=== PATIENT | female | born 1930 | race American Indian/Alaskan Native ===

== ENCOUNTER 2016-10-14 11:56 | Emergency (ER) | payer MEDICARE, BC ==
[2016-10-14 12:14] VITALS: BMI 19.7
[2016-10-14 12:18] VITALS: TEMP 97.6
[2016-10-14] MEDS ORDERED: Sodium Chloride 0.9% 1,000 ML IV STA (12:33)
--- NOTE | 2016-10-14 12:42 | ED PDOC ---
Arrival/HPI - General Chief Complaint: Abdominal Pain Time Seen by Provider: 10/14/16 12:07 Historian: Patient - History of Present Illness Narrative History of Present Illness (Text): 10/14/16 12:38 Aby Alvarez is a 86 year old female, with a history of dementia, hypertension , breast CA, and hysterectomy, presents to the emergency room complaining of constipation associated with intermittent abdominal pain of past week. Last bowel movement was a week ago. Patient is not on any new pain medications. Patient states that she took OTC stool softeners for minimal relief. Currently in the emergency department, patient is drowsy, weak and not oriented to time. Son states dementia at baseline. Denies fever, chills, headache, dizziness, chest pain, shortness of breath, nausea, vomiting, diarrhea, urinary symptoms, or any other complaints at this time. Time/Duration: 1 week Symptom Onset: Gradual Symptom Course: Unchanged Severity Level: Mild Activities at Onset: Light Past Medical History - Provider Review Nursing Documentation Reviewed: Yes - Infectious Disease Hx of Infectious Diseases: None - Cardiac Hx Cardiac Disorders: Yes Hx Hypertension: Yes - Pulmonary Hx Respiratory Disorders: No - Neurological Hx Neurological Disorder: Yes Hx Dementia: Yes - HEENT Hx HEENT Disorder: No - Renal Hx Renal Disorder: No - Endocrine/Metabolic Hx Endocrine Disorders: No - Hematological/Oncological Hx Blood Disorders: No - Integumentary Hx Dermatological Disorder: No - Musculoskeletal/Rheumatological Hx Musculoskeletal Disorders: Yes Hx Falls: Yes - Gastrointestinal Hx Gastrointestinal Disorders: No - Genitourinary/Gynecological Hx Genitourinary Disorders: No - Psychiatric Hx Psychophysiologic Disorder: No Hx Depression: No Hx Emotional Abuse: No Hx Physical Abuse: No Hx Substance Use: No - Surgical History Hx Hysterectomy: Yes Other/Comment: Left mastectomy - Anesthesia Hx Anesthesia: Yes - Suicidal Assessment Feels Threatened In Home Enviroment: No Family/Social History - Physician Review Nursing Documentation Reviewed: Yes Family/Social History: No Known Family HX Smoking Status: Never Smoked Hx Alcohol Use: No Hx Substance Use: No Allergies/Home Meds Allergies/Adverse Reactions: Allergies [place] And Derivatives Allergy (Verified 10/14/16 12:14) ITCHING Home Medications: Home Meds Medication Instructions Recorded Confirmed Donepezil [Aricept] 5 mg PO DAILY 08/15/16 08/15/16 Nifedipine [Nifedipine ER] 90 mg PO DAILY 08/15/16 08/15/16 Potassium Chloride [Klor-Con 10] 10 meq PO DAILY 08/15/16 08/15/16 hydroCHLOROthiazide [Hydrodiuril] 25 mg PO DAILY 08/15/16 08/15/16 levETIRAcetam [Keppra] 500 mg PO BID 08/17/16 08/17/16 Review of Systems - Physician Review All systems were reviewed & negative as marked: Yes - Review of Systems Constitutional: Normal. absent: Fatigue, Fevers Respiratory: Normal. absent: SOB, Cough Cardiovascular: Normal. absent: Chest Pain Gastrointestinal: Abdominal Pain, Constipation. absent: Diarrhea, Nausea, Vomiting Neurological: Normal. absent: Headache, Dizziness Psychiatric: Normal Physical Exam - Physical Exam Narrative Physical Exam (Text): Constitutional: No acute distress. Head: Normocephalic. Atraumatic. Eyes: PERRL. ENT: Moist mucous membranes. Neck: Supple. Cardiovascular: Regular rate. Chest: No tenderness. Respiratory: Clear to auscultation bilaterally. GI: Soft. Nondistended. Mild diffuse abdominal tenderness Back: No CVA tenderness. Musculoskeletal: No tenderness or swelling of extremities. Skin: No rash. Neurologic: Alert, no focal deficit. Vital Signs Reviewed: Yes Vital Signs Temp Pulse Resp BP Pulse Ox 10/14/16 14:46 77 18 155/69 H 98 10/14/16 13:41 62 15 166/62 H 100 10/14/16 12:14 97.6 F 68 15 134/67 100 Temperature: Afebrile Blood Pressure: Normal Pulse: Regular Respiratory Rate: Normal Appearance: Positive for: Well-Appearing, Non-Toxic, Comfortable Pain Distress: None Mental Status: Positive for: other (Alert, not oriented to time. ) Medical Decision Making ED Course and Treatment: 10/14/16 12:45 Impression: A 86 year old female presenting to emergency room for evaluation of 1 week duration of constipation. Plan: -- EKG -- CT abdomen pelvis -- IV fluids -- Urinalysis -- Reassess and disposition Progress Notes: Accession No. : [id number] Patient Name / ID : GIFTY FITZGERALD / [id number] Exam Date : 10/14/2016 12:55:15 ( Approved ) Study Comment : Sex / Age : F / 86Y Creator : Justen Zafar MD Dictator : Justen Zafar MD Marketing Director Assisted Living : [facility] Artist : Justen Zafar MD Approver2 : Report Date : 10/14/2016 14:24:25 My Comment : PROCEDURE: CT Abdomen and pelvis dated 10/14/2016 HISTORY: abdominal pain, constipation COMPARISON: Comparison made with CT scan of the abdomen and pelvis 09/10/2016 TECHNIQUE: Contiguous axial images of the abdomen and pelvis performed without oral or intravenous contrast material. . Coronal and Sagittal reformats generated. Radiation dose: Total exam DLP = 159.49 mGy-cm. FINDINGS: LOWER THORAX: Elevation left hemidiaphragm consistent with eventration. minor bibasilar atelectasis/ scarring changes are present. No evidence of basilar pneumothorax. . Heart size is enlarged. Small pericardial effusion. There is small hiatal hernia. LIVER: The liver exhibits normal size and attenuation pattern without obvious mass collection or calcification. Pancreas is poorly seen due to markedly distended stool-filled large bowel and lack of oral an IV contrast material as well as paucity of retroperitoneal/intraperitoneal fat. GALLBLADDER AND BILE DUCTS: Unremarkable. Gallbladder is physiologically distended. No evidence of intraluminal gallbladder calculi. PANCREAS: The the pancreas is poorly seen due to markedly distended bowel, lack of oral/ IV contrast material and a paucity of retroperitoneal/intraperitoneal fat. No obvious pancreatic mass, collection, calcification or significant ductal dilatation seen. SPLEEN: Spleen exhibits normal size though does appears somewhat medially displaced by the significantly distended stool filled large bowel ADRENALS: Right adrenal gland appears grossly unremarkable. Left adrenal gland is poorly delineated due to the medially displaced spleen and at distended bowel. KIDNEYS AND URETERS: The kidneys exhibit relatively symmetric size. No evidence of nephrolithiasis or hydronephrosis. . BLADDER: Urinary bladder is physiologically distended. No evidence of intraluminal urinary bladder calculi. REPRODUCTIVE: Apparent status post hysterectomy APPENDIX: Appendix is not seen with any certainty due to markedly distended stool-filled colon. BOWEL: There is a very large amount of stool throughout the entire colon consistent with fecal impaction. Particularly the rectum and sigmoid as well as descending colon. The distal transverse colon is markedly air-filled and distended. PERITONEUM: No gross free intraperitoneal air questionable small amount of pelvic ascites. Re- demonstrated is a rounded calcification adjacent to to the anterior margin of the lower psoas muscle unchanged from prior study. This could represent a calcified lymph node. LYMPH NODES: Unremarkable. No enlarged lymph nodes. VASCULATURE: Calcified atherosclerotic plaque changes along the abdominal aorta and iliac arteries. No evidence of abdominal aortic aneurysm. BONES: No multilevel degenerative spondylosis of the lower thoracic and lumbar spine. OTHER FINDINGS: None. IMPRESSION: Limited study as described. Findings consistent with significant fecal impaction with marked air-filled distention of the distal transverse colon. Questionable small amount of pericolic ascites. Small pericardial effusion. See above discussion for additional findings and details. Patient in no acute distress during ER stay. Enema unsuccessful but did take PO potassium well. Manual disimpaction attempted but patient did not tolerate well and aborted. Stool in rectum was soft. Will discharge home on Magnesium citrate and instructed to f/u with GI. Return to ER for worsening pain, fever, vomiting , or dyspnea. - Lab Interpretations Lab Results: 10/14/16 12:45 10/14/16 12:45 Lab Results 10/14/16 13:50: Urine Color Yellow, Urine Appearance Clear, Urine pH 6.5, Ur Specific [place] 1.010, Urine Protein Negative, Urine Glucose (UA) Negative, Urine Ketones Negative, Urine Blood Negative, Urine Nitrate Negative, Urine Bilirubin Negative, Urine Urobilinogen 0.2, Ur Leukocyte Esterase Trace H, Urine RBC Negative, Urine WBC 0 - 2, Urine Opiates Screen Negative, Urine Methadone Screen Negative, Ur Barbiturates Screen Negative, Ur Phencyclidine Scrn Negative, Ur Amphetamines Screen Negative, U Benzodiazepines Scrn Negative , U Oth Cocaine Metabols Negative, U Cannabinoids Screen Negative 10/14/16 12:45: WBC 4.8, RBC 3.90, Hgb 12.0, Hct 34.4 L, MCV 88.2, MCH 30.8, MCHC 34.9, RDW 13.5, Plt Count 230, MPV 8.9, Gran % 48.5 L, Lymph % (Auto) 37.0 H, [place] % (Auto) 9.0 H, Eos % (Auto) 5.3 H, Baso % (Auto) 0.2, Gran # 2.31, Lymph # 1.8, [place] # 0.4, Eos # 0.3, Baso # 0.01, Sodium 137, Potassium 3.0 L, Chloride 99, Carbon Dioxide 28, Anion Gap 13, BUN 10, Creatinine 0.6, Est GFR ( Amer) > 60, Est GFR (Non-Af Amer) > 60, Random Glucose 72, Calcium 9.5, Total Bilirubin 0.4, AST 30, ALT 18, Alkaline Phosphatase 68, Total Protein 7.7 , Albumin 3.9, Globulin 3.8, Albumin/Globulin Ratio 1.0 L, Lipase 66 - RAD Interpretation Radiology Orders: 10/14/16 12:33 ABD & PELVIS W/O PO OR IV CONT [CT] Stat - Medication Orders Current Medication Orders: Sodium Chloride (Sodium Chloride 0.9%) 1,000 mls @ 100 mls/hr IV .Q10H STA Stop: 10/14/16 22:32 Last Admin: 10/14/16 13:25 Dose: 100 MLS/HR eMAR Start Stop Document 10/14/16 13:25 EAR (Rec: 10/14/16 13:26 EAR [facility] [id number] Intravenous Solution Start Date 10/14/16 Start Time 13:26 End Date 10/14/16 End time 14:26 Total Infusion Time 60 Discontinued Medications Potassium Chloride (K-Dur 20 Meq Er Tab) 40 meq PO STAT STA Stop: 10/14/16 14:44 Last Admin: 10/14/16 16:02 Dose: 40 MEQ Sodium Phosphate (Fleet Enema) 135 ml RC STAT STA Stop: 10/14/16 14:43 Last Admin: 10/14/16 16:26 Dose: - Scribe Statement The provider has reviewed the documentation as recorded by the Roxanna Mcnair Provider Attestation: All medical record entries made by the Monaibtemi were at my direction and personally dictated by me. I have reviewed the chart and agree that the record accurately reflects my personal performance of the history, physical exam, medical decision making, and the department course for this patient. I have also personally directed, reviewed, and agree with the discharge instructions and disposition. Disposition/Present on Arrival - Present on Arrival Any Indicators Present on Arrival: No History of DVT/PE: No History of Uncontrolled Diabetes: No Urinary Catheter: No History of Decub. Ulcer: No History Surgical Site Infection Following: None - Disposition Have Diagnosis and Disposition been Completed?: Yes Diagnosis: Constipation Disposition: HOME/ ROUTINE Disposition Time: 14:24 Patient Plan: Discharge Patient Problems: Current Active Problems Problem Status Diagnosed Chest pain Acute Skull deformity Acute Syncope Acute Condition: STABLE Discharge Instructions (ExitCare): Constipation (ED) Prescriptions: Magnesium Citrate [Citrate of Mag] 300 ml PO ONCE #1 bottle Referrals: Sheri MCBRIDE,MD Jhon [Medical Doctor] - Follow up with primary
[2016-10-14 12:56] LABS: ADD MANUAL DIFF? NO
[2016-10-14 12:58] LABS: BASO # 0.01 K/mm3 (0.0-2.0); BASO % 0.2 % (0.0-3.0); EOS # 0.3 (0.0-0.7); EOS % 5.3 % (1.5-5.0); GRAN # 2.31 (1.4-6.5); GRAN % 48.5 % (50.0-68.0); HEMATOCRIT 34.4 % (36.0-48.0); LYMPH # 1.8 (1.2-3.4); MEAN CELL VOLUME 88.2 fL (80.0-105.0); MEAN CORPUSCULAR HEMOGLOBIN 30.8 pg (25.0-35.0); MEAN CORPUSCULAR HGB CONC 34.9 g/dl (31.0-37.0); MEAN PLATELET VOLUME 8.9 fl (7.0-11.0); MONO # 0.4 (0.1-0.6); PLATELET COUNT 230 10^3/uL (120.0-450.0); RED CELL DISTRIBUTION WIDTH 13.5 % (11.5-14.5); WHITE BLOOD COUNT 4.8 10^3/ul (4.5-11.0)
[2016-10-14 13:09] LABS: ALKALINE PHOSPHATASE 68 U/L (38-133); ALT/SGPT 18 U/L (7-56); AST/SGOT 30 U/L (15-39); BILIRUBIN,TOTAL 0.4 mg/dL (0.2-1.3); BLOOD UREA NITROGEN 10 mg/dL (7-21); CALCIUM 9.5 mg/dL (8.4-10.5); CARBON DIOXIDE 28 mmol/L (21-33); CHLORIDE 99 mmol/L (95-110); GFR AFRICAN-AMERICAN > 60; GLUCOSE,RANDOM 72 mg/dL (70-110); LIPASE 66 U/L (23-300); SODIUM 137 mmol/L (132-148); TOTAL PROTEIN 7.7 g/dL (5.8-8.3)
[2016-10-14 14:05] LABS: PH,URINE 6.5 (4.7-8.0); URINE BILIRUBIN NEGATIVE (NEGATIVE); URINE BLOOD NEGATIVE (NEGATIVE); URINE GLUCOSE (UA) NEGATIVE (NEGATIVE); URINE KETONE NEGATIVE (NEGATIVE); URINE LEUKOCYTE ESTERASE TRACE Leu/uL (NEGATIVE); URINE PROTEIN NEGATIVE mg/dL (<30 mg/dL); URINE UROBILINOGEN 0.2 E.U./dL (<1 E.U./dL)
[2016-10-14 14:06] LABS: URINE APPEARANCE CLEAR (CLEAR); URINE COLOR YELLOW (YELLOW)
[2016-10-14 14:17] LABS: URINE RBC NEGATIVE /hpf (0-2); URINE WBC 0 - 2 /hpf (0-6)
--- NOTE | 2016-10-14 14:26 | CT ---
PROCEDURE: CT Abdomen and pelvis dated 10/14/2016 HISTORY: abdominal pain, constipation COMPARISON: Comparison made with CT scan of the abdomen and pelvis 09/10/2016 TECHNIQUE: Contiguous axial images of the abdomen and pelvis performed without oral or intravenous contrast material. . Coronal and Sagittal reformats generated. Radiation dose: Total exam DLP = 159.49 mGy-cm. FINDINGS: LOWER THORAX: Elevation left hemidiaphragm consistent with eventration. minor bibasilar atelectasis/ scarring changes are present. No evidence of basilar pneumothorax. . Heart size is enlarged. Small pericardial effusion. There is small hiatal hernia. LIVER: The liver exhibits normal size and attenuation pattern without obvious mass collection or calcification. Pancreas is poorly seen due to markedly distended stool-filled large bowel and lack of oral an IV contrast material as well as paucity of retroperitoneal/intraperitoneal fat. GALLBLADDER AND BILE DUCTS: Unremarkable. Gallbladder is physiologically distended. No evidence of intraluminal gallbladder calculi. PANCREAS: The the pancreas is poorly seen due to markedly distended bowel, lack of oral/ IV contrast material and a paucity of retroperitoneal/intraperitoneal fat. No obvious pancreatic mass, collection, calcification or significant ductal dilatation seen. SPLEEN: Spleen exhibits normal size though does appears somewhat medially displaced by the significantly distended stool filled large bowel ADRENALS: Right adrenal gland appears grossly unremarkable. Left adrenal gland is poorly delineated due to the medially displaced spleen and at distended bowel. KIDNEYS AND URETERS: The kidneys exhibit relatively symmetric size. No evidence of nephrolithiasis or hydronephrosis. . BLADDER: Urinary bladder is physiologically distended. No evidence of intraluminal urinary bladder calculi. REPRODUCTIVE: Apparent status post hysterectomy APPENDIX: Appendix is not seen with any certainty due to markedly distended stool-filled colon. BOWEL: There is a very large amount of stool throughout the entire colon consistent with fecal impaction. Particularly the rectum and sigmoid as well as descending colon. The distal transverse colon is markedly air-filled and distended. PERITONEUM: No gross free intraperitoneal air questionable small amount of pelvic ascites. Re- demonstrated is a rounded calcification adjacent to to the anterior margin of the lower psoas muscle unchanged from prior study. This could represent a calcified lymph node. LYMPH NODES: Unremarkable. No enlarged lymph nodes. VASCULATURE: Calcified atherosclerotic plaque changes along the abdominal aorta and iliac arteries. No evidence of abdominal aortic aneurysm. BONES: No multilevel degenerative spondylosis of the lower thoracic and lumbar spine. OTHER FINDINGS: None. IMPRESSION: Limited study as described. Findings consistent with significant fecal impaction with marked air-filled distention of the distal transverse colon. Questionable small amount of pericolic ascites. Small pericardial effusion. See above discussion for additional findings and details.
[2016-10-14] MEDS ORDERED: Potassium Chloride 20 mEq ER Tab PO STA (14:43)
[2016-10-14 18:11] VITALS: BP 156/76; PULSE 57; RESP 15; O2SAT 100
== END 2016-10-14 18:22 | disposition home or self-care (01) ==
LOC: ED 11:56
DX: K59.00 Constipation, unspecified (principal); I10 Essential (primary) hypertension
CPT/HCPCS: 74176; 80053; 81001; 83690; 85025; 96360; 99285; G0480; J7040

== ENCOUNTER 2016-10-25 13:25 | Observation (INO) | payer BC, MEDICARE ==
[2016-10-25] MEDS ORDERED: Sodium Chloride 0.9% 1,000 ML IV STA (13:48)
--- NOTE | 2016-10-25 13:52 | ED PDOC ---
Arrival/HPI - General Chief Complaint: Weakness/Neurological Deficit Time Seen by Provider: 10/25/16 13:34 Historian: Patient, Other (friend from [facility]) - History of Present Illness Narrative History of Present Illness (Text): 10/25/16 13:49 86 y.o. female whose PMHx includes HTN, seizures, and mild dementia who is brought to the ED for altered mental status. According to a friend, who was with her at [facility], the patient got up to go to the bathroom and appeared to be unsteady. She did manage to urinate and return. From there the patient recalls feeling as if she was about to pass out, but does not recall what happened. Her friend says she did not appear to fully pass out but appeared weak and seemed confused. No seizure activity or focal weakness was noted. The patient here denies any headache or visual changes or cp or sob but admits to generalized body aches and dysuria. No fever but some chills. Past Medical History - Infectious Disease Hx of Infectious Diseases: None - Reproductive Menopause: Yes - Cardiac Hx Cardiac Disorders: Yes Hx Hypertension: Yes - Pulmonary Hx Respiratory Disorders: No - Neurological Hx Neurological Disorder: Yes Hx Dementia: Yes - HEENT Hx HEENT Disorder: No - Renal Hx Renal Disorder: No - Endocrine/Metabolic Hx Endocrine Disorders: No - Hematological/Oncological Hx Blood Disorders: No - Integumentary Hx Dermatological Disorder: No - Musculoskeletal/Rheumatological Hx Musculoskeletal Disorders: Yes Hx Falls: Yes - Gastrointestinal Hx Gastrointestinal Disorders: No - Genitourinary/Gynecological Hx Genitourinary Disorders: No - Psychiatric Hx Psychophysiologic Disorder: No Hx Depression: No Hx Emotional Abuse: No Hx Physical Abuse: No Hx Substance Use: No - Surgical History Hx Hysterectomy: Yes Other/Comment: Left mastectomy - Anesthesia Hx Anesthesia: Yes - Suicidal Assessment Feels Threatened In Home Enviroment: No Family/Social History Family/Social History: No Known Family HX Smoking Status: Never Smoked Hx Alcohol Use: No Hx Substance Use: No Allergies/Home Meds Allergies/Adverse Reactions: Allergies [place] And Derivatives Allergy (Verified 10/14/16 12:14) ITCHING Home Medications: Home Meds Medication Instructions Recorded Confirmed Donepezil [Aricept] 5 mg PO DAILY 08/15/16 08/15/16 Nifedipine [Nifedipine ER] 90 mg PO DAILY 08/15/16 08/15/16 Potassium Chloride [Klor-Con 10] 10 meq PO DAILY 08/15/16 08/15/16 hydroCHLOROthiazide [Hydrodiuril] 25 mg PO DAILY 08/15/16 08/15/16 levETIRAcetam [Keppra] 500 mg PO BID 08/17/16 08/17/16 Review of Systems - Review of Systems Constitutional: Fatigue Eyes: absent: Vision Changes ENT: Normal Respiratory: Normal. absent: SOB, Cough Cardiovascular: Normal. absent: Chest Pain Gastrointestinal: Normal. absent: Abdominal Pain, Nausea, Vomiting Genitourinary Female: Dysuria Musculoskeletal: Myalgias Skin: absent: Rash Neurological: Dizziness. absent: Headache, Focal Weakness Endocrine: absent: Diaphoresis Physical Exam Vital Signs Temp Pulse Resp BP Pulse Ox 10/25/16 15:26 97.1 F L 64 18 173/71 H 100 10/25/16 13:36 98.0 F 60 18 166/73 H 100 Temperature: Afebrile Blood Pressure: Normal Pulse: Regular Respiratory Rate: Normal Appearance: Positive for: Other (cachectic elderly black female) Pain Distress: None Mental Status: Positive for: Confused (oriented to person, place, but not to time) Finger Stick Blood Glucose: 88 - Systems Exam Head: Present: Atraumatic, Normocephalic Pupils: Present: PERRL Extroacular Muscles: Present: EOMI Conjunctiva: Present: Normal Mouth: Present: Moist Mucous Membranes Pharnyx: Present: Normal. No: ERYTHEMA, EXUDATE Neck: Present: Normal Range of Motion Respiratory/Chest: Present: Clear to Auscultation, Good Air Exchange. No: Respiratory Distress, Accessory Muscle Use Cardiovascular: Present: Regular Rate and Rhythm, Normal S1, S2. No: Murmurs Abdomen: Present: Normal Bowel Sounds. No: Tenderness, Distention, Peritoneal Signs Back: Present: Normal Inspection Upper Extremity: Present: Normal Inspection. No: Cyanosis, Edema Lower Extremity: Present: Normal Inspection. No: Edema Neurological: Present: GCS=15, CN II-XII Intact, Speech Normal Skin: Present: Warm, Dry, Normal Color. No: Rashes Psychiatric: Present: Alert, Oriented x 3, Normal Insight, Normal Concentration Medical Decision Making ED Course and Treatment: 10/25/16 17:15 Patient here with near syncope and confusion but no focal weakness. EKG with more pronounced T wave inversions but otherwise labs, CXR, and brain CT were unremarkable. Patient given IVF and reports feeling better. Will place on observation on tele for further eval and workup. Patient with NIHSS of zero, on presentation, not a tpa candidate. - Lab Interpretations Lab Results: 10/25/16 14:00 10/25/16 14:00 Lab Results 10/25/16 14:15: Urine Color Straw, Urine Appearance Clear, Urine pH 6.5, Ur Specific [place] <= 1.005, Urine Protein Negative, Urine Glucose (UA) Negative, Urine Ketones Negative, Urine Blood Negative, Urine Nitrate Negative, Urine Bilirubin Negative, Urine Urobilinogen 0.2, Ur Leukocyte Esterase Trace H, Urine RBC Negative, Urine WBC 0 - 2, Ur Epithelial Cells 0 - 2, Urine Bacteria Neg 10/25/16 14:00: WBC 5.8 D, RBC 4.21, Hgb 12.9, Hct 37.1, MCV 88.1, MCH 30.6, MCHC 34.8, RDW 13.4, Plt Count 249, MPV 9.5, Gran % 48.0 L, Lymph % (Auto) 40.1 H, [place] % (Auto) 7.8 H, Eos % (Auto) 3.8, Baso % (Auto) 0.3, Gran # 2.78, Lymph # 2.3, [place] # 0.5, Eos # 0.2, Baso # 0.02, ESR 35 H, PT 11.3, INR 1.05, APTT 29.8, pO2 50, VBG pH 7.46 H, VBG pCO2 39.0 L, VBG HCO3 27.7, VBG Total CO2 28.9 H, VBG O2 Sat (Calc) 88.8 H, VBG Base Excess 3.7 H, VBG Potassium 3.0 L, Glucose 79, Lactate 1.5, FiO2 21.0, Sodium 138.0, Potassium 3.0 L, Chloride 103.0, Carbon Dioxide 27, Anion Gap 13, BUN 11, Creatinine 0.7, Est GFR ( Amer) > 60, Est GFR (Non-Af Amer) > 60, Random Glucose 80, Calcium 9.9, Phosphorus 2.8, Magnesium 1.9, Total Bilirubin 0.6, AST 33, ALT 20, Alkaline Phosphatase 87, Lactate Dehydrogenase 611, Total Creatine Kinase 80, Troponin I < 0.01 D, NT-Pro-B Natriuret Pep 359, Total Protein 8.3, Albumin 4.3, Globulin 4.0, Albumin/Globulin Ratio 1.1, Lipase 146, Venous Blood Potassium 3.0 L - RAD Interpretation Radiology Orders: 10/25/16 13:46 CHEST PORTABLE [RAD] Stat 10/25/16 13:48 Brain [HEAD W/O CONTRAST] [CT] Stat - EKG Interpretation EKG Interpretation (Text): 10/25/16 13:53 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, LAD with LAFB with marked T wave inversions inferolaterally that were present but more pronounced than EKG of Interpreted by ED Physician: Yes Type: 12 lead EKG - Medication Orders Current Medication Orders: Discontinued Medications Sodium Chloride (Sodium Chloride 0.9%) 1,000 mls @ 999 mls/hr IV .Q1H1M STA Stop: 10/25/16 14:48 Last Admin: 10/25/16 13:49 Dose: 999 MLS/HR eMAR Start Stop Document 10/25/16 13:49 KIRAN (Rec: 10/25/16 13:50 KIRAN [id number]) Intravenous Solution Start Date 10/25/16 Start Time 13:49 End Date 10/25/16 End time 14:49 Total Infusion Time 60 Potassium Chloride (Potassium Chloride Oral Soln) 40 meq PO STAT STA Stop: 10/25/16 15:28 Last Admin: 10/25/16 16:05 Dose: 40 MEQ NIHSS Scale ([place]) Time Performed: 13:35 - How Severe is the [place] Baseline Level of Consciousness: 0=Alert LOC to Questions: 0=Both comments correct LOC to commands: 0=Obeys both correctly Best Gaze: 0=Normal Visual: 0=No visual loss Facial: 0=Normal Motor Arm - Left: 0=No drift Motor Arm - Right: 0=No drift Motor Leg - Left: 0=No drift Motor Leg - Right: 0=No drift Limb Ataxia: 0=Absent Sensory: 0=Normal Best Language: 0=No aphasia Dysarthia: 0=Normal articulation Extinction & Inattention (Neglect): 0=Normal, no object Score: 0 Risk Level: No Stroke Risk Disposition/Present on Arrival - Present on Arrival Any Indicators Present on Arrival: No History of DVT/PE: No History of Uncontrolled Diabetes: No Urinary Catheter: No History of Decub. Ulcer: No History Surgical Site Infection Following: None - Disposition Have Diagnosis and Disposition been Completed?: Yes Diagnosis: Altered mental status, Pre-syncope Disposition: HOSPITALIZED Disposition Time: 17:00 Patient Plan: Observation, Telemetry Patient Problems: Current Active Problems Problem Status Diagnosed Chest pain Acute Skull deformity Acute Syncope Acute Condition: FAIR
[2016-10-25 14:02] LABS: ADD MANUAL DIFF? NO
[2016-10-25 14:09] LABS: VENOUS BLOOD GAS BASE EXCESS 3.7 mmol/L (0.0-2.0); VENOUS BLOOD PH 7.46 (7.32-7.43)
[2016-10-25 14:19] LABS: BASO # 0.02 K/mm3 (0.0-2.0); BASO % 0.3 % (0.0-3.0); EOS # 0.2 (0.0-0.7); EOS % 3.8 % (1.5-5.0); GRAN # 2.78 (1.4-6.5); HEMATOCRIT 37.1 % (36.0-48.0); LYMPH # 2.3 (1.2-3.4); LYMPH % 40.1 % (22.0-35.0); MEAN CELL VOLUME 88.1 fL (80.0-105.0); MEAN CORPUSCULAR HEMOGLOBIN 30.6 pg (25.0-35.0); MEAN CORPUSCULAR HGB CONC 34.8 g/dl (31.0-37.0); MEAN PLATELET VOLUME 9.5 fl (7.0-11.0); MONO # 0.5 (0.1-0.6); MONO % 7.8 % (1.0-6.0); PLATELET COUNT 249 10^3/uL (120.0-450.0); RED CELL DISTRIBUTION WIDTH 13.4 % (11.5-14.5); WHITE BLOOD COUNT 5.8 10^3/ul (4.5-11.0)
[2016-10-25 14:24] LABS: PH,URINE 6.5 (4.7-8.0); URINE BILIRUBIN NEGATIVE (NEGATIVE); URINE BLOOD NEGATIVE (NEGATIVE); URINE GLUCOSE (UA) NEGATIVE (NEGATIVE); URINE KETONE NEGATIVE (NEGATIVE); URINE LEUKOCYTE ESTERASE TRACE Leu/uL (NEGATIVE); URINE PROTEIN NEGATIVE mg/dL (<30 mg/dL); URINE UROBILINOGEN 0.2 E.U./dL (<1 E.U./dL)
[2016-10-25 14:28] LABS: URINE APPEARANCE CLEAR (CLEAR); URINE COLOR STRAW (YELLOW)
[2016-10-25 14:29] LABS: INR 1.05 (0.93-1.08); PARTIAL THROMBOPLASTIN TIME 29.8 Seconds (23.7-30.8)
[2016-10-25 14:34] LABS: ALB/GLOB RATIO 1.1 (1.1-1.8); ALKALINE PHOSPHATASE 87 U/L (38-133); ALT/SGPT 20 U/L (7-56); AST/SGOT 33 U/L (15-39); BILIRUBIN,TOTAL 0.6 mg/dL (0.2-1.3); BLOOD UREA NITROGEN 11 mg/dL (7-21); CALCIUM 9.9 mg/dL (8.4-10.5); CARBON DIOXIDE 27 mmol/L (21-33); CHLORIDE 100 mmol/L (98-107); GFR AFRICAN-AMERICAN > 60; GLUCOSE,RANDOM 80 mg/dL (70-110); MAGNESIUM 1.9 mg/dL (1.7-2.2); PHOSPHOROUS 2.8 mg/dL (2.5-4.5); SODIUM 137 mmol/L (132-148); TOTAL PROTEIN 8.3 g/dL (5.8-8.3)
[2016-10-25 14:43] LABS: URINE BACTERIA NEG (NEG); URINE EPITHELIAL CELLS 0 - 2 /hpf (0-5); URINE RBC NEGATIVE /hpf (0-2); URINE WBC 0 - 2 /hpf (0-6)
[2016-10-25 14:56] LABS: LIPASE 146 U/L (23-300)
[2016-10-25 15:09] LABS: TROPONIN I < 0.01 ng/mL
[2016-10-25] MEDS ORDERED: Potassium Chloride 40 mEq/30 ml LIQ UD PO STA (15:27)
[2016-10-25 15:31] LABS: ERYTHROCYTE SEDIMENTATION RATE 35 mm/hr (0.0-20.0)
--- NOTE | 2016-10-25 16:29 | CT ---
PROCEDURE: CT HEAD WITHOUT CONTRAST. HISTORY: alt ms COMPARISON: 09/14/2016 TECHNIQUE: Axial computed tomography images were obtained through the head/brain without intravenous contrast. This CT exam was performed using one or more of the following dose reduction techniques: Automated exposure control, adjustment of the mA and/or kV according to patient size, and/or use of iterative reconstruction technique. Radiation dose: Total exam DLP = 677 mGy-cm. FINDINGS: HEMORRHAGE: No intracranial hemorrhage. BRAIN: No mass effect or edema. Chronic periventricular white matter ischemic disease. VENTRICLES: Unremarkable. No hydrocephalus. CALVARIUM: Unremarkable. PARANASAL SINUSES: Unremarkable as visualized. No significant inflammatory changes. MASTOID AIR CELLS: Unremarkable as visualized. No inflammatory changes. OTHER FINDINGS: None. IMPRESSION: No intracranial hemorrhage.
[2016-10-25 22:24] VITALS: BMI 19.5
--- NOTE | 2016-10-25 22:40 | CP.PCM.PN ---
Subjective - Date & Time of Evaluation Date of Evaluation: 10/25/16 Time of Evaluation: 22:40 - Subjective Subjective: Patient was sen at bedside for her complaint of bilateral legs cramps. Began today. Has no other complaints. Denies history of injuries to legs. Had potassium level low earlier and received replacement potassium. Medical record was reviewed. This 86 year old woman was admitted with altered mental status. Has PMH of left sided breast cancer, left mastectomy, HTN,CAD,dementia, hystrectomy. Objective - Vital Signs/Intake and Output Vital Signs (last 24 hours): Temp Pulse Resp BP Pulse Ox 97.6 F 64 18 158/71 H 100 10/25/16 22:18 10/25/16 22:18 10/25/16 22:18 10/25/16 22:18 10/25/16 20:30 - Medications Medications: Current Medications Donepezil HCl (Aricept) 5 mg PO DAILY [facility] Hydrochlorothiazide (Hydrodiuril) 25 mg PO DAILY [facility] Levetiracetam (Keppra) 500 mg PO BID [facility] Last Admin: 10/25/16 21:47 Dose: 500 mg Nifedipine (Procardia Xl) 90 mg PO DAILY [facility] Potassium Chloride (Klor-Con 10) 10 meq PO DAILY [facility] - Labs Labs: PT 11.3 Seconds (9.9-11.8) 10/25/16 14:00 INR 1.05 (0.93-1.08) 10/25/16 14:00 APTT 29.8 Seconds (23.7-30.8) 10/25/16 14:00 - Constitutional Appears: Well, No Acute Distress - Head Exam Head Exam: ATRAUMATIC, NORMAL INSPECTION, NORMOCEPHALIC - Eye Exam Eye Exam: Normal appearance - ENT Exam ENT Exam: Normal External Ear Exam - Neck Exam Neck Exam: Normal Inspection - Respiratory Exam Respiratory Exam: NORMAL BREATHING PATTERN - Cardiovascular Exam Cardiovascular Exam: absent: JVD - GI/Abdominal Exam GI & Abdominal Exam: absent: Distended - Rectal Exam Rectal Exam: Deferred - Extremities Exam Extremities Exam: Normal Inspection Additional comments: Both legs calves tenderness positive. No swelling , redness of legs noticed. - Back Exam Back Exam: NORMAL INSPECTION - Neurological Exam Neurological Exam: Alert, Oriented x3 - Psychiatric Exam Psychiatric exam: Normal Affect, Normal Mood - Skin Skin Exam: Normal Color Assessment and Plan - Assessment and Plan (Free Text) Assessment: A/P:Legs cramps. Hypokalemia. Breast cancer. Hypertension. Tylenol 650 mg PO STAT.
[2016-10-25 23:02] LABS: TROPONIN I 0.03 ng/mL
--- NOTE | 2016-10-25 23:18 | HP ---
HISTORY OF PRESENT ILLNESS: The patient is a pleasant 86-year-old female, who presented to the ED with altered mental status. She was at the buddhism with a friend. She felt unsteady. She does not recall after that what happened. She did not have seizures. She has history of breast cancer on left side, status post left-sided mastectomy. In remission, no evidence of disease. She had MRI of the brain done in 08/2016, which did not show any metastatic lesions. She denies any headaches. No vision changes. She has hypertension, fairly controlled on current medications. She also has coronary artery disease, no active issues, stable disease. She has baseline dementia, which is stable. PAST MEDICAL HISTORY: Hypertension, coronary artery disease, dementia, history of breast cancer, left-sided mastectomy, hypertension. PAST SURGICAL HISTORY: Left mastectomy, hysterectomy. FAMILY HISTORY: No positive family history in mother and father. PERSONAL HISTORY: Nonsmoker. No history of alcohol abuse. SOCIAL HISTORY: Lives at home. ALLERGIES: CITRUS CAUSES ITCHING. HOME MEDICATIONS: Aricept 5 mg daily, nifedipine ER 90 mg daily, potassium 10 mEq daily, Keppra 500 mg p.o. b.i.d., hydrochlorothiazide 25 mg p.o. daily. REVIEW OF SYSTEMS: As per HPI. The rest of 12-point review of systems reviewed and negative. PHYSICAL EXAMINATION: GENERAL: Comfortable in bed, in no acute distress. VITAL SIGNS: Temperature 98, heart rate is 60 per minute, respiratory 18 per minute, blood pressure 160/70, pulse ox 100% room air. HEENT: Normal. NECK: No lymphadenopathy. CHEST: Air entry present, equal bilateral. No added sound. CARDIOVASCULAR: S1, S2 normal. No murmur. No gallop. ABDOMEN: Soft, nontender. No hepatosplenomegaly. EXTREMITIES: No edema. SKIN: Warm, moist, and intact. SPINE: Normal. CENTRAL NERVOUS SYSTEM: Alert, oriented x 3. No focal sensorimotor deficit. LYMPHADENOPATHY: None. LABORATORY DATA: White count 5.8, hemoglobin 12.9, hematocrit 37.1, platelet count 249. Sodium 137, potassium 3, BUN 11, creatinine 0.7, glucose 80. Chest x-ray: No infiltrate. EKG right bundle branch block, left LAD with LAFB, and T -wave inversion inferolaterally. ASSESSMENT: 1. Syncope. 2. History of breast cancer, left side. 3. Dementia. 4. Hypertension. 5. Coronary artery disease. PLAN: Her mental status is normal now. She received IV fluids on arrival to the ER. Neurology consult with Dr. Weber requested. Cardiology consultation with Dr. Ortega requested. History of breast cancer, left-sided, no evidence of recurrence. EKG: No acute changes. Blood count stable. Renal: BUN and creatinine are normal. We will continue Aricept 5 mg daily, hydrochlorothiazide 25 mg daily, Keppra 500 mg p.o. b.i.d., nifedipine 90 mg daily, potassium 10 mEq daily. We will continue to monitor electrolytes. Continue to monitor blood pressure. Recent MRI of the head in August. She will be admitted on tele monitoring. Discussed with the patient. Discussed with the staff nurse. DIET: Normal diet. Maureen Cm MD cc: [id number] TT: 10/25/2016 23:17:20 tn MTDD
[2016-10-26 05:47] VITALS: O2SAT 96
[2016-10-26 09:06] LABS: ADD MANUAL DIFF? NO
[2016-10-26 09:10] LABS: BASO # 0.02 K/mm3 (0.0-2.0); BASO % 0.3 % (0.0-3.0); EOS # 0.4 (0.0-0.7); EOS % 5.8 % (1.5-5.0); GRAN # 2.78 (1.4-6.5); GRAN % 45.9 % (50.0-68.0); HEMATOCRIT 35.5 % (36.0-48.0); LYMPH # 2.6 (1.2-3.4); LYMPH % 42.5 % (22.0-35.0); MEAN CELL VOLUME 87.9 fL (80.0-105.0); MEAN CORPUSCULAR HEMOGLOBIN 30.4 pg (25.0-35.0); MEAN CORPUSCULAR HGB CONC 34.6 g/dl (31.0-37.0); MONO # 0.3 (0.1-0.6); MONO % 5.5 % (1.0-6.0); PLATELET COUNT 230 10^3/uL (120.0-450.0); RED CELL DISTRIBUTION WIDTH 13.4 % (11.5-14.5); WHITE BLOOD COUNT 6.1 10^3/ul (4.5-11.0)
[2016-10-26 09:19] LABS: BLOOD UREA NITROGEN 12 mg/dL (7-21); CALCIUM 9.3 mg/dL (8.4-10.5); CARBON DIOXIDE 29 mmol/L (21-33); CHLORIDE 103 mmol/L (98-107); GFR AFRICAN-AMERICAN > 60; GLUCOSE,RANDOM 133 mg/dL (70-110); SODIUM 142 mmol/L (132-148)
--- NOTE | 2016-10-26 09:22 | RAD ---
HISTORY: Sepsis Patient COMPARISON: 08/16/2016 FINDINGS: LUNGS: The lungs are clear. There is no focal consolidation. PLEURA: No significant pleural effusion identified, no pneumothorax apparent. CARDIOVASCULAR: The heart is normal in size. There is unfolding of the aorta. There atherosclerotic aortic calcifications. OSSEOUS STRUCTURES: No significant abnormalities. VISUALIZED UPPER ABDOMEN: Normal. OTHER FINDINGS: There are multiple surgical clips in the left axilla. There is chronic elevation of the left hemidiaphragm. IMPRESSION: No active pulmonary disease.
[2016-10-26] MEDS ORDERED: Potassium Chloride 10 mEq ER Tab PO SCH (10:00)
[2016-10-26] MEDS ORDERED: NIFEdipine 90 mg ER Tab PO SCH (10:00)
[2016-10-26] MEDS ORDERED: NIFEdipine 30 mg ER Tab PO SCH (10:32)
--- NOTE | 2016-10-26 12:02 | CARD ---
APPROVED REPORT EKG Measurement Heart [id number] <Conclusion> Normal sinus rhythm Right bundle branch block Left anterior fascicular block Bifascicular block Left ventricular hypertrophy with repolarization abnormality Anteroseptal infarct, age undetermined Abnormal ECG
[2016-10-26] MEDS: Potassium Chloride 10 mEq 100 ML IVPB SCH ×2 (12:06→14:22)
[2016-10-26 13:26] VITALS: BP 124/65; RESP 20
[2016-10-26] MEDS ORDERED: Potassium Chloride 20 mEq ER Tab PO ONE ×2 (15:03→17:30)
--- NOTE | 2016-10-26 16:05 | CON ---
DATE: 10/26/2016 REASON FOR CONSULTATION AND FOLLOWUP: Cardiac evaluation, admitted with syncope. BRIEF CLINICAL HISTORY: An 86-year-old female with past medical history of hypertension, coronary ar anyi disease, dementia, breast CA status post mastectomy, admitted after having a syncopal episode wh ile the patient was in a jew. Said that she was at jew with her friend and felt unsteady and _ ___ so then she passed out. Denies any chest pain, denies any shortness of breath, denies any palpit ation. She denies any dyspnea on exertion. History in the chart mentioned coronary artery disease, but no details are available. PAST MEDICAL HISTORY: Significant for sub-XQ-iivxsfm myocardial infarction, coronary artery disease, dementia, asymptomatic hypertension, hyperlipidemia in the past, also history of seizure disorder, h istory of zqe-VP-xuhvksc myocardial infarction, history of coronary artery disease. The patient was admitted 09/11/2016 with cpz-[id number] myocardial infarction, decided to treat medically because of her mental condition. When the patient admitted initially on 09/11/2016 with syncope at that also and decided to treat medically. SOCIAL HISTORY: Denies any smoking. Denies any history of alcohol abuse. PAST HISTORY: As mentioned, significant for dementia, hypertension, and seizure disorder. PREVIOUS CARDIAC WORKUP: As follows: The patient had echocardiography done on 09/15/2016 that showed ejection fraction 30% to 35%, [id number]-nz-[id number] aortic regurgitation, aortic sclerosis, aortic stenos is, czguc-ev-azto mitral regurgitation, mild tricuspid regurgitation, RV systolic pressure 35. No pe ricardial effusion. EKG shows normal sinus, right bundle branch block, left anterior hemiblock, T-wa ve inversion, hypertrophy with repolarization abnormality, anteroseptal AL of undetermined age. PHYSICAL EXAMINATION: As follows: VITAL SIGNS: Temperature afebrile, heart rate 73, blood pressure 124/65. HEENT: PERRLA, intact. NECK: Supple. No carotid bruits. No thyromegaly. CHEST: Clear to auscultation. HEART: S1, S2 regular. ABDOMEN: Soft. EXTREMITIES: Clubbing and cyanosis negative. BLOOD WORKUP: As follows: WBC 6.1, hemoglobin 12.3, hematocrit 35.5, platelet count 230. Chemistry shows sodium 140, potassium 3, chloride 103, carbon dioxide 29, anion gap of 13, BUN 12, creatinine 0.9. Troponin x 2 negative 0.1, 0.23 negative. IMPRESSION: Syncope. No evidence of acute coronary syndrome. Abnormal EKG, right bundle branch and left anterior hemiblock. History of seizure disorder, octogenarian elder lady. No evidence for acu te coronary syndrome. RECOMMENDATIONS: Continue to check for orthostatic hypotension. The patient was bradycardiac on adm ission so we will avoid beta malena. Continue aspirin. Supplement potassium. Check for orthostasi s. Aggressive ____ and potassium. We will follow with you. Lipid profile, TSH, hemoglobin A1c. Thank you, Dr. Lea, for providing the opportunity in taking care of the patient. Destiny Gongora MD cc: [id number] TT: 10/26/2016 16:05:04 Confirmation # [id number] Dictation # [id number]
--- NOTE | 2016-10-26 16:20 | DS ---
The patient is an 86-year-old, known to me from previous admissions, was brought to Emergency Room. When she was in anabaptism her friend found her to be confused. She was unsteady in walking. The patien t cannot recall much. She does not have a good remote memory according to the ER report. She was no t found to have a seizure. PAST MEDICAL HISTORY: 1. Significant for CA breast on the left side, status post left mastectomy. 2. Hypertension. 3. Coronary artery disease. 4. Dementia. PHYSICAL EXAMINATION: GENERAL: Today, she is awake and alert, pleasantly confused. VITAL SIGNS: She is afebrile, pulse 55, respirations 18, blood pressure 106/50. LUNGS: Bilateral fair airflow, no rhonchi or crackle. HEART: S1, S2 audible. No murmur. ABDOMEN: Soft, nontender, no rebound, no guarding. NEUROLOGIC: She is awake and alert, but confused and disoriented. EXTREMITIES: Bilateral legs, no edema. LABORATORY EXAM: WBC is 6.1, hemoglobin 12.3, hematocrit 35.5, platelet 230. PT 11.3, INR 1.05. Ch emistry: Sodium 142, potassium 3.0, chloride 103, CO2 29, BUN 12, creatinine 0.7, blood sugar 133. Procalcitonin is 0.05. Urinalysis is unremarkable. CT scan of the head is negative. X-ray of the c hest is negative. ASSESSMENT AND PLAN: 1. Questionable altered mental status. 2. Dementia. 3. Unsteady gait. 4. History of seizure disorder. PLAN: Currently, the patient is on Keppra, Aricept, nifedipine, potassium and hydrochlorothiazide. Will get physical therapy evaluation. If patient is stable enough to ambulate with a cane or a walke r she can be discharged home. Scottie Lea MD cc: [id number] TT: 10/26/2016 16:20:03 bernie
[2016-10-26 17:58] VITALS: TEMP 97.5
--- NOTE | 2016-10-26 18:08 | CON ---
DATE: 10/26/2016 CHIEF COMPLAINT: Near syncope and confusion. HISTORY OF PRESENT ILLNESS: This is an 86-year-old woman who has history of hypertension, ____, loyda nary artery disease, dementia vascular type, history of breast cancer left-sided with left-sided mast ectomy, who presented to the hospital because she was at taoist with her friend. She felt unsteady i n terms of her balance. She could not recall what was going on at taoist. She denied having history of any seizures in the past. She had an MRI done in 08/2016 which does not show any acute intracrani al abnormalities, just mild diffuse general atrophy throughout the brain. She did not know where she was for particular brief period, but currently, she is back to baseline according to the son at [facility]. She is alert, oriented to person and place, not much of year. She does not know the address of where she lives. Recall after 5 minutes is 0/3 and she has a poor attention span. She says she read the Bible daily. She had an EEG in 08/2016 which was apparently normal and did not show any epilepti form activity. She has been placed on Keppra 500 mg p.o. b.i.d. for history of syncopal events and q uestionable seizure. Her CRP 3.6 and has a low potassium of 3 which is currently being replaced. PAST MEDICAL HISTORY: Hypertension, coronary artery disease, dementia, history of left breast cancer status post right mastectomy. PAST SURGICAL HISTORY: Left mastectomy, hysterectomy. PERSONAL HISTORY: No illicit drug use, smoking or ETOH abuse. She lives at home with her son. ALLERGIES: CITRUS CAUSES ITCHING. HOME MEDICATIONS: Aricept, nifedipine, potassium, Keppra, hydrochlorothiazide. REVIEW OF SYSTEMS: A 14-point review of systems is negative except for the HPI. PHYSICAL EXAMINATION: VITAL SIGNS: Temperature 97.6, pulse rate 73, blood pressure is 124/65, respiratory rate 20, oxygen 96% on room air. GENERAL: The patient is sitting up in bed, eating her food in no acute distress. HEENT: Atraumatic, normocephalic. PERRLA. Extraocular muscles intact. NECK: Supple, no JVD, no adenopathy noted. LUNGS: Clear to auscultation. No adventitious sounds. HEART: S1, S2, normal rate and rhythm. No murmurs, rubs, or gallops. ABDOMEN: Soft, nontender, nondistended. Bowel sounds are present. EXTREMITIES: No clubbing, no cyanosis. Peripheral pulses 2+ felt bilaterally. NEUROLOGIC: The patient is alert, oriented to person and place, not much of month or year. Recall a fter 5 minutes is 0/3. Poor attention span, thought process cannot spell the word world backwards. Speech is fluent, without any errors. Cranial nerves II through XII are intact. MOTOR: Slight increased tone throughout. Moves all extremities equally. No pronator drift seen. SENSORY: Light touch, pinprick, proprioception, and vibrations intact. DTRs are 1+ throughout and a bsent at the ankles. COORDINATION: Bnbfyb-[id number]-okkb intact. GAIT: Deferred for now. LABORATORY DATA: Sodium is 142, potassium 3, chloride 103, carbon dioxide of 29, BUN of 12, creatini ne 0.7. Random glucose of 133. ASSESSMENT AND PLAN: This is an 86-year-old woman with history of syncopal episode in the past, hist ory of hypertension, dementia vascular type, history of left sided breast cancer status post mastecto my, history of coronary artery disease who presented with a transient confusional episode. She did n ot know where she was, could not recall and fell unstable on her feet. Currently, she is back to her baseline. She is able to tell me simple things in history. At this time she could have had a trans ient confusional state, possibly secondary to transient cerebral hypoperfusion to the brain given th at she has also vascular type dementia. At this time, recommend: 1. She is slightly bradycardic, so could think of considering switching her Aricept as an outpatient to Namenda 14 mg p.o. daily of extended release. 2. Avoid nighttime interruptions, frequent orientation throughout the day, she will likely need home health aide since she cannot be by herself and she is also deconditioned. 3. She would benefit from some mild physical therapy evaluation. 4. Keep systolic blood pressure above 110, keep the range of 120-130 to avoid cerebral hypoperfusion to the brain. 5. Monitor electrolytes and correct accordingly. Continue with current present medical management. Thank you for this consult. Please reconsult as necessary. Abhijeet Weber MD cc: [id number] TT: 10/26/2016 18:08:03 Confirmation # [id number] Dictation # [id number]
[2016-10-26 18:47] VITALS: PULSE 74
== END 2016-10-26 18:53 | disposition home or self-care (01) ==
LOC: ED 13:25 → ERH 16:56 → 2RSO 20:30
PROVIDERS: ADMIT Internal Medicine; ATTEND Internal Medicine
DX: F01.50 Vascular dementia, unspecified severity, without behavioral disturbance, psychotic disturbance, mood disturbance, and anxiety (principal); I10 Essential (primary) hypertension; I25.10 Atherosclerotic heart disease of native coronary artery without angina pectoris; R55 Syncope and collapse; R26.81 Unsteadiness on feet; G40.909 Epilepsy, unspecified, not intractable, without status epilepticus; I25.2 Old myocardial infarction; E78.5 Hyperlipidemia, unspecified; R00.1 Bradycardia, unspecified; E87.6 Hypokalemia; Z85.3 Personal history of malignant neoplasm of breast; Z90.710 Acquired absence of both cervix and uterus; Z90.12 Acquired absence of left breast and nipple
CPT/HCPCS: 36415; 70450; 71010; 80048; 80053; 81001; 82550; 82803; 83615; 83690; 83735; 83880; 84100; 84145; 84484; 85025; 85610; 85651; 85730; 86140; 87040; 87086; 93005; 96360; 97116; 97161; 99285; G0378; G8978; G8979; J3480; J7040

== ENCOUNTER 2016-12-04 13:52 | Emergency (ER) | payer MEDICARE, BC ==
[2016-12-04 14:04] VITALS: BMI 16.1
[2016-12-04 14:07] VITALS: BP 164/91; PULSE 73; RESP 16; TEMP 98; O2SAT 99
--- NOTE | 2016-12-04 15:29 | ED PDOC ---
Arrival/HPI - General Chief Complaint: Medical Clearance Time Seen by Provider: 12/04/16 15:24 - History of Present Illness Narrative History of Present Illness (Text): 12/04/16 15:24 86-year-old female brought in by her son from outpatient primary physician's office. Patient's son states that she has no medical complaints but did not want to register herself in Dr. Lea's office. Patient states that she did not want to go to the doctor's today, so son brought her to the ER instead. Patient refusing to be examined in the emergency department. Patient states that she does not trust her son fully with finances and she is afraid that he stealing from her. She reports that she does feel safe at home and refuses to have adult/Senior protective services called, also refuses to speak with a social insurance administrator. Patient is ANOx3 and has good insight and judgment. Patient is asking to be dc'd home. I asked pt to go back to Dr. Lea's office for a regular check-up and patient agreed. Patient again refused to be examined in the ER and again states she feels safe at home. Son states they are going back to Dr. Lea's office. Past Medical History - Provider Review Nursing Documentation Reviewed: Yes - Infectious Disease Hx of Infectious Diseases: None - Cardiac Hx Cardiac Disorders: Yes Hx Hypertension: Yes - Pulmonary Hx Respiratory Disorders: No - Neurological Hx Neurological Disorder: Yes Hx Dementia: Yes Hx Seizures: Yes - HEENT Hx HEENT Disorder: Yes (wears glasses) - Renal Hx Renal Disorder: No - Endocrine/Metabolic Hx Endocrine Disorders: No - Hematological/Oncological Hx Blood Disorders: Yes Hx Cancer: Yes (breast) - Integumentary Hx Dermatological Disorder: No - Musculoskeletal/Rheumatological Hx Musculoskeletal Disorders: Yes Hx Falls: Yes - Gastrointestinal Hx Gastrointestinal Disorders: No - Genitourinary/Gynecological Hx Genitourinary Disorders: No - Psychiatric Hx Psychophysiologic Disorder: No Hx Depression: No Hx Emotional Abuse: No Hx Physical Abuse: No Hx Substance Use: No - Surgical History Hx Hysterectomy: Yes - Anesthesia Hx Anesthesia: Yes - Suicidal Assessment Feels Threatened In Home Enviroment: No Family/Social History Family/Social History: Unknown Family HX Smoking Status: Never Smoked Hx Alcohol Use: No Hx Substance Use: No Allergies/Home Meds Allergies/Adverse Reactions: Allergies [place] And Derivatives Allergy (Verified 12/04/16 14:03) ITCHING Home Medications: Home Meds Medication Instructions Recorded Confirmed Donepezil [Aricept] 10 mg PO DAILY 08/15/16 12/04/16 Potassium Chloride [Klor-Con 10] 10 meq PO DAILY 08/15/16 12/04/16 hydroCHLOROthiazide [Hydrodiuril] 25 mg PO DAILY 08/15/16 12/04/16 levETIRAcetam [Keppra] 250 mg PO BID 08/17/16 12/04/16 amLODIPine [Norvasc] 5 mg PO DAILY 12/04/16 12/04/16 Review of Systems - Review of Systems Systems not reviewed;Unavailable: Other (refused) Physical Exam - Physical Exam Physical Exam Limitations: Other (refused) Vital Signs Reviewed: Yes Vital Signs Temp Pulse Resp BP Pulse Ox 12/04/16 14:03 98 F 73 16 164/91 H 99 Temperature: Afebrile Blood Pressure: Hypertensive Pulse: Regular Respiratory Rate: Normal Appearance: Positive for: Well-Appearing Pain Distress: None Mental Status: Positive for: Alert and Oriented X 3 - Systems Exam Neurological: Present: Motor Func Grossly Intact, Gait Normal Medical Decision Making ED Course and Treatment: The patient refuses workup in the Emergency Department and leaving against my medical advice. Patient was told that workup in the emergency department is necessary and a full explanation of the reasons why was given, and understood by patient. The risks of leaving were explained and include worsening of condition, and permanent disability and from an undiagnosed or untreated condition. The patient accepts these risks, and is in my judgment is competent and capable of understanding the clinical situation and my explanation of the risks of leaving. Patient was given the opportunity to ask questions and change mind. The patient was instructed regarding the best care for the present symptoms, and to follow up with Dr. Lea as soon as possible, or return to the Emergency Department at any time for continuing care. Disposition/Present on Arrival - Present on Arrival Any Indicators Present on Arrival: No History of DVT/PE: No History of Uncontrolled Diabetes: No Urinary Catheter: No History of Decub. Ulcer: No History Surgical Site Infection Following: None - Disposition Have Diagnosis and Disposition been Completed?: Yes Diagnosis: Encounter for medical screening examination Disposition: HOME/ ROUTINE Disposition Time: 15:00 Patient Plan: Discharge Condition: STABLE
== END 2016-12-04 15:32 | disposition home or self-care (01) ==
LOC: ED 13:52
DX: Z13.9 Encounter for screening, unspecified (principal)

== ENCOUNTER 2017-01-11 14:29 | Emergency (ER) | payer MEDICARE, BC ==
[2017-01-11 15:21] VITALS: BMI 19.8
--- NOTE | 2017-01-11 15:21 | ED PDOC ---
Arrival/HPI - General Time Seen by Provider: 01/11/17 15:04 Historian: Patient - History of Present Illness Narrative History of Present Illness (Text): 01/11/17 15:10 A 86 year old female is brought into the emergency department via EMS. Patient states she was at home and got anger and aggravated because of her son. She reports some chest palpitations due to the anger. Patient denies any chest pain , shortness of breath or any other physical complaints. Patient denies any anxiety and states she feels safe at home. Time/Duration: Prior to Arrival Symptom Onset: Sudden Symptom Course: Other Quality: Other Activities at Onset: Rest Context: Home Past Medical History - Provider Review Nursing Documentation Reviewed: Yes - Infectious Disease Hx of Infectious Diseases: None - Cardiac Hx Cardiac Disorders: Yes Hx Hypertension: Yes - Pulmonary Hx Respiratory Disorders: No - Neurological Hx Neurological Disorder: Yes Hx Dementia: Yes Hx Seizures: Yes - HEENT Hx HEENT Disorder: Yes (wears glasses) - Renal Hx Renal Disorder: No - Endocrine/Metabolic Hx Endocrine Disorders: No - Hematological/Oncological Hx Blood Disorders: Yes Hx Cancer: Yes (breast) - Integumentary Hx Dermatological Disorder: No - Musculoskeletal/Rheumatological Hx Musculoskeletal Disorders: Yes Hx Falls: Yes - Gastrointestinal Hx Gastrointestinal Disorders: No - Genitourinary/Gynecological Hx Genitourinary Disorders: No - Psychiatric Hx Psychophysiologic Disorder: No Hx Depression: No Hx Emotional Abuse: No Hx Physical Abuse: No Hx Substance Use: No - Surgical History Hx Hysterectomy: Yes - Anesthesia Hx Anesthesia: Yes - Suicidal Assessment Feels Threatened In Home Enviroment: No Family/Social History - Physician Review Nursing Documentation Reviewed: Yes Family/Social History: Unknown Family HX Smoking Status: Never Smoked Hx Alcohol Use: No Hx Substance Use: No Allergies/Home Meds Allergies/Adverse Reactions: Allergies [place] And Derivatives Allergy (Verified 01/11/17 15:21) ITCHING Home Medications: Home Meds Medication Instructions Recorded Confirmed Donepezil [Aricept] 10 mg PO DAILY 08/15/16 12/04/16 Potassium Chloride [Klor-Con 10] 10 meq PO DAILY 08/15/16 12/04/16 hydroCHLOROthiazide [Hydrodiuril] 25 mg PO DAILY 08/15/16 12/04/16 levETIRAcetam [Keppra] 250 mg PO BID 08/17/16 12/04/16 amLODIPine [Norvasc] 5 mg PO DAILY 12/04/16 12/04/16 Review of Systems - Physician Review All systems were reviewed & negative as marked: Yes - Review of Systems Respiratory: absent: SOB Cardiovascular: absent: Chest Pain Psychiatric: absent: Anxiety, Depression Physical Exam Vital Signs Reviewed: Yes Vital Signs Temp Pulse Resp BP Pulse Ox 01/11/17 15:21 97.9 F 66 18 100 01/11/17 15:20 97.9 F 66 16 118/65 100 Temperature: Afebrile Blood Pressure: Normal Pulse: Regular Respiratory Rate: Normal Appearance: Positive for: Well-Appearing, Non-Toxic, Comfortable Pain Distress: None Mental Status: Positive for: Alert and Oriented X 3 - Systems Exam Head: Present: Atraumatic, Normocephalic Pupils: Present: PERRL Extroacular Muscles: Present: EOMI Conjunctiva: Present: Normal Mouth: Present: Moist Mucous Membranes Neck: Present: Normal Range of Motion Respiratory/Chest: Present: Clear to Auscultation, Good Air Exchange. No: Respiratory Distress, Accessory Muscle Use Cardiovascular: Present: Regular Rate and Rhythm, Normal S1, S2. No: Murmurs Abdomen: Present: Normal Bowel Sounds. No: Tenderness, Distention, Peritoneal Signs Back: Present: Normal Inspection Upper Extremity: Present: Normal Inspection. No: Cyanosis, Edema Lower Extremity: Present: Normal Inspection. No: Edema Neurological: Present: GCS=15, Speech Normal Skin: Present: Warm, Dry, Normal Color. No: Rashes Psychiatric: Present: Alert, Oriented x 3, Normal Insight, Normal Concentration Medical Decision Making ED Course and Treatment: EKG: Ordered, reviewed, and independently interpreted the EKG. Rate : 74 BPM Rhythm : NSR Interpretation : bifascicular block, repolarization abnormalities is improved compared to previous EKG on 10/25/16 The pt is very well-appearing, pleasant, A&Ox3. She would like to be dc home which I feel is appropriate. Follow up and return precautions advised. - Lab Interpretations Lab Results: 01/11/17 17:17 01/11/17 17:17 Lab Results 01/11/17 17:17: Sodium 144, Potassium 2.9 L*, Chloride 104, Carbon Dioxide 30, Anion Gap 13, BUN 9, Creatinine 0.6, Est GFR ( Amer) > 60, Est GFR (Non- Af Amer) > 60, Random Glucose 94, Calcium 9.4, Total Bilirubin 0.5, AST 38, ALT 37, Alkaline Phosphatase 103, Troponin I < 0.01 D, Total Protein 8.3, Albumin 4.3, Globulin 4.0, Albumin/Globulin Ratio 1.1 01/11/17 17:17: WBC 6.7, RBC 4.33, Hgb 13.0, Hct 38.5, MCV 88.9, MCH 30.0, MCHC 33.8, RDW 14.2, Plt Count 250, MPV 8.7, Gran % 51.5, Lymph % (Auto) 32.0, [place] % (Auto) 5.8, Eos % (Auto) 10.3 H, Baso % (Auto) 0.4, Gran # 3.43, Lymph # 2.1, [place] # 0.4, Eos # 0.7, Baso # 0.03 - Medication Orders Current Medication Orders: Potassium Chloride (Potassium Chloride 20 Meq/100 Ml) 20 meq in 100 mls @ 50 mls/hr IVPB Q2H VAHE Stop: 01/11/17 22:14 Last Admin: 01/11/17 19:15 Dose: 50 mls/hr Discontinued Medications Magnesium Oxide (Mag-Ox) 400 mg PO STAT STA Stop: 01/11/17 18:31 Potassium Chloride (K-Dur 20 Meq Er Tab) 40 meq PO STAT STA Stop: 01/11/17 18:09 Last Admin: 01/11/17 19:15 Dose: 40 meq - Scribe Statement The provider has reviewed the documentation as recorded by the Roxanna Turner Provider Scribe Attestation: All medical record entries made by the Roxanna were at my direction and personally dictated by me. I have reviewed the chart and agree that the record accurately reflects my personal performance of the history, physical exam, medical decision making, and the department course for this patient. I have also personally directed, reviewed, and agree with the discharge instructions and disposition. Disposition/Present on Arrival - Present on Arrival Any Indicators Present on Arrival: No History of DVT/PE: No History of Uncontrolled Diabetes: No Urinary Catheter: No History Surgical Site Infection Following: None - Disposition Have Diagnosis and Disposition been Completed?: Yes Diagnosis: Hypokalemia Disposition: HOME/ ROUTINE Disposition Time: 19:51 Patient Problems: Current Active Problems Problem Status Onset Hypokalemia Acute Condition: GOOD Discharge Instructions (ExitCare): Hypokalemia (ED) Additional Instructions: Please follow up with your doctor tomorrow. You should have your potassium re- check later this week. Return to the ER for any worsening symptoms or for any other concerns. Prescriptions: Potassium Chloride [K-Dur 20 mEq ER Tab] 20 meq PO DAILY #3 tab Referrals: Kasey Negrete, [Primary Care Provider] - Follow up with primary
[2017-01-11 15:25] VITALS: RESP 18
[2017-01-11 17:26] LABS: ADD MANUAL DIFF? NO
[2017-01-11 17:31] LABS: BASO # 0.03 K/mm3 (0.0-2.0); BASO % 0.4 % (0.0-3.0); EOS # 0.7 (0.0-0.7); EOS % 10.3 % (1.5-5.0); GRAN # 3.43 (1.4-6.5); GRAN % 51.5 % (50.0-68.0); HEMATOCRIT 38.5 % (36.0-48.0); LYMPH # 2.1 (1.2-3.4); MEAN CELL VOLUME 88.9 fL (80.0-105.0); MEAN CORPUSCULAR HGB CONC 33.8 g/dl (31.0-37.0); MEAN PLATELET VOLUME 8.7 fl (7.0-11.0); MONO # 0.4 (0.1-0.6); MONO % 5.8 % (1.0-6.0); PLATELET COUNT 250 10^3/uL (120.0-450.0); RED CELL DISTRIBUTION WIDTH 14.2 % (11.5-14.5); WHITE BLOOD COUNT 6.7 10^3/ul (4.5-11.0)
[2017-01-11 17:54] LABS: ALB/GLOB RATIO 1.1 (1.1-1.8); ALKALINE PHOSPHATASE 103 U/L (38-133); ALT/SGPT 37 U/L (7-56); AST/SGOT 38 U/L (15-39); BILIRUBIN,TOTAL 0.5 mg/dL (0.2-1.3); BLOOD UREA NITROGEN 9 mg/dL (7-21); CALCIUM 9.4 mg/dL (8.4-10.5); CARBON DIOXIDE 30 mmol/L (21-33); CHLORIDE 104 mmol/L (98-107); GFR AFRICAN-AMERICAN > 60; GLUCOSE,RANDOM 94 mg/dL (70-110); SODIUM 144 mmol/L (132-148); TOTAL PROTEIN 8.3 g/dL (5.8-8.3)
[2017-01-11 18:06] LABS: POTASSIUM 2.9 mmol/L (3.6-5.0); TROPONIN I < 0.01 ng/mL
[2017-01-11] MEDS ORDERED: Potassium Chloride 20 mEq ER Tab PO STA (18:08)
[2017-01-11] MEDS ORDERED: Magnesium Oxide 400 mg Tab UD PO STA (18:30)
[2017-01-11 21:04] VITALS: BP 120/60; PULSE 70; TEMP 98; O2SAT 98
--- NOTE | 2017-01-12 17:45 | CARD ---
APPROVED REPORT EKG Measurement Heart [id number] <Conclusion> Normal sinus rhythm Right bundle branch block Left anterior fascicular block Bifascicular block Voltage criteria for left ventricular hypertrophy Possible Anteroseptal infarct, age undetermined Abnormal ECG
== END 2017-01-11 21:04 | disposition home or self-care (01) ==
LOC: ED 14:29
DX: E87.6 Hypokalemia (principal); I10 Essential (primary) hypertension
CPT/HCPCS: 80053; 84484; 85025; 90791; 93005; 99282; J3480

== ENCOUNTER 2017-02-04 14:02 | Observation (INO) | payer MEDICARE, BC ==
[2017-02-04 14:10] VITALS: BMI 20.2
[2017-02-04] MEDS ORDERED: Sodium Chloride 0.9% 1,000 ML IV STA (14:44)
--- NOTE | 2017-02-04 14:46 | ED PDOC ---
Arrival/HPI - General Chief Complaint: Dizziness/Lightheaded Time Seen by Provider: 02/04/17 14:10 Historian: Patient - History of Present Illness Narrative History of Present Illness (Text): 02/04/17 14:49 An 86 year old female, whose past medical history includes hypertension, brought in by EMS to the emergency department s/p syncopal episode. Patient reports she walked to the drugstore. Patient passed out while sitting at the drugstore, denies any falls or hitting head. Reports she was told by EMS she lost consciousness for a few minutes. Notes dizziness but denies any chest pain , palpitations, vomiting, diarrhea, hematuria or any other complaints at this time. Time/Duration: Prior to Arrival Symptom Onset: Sudden Symptom Course: Improving Activities at Onset: Rest Context: Sitting Past Medical History - Provider Review Nursing Documentation Reviewed: Yes - Infectious Disease Hx of Infectious Diseases: None - Cardiac Hx Cardiac Disorders: Yes Hx Hypertension: Yes - Pulmonary Hx Respiratory Disorders: No - Neurological Hx Neurological Disorder: Yes Hx Dementia: Yes Hx Dizziness: Yes Hx Seizures: Yes - HEENT Hx HEENT Disorder: Yes (wears glasses) - Renal Hx Renal Disorder: No - Endocrine/Metabolic Hx Endocrine Disorders: No - Hematological/Oncological Hx Blood Disorders: Yes Hx Cancer: Yes (breast) - Integumentary Hx Dermatological Disorder: No - Musculoskeletal/Rheumatological Hx Musculoskeletal Disorders: Yes Hx Falls: Yes - Gastrointestinal Hx Gastrointestinal Disorders: No - Genitourinary/Gynecological Hx Genitourinary Disorders: No - Psychiatric Hx Psychophysiologic Disorder: No Hx Depression: No Hx Emotional Abuse: No Hx Physical Abuse: No Hx Substance Use: No - Surgical History Hx Hysterectomy: Yes - Anesthesia Hx Anesthesia: Yes Hx Anesthesia Reactions: No - Suicidal Assessment Feels Threatened In Home Enviroment: No Family/Social History - Physician Review Nursing Documentation Reviewed: Yes Family/Social History: No Known Family HX Smoking Status: Never Smoked Hx Alcohol Use: No Hx Substance Use: No Allergies/Home Meds Allergies/Adverse Reactions: Allergies [place] And Derivatives Allergy (Verified 02/04/17 14:10) ITCHING Home Medications: Home Meds Medication Instructions Recorded Confirmed Donepezil [Aricept] 10 mg PO DAILY 08/15/16 02/04/17 Potassium Chloride [Klor-Con 10] 10 meq PO DAILY 08/15/16 02/04/17 levETIRAcetam [Keppra] 500 mg PO BID 08/17/16 02/04/17 amLODIPine [Norvasc] 5 mg PO BID 12/04/16 02/04/17 Meclizine [Antivert] 12.5 mg PO TID PRN 02/04/17 02/04/17 Review of Systems - Physician Review All systems were reviewed & negative as marked: Yes - Review of Systems Cardiovascular: Syncope. absent: Chest Pain, Palpitations Gastrointestinal: absent: Diarrhea, Vomiting Genitourinary Female: absent: Hematuria Neurological: Dizziness Physical Exam - Physical Exam Narrative Physical Exam (Text): 02/04/17 14:47 Constitutional: No acute distress. Head: Normocephalic. Atraumatic. Eyes: PERRL. ENT: Moist mucous membranes. Neck: Supple. No midline tenderness. Cardiovascular: Regular rate. Chest: No tenderness. Respiratory: Clear to auscultation bilaterally. GI: Soft. Nontender. Nondistended. Back: No CVA tenderness. No midline tenderness. Musculoskeletal: No tenderness or swelling of extremities. ROM X4. Skin: No rash. Neurologic: Alert, no focal deficit. Vital Signs Reviewed: Yes Vital Signs Temp Pulse Resp BP Pulse Ox 02/04/17 14:29 96.7 F L 02/04/17 14:20 97.9 F 64 18 167/79 H 98 02/04/17 14:19 63 18 161/93 H 100 Blood Pressure: Hypertensive Pulse: Regular Respiratory Rate: Normal Appearance: Positive for: Well-Appearing, Non-Toxic, Comfortable, Other (thin, elderly ) Pain Distress: None Mental Status: Positive for: Alert and Oriented X 3 Finger Stick Blood Glucose: 80 Medical Decision Making ED Course and Treatment: 02/04/17 14:43 Impression: An 86 year old with dizziness s/p syncopal episode. Plan: -- EKG -- chest xray -- labs -- Urinalysis -- Reassess and disposition Prior Visits: Notes and results from previous visits were reviewed. Patient last reported to the emergency department on 01/11/17 for evaluation of aggravated behavior and palpitations. Progress Notes: EKG: Ordered, reviewed, and independently interpreted the EKG. Rate : 60 BPM Rhythm : NSR Interpretation : right bundle branch block, inferior and lateral T wave inversions, No ST elevations Comparison : largely unchanged from previous EKG 02/04/17 15:09 FINDINGS: LUNGS: No active pulmonary disease. PLEURA: No significant pleural effusion identified, no pneumothorax apparent. CARDIOVASCULAR: Normal. OSSEOUS STRUCTURES: No significant abnormalities. VISUALIZED UPPER ABDOMEN: Normal. OTHER FINDINGS: Elevated left hemidiaphragm IMPRESSION: No active disease. - Lab Interpretations Lab Results: 02/04/17 14:21 02/04/17 15:00 Lab Results 02/04/17 16:00: Urine Color Yellow, Urine Appearance Clear, Urine pH 7.0, Ur Specific [place] 1.010, Urine Protein Negative, Urine Glucose (UA) Negative, Urine Ketones Negative, Urine Blood Negative, Urine Nitrate Negative, Urine Bilirubin Negative, Urine Urobilinogen 0.2, Ur Leukocyte Esterase Trace H, Urine RBC Negative, Urine WBC 0 - 2 02/04/17 15:00: Sodium 142, Potassium 2.9 L*, Chloride 108 H, Carbon Dioxide 24 , Anion Gap 13, BUN 11, Creatinine 0.5, Est GFR ( Amer) > 60, Est GFR ( Non-Af Amer) > 60, Random Glucose 87, Calcium 8.8, Total Bilirubin 0.5, AST 27, ALT 28, Alkaline Phosphatase 92, Total Creatine Kinase 85, Troponin I < 0.01, Total Protein 7.5, Albumin 3.8, Globulin 3.6, Albumin/Globulin Ratio 1.1 02/04/17 14:21: WBC 6.2, RBC 4.24, Hgb 13.1, Hct 38.1, MCV 89.9, MCH 30.9, MCHC 34.4, RDW 14.5, Plt Count 268, MPV 8.9, Gran % 58.0, Lymph % (Auto) 29.9, [place] % (Auto) 5.8, Eos % (Auto) 5.8 H, Baso % (Auto) 0.5, Gran # 3.57, Lymph # 1.8, [place] # 0.4, Eos # 0.4, Baso # 0.03 I have reviewed the lab results: Yes - RAD Interpretation Radiology Orders: 02/04/17 14:29 CHEST PORTABLE [RAD] Stat - EKG Interpretation Interpreted by ED Physician: Yes Type: 12 lead EKG - Medication Orders Current Medication Orders: Potassium Chloride (Potassium Chloride 10 Meq/100 Ml) 10 meq in 100 mls @ 100 mls/hr IVPB Q2H VAHE Stop: 02/04/17 18:29 Last Admin: 02/04/17 16:01 Dose: 100 mls/hr Discontinued Medications Sodium Chloride (Sodium Chloride 0.9%) 1,000 mls @ 999 mls/hr IV .Q1H1M STA Stop: 02/04/17 15:44 Last Admin: 02/04/17 14:45 Dose: 999 mls/hr - Scribe Statement The provider has reviewed the documentation as recorded by the Monaibtemi Jara All medical record entries made by the Monaibtemi were at my direction and personally dictated by me. I have reviewed the chart and agree that the record accurately reflects my personal performance of the history, physical exam, medical decision making, and the department course for this patient. I have also personally directed, reviewed, and agree with the discharge instructions and disposition. Disposition/Present on Arrival - Present on Arrival Any Indicators Present on Arrival: No History of DVT/PE: No History of Uncontrolled Diabetes: No Urinary Catheter: No History of Decub. Ulcer: No History Surgical Site Infection Following: None - Disposition Have Diagnosis and Disposition been Completed?: Yes Diagnosis: Syncope Disposition: HOSPITALIZED Disposition Time: 15:28 Patient Plan: Observation, Telemetry Condition: STABLE Discharge Instructions (ExitCare): Syncope (ED)
[2017-02-04 14:53] LABS: BASO # 0.03 K/mm3 (0.0-2.0); BASO % 0.5 % (0.0-3.0); EOS # 0.4 (0.0-0.7); EOS % 5.8 % (1.5-5.0); GRAN # 3.57 (1.4-6.5); HEMOGLOBIN 13.1 gm/dL (12.0-16.0); LYMPH # 1.8 (1.2-3.4); LYMPH % 29.9 % (22.0-35.0); MEAN CELL VOLUME 89.9 fL (80.0-105.0); MEAN CORPUSCULAR HEMOGLOBIN 30.9 pg (25.0-35.0); MEAN CORPUSCULAR HGB CONC 34.4 g/dl (31.0-37.0); MEAN PLATELET VOLUME 8.9 fl (7.0-11.0); MONO # 0.4 (0.1-0.6); MONO % 5.8 % (1.0-6.0); PLATELET COUNT 268 10^3/uL (120.0-450.0); RBC 4.24 10^6/uL (3.5-6.1); RED CELL DISTRIBUTION WIDTH 14.5 % (11.5-14.5); WHITE BLOOD COUNT 6.2 10^3/ul (4.5-11.0)
--- NOTE | 2017-02-04 15:08 | RAD ---
HISTORY: syncope COMPARISON: 10/25/2016 FINDINGS: LUNGS: No active pulmonary disease. PLEURA: No significant pleural effusion identified, no pneumothorax apparent. CARDIOVASCULAR: Normal. OSSEOUS STRUCTURES: No significant abnormalities. VISUALIZED UPPER ABDOMEN: Normal. OTHER FINDINGS: Elevated left hemidiaphragm IMPRESSION: No active disease.
[2017-02-04 15:21] LABS: ALB/GLOB RATIO 1.1 (1.1-1.8); ALBUMIN 3.8 g/dL (3.0-4.8); ALT/SGPT 28 U/L (7-56); AST/SGOT 27 U/L (15-39); BLOOD UREA NITROGEN 11 mg/dL (7-21); CALCIUM 8.8 mg/dL (8.4-10.5); GFR AFRICAN-AMERICAN > 60; GFR NON-AFRICAN AMERICAN > 60
[2017-02-04 15:35] LABS: TROPONIN I < 0.01 ng/mL
[2017-02-04 16:08] LABS: URINE BILIRUBIN NEGATIVE (NEGATIVE); URINE BLOOD NEGATIVE (NEGATIVE); URINE GLUCOSE (UA) NEGATIVE (NEGATIVE); URINE LEUKOCYTE ESTERASE TRACE Leu/uL (NEGATIVE); URINE NITRATE NEGATIVE (NEGATIVE); URINE PROTEIN NEGATIVE mg/dL (<30 mg/dL); URINE UROBILINOGEN 0.2 E.U./dL (<1 E.U./dL)
[2017-02-04 16:10] LABS: URINE APPEARANCE CLEAR (CLEAR); URINE COLOR YELLOW (YELLOW)
[2017-02-04 16:14] LABS: URINE RBC NEGATIVE /hpf (0-2); URINE WBC 0 - 2 /hpf (0-6)
[2017-02-04 17:23] VITALS: O2SAT 100
[2017-02-04] MEDS ORDERED: Dextrose 5%/0.45% NS 1,000 ML IV SCH (17:30)
[2017-02-04] MEDS ORDERED: Potassium Chloride 10 mEq ER Tab PO SCH (17:30)
[2017-02-04] MEDS: Potassium Chloride 10 mEq ER Tab PO SCH (18:23)
[2017-02-04] MEDS ORDERED: Pneumococcal 23-Valent Vaccine IM ONE (20:44)
[2017-02-05] MEDS: Potassium Chloride 10 mEq ER Tab PO SCH (09:09)
--- NOTE | 2017-02-05 09:28 | CARD ---
APPROVED REPORT EKG Measurement Heart [id number] <Conclusion> Normal sinus rhythm Right bundle branch block Left anterior fascicular block Bifascicular block Voltage criteria for left ventricular hypertrophy Possible Anteroseptal infarct, age undetermined T wave abnormality, consider lateral ischemia Abnormal ECG
[2017-02-05 10:05] VITALS: RESP 20; TEMP 97.9
[2017-02-05 12:52] LABS: BASO # 0.04 K/mm3 (0.0-2.0); BASO % 0.7 % (0.0-3.0); EOS # 0.4 (0.0-0.7); EOS % 6.3 % (1.5-5.0); GRAN # 2.84 (1.4-6.5); GRAN % 49.9 % (50.0-68.0); HEMOGLOBIN 12.7 gm/dL (12.0-16.0); MEAN CELL VOLUME 89.4 fL (80.0-105.0); MEAN CORPUSCULAR HEMOGLOBIN 30.6 pg (25.0-35.0); MEAN CORPUSCULAR HGB CONC 34.2 g/dl (31.0-37.0); MEAN PLATELET VOLUME 8.9 fl (7.0-11.0); MONO # 0.5 (0.1-0.6); MONO % 8.1 % (1.0-6.0); PLATELET COUNT 270 10^3/uL (120.0-450.0); RBC 4.15 10^6/uL (3.5-6.1); RED CELL DISTRIBUTION WIDTH 14.4 % (11.5-14.5); WHITE BLOOD COUNT 5.7 10^3/ul (4.5-11.0)
[2017-02-05 12:57] LABS: ALB/GLOB RATIO 1.1 (1.1-1.8); ALBUMIN 4.2 g/dL (3.0-4.8); ALT/SGPT 25 U/L (7-56); AST/SGOT 34 U/L (15-39); BLOOD UREA NITROGEN 7 mg/dL (7-21); CALCIUM 9.7 mg/dL (8.4-10.5); GFR AFRICAN-AMERICAN > 60; GFR NON-AFRICAN AMERICAN > 60; MAGNESIUM 1.9 mg/dL (1.7-2.2)
--- NOTE | 2017-02-05 20:06 | HP ---
SUBJECTIVE: The patient is an 86-year-old black female known to me from multiple previous admissions; came to ER confused and disoriented, more than her baseline. She went to the local store and the drug store, where she felt very weak and dizzy and almost passed out. While she was sitting in the drug store, the patient cannot recall anything. Denies any nausea or vomiting. Denies any diarrhea. Complained of feeling weak and dizzy and did not fall or hit her head. No chest pain. No shortness of breath. No cough. No congestion. PAST MEDICAL HISTORY: Significant for: 1. Hypertension. 2. Seizure disorder. 3. Dementia. The patient was admitted multiple times with similar episode. The last admission was on 10/25. PAST SURGICAL HISTORY: Significant for left mastectomy and hysterectomy. FAMILY HISTORY: Not relevant. SOCIAL HISTORY: She lives with her son. Denies smoking, drinking or alcohol use. ALLERGIES: SHE IS ALLERGIC TO [place] THAT CAUSES HER ITCHING. MEDICATIONS AT HOME: She is on Keppra 500 twice a day; hydrochlorothiazide 25 daily; potassium 10 mEq daily; nifedipine 90 mg daily and Aricept 5 mg daily. REVIEW OF SYSTEMS: Significant for generalized weakness and difficulty walking. PHYSICAL EXAMINATION GENERAL: She is awake and alert, confused, disoriented. VITAL SIGNS: She is afebrile, pulse 64, respirations 18, blood pressure 167/79. LUNGS: Bilateral fair airflow. No rhonchi, no crackles. HEART: S1 and S2 audible. ABDOMEN: Soft, nontender; no rebound; no guarding. NEUROLOGIC: She is awake and alert; moves all extremities; confused and disoriented. LABORATORY DATA: WBC is 6.2, hemoglobin 13, hematocrit 38, platelets 268. Chemistry; sodium 142, potassium 2.9, chloride 108, CO2 of 24, BUN 11, creatinine 0.5. Blood sugar of 87. LFTs are within normal limits. Urinalysis is unremarkable. She had CT scan of the head done and she had x-ray of the chest done that is unremarkable. ASSESSMENT: 1. Status post near syncope. 2. History of seizure disorder. 3. Dehydration. 4. Hypokalemia. 5. Dementia. PLAN: We will start the patient on IV fluid. We will supplement potassium. We will resume her usual medication. Follow up her electrolytes and physical therapy evaluation has been requested. [facility] # [id number]
[2017-02-06 11:55] VITALS: BP 148/90; PULSE 67
--- NOTE | 2017-02-06 15:02 | DS ---
SUBJECTIVE: The patient is an 86 years old, pleasantly confused, seen and examined, looks little better. She does not admit that she ever passed out. She states she feels well. However, she has generalized weakness and eat fair. No seizure-like activity overnight. PHYSICAL EXAMINATION: VITAL SIGNS: She is afebrile. Pulse 56, respirations 20, blood pressure 149/75. LUNGS: Bilateral fair air flow. No rhonchi or crackle. HEART: S1, S2 audible. ABDOMEN: Soft, nontender. No rebound, no guarding. NEUROLOGIC: The patient is awake and alert, but confused and disoriented to time and place. Bilateral leg, no edema. LABORATORY EXAM: WBC 5.7, hemoglobin 12.7, hematocrit 37, platelets 270. Chemistry: Blood sugar 142, potassium 3.5, chloride 105, CO2 of 28, BUN 7, creatinine 0.4, blood sugar of 87. Urinalysis is unremarkable. ASSESSMENT: 1. Near syncope. 2. History of seizure disorder. 3. Hypokalemia. 4. Dementia. PLAN: I will give 2 riders of KCl and we will get physical therapy evaluation. If she is doing well, she can be discharged home today and she will follow up as outpatient and she will resume all her medication as prior to admission. Scottie Lea MD
== END 2017-02-05 18:43 | disposition home or self-care (01) ==
LOC: ED 14:02 → ERH 16:46 → 3RSO 18:07
PROVIDERS: ADMIT Internal Medicine; ATTEND Internal Medicine
DX: R55 Syncope and collapse (principal); E87.6 Hypokalemia; E86.0 Dehydration; I10 Essential (primary) hypertension; G40.909 Epilepsy, unspecified, not intractable, without status epilepticus; F03.90 Unspecified dementia, unspecified severity, without behavioral disturbance, psychotic disturbance, mood disturbance, and anxiety
CPT/HCPCS: 36415; 71010; 80053; 81001; 82550; 82948; 83735; 84484; 85025; 87086; 93005; 96360; 96361; 99285; G0378; J3480; J7040; J7042

== ENCOUNTER 2017-02-27 13:33 | Observation (INO) | payer MEDICARE, BC ==
[2017-02-27 13:33] VITALS: BMI 20.2
--- NOTE | 2017-02-27 13:40 | ED PDOC ---
Arrival/HPI - General Time Seen by Provider: 02/27/17 13:38 Historian: Patient - History of Present Illness Narrative History of Present Illness (Text): 02/27/17 14:14 An 86 year old female whose past medical history includes, hypertension, seizures, and dementia, presents to the emergency department with feeling faint prior to arrival. The patient denies any syncopal episodes, but states that she felt like she was going to "pass out". The patient denies headache, nausea, vomiting, diarrhea, fevers, chills, or any other complaints. Time/Duration: Prior to Arrival Symptom Onset: Sudden Symptom Course: Unchanged Activities at Onset: Rest, Light Context: Home Past Medical History - Provider Review Nursing Documentation Reviewed: Yes - Infectious Disease Hx of Infectious Diseases: None - Cardiac Hx Cardiac Disorders: Yes Hx Hypertension: Yes - Pulmonary Hx Respiratory Disorders: No - Neurological Hx Neurological Disorder: Yes (SYNCOPE) Hx Dementia: Yes Hx Dizziness: Yes Hx Seizures: Yes - HEENT Hx HEENT Disorder: Yes (wears glasses) - Renal Hx Renal Disorder: No - Endocrine/Metabolic Hx Endocrine Disorders: No - Hematological/Oncological Hx Blood Disorders: Yes Hx Cancer: Yes (breast) - Integumentary Hx Dermatological Disorder: No - Musculoskeletal/Rheumatological Hx Musculoskeletal Disorders: Yes Hx Falls: Yes - Gastrointestinal Hx Gastrointestinal Disorders: Yes (CONSTIPATION) - Genitourinary/Gynecological Hx Genitourinary Disorders: Yes (HYSTERECTOMY) Hx Urinary Tract Infection: Yes - Psychiatric Hx Psychophysiologic Disorder: No Hx Depression: No Hx Emotional Abuse: No Hx Physical Abuse: No Hx Substance Use: No - Surgical History Hx Hysterectomy: Yes - Anesthesia Hx Anesthesia: Yes Hx Anesthesia Reactions: No - Suicidal Assessment Feels Threatened In Home Enviroment: No Family/Social History - Physician Review Nursing Documentation Reviewed: Yes Family/Social History: No Known Family HX Smoking Status: Former Smoker Hx Alcohol Use: No Hx Substance Use: No Allergies/Home Meds Allergies/Adverse Reactions: Allergies [place] And Derivatives Allergy (Verified 02/04/17 18:17) ITCHING Home Medications: Home Meds Medication Instructions Recorded Confirmed Donepezil [Aricept] 10 mg PO DAILY 02/27/17 02/27/17 Levetiracetam [Keppra] 500 mg PO BID 02/27/17 02/27/17 amLODIPine [Norvasc] 5 mg PO BID 02/27/17 02/27/17 Physical Exam - Physical Exam Narrative Physical Exam (Text): - Review of Systems Constitutional: absent: Fatigue, Weight Change, Fevers Eyes: Normal ENT: Normal Respiratory: Normal absent: SOB, Cough, Sputum Cardiovascular: Normal absent: Chest pain, Palpitations, Syncope Gastrointestinal: Normal absent: Abdominal pain, Diarrhea, Nausea, Vomiting Genitourinary: Normal. absent: Dysuria, Frequency, Hematuria Musculoskeletal: Normal. absent: Arthralgias, Back Pain, Neck Pain Skin: Normal Neurological: Normal absent: Focal Weakness, Syncopal episode. Endocrine: Normal Hemo/Lymphatic: Normal Psychiatric: Normal - Physical exam Patient appears age appropriate, speaking full sentences without difficulty - Systems Exam Head: Present: Atraumatic, Normocephalic Pupils: Present: PERRL Extraocular Muscles: Present: EOMI Conjunctiva: Present: Normal Mouth: Present: Moist Mucous Membranes Neck: Present: Normal Range of Motion. No: MIDLINE TENDERNESS, Paraspinal Tenderness Respiratory/Chest: Present: Clear to Auscultation, Good Air Exchange. No: Respiratory Distress, Accessory Muscle Use, Tachypnic Cardiovascular: Present: Regular Rate and Rhythm, Normal S1, S2, Peripheral Pulses Present. No: Murmurs Abdomen: Present: Normal Bowel Sounds, No: Tenderness, Peritoneal Signs, Rebound, Guarding, Distention Back: Present: Normal Inspection. No: Midline Tenderness, Paraspinal Tenderness Upper Extremity: Present: Normal Inspection. No: Cyanosis, Edema Lower Extremity: Present: Normal Inspection. No: Edema Neurological: Present: GCS=15, Speech Normal, cranial nerves II through XII fully intact with no cerebellar abnormality, neuro-sensory fully intact. No focal neurological deficits. Skin: Present: Warm, Dry, Normal Color. No: Rashes Lymphatic: Present: OX3, NI, NC Psychiatric: Present: Alert. No: Anxious Vital Signs Reviewed: Yes Vital Signs Temp Pulse Resp BP Pulse Ox 02/27/17 15:33 67 16 136/80 100 02/27/17 15:20 98.2 F 75 20 167/82 H 98 02/27/17 14:40 89 19 169/59 H 96 02/27/17 13:40 98.6 F 82 18 197/90 H 100 Temperature: Afebrile Blood Pressure: Hypertensive (asymptomatic, decreased without intervention) Pulse: Regular Respiratory Rate: Normal Appearance: Positive for: Well-Appearing Pain Distress: None Mental Status: No: Agitated, Lethargic Medical Decision Making ED Course and Treatment: 02/27/17 13:40 Impression: An 86 year old female with faintness and feeling like she was going to "pass out ". On exam, pt in no distress, states she now feels well and is asymptomatic. No focal neurological deficits on exam Plan: -- CT Head -- Chest X-ray -- Labs -- Norvasc -- Reassess and disposition Progress Notes: 02/27/17 13:40: Patient's previous records reviewed, patient was discharged on after being evaluated for near syncope. 02/27/17 14:57 Chest X-ray Report Date : 02/27/2017 14:52:04 Dictator : Saqib Chauhan MD IMPRESSION: No active disease. 02/27/17 16:[address] Housekeeper Manager : Saqib Chauhan MD IMPRESSION: No acute findings 02/27/17 17:32 K low meds ordered dw Dr. Lea, accepted obs to remote tele pt eating, in no distress, denies complaints, agrees with plan - Lab Interpretations Lab Results: 02/27/17 14:00 02/27/17 16:08 Lab Results 02/27/17 16:08: Sodium 140, Potassium 2.8 L*, Chloride 103, Carbon Dioxide 26, Anion Gap 14, BUN 13, Creatinine 0.6, Est GFR ( Amer) > 60, Est GFR (Non- Af Amer) > 60, Random Glucose 81, Calcium 9.3, Total Bilirubin 0.5, AST 34, ALT 30, Alkaline Phosphatase 90, Lactate Dehydrogenase 574, Total Creatine Kinase 87 , Troponin I < 0.01, Total Protein 7.7, Albumin 4.0, Globulin 3.8, Albumin/ Globulin Ratio 1.1 02/27/17 14:00: PT 11.4, INR 1.06, APTT 30.2 02/27/17 14:00: WBC 4.9, RBC 3.90, Hgb 11.9 L, Hct 34.9 L, MCV 89.5, MCH 30.5, MCHC 34.1, RDW 14.2, Plt Count 229, MPV 8.8, Gran % 47.2 L, Lymph % (Auto) 42.0 H, [place] % (Auto) 6.1 H, Eos % (Auto) 4.3, Baso % (Auto) 0.4, Gran # 2.32, Lymph # 2.1, [place] # 0.3, Eos # 0.2, Baso # 0.02 I have reviewed the lab results: Yes - RAD Interpretation Radiology Orders: 02/27/17 14:09 HEAD W/O CONTRAST [CT] Stat CHEST PORTABLE [RAD] Stat - Medication Orders Current Medication Orders: Amlodipine Besylate (Norvasc) 5 mg PO BID [facility] Donepezil HCl (Aricept) 10 mg PO DAILY [facility] Magnesium Sulfate/Dextrose (Magnesium Sulfate 1 Gm/100 Ml D5w) 1 gm in 100 mls @ 100 mls/hr IVPB ONCE ONE Stop: 02/27/17 18:07 Potassium Chloride (Potassium Chloride 20 Meq/100 Ml) 20 meq in 100 mls @ 50 mls/hr IVPB ONCE ONE Stop: 02/27/17 19:00 Piperacillin Sod/Tazobactam Sod (Zosyn 4.5 Gm In Ns 100ml) 4.5 gm in 100 mls @ 200 mls/hr IVPB STAT STA PRN Reason: Protocol Stop: 02/27/17 17:55 Levetiracetam (Keppra) 500 mg PO BID [facility] Discontinued Medications Amlodipine Besylate (Norvasc) 5 mg PO STAT STA Stop: 02/27/17 14:10 Last Admin: 02/27/17 14:54 Dose: 5 mg Potassium Chloride (K-Dur 20 Meq Er Tab) 40 meq PO STAT STA Stop: 02/27/17 17:09 - Scribe Statement The provider has reviewed the documentation as recorded by the Monaibe Maddi Thibodeaux Provider Scribe Attestation: All medical record entries made by the Scribe were at my direction and personally dictated by me. I have reviewed the chart and agree that the record accurately reflects my personal performance of the history, physical exam, medical decision making, and the department course for this patient. I have also personally directed, reviewed, and agree with the discharge instructions and disposition. Disposition/Present on Arrival - Present on Arrival Any Indicators Present on Arrival: No History of DVT/PE: No History of Uncontrolled Diabetes: No Urinary Catheter: No History Surgical Site Infection Following: None - Disposition Have Diagnosis and Disposition been Completed?: Yes Diagnosis: Hypokalemia Disposition: HOSPITALIZED Disposition Time: 17:36 Patient Plan: Observation Condition: STABLE
[2017-02-27 14:29] LABS: BASO # 0.02 K/mm3 (0.0-2.0); BASO % 0.4 % (0.0-3.0); EOS # 0.2 (0.0-0.7); EOS % 4.3 % (1.5-5.0); GRAN # 2.32 (1.4-6.5); GRAN % 47.2 % (50.0-68.0); HEMOGLOBIN 11.9 gm/dL (12.0-16.0); LYMPH # 2.1 (1.2-3.4); MEAN CELL VOLUME 89.5 fL (80.0-105.0); MEAN CORPUSCULAR HEMOGLOBIN 30.5 pg (25.0-35.0); MEAN CORPUSCULAR HGB CONC 34.1 g/dl (31.0-37.0); MEAN PLATELET VOLUME 8.8 fl (7.0-11.0); MONO # 0.3 (0.1-0.6); MONO % 6.1 % (1.0-6.0); PLATELET COUNT 229 10^3/uL (120.0-450.0); RED CELL DISTRIBUTION WIDTH 14.2 % (11.5-14.5); WHITE BLOOD COUNT 4.9 10^3/ul (4.5-11.0)
[2017-02-27 14:40] LABS: INR 1.06 (0.93-1.08); PARTIAL THROMBOPLASTIN TIME 30.2 Seconds (23.7-30.8); PROTHROMBIN TIME 11.4 Seconds (9.9-11.8)
--- NOTE | 2017-02-27 14:54 | RAD ---
HISTORY: cough COMPARISON: 02/04/2017 FINDINGS: LUNGS: No active pulmonary disease. PLEURA: No significant pleural effusion identified, no pneumothorax apparent. CARDIOVASCULAR: Normal. OSSEOUS STRUCTURES: No significant abnormalities. VISUALIZED UPPER ABDOMEN: Normal. OTHER FINDINGS: Mild aortic tortuosity IMPRESSION: No active disease.
--- NOTE | 2017-02-27 15:26 | CT ---
PROCEDURE: CT HEAD WITHOUT CONTRAST. HISTORY: [place] x2 weeks COMPARISON: 10/25/2016 TECHNIQUE: Axial computed tomography images were obtained through the head/brain without intravenous contrast. Radiation dose: Total exam DLP = 677 mGy-cm. This CT exam was performed using one or more of the following dose reduction techniques: Automated exposure control, adjustment of the mA and/or kV according to patient size, and/or use of iterative reconstruction technique. FINDINGS: HEMORRHAGE: No intracranial hemorrhage. BRAIN: No mass effect or edema. Mild chronic atrophy is seen. Chronic microvascular changes are seen in the periventricular white matter. The findings are unchanged VENTRICLES: Mild ventriculomegaly CALVARIUM: Unremarkable. PARANASAL SINUSES: Unremarkable as visualized. No significant inflammatory changes. MASTOID AIR CELLS: Unremarkable as visualized. No inflammatory changes. OTHER FINDINGS: None. IMPRESSION: No acute findings
[2017-02-27 16:42] LABS: ALB/GLOB RATIO 1.1 (1.1-1.8); ALT/SGPT 30 U/L (7-56); AST/SGOT 34 U/L (15-39); BLOOD UREA NITROGEN 13 mg/dL (7-21); CALCIUM 9.3 mg/dL (8.4-10.5); GFR AFRICAN-AMERICAN > 60; GFR NON-AFRICAN AMERICAN > 60
[2017-02-27 16:55] LABS: TROPONIN I < 0.01 ng/mL
[2017-02-27] MEDS ORDERED: Potassium Chloride 20 mEq ER Tab PO STA (17:08)
[2017-02-27] MEDS ORDERED: Magnesium Sulfate 1 gm in D5W 1 GM/100 ML BAG IVPB ONE (17:08)
[2017-02-27] MEDS ORDERED: Piperacill/Tazo 4.5gm in NS 4.5 GM/100 ML BAG IVPB STA (17:26)
[2017-02-27 18:53] LABS: URINE BILIRUBIN NEGATIVE (NEGATIVE); URINE BLOOD NEGATIVE (NEGATIVE); URINE GLUCOSE (UA) NEGATIVE (NEGATIVE); URINE LEUKOCYTE ESTERASE NEGATIVE Leu/uL (NEGATIVE); URINE NITRATE NEGATIVE (NEGATIVE); URINE PROTEIN NEGATIVE mg/dL (<30 mg/dL); URINE UROBILINOGEN 0.2 E.U./dL (<1 E.U./dL)
[2017-02-27 18:54] LABS: URINE COLOR YELLOW (YELLOW)
[2017-02-27 18:55] LABS: URINE APPEARANCE CLEAR (CLEAR)
--- NOTE | 2017-02-28 00:18 | HP ---
HISTORY OF PRESENT ILLNESS: The patient is 86-year-old black female, pleasantly confused, admitted multiple times with syncope. All neurological workup has been negative in the past. She was brought to emergency room by EMS. Prior to coming, she felt like that she is going to pass out. Denies any trauma. No complaints of headache. No nausea, vomiting. No diarrhea. PAST MEDICAL HISTORY: She has significant past medical history of; 1. Hypertension. 2. Seizure disorder. 3. Dementia. She was admitted in early January with similar symptoms. PAST SURGICAL HISTORY: Significant for mastectomy and hysterectomy. FAMILY HISTORY: Not available. SOCIAL HISTORY: She lives with her son, not very happy with the care. Denies smoking, drinking, or alcohol use. ALLERGIES: SHE IS ALLERGIC TO [place], CAUSES HER GENERALIZED ITCHING. MEDICATIONS AT HOME: She is on Keppra 500 twice a day, hydrochlorothiazide 25 mg daily, potassium 10 mEq daily, nifedipine 90 mg daily, Aricept 5 mg daily. REVIEW OF SYSTEMS: Complained of generalized weakness. There was no focal weakness or numbness. PHYSICAL EXAMINATION GENERAL: She is awake and alert, answers simple questions. VITAL SIGNS: She is afebrile, pulse 75, respiration 20, blood pressure . LUNGS: Bilateral fair airflow. No rhonchi or crackle. HEART: S1 and S2 audible. ABDOMEN: Soft, nontender. No rebound, no guarding. NEUROLOGIC: She is awake and alert, able to communicate. EXTREMITIES: Bilateral leg, no edema. LABORATORY DATA: Her WBC 4.9, hemoglobin 11.9, hematocrit 34.9, platelet 229. PT 11.4, INR 1.06. Chemistries; sodium 140, potassium 2.8, chloride 103, CO2 of 26, BUN 13, creatinine 0.6, blood sugar of 81, LFTs are within normal limits. CT scan of the head is unremarkable. X-ray of chest is unremarkable. ASSESSMENT: 1. Near syncope. 2. History of seizure disorder. 3. Hypertension. 4. Hypokalemia. The patient has workup done, EEG in 08/2016 and brain MRI in 09/14 and carotid Doppler in 07/2016 was unremarkable. PLAN: Nasal supplement, potassium and encourage physical therapy. Resume her medication and followup her CBC, CMP in a.m. Scottie Lea MD
[2017-02-28 06:43] LABS: BASO # 0.03 K/mm3 (0.0-2.0); BASO % 0.5 % (0.0-3.0); EOS # 0.3 (0.0-0.7); EOS % 4.5 % (1.5-5.0); GRAN # 2.78 (1.4-6.5); GRAN % 50.6 % (50.0-68.0); HEMOGLOBIN 12.3 gm/dL (12.0-16.0); LYMPH % 35.5 % (22.0-35.0); MEAN CELL VOLUME 89.3 fL (80.0-105.0); MEAN CORPUSCULAR HEMOGLOBIN 29.9 pg (25.0-35.0); MEAN CORPUSCULAR HGB CONC 33.5 g/dl (31.0-37.0); MEAN PLATELET VOLUME 8.8 fl (7.0-11.0); MONO # 0.5 (0.1-0.6); MONO % 8.9 % (1.0-6.0); PLATELET COUNT 268 10^3/uL (120.0-450.0); RBC 4.11 10^6/uL (3.5-6.1); WHITE BLOOD COUNT 5.5 10^3/ul (4.5-11.0)
[2017-02-28 06:45] LABS: ALB/GLOB RATIO 1.1 (1.1-1.8); ALBUMIN 4.1 g/dL (3.0-4.8); ALT/SGPT 32 U/L (7-56); AST/SGOT 37 U/L (15-39); BLOOD UREA NITROGEN 10 mg/dL (7-21); CALCIUM 9.2 mg/dL (8.4-10.5); GFR AFRICAN-AMERICAN > 60; GFR NON-AFRICAN AMERICAN > 60
[2017-02-28 08:16] VITALS: O2SAT 100
[2017-02-28 18:33] VITALS: BP 128/57; PULSE 66; RESP 18; TEMP 97.6
--- NOTE | 2017-02-28 20:17 | CP.PCM.DIS ---
Provider - Provider Date of Admission: 02/27/17 17:36 Attending physician: Scottie Lea MD Primary care physician: Scottie Lea MD Time Spent in preparation of Discharge (in minutes): 55 Diagnosis - Discharge Diagnosis (1) Anemia Status: Acute (2) Granulocytosis Status: Acute (3) Hypokalemia Status: Acute (4) Near syncope Status: Acute Hospital Course - Lab Results Lab Results: Micro Results 02/27/17 18:56 Blood-Venous Blood Culture - Preliminary NO GROWTH AFTER 24 HOURS 02/27/17 18:36 Blood-Venous Blood Culture - Preliminary NO GROWTH AFTER 24 HOURS Most Recent Lab Values WBC 5.5 10^3/ul (4.5-11.0) 02/28/17 06:00 RBC 4.11 10^6/uL (3.5-6.1) 02/28/17 06:00 Hgb 12.3 gm/dL (12.0-16.0) 02/28/17 06:00 Hct 36.7 % (36.0-48.0) 02/28/17 06:00 MCV 89.3 fL (80.0-105.0) 02/28/17 06:00 MCH 29.9 pg (25.0-35.0) 02/28/17 06:00 MCHC 33.5 g/dl (31.0-37.0) 02/28/17 06:00 RDW 14.0 % (11.5-14.5) 02/28/17 06:00 Plt Count 268 10^3/uL (120.0-450.0) 02/28/17 06:00 MPV 8.8 fl (7.0-11.0) 02/28/17 06:00 Gran % 50.6 % (50.0-68.0) 02/28/17 06:00 Lymph % (Auto) 35.5 % (22.0-35.0) H 02/28/17 06:00 [place] % (Auto) 8.9 % (1.0-6.0) H 02/28/17 06:00 Eos % (Auto) 4.5 % (1.5-5.0) 02/28/17 06:00 Baso % (Auto) 0.5 % (0.0-3.0) 02/28/17 06:00 Gran # 2.78 (1.4-6.5) 02/28/17 06:00 Lymph # 2.0 (1.2-3.4) 02/28/17 06:00 [place] # 0.5 (0.1-0.6) 02/28/17 06:00 Eos # 0.3 (0.0-0.7) 02/28/17 06:00 Baso # 0.03 K/mm3 (0.0-2.0) 02/28/17 06:00 PT 11.4 Seconds (9.9-11.8) 02/27/17 14:00 INR 1.06 (0.93-1.08) 02/27/17 14:00 APTT 30.2 Seconds (23.7-30.8) 02/27/17 14:00 Sodium 140 mmol/L (132-148) 02/28/17 06:00 Potassium 3.7 mmol/L (3.6-5.0) 02/28/17 06:00 Chloride 106 mmol/L (98-107) 02/28/17 06:00 Carbon Dioxide 26 mmol/L (21-33) 02/28/17 06:00 Anion Gap 12 (10-20) 02/28/17 06:00 BUN 10 mg/dL (7-21) 02/28/17 06:00 Creatinine 0.6 mg/dL (0.5-1.4) 02/28/17 06:00 Est GFR ( Amer) > 60 02/28/17 06:00 Est GFR (Non-Af Amer) > 60 02/28/17 06:00 Random Glucose 71 mg/dL (70-110) 02/28/17 06:00 Calcium 9.2 mg/dL (8.4-10.5) 02/28/17 06:00 Total Bilirubin 0.6 mg/dL (0.2-1.3) 02/28/17 06:00 AST 37 U/L (15-39) 02/28/17 06:00 ALT 32 U/L (7-56) 02/28/17 06:00 Alkaline Phosphatase 86 U/L (38-133) 02/28/17 06:00 Lactate Dehydrogenase 574 U/L (333-699) 02/27/17 16:08 Total Creatine Kinase 87 U/L (35-230) 02/27/17 16:08 Troponin I < 0.01 ng/mL 02/27/17 16:08 Total Protein 7.8 g/dL (5.8-8.3) 02/28/17 06:00 Albumin 4.1 g/dL (3.0-4.8) 02/28/17 06:00 Globulin 3.7 gm/dL 02/28/17 06:00 Albumin/Globulin Ratio 1.1 (1.1-1.8) 02/28/17 06:00 Urine Color Yellow (YELLOW) 02/27/17 18:40 Urine Appearance Clear (CLEAR) 02/27/17 18:40 Urine pH 8.0 (4.7-8.0) 02/27/17 18:40 Ur Specific [place] 1.015 (1.005-1.035) 02/27/17 18:40 Urine Protein Negative mg/dL (<30 mg/dL) 02/27/17 18:40 Urine Glucose (UA) Negative mg/dL (NEGATIVE) 02/27/17 18:40 Urine Ketones Trace mg/dL (NEGATIVE) H 02/27/17 18:40 Urine Blood Negative (NEGATIVE) 02/27/17 18:40 Urine Nitrate Negative (NEGATIVE) 02/27/17 18:40 Urine Bilirubin Negative (NEGATIVE) 02/27/17 18:40 Urine Urobilinogen 0.2 E.U./dL (<1 E.U./dL) 02/27/17 18:40 Ur Leukocyte Esterase Negative Heidi/uL (NEGATIVE) 02/27/17 18:40 - Hospital Course Hospital Course: Pt. admitted with syncope. She had hypokalemia. K repleted. CT head negative. No problems today. CBC showed mild anemia. Granulocytosis. No obvious infection. Discharge Exam - Head Exam Head Exam: NORMAL INSPECTION, NORMOCEPHALIC - Eye Exam Eye Exam: Normal appearance Pupil Exam: NORMAL ACCOMODATION - ENT Exam ENT Exam: Mucous Membranes Moist - Neck Exam Neck exam: Normal Inspection - Respiratory Exam Respiratory Exam: NORMAL BREATHING PATTERN, UNREMARKABLE - Cardiovascular Exam Cardiovascular Exam: REGULAR RHYTHM, +S1, +S2 - GI/Abdominal Exam GI & Abdominal Exam: Normal Bowel Sounds, Unremarkable - Back Exam Back exam: NORMAL INSPECTION - Neurological Exam Neurological exam: CN II-XII Intact, Normal Gait, Oriented x3 - Psychiatric Exam Psychiatric exam: Normal Affect - Skin Skin Exam: Normal Color, Warm Discharge Plan - Discharge Medications Prescriptions: Potassium Chloride [K-Dur 20] 20 meq PO DAILY #5 tab - Follow Up Plan Condition: STABLE Patient education suggested?: Yes Instructions: Hypokalemia (DC) Additional Instructions: PT instructed to take PO K as ordered. PT instructed to return to ED if PT experiences any unrelenting pain, nausea, altered mental status, shortness of breath. PT instructed to follow up with Dr. Lea next week for continued care. Referrals: Scottie Lea MD [Primary Care Provider] -
--- NOTE | 2017-03-01 09:33 | CARD ---
APPROVED REPORT EKG Measurement Heart [id number] <Conclusion> Normal sinus rhythm Possible Left atrial enlargement Right bundle branch block Left anterior fascicular block Bifascicular block Left ventricular hypertrophy with repolarization abnormality Possible ASMI, age unknown STTW changes
== END 2017-02-28 19:05 | disposition home or self-care (01) ==
LOC: ED 13:33 → ERH 17:36 → 3RSO 19:22
PROVIDERS: ADMIT Internal Medicine; ATTEND Internal Medicine
DX: E87.6 Hypokalemia (principal); D64.9 Anemia, unspecified; F03.90 Unspecified dementia, unspecified severity, without behavioral disturbance, psychotic disturbance, mood disturbance, and anxiety; G40.909 Epilepsy, unspecified, not intractable, without status epilepticus; I10 Essential (primary) hypertension; K59.00 Constipation, unspecified; Z79.899 Other long term (current) drug therapy; Z87.440 Personal history of urinary (tract) infections; Z91.018 Allergy to other foods; R40.2412 Glasgow coma scale score 13-15, at arrival to emergency department; Z90.710 Acquired absence of both cervix and uterus; Z90.10 Acquired absence of unspecified breast and nipple
CPT/HCPCS: 36415; 70450; 71010; 80053; 81003; 82550; 83615; 84484; 85025; 85610; 85730; 87040; 87086; 93005; 99285; G0378; J2543; J3475; J3480

== ENCOUNTER 2017-03-17 14:56 | Inpatient (IN) | payer MEDICARE, BC ==
[2017-03-17] MEDS ORDERED: Sodium Chloride 0.9% 500 ML IV STA (15:50)
--- NOTE | 2017-03-17 15:54 | ED PDOC ---
Arrival/HPI - General Chief Complaint: Syncope Time Seen by Provider: 03/17/17 14:58 Historian: Patient - History of Present Illness Narrative History of Present Illness (Text): 03/17/17 15:40 A 86 year old female, whose past medical history includes hypertension, seizures , dementia, breast cancer in remission, and hypokalemia, presents to the emergency department complaining of syncopal episode today. Patient reports she was at the hair salon getting her hair done and she claims she had a syncopal episode when she stood up. When patient awoke, she was confused and became uncomfortable with people in the salon staring at her, she did not want to be touched. Patient notes she experiences headaches daily, but denies of any head trauma, abdominal pain, chest pain, shortness of breath, or any other complaints. Time/Duration: Other (some time today) Symptom Onset: Sudden Activities at Onset: Rest, Light Context: Other (hair salon) Past Medical History - Provider Review Nursing Documentation Reviewed: Yes - Infectious Disease Hx of Infectious Diseases: None - Cardiac Hx Cardiac Disorders: Yes Hx Hypertension: Yes - Pulmonary Hx Respiratory Disorders: No - Neurological Hx Neurological Disorder: Yes (SYNCOPE) Hx Dementia: Yes Hx Dizziness: Yes Hx Seizures: Yes - HEENT Hx HEENT Disorder: Yes (wears glasses) - Renal Hx Renal Disorder: No - Endocrine/Metabolic Hx Endocrine Disorders: No - Hematological/Oncological Hx Blood Disorders: Yes Hx Cancer: Yes (breast) - Integumentary Hx Dermatological Disorder: No - Musculoskeletal/Rheumatological Hx Musculoskeletal Disorders: Yes Hx Falls: Yes - Gastrointestinal Hx Gastrointestinal Disorders: Yes (CONSTIPATION) - Genitourinary/Gynecological Hx Genitourinary Disorders: Yes (HYSTERECTOMY) Hx Urinary Tract Infection: Yes - Psychiatric Hx Psychophysiologic Disorder: No Hx Depression: No Hx Emotional Abuse: No Hx Physical Abuse: No Hx Substance Use: No - Surgical History Hx Hysterectomy: Yes - Anesthesia Hx Anesthesia: Yes Hx Anesthesia Reactions: No - Suicidal Assessment Feels Threatened In Home Enviroment: No Family/Social History - Physician Review Nursing Documentation Reviewed: Yes Family/Social History: No Known Family HX Smoking Status: Never Smoked Hx Alcohol Use: No Hx Substance Use: No Allergies/Home Meds Allergies/Adverse Reactions: Allergies [place] And Derivatives Allergy (Verified 03/17/17 15:15) ITCHING Home Medications: Home Meds Medication Instructions Recorded Confirmed Unobtainable 03/17/17 03/17/17 Review of Systems - Physician Review All systems were reviewed & negative as marked: Yes - Review of Systems Respiratory: absent: SOB Cardiovascular: Syncope. absent: Chest Pain Gastrointestinal: absent: Abdominal Pain Neurological: Headache Physical Exam Vital Signs Reviewed: Yes Vital Signs Temp Pulse Resp BP Pulse Ox 03/17/17 18:35 80 16 98 03/17/17 18:20 57 L 16 144/81 100 03/17/17 15:14 97.8 F 52 L 16 174/94 H 100 Temperature: Afebrile Blood Pressure: Hypertensive Pulse: Bradycardic Respiratory Rate: Normal Appearance: Positive for: Well-Appearing Pain Distress: None Mental Status: Positive for: other. No: Alert and Oriented X 3 (alert x [address] but not time) - Systems Exam Head: Present: Atraumatic, Normocephalic Pupils: Present: PERRL Extroacular Muscles: Present: EOMI Conjunctiva: Present: Normal Mouth: Present: Moist Mucous Membranes Neck: Present: Normal Range of Motion Respiratory/Chest: Present: Clear to Auscultation, Good Air Exchange. No: Respiratory Distress, Accessory Muscle Use Cardiovascular: Present: Regular Rate and Rhythm, Normal S1, S2. No: Murmurs Abdomen: Present: Normal Bowel Sounds. No: Tenderness, Distention, Peritoneal Signs Back: Present: Normal Inspection Upper Extremity: Present: Normal Inspection. No: Cyanosis, Edema Lower Extremity: Present: Normal Inspection. No: Edema Neurological: Present: GCS=15, CN II-XII Intact, Speech Normal, Motor Func Grossly Intact Skin: Present: Warm, Dry, Normal Color. No: Rashes Psychiatric: Present: Alert (person and place, not time). No: Oriented x 3 Medical Decision Making ED Course and Treatment: 03/17/17 15:50 Impression: 86 year old female with syncopal episode. Physical exam shows patient is alert x 2 (person and place, not time). Plan: -- Chest X-ray -- Urinalysis -- IV Fluids -- Labs -- Reassess and disposition Prior Visits: Notes and results from previous visits were reviewed. Patient was last seen in the emergency department on 02/27/2017 for feeling faint. Patient was admitted. Progress Notes: EKG: sinus shell @ 55 with bifascicular block with LVH; QRS is 140; inverted T waves in v4-v6, not present on previous. 03/17/17 18:43 Patient today with syncopal episode and now asymptomatic. No seizure activity was witnessed. Exam with no focal neuro weakness. Blood work is unremarkable. EKG with inverted T waves V4-V6, but there is a strain pattern. She just had a negative brain CT on 02/27/17. Urine with trace LE but no urinary symptoms. Patient with EF of 30-35%, so by SF Syncope, patient would not be safe for discharge; will observe further on tele. Discussed with Dr. Khalil, covering Dr. Lea, for placement on his service. - Lab Interpretations Lab Results: 03/17/17 16:10 03/17/17 16:10 Lab Results 03/17/17 16:10: PT 10.8, INR 1.00, APTT 29.4, D-Dimer, Quantitative 0.44 03/17/17 16:10: Sodium 141, Potassium 3.3 L, Chloride 105, Carbon Dioxide 27, Anion Gap 12, BUN 14, Creatinine 0.6, Est GFR ( Amer) > 60, Est GFR (Non- Af Amer) > 60, Random Glucose 79, Calcium 9.3, Magnesium 1.9, Total Bilirubin 0.4, AST 31, ALT 35, Alkaline Phosphatase 91, Lactate Dehydrogenase 590, Total Creatine Kinase 95, Troponin I < 0.01, Total Protein 7.6, Albumin 4.2, Globulin 3.4, Albumin/Globulin Ratio 1.2, Lipase 128 03/17/17 16:10: WBC 5.9, RBC 4.13, Hgb 12.7, Hct 37.6, MCV 91.0, MCH 30.8, MCHC 33.8, RDW 14.1, Plt Count 210, MPV 9.0, Gran % 43.8 L, Lymph % (Auto) 46.9 H, [place] % (Auto) 5.4, Eos % (Auto) 3.7, Baso % (Auto) 0.2, Gran # 2.58, Lymph # 2.8 , [place] # 0.3, Eos # 0.2, Baso # 0.01 03/17/17 15:30: Urine Color Yellow, Urine Appearance Sl cloudy, Urine pH 6.0, Ur Specific [place] 1.020, Urine Protein Trace H, Urine Glucose (UA) Negative, Urine Ketones Negative, Urine Blood Negative, Urine Nitrate Negative, Urine Bilirubin Negative, Urine Urobilinogen 0.2, Ur Leukocyte Esterase Small H, Urine RBC 0 - 2, Urine WBC 1 - 3, Ur Epithelial Cells 1 - 3, Calcium Oxalate Crystal Many, Urine Bacteria Mod I have reviewed the lab results: Yes - RAD Interpretation Radiology Orders: 03/17/17 15:49 CHEST PORTABLE [RAD] Stat - Medication Orders Current Medication Orders: Sodium Chloride (Sodium Chloride 0.9%) 500 mls @ 100 mls/hr IV .Q5H STA Stop: 03/17/17 20:49 Last Admin: 03/17/17 16:15 Dose: 100 mls/hr Discontinued Medications Potassium Chloride (Potassium Chloride Oral Soln) 40 meq PO STAT STA Stop: 03/17/17 16:52 Last Admin: 03/17/17 17:15 Dose: 40 meq - Scribe Statement The provider has reviewed the documentation as recorded by the Roxanna Marmolejo Provider Scribe Attestation: All medical record entries made by the Roxanna were at my direction and personally dictated by me. I have reviewed the chart and agree that the record accurately reflects my personal performance of the history, physical exam, medical decision making, and the department course for this patient. I have also personally directed, reviewed, and agree with the discharge instructions and disposition. Disposition/Present on Arrival - Present on Arrival Any Indicators Present on Arrival: No History of DVT/PE: No History of Uncontrolled Diabetes: No Urinary Catheter: No History of Decub. Ulcer: No History Surgical Site Infection Following: None - Disposition Have Diagnosis and Disposition been Completed?: Yes Diagnosis: Syncope Disposition: HOSPITALIZED Disposition Time: 17:45 Patient Plan: Observation, Telemetry Condition: FAIR
[2017-03-17 16:23] LABS: BASO # 0.01 K/mm3 (0.0-2.0); BASO % 0.2 % (0.0-3.0); EOS # 0.2 (0.0-0.7); EOS % 3.7 % (1.5-5.0); GRAN # 2.58 (1.4-6.5); GRAN % 43.8 % (50.0-68.0); HEMATOCRIT 37.6 % (36.0-48.0); LYMPH # 2.8 (1.2-3.4); LYMPH % 46.9 % (22.0-35.0); MEAN CORPUSCULAR HEMOGLOBIN 30.8 pg (25.0-35.0); MEAN CORPUSCULAR HGB CONC 33.8 g/dl (31.0-37.0); MONO # 0.3 (0.1-0.6); MONO % 5.4 % (1.0-6.0); RED CELL DISTRIBUTION WIDTH 14.1 % (11.5-14.5); WHITE BLOOD COUNT 5.9 10^3/ul (4.5-11.0)
[2017-03-17 16:23] LABS: URINE BILIRUBIN NEGATIVE (NEGATIVE); URINE BLOOD NEGATIVE (NEGATIVE); URINE GLUCOSE (UA) NEGATIVE (NEGATIVE); URINE KETONE NEGATIVE (NEGATIVE); URINE LEUKOCYTE ESTERASE SMALL Leu/uL (NEGATIVE); URINE PROTEIN TRACE mg/dL (<30 mg/dL); URINE UROBILINOGEN 0.2 E.U./dL (<1 E.U./dL)
[2017-03-17 16:29] LABS: URINE APPEARANCE SL CLOUDY (CLEAR); URINE COLOR YELLOW (YELLOW)
[2017-03-17 16:32] LABS: URINE RBC 0 - 2 /hpf (0-2)
[2017-03-17 16:33] LABS: URINE BACTERIA MOD (NEG); URINE CALCIUM OXALATE CRYSTALS MANY /hpf
[2017-03-17 16:35] LABS: ALB/GLOB RATIO 1.2 (1.1-1.8); ALKALINE PHOSPHATASE 91 U/L (38-133); ALT/SGPT 35 U/L (7-56); AST/SGOT 31 U/L (15-39); BILIRUBIN,TOTAL 0.4 mg/dL (0.2-1.3); BLOOD UREA NITROGEN 14 mg/dL (7-21); CALCIUM 9.3 mg/dL (8.4-10.5); CARBON DIOXIDE 27 mmol/L (21-33); CHLORIDE 105 mmol/L (98-107); GFR AFRICAN-AMERICAN > 60; GLUCOSE,RANDOM 79 mg/dL (70-110); LIPASE 128 U/L (23-300); MAGNESIUM 1.9 mg/dL (1.7-2.2); POTASSIUM 3.3 mmol/L (3.6-5.0); SODIUM 141 mmol/L (132-148); TOTAL PROTEIN 7.6 g/dL (5.8-8.3)
[2017-03-17 16:38] LABS: PARTIAL THROMBOPLASTIN TIME 29.4 Seconds (23.7-30.8)
[2017-03-17 16:39] LABS: D DIMER 0.44 mg/L FEU (0-0.50)
[2017-03-17 16:46] LABS: TROPONIN I < 0.01 ng/mL
[2017-03-17] MEDS ORDERED: Potassium Chloride 40 mEq/30 ml LIQ UD PO STA (16:51)
--- NOTE | 2017-03-17 18:43 | RAD ---
HISTORY: syncope COMPARISON: No prior. FINDINGS: LUNGS: There is elevation left hemidiaphragm with left basilar atelectasis. Multiple metallic clips again seen overlying the left axillary and CP angle regions. Clinic correlation with surgical history recommended. Right lung is clear. PLEURA: No significant pleural effusion identified, no pneumothorax apparent. CARDIOVASCULAR: Heart size is upper limits of normal/ borderline enlarged. Aorta is ectatic and uncoiled calcification of the aortic knob OSSEOUS STRUCTURES: . There there is mild scoliotic deformity again noted VISUALIZED UPPER ABDOMEN: Normal. OTHER FINDINGS: Persistent mild elevation left hemidiaphragm with mild left basilar atelectasis. IMPRESSION: Persistent mild elevation left hemidiaphragm with mild left basilar atelectasis.
--- NOTE | 2017-03-17 21:45 | CARD ---
APPROVED REPORT EKG Measurement Heart [id number] <Conclusion> Sinus bradycardia Right bundle branch block Left anterior fascicular block Bifascicular block Voltage criteria for left ventricular hypertrophy Possible Anteroseptal infarct, age undetermined T wave abnormality, consider inferolateral ischemia Abnormal ECG
[2017-03-17 22:08] VITALS: BMI 19.1
--- NOTE | 2017-03-18 12:51 | CP.PCM.CON ---
<Crow Mcdaniel - Last Filed: 03/18/17 12:37> History of Present Illness - History of Present Illness History of Present Illness: Neurology Consult Note for Dr. Weber Reason for Consult: Syncope 86 y/o F with PMH of HTN, CAD, Seizure disorder, Dementia, and breast cancer presents to the hospital for presyncope. Patient states she was at home eating breakfast and stood up when she began feeling lightheaded. She sat down because she felt like she was going to pass out. Patient states she did not lose consciousness for any period of time. Pt states she has been feeling this way for the past few months. She also describes having decreased oral intake over the past several days. She states she has unintentionally been losing weight recently. Denies CP, SOB, N/V/D, fevers, chills, weakness, numbness, tingling, headache. PMH: HTN, CAD, Seizure disorder, Dementia, and breast cancer Surgical Hx: Left mastectomy, hysterectomy FMH: Noncontributory Social Hx: Denies alcohol, tobacco, or illicit drug use Medication: Reviewed, as per MAR Allergies: NKDA Review of Systems - Review of Systems Review of Systems: 13 point review of systems as per HPI, otherwise negative Past Patient History - Infectious Disease Hx of Infectious Diseases: None - Past Social History Smoking Status: Never Smoked - CARDIAC Hx Cardiac Disorders: Yes Hx Hypertension: Yes - PULMONARY Hx Respiratory Disorders: No - NEUROLOGICAL Hx Neurological Disorder: Yes (SYNCOPE) Hx Dementia: Yes Hx Dizziness: Yes Hx Seizures: Yes - HEENT Hx HEENT Problems: Yes (wears glasses) - RENAL Hx Chronic Kidney Disease: No - ENDOCRINE/METABOLIC Hx Endocrine Disorders: No - HEMATOLOGICAL/ONCOLOGICAL Hx Blood Disorders: Yes Hx Cancer: Yes (breast) - INTEGUMENTARY Hx Dermatological Problems: No - MUSCULOSKELETAL/RHEUMATOLOGICAL Hx Musculoskeletal Disorders: Yes Hx Falls: Yes - GASTROINTESTINAL Hx Gastrointestinal Disorders: Yes (CONSTIPATION) - GENITOURINARY/GYNECOLOGICAL Hx Genitourinary Disorders: Yes (HYSTERECTOMY) Hx Urinary Tract Infection: Yes - PSYCHIATRIC Hx Psychophysiologic Disorder: No Hx Depression: No Hx Emotional Abuse: No Hx Physical Abuse: No Hx Substance Use: No - SURGICAL HISTORY Hx Hysterectomy: Yes - ANESTHESIA Hx Anesthesia: Yes Hx Anesthesia Reactions: No Meds Allergies/Adverse Reactions: Allergies Allergy/AdvReac Type Severity Reaction Status Date / Time [place] And Derivatives Allergy ITCHING Verified 03/17/17 15:15 - Medications Medications: Current Medications Amlodipine Besylate (Norvasc) 5 mg PO DAILY [facility] Donepezil HCl (Aricept) 10 mg PO HS [facility] Levetiracetam (Keppra) 500 mg PO BID [facility] Physical Exam - Constitutional Appears: Non-toxic, No Acute Distress - Head Exam Head Exam: ATRAUMATIC, NORMAL INSPECTION, NORMOCEPHALIC - Eye Exam Eye Exam: EOMI - ENT Exam ENT Exam: Mucous Membranes Dry - Respiratory Exam Respiratory Exam: Clear to Auscultation Bilateral, NORMAL BREATHING PATTERN. absent: Rales, Rhonchi, Wheezes - Cardiovascular Exam Cardiovascular Exam: RRR, +S1, +S2 - GI/Abdominal Exam GI & Abdominal Exam: Normal Bowel Sounds, Soft. absent: Tenderness - Extremities Exam Extremities exam: Positive for: normal inspection. Negative for: calf tenderness, pedal edema - Neurological Exam Neurological exam: Alert, CN II-XII Intact, Oriented x3 Additional comments: muscle strength 5/5 in all extremities No pronator drift Sensation intact in all extremities - Psychiatric Exam Psychiatric exam: Normal Affect, Normal Mood - Skin Skin Exam: Intact, Normal Color, Warm Results - Vital Signs Recent Vital Signs: Last Vital Signs Temp 97.8 F 03/18/17 12:00 Pulse 55 L 03/18/17 12:00 Resp 20 03/18/17 12:00 BP 177/84 H 03/18/17 12:00 Pulse Ox 96 03/18/17 06:00 - Labs Result Diagrams: 03/17/17 16:10 03/17/17 16:10 Assessment & Plan - Assessment and Plan (Free Text) Plan: 86 y/o F with PMH of HTN, CAD, Seizure disorder, Dementia, and breast cancer presents with presyncopal episode secondary to vasovagal response. Pt has been having symptoms coinciding with decrease oral intake. In addition, patient has been bradycardic which may have contributed to her presyncopal episode. Recent carotid ultrasound negative for any acute pathology. Patient is neurologically stable at this time, will sign off. Please reconsult as needed. Plan: Orthostatic vitals Recommend Cardiology consult, possible holter monitor Increase oral hydration Avoid sedative medication Violeta, PGY-2 <Abhijeet Weber - Last Filed: 03/18/17 14:08> Meds - Medications Medications: Current Medications Amlodipine Besylate (Norvasc) 5 mg PO DAILY [facility] Last Admin: 03/18/17 13:58 Dose: 5 mg Donepezil HCl (Aricept) 10 mg PO HS [facility] Levetiracetam (Keppra) 500 mg PO BID [facility] Results - Vital Signs Recent Vital Signs: Last Vital Signs Temp 98.6 F 03/18/17 13:11 Pulse 62 03/18/17 13:58 Resp 14 03/18/17 13:11 BP 177/84 H 03/18/17 13:58 Pulse Ox 98 03/18/17 13:11 - Labs Result Diagrams: 03/17/17 16:10 03/17/17 16:10 Attending/Attestation - Attestation I have personally seen and examined this patient.: Yes I have fully participated in the care of the patient.: Yes I have reviewed all pertinent clinical information: Yes
--- NOTE | 2017-03-18 13:19 | CT ---
PROCEDURE: CT HEAD WITHOUT CONTRAST. HISTORY: syncope COMPARISON: None available. TECHNIQUE: Axial computed tomography images were obtained through the head/brain without intravenous contrast. Radiation dose: Total exam DLP = 677.45 mGy-cm. This CT exam was performed using one or more of the following dose reduction techniques: Automated exposure control, adjustment of the mA and/or kV according to patient size, and/or use of iterative reconstruction technique. FINDINGS: HEMORRHAGE: No intracranial hemorrhage. BRAIN: No mass effect or edema. Mild diffuse age-appropriate cerebral atrophy is noted. There is moderate periventricular and deep chronic white matter microvascular ischemic change. There is no evidence of acute infarct. VENTRICLES: Mild ex vacuo ventricular dilatation is noted proportionate to the degree of surrounding atrophy. This is unchanged from prior examination. There is no midline shift. CALVARIUM: Unremarkable. PARANASAL SINUSES: Unremarkable as visualized. No significant inflammatory changes. MASTOID AIR CELLS: Unremarkable as visualized. No inflammatory changes. OTHER FINDINGS: None. IMPRESSION: No intracranial mass, hemorrhage or evidence of acute infarct. Age-appropriate involutional change.
[2017-03-18] MEDS ORDERED: levETIRAcetam Solution 100 MG/ML BOTTLE PO SCH (18:00)
[2017-03-18] MEDS: levETIRAcetam 500 mg/5ml UD cups PO SCH (18:54)
--- NOTE | 2017-03-19 05:53 | CON ---
DATE: 03/18/2017 The patient room #272, bed #2. REASON FOR CONSULTATION: Dizziness, fall, hypertension. HISTORY OF PRESENT ILLNESS: The patient 86-year-old female who is known to have hypertension, coronary artery disease, dementia, breast CA status post mastectomy and seizure disorder. Admitted with the history that since, last few weeks, she is feeling dizzy and something she is unsteady on walking and prior to admission she states that due to unsteadiness she fell down and she denies loosing consciousness. The patient denies any chest pain, shortness of breath, palpitation associated with these episodes. PAST MEDICAL HISTORY: Significant for non-ST segment evaluation myocardial infarction which was treated also medically because of the patient mental status, dementia, patient hypertension, hyperlipidemia and seizure disorder. The patient was admitted with non-ST segment evaluation myocardial infarction on 09/11/2016. PERSONAL HISTORY: The patient stated that she used to smoke before, but stop smoking. Denies drinking. PAST SURGICAL HISTORY: She stated that she had hysterectomy. ALLERGIES: THE PATIENT DENIES ANY ALLERGIES. HOME MEDICATIONS: The patient was on amlodipine 5 mg daily, Aricept 10 mg at bedtime and Keppra 500 mg b.i.d. PHYSICAL EXAMINATION: VITAL SIGNS: Blood pressure 189/94 before that 179/80 then recent blood pressure three position; lying down 140/66, sitting 110/74, standing 122/69 all this reading are so much fluctuating, respiration 18, pulse 66 and temperature 97.5. HEENT: Normocephalic. Eyes; Pupils normal. Conjunctivae normal. Nose and throat normal. NECK: JVP low. Carotid equal. THORAX: AP diameter normal. LUNGS: Clear. CARDIOPULMONARY: S1 and S2. ABDOMEN: Soft and nontender. No organomegaly. Bowel sounds are normal. EXTREMITIES: No clubbing or cyanosis. LABORATORY DATA: WBC 5.9, hemoglobin 12.7, hematocrit 37.6 and platelet 210. Sodium 141, potassium 3.3, BUN 14, creatinine 0.6. AST and ALT normal. Troponin negative. Total protein and bilirubin normal. Chest x-ray showed elevation of left hilar diaphragm with mild left basilar atelectasis. EKG showed normal sinus rhythm, heart rate was around 58 per minute with right bundle-branch block, left anterior hemiblock, T-wave inversions, LVH with depolarization of normality old intraseptal NC. The patient had echocardiogram on 09/15/2016 normal size LV, systolic function moderately impaired with ejection fraction of 30%-35%, mild to moderate aortic regurgitation, aortic sclerosis mild aortic stenosis, trace to mild mitral regurgitation, mild tricuspid regurgitation, RVSP 34 mmHg. DIAGNOSES: 1. Dizziness and fall. 2. Hypertension. 3. Coronary artery disease. 4. Seizure disorder. 5. History of breast carcinoma. 6. Dementia. 7. Hypokalemia. PLAN: The patient was given potassium 40 mEq the patient with a potassium was 3.3 on 03/17/2017 and the patient received potassium 40 mEq, will repeat SMA-7 in the morning. The patient getting Aricept 10 at bedtime, Keppra 500 b.i.d., amlodipine 10 mg daily. The patient will repeat orthostatic blood pressures in the morning again and we will follow with you. We will add Ecotrin 81 mg p.o. daily to therapy. Destiny Man MD
[2017-03-19 06:37] LABS: HEMATOCRIT 33.6 % (36.0-48.0); MEAN CELL VOLUME 89.6 fl (80.0-105.0); MEAN CORPUSCULAR HEMOGLOBIN 30.1 pg (25.0-35.0); MEAN CORPUSCULAR HGB CONC 33.6 g/dl (31.0-37.0); MEAN PLATELET VOLUME 9.3 fl (7.0-11.0); RED CELL DISTRIBUTION WIDTH 13.9 % (11.5-14.5); WHITE BLOOD COUNT 5.2 10^3/ul (4.5-11.0)
[2017-03-19 06:42] LABS: ALB/GLOB RATIO 1.1 (1.1-1.8); ALKALINE PHOSPHATASE 71 U/L (38-133); ALT/SGPT 27 U/L (7-56); AST/SGOT 39 U/L (15-39); BILIRUBIN,TOTAL 0.3 mg/dL (0.2-1.3); BLOOD UREA NITROGEN 14 mg/dL (7-21); CALCIUM 8.9 mg/dL (8.4-10.5); CARBON DIOXIDE 27 mmol/L (21-33); CHLORIDE 105 mmol/L (98-107); GFR AFRICAN-AMERICAN > 60; GLUCOSE,RANDOM 80 mg/dL (70-110); MAGNESIUM 1.8 mg/dL (1.7-2.2); PHOSPHOROUS 3.7 mg/dL (2.5-4.5); POTASSIUM 3.4 mmol/L (3.6-5.0); SODIUM 140 mmol/L (132-148); TOTAL PROTEIN 6.5 g/dL (5.8-8.3)
[2017-03-19] MEDS: levETIRAcetam 500 mg/5ml UD cups PO SCH ×2 (09:39→18:58)
[2017-03-19] MEDS ORDERED: Potassium Chloride 20 mEq ER Tab PO ONE (11:06)
--- NOTE | 2017-03-19 11:33 | HP ---
CHIEF COMPLAINT AND HISTORY OF PRESENT ILLNESS: This is an 86-year-old female who has come into the hospital with presyncope. The patient has a history of seizure disorder, dementia, coronary artery disease, hypertension. She had breast cancer in the past. According to the ER attending and the notes that I reviewed, the patient was at home having breakfast. When she stood up, she became lightheaded, she states that she sat down because she felt that she was going to pass out. She had no actual syncope. She does remember the event. There was no headache, no dizziness. No nausea, no vomiting, no abdominal pain, no back pain, no dysuria or frequency, and no nocturia. She has not been eating well. She has a poor appetite. REVIEW OF SYSTEMS: All other review of symptoms are within normal limits. She does have difficulty walking at times and sometimes needs assistance. ALLERGIES: No known drug allergies. HOME MEDICATIONS: Have been reviewed on the medical reconciliation form. PAST MEDICAL HISTORY: Dementia, Alzheimer's type; breast cancer; seizure disorder; coronary artery disease; hypertension. PAST SURGICAL HISTORY: 1. Hysterectomy. 2. Left mastectomy. FAMILY HISTORY: Noncontributory. SOCIAL HISTORY: She lives with a son. She has no drinking or smoking. PHYSICAL EXAMINATION: VITAL SIGNS: Temperature is 97.5, pulse is 66. Blood pressure is 189/94, lying blood pressure is 140/66, sitting is 110/77, standing is 122/69. Height is 4 feet 11 inches, weight is 179 pounds, BMI is 16. GENERAL: The patient lying in bed, uncomfortable, and in no acute distress. HEENT: Atraumatic and normocephalic. Anicteric sclerae. Moist mucosa. [place] conjunctivae. No oral lesions. NECK: No JVD, anterior and posterior adenopathy, thyromegaly, or bruits. CARDIOVASCULAR: S1 and S2 regular. No murmur, rubs, or gallop. LUNGS: Clear to auscultation bilaterally. No wheezes, rales, or rhonchi. ABDOMEN: Bowel sounds are positive. Soft, nontender and nondistended. No hepatosplenomegaly. No rebound and no guarding. EXTREMITIES: No cyanosis, clubbing, or edema. NEUROLOGIC: No facial asymmetry. Tongue is midline. No uvula deviation. Power is 5/5 upper extremity and lower extremity. Sensation intact in upper extremity and lower extremity. PSYCHIATRIC: The patient is awake, alert, and oriented x2. No hallucinations. She has a blunted affect. No hallucinations. GENITOURINARY: No CVA tenderness. VASCULAR: 2+ pulses in the carotid pulses and pedal pulses. SKIN: No erythema or nodules. SPINE: Shows normal curvature. EXTREMITIES: No Cyanosis and clubbing, no edema. LABORATORY DATA: White count is 5.9. Chemistry shows sodium 141, potassium is 3.3. Urine shows protein is trace, glucose is negative, bilirubin is negative. IMAGING: EKG done shows sinus bradycardia, right bundle-branch block, heart rate is 55. Chest x-ray shows persistent mild elevation of the left hemidiaphragm. CT of the head done shows no intracranial mass, hemorrhage, or evidence of acute infarct. ASSESSMENT: 1. Presyncope. 2. Hypertension. 3. Seizure disorder. 4. Dementia, Alzheimer's type. PLAN: The patient is currently comfortable. The patient is brought into the hospital. She was evaluated by Dr. Weber. I did review his notes. We will have Dr. evaluate the patient as well. The patient has hypertension that is not well controlled. She has Norvasc that has been ordered. The patient was given a dose of clonidine. She was given a dose of potassium for her hypokalemia. She was given IV fluids. She is on Aricept. She is on a heart-healthy diet. We will get repeat blood work tomorrow. We will get physical therapy evaluation. I will see if she will qualify for the transition to care unit. She had a difficult time in walking and is a fall risk. Jack Khalil MD
--- NOTE | 2017-03-19 17:28 | PN ---
DATE: 03/19/2017 LOCATION: The patient is in room 272, bed 2. REASON FOR CONSULTATION: Followup on dizziness, fall, and hypertension. SUBJECTIVE: The patient is conscious and alert. Denies any chest pain, shortness of breath, or palpitation. The patient is lying flat in bed and she says when she is up and around she is infusing the dizziness. PHYSICAL EXAMINATION: VITAL SIGNS: Blood pressure 130/62, respirations 20, pulse 55, and temperature 97.9. The patient had orthostatic blood pressure taken in 3 positions; lying down 137/64, sitting 130/75, standing 137/81, so there is no postural hypotension. HEENT: Head is normocephalic. Eyes; pupils normal. Conjunctivae normal. Nose and throat normal. NECK: JVP low. Carotid equal. THORAX: AP diameter normal. LUNGS: Clear. CARDIOPULMONARY: S1 and S2. Systolic murmur. No rub. ABDOMEN: Soft and nontender. No organomegaly. Bowel sounds are normal. EXTREMITIES: No clubbing or cyanosis. LABORATORY DATA: WBC 5.2, hemoglobin 11.3, hematocrit 33.6, and platelet 214. Sodium 140, potassium 3.4, BUN 14, creatinine 0.6. AST, ALT, total protein, and albumin normal. Troponin negative. Echocardiogram done on 09/15/2016, normal LV size, systolic LV function moderately impaired with ejection fraction of 30% to 35%, [id number] aortic sclerosis versus mild aortic stenosis, crzsh-co-qwjl mitral regurgitation, mild tricuspid regurgitation, RVSP 34 mmHg. DIAGNOSES: 1. Dizziness and fall. No loss of consciousness. 2. Hypertension. 3. Coronary artery disease. 4. History of non-ST elevation myocardial infarction treated medically because of the patient's mental state and general condition. 5. Seizure disorder. 6. History of breast carcinoma. 7. Dementia. 8. Hypokalemia. 9. Left ventricular dysfunction and cardiomyopathy. PLAN: The patient is on aspirin 81 mg daily, the patient already received 40 mEq of potassium extra today, Keppra 500 mg b.i.d., amlodipine 10 mg daily, and Aricept 10 mg at bedtime. We will repeat SMA-7 in the morning. We will also check TSH and lipid profile and we will follow with you. Destiny Man MD [facility] # [id number]
--- NOTE | 2017-03-19 20:17 | CP.PCM.PN ---
Subjective - Date & Time of Evaluation Date of Evaluation: 03/19/17 Time of Evaluation: 19:27 - Subjective Subjective: Nurse pebbles called and requested a 1:1 sitter order. Patient had eloped from the floor and was found sitting in the ER. Patient was seen by me when she was in bed # 272-02. She is confused. Can not tell where she is at or what year and month is this. Has no complaints. Medical record was reviewed. This 86 year old woman was admitted Has PMH of HTN, CAD, seizure, dementia, Alzheimer's type, breast cancer,left mastectomy, hystrectomy. Objective - Vital Signs/Intake and Output Vital Signs (last 24 hours): Temp Pulse Resp BP Pulse Ox 97.9 F 64 20 131/75 97 03/19/17 18:00 03/19/17 18:00 03/19/17 18:00 03/19/17 18:00 03/19/17 06:00 - Medications Medications: Current Medications Amlodipine Besylate (Norvasc) 10 mg PO DAILY [facility] Last Admin: 03/19/17 09:39 Dose: 10 mg Aspirin (Ecotrin) 81 mg PO DAILY [facility] Last Admin: 03/19/17 09:39 Dose: 81 mg Donepezil HCl (Aricept) 10 mg PO HS [facility] Last Admin: 03/18/17 21:02 Dose: 10 mg Levetiracetam (Keppra) 500 mg PO BID [facility] Last Admin: 03/19/17 18:58 Dose: 500 mg - Labs Labs: 03/19/17 05:30 03/19/17 05:30 PT 10.8 Seconds (9.9-11.8) 03/17/17 16:10 INR 1.00 (0.93-1.08) 03/17/17 16:10 APTT 29.4 Seconds (23.7-30.8) 03/17/17 16:10 Most Recent Lab Values WBC 5.2 10^3/ul (4.5-11.0) 03/19/17 05:30 RBC 3.75 10^6/uL (3.5-6.1) 03/19/17 05:30 Hgb 11.3 g/dL (12.0-16.0) L 03/19/17 05:30 Hct 33.6 % (36.0-48.0) L 03/19/17 05:30 MCV 89.6 fl (80.0-105.0) 03/19/17 05:30 MCH 30.1 pg (25.0-35.0) 03/19/17 05:30 MCHC 33.6 g/dl (31.0-37.0) 03/19/17 05:30 RDW 13.9 % (11.5-14.5) 03/19/17 05:30 Plt Count 214 10^3/uL (120.0-450.0) 03/19/17 05:30 MPV 9.3 fl (7.0-11.0) 03/19/17 05:30 Gran % 43.8 % (50.0-68.0) L 03/17/17 16:10 Lymph % (Auto) 46.9 % (22.0-35.0) H 03/17/17 16:10 [place] % (Auto) 5.4 % (1.0-6.0) 03/17/17 16:10 Eos % (Auto) 3.7 % (1.5-5.0) 03/17/17 16:10 Baso % (Auto) 0.2 % (0.0-3.0) 03/17/17 16:10 Gran # 2.58 (1.4-6.5) 03/17/17 16:10 Lymph # 2.8 (1.2-3.4) 03/17/17 16:10 [place] # 0.3 (0.1-0.6) 03/17/17 16:10 Eos # 0.2 (0.0-0.7) 03/17/17 16:10 Baso # 0.01 K/mm3 (0.0-2.0) 03/17/17 16:10 PT 10.8 Seconds (9.9-11.8) 03/17/17 16:10 INR 1.00 (0.93-1.08) 03/17/17 16:10 APTT 29.4 Seconds (23.7-30.8) 03/17/17 16:10 D-Dimer, Quantitative 0.44 mg/L FEU (0-0.50) 03/17/17 16:10 Sodium 140 mmol/L (132-148) 03/19/17 05:30 Potassium 3.4 mmol/L (3.6-5.0) L 03/19/17 05:30 Chloride 105 mmol/L (98-107) 03/19/17 05:30 Carbon Dioxide 27 mmol/L (21-33) 03/19/17 05:30 Anion Gap 11 (10-20) 03/19/17 05:30 BUN 14 mg/dL (7-21) 03/19/17 05:30 Creatinine 0.6 mg/dL (0.5-1.4) 03/19/17 05:30 Est GFR ( Amer) > 60 03/19/17 05:30 Est GFR (Non-Af Amer) > 60 03/19/17 05:30 Random Glucose 80 mg/dL (70-110) 03/19/17 05:30 Calcium 8.9 mg/dL (8.4-10.5) 03/19/17 05:30 Phosphorus 3.7 mg/dL (2.5-4.5) 03/19/17 05:30 Magnesium 1.8 mg/dL (1.7-2.2) 03/19/17 05:30 Total Bilirubin 0.3 mg/dL (0.2-1.3) 03/19/17 05:30 AST 39 U/L (15-39) 03/19/17 05:30 ALT 27 U/L (7-56) 03/19/17 05:30 Alkaline Phosphatase 71 U/L (38-133) 03/19/17 05:30 Lactate Dehydrogenase 590 U/L (333-699) 03/17/17 16:10 Total Creatine Kinase 95 U/L (35-230) 03/17/17 16:10 Troponin I < 0.01 ng/mL 03/17/17 16:10 Total Protein 6.5 g/dL (5.8-8.3) 03/19/17 05:30 Albumin 3.4 g/dL (3.0-4.8) 03/19/17 05:30 Globulin 3.0 gm/dL 03/19/17 05:30 Albumin/Globulin Ratio 1.1 (1.1-1.8) 03/19/17 05:30 Lipase 128 U/L (23-300) 03/17/17 16:10 Urine Color Yellow (YELLOW) 03/17/17 15:30 Urine Appearance Sl cloudy (CLEAR) 03/17/17 15:30 Urine pH 6.0 (4.7-8.0) 03/17/17 15:30 Ur Specific [place] 1.020 (1.005-1.035) 03/17/17 15:30 Urine Protein Trace mg/dL (<30 mg/dL) H 03/17/17 15:30 Urine Glucose (UA) Negative mg/dL (NEGATIVE) 03/17/17 15:30 Urine Ketones Negative mg/dL (NEGATIVE) 03/17/17 15:30 Urine Blood Negative (NEGATIVE) 03/17/17 15:30 Urine Nitrate Negative (NEGATIVE) 03/17/17 15:30 Urine Bilirubin Negative (NEGATIVE) 03/17/17 15:30 Urine Urobilinogen 0.2 E.U./dL (<1 E.U./dL) 03/17/17 15:30 Ur Leukocyte Esterase Small Heidi/uL (NEGATIVE) H 03/17/17 15:30 Urine RBC 0 - 2 /hpf (0-2) 03/17/17 15:30 Urine WBC 1 - 3 /hpf (0-6) 03/17/17 15:30 Ur Epithelial Cells 1 - 3 /hpf (0-5) 03/17/17 15:30 Calcium Oxalate Crystal Many /hpf 03/17/17 15:30 Urine Bacteria Mod (NEG) 03/17/17 15:30 - Constitutional Appears: Well, No Acute Distress - Head Exam Head Exam: ATRAUMATIC, NORMAL INSPECTION, NORMOCEPHALIC - Eye Exam Eye Exam: Normal appearance - ENT Exam ENT Exam: Normal External Ear Exam - Neck Exam Neck Exam: Normal Inspection - Respiratory Exam Respiratory Exam: NORMAL BREATHING PATTERN - Cardiovascular Exam Cardiovascular Exam: absent: JVD - GI/Abdominal Exam GI & Abdominal Exam: absent: Distended - Rectal Exam Rectal Exam: Deferred - Exam Additional comments: Deferred. - Extremities Exam Extremities Exam: Normal Inspection - Back Exam Back Exam: NORMAL INSPECTION - Neurological Exam Neurological Exam: Altered - Psychiatric Exam Psychiatric exam: Normal Affect, Normal Mood - Skin Skin Exam: Normal Color Assessment and Plan - Assessment and Plan (Free Text) Assessment: Elopement risk. Dementia-Alzheimer's type. Seizure. Breast cancer. HTN. CAD. Plan: 1:1 sitter order entered. Continue present management.
--- NOTE | 2017-03-20 06:15 | DS ---
CHIEF COMPLAINT AND HISTORY OF PRESENT ILLNESS: This is an 86-year-old female who is coming in to the hospital because she was dizzy and had presyncopal episode. The patient was admitted to the hospital. She was hypokalemic. She had potassium that was replaced. She has been on Keppra for seizure disorder. She was hydrated. She said she is feeling better. She has no complaints of any headache or dizziness. No nausea. No vomiting. Her blood pressure initially in the hospital was elevated and after adjustment of her medications, blood pressure improved. She has not had headache or dizziness. No nausea. No vomiting. PHYSICAL EXAMINATION: VITAL SIGNS: Temperature is 98.2, pulse is 56, blood pressure is 136/67 and respirations 20. GENERAL: The patient is lying in bed, flat, comfortable. HEENT: No oral lesion. Anicteric sclerae. Moist mucosa. NECK: No JVD, adenopathy, or thyromegaly. CARDIOVASCULAR: S1 and S2, regular. No murmurs, rubs, or gallops. LUNGS: Clear to auscultation bilaterally. No wheeze, rales, or rhonchi. ABDOMEN: Bowel sounds are positive, soft, nontender and nondistended. EXTREMITIES: no cyanosis, clubbing or edema. ASSESSMENT: 1. Dizziness, resolved. 2. Fall. 3. Gait dysfunction. 4. Seizure disorder. 5. Dementia, Alzheimer's type. 6. Hypokalemia. 7. Congestive heart failure secondary to systolic dysfunction with ejection fraction of 35%, stable, chronic. 8. Rqme-ka-dsnmapnu regurgitation. PLAN: The patient is currently comfortable. She is on Aricept for her dementia. She is on aspirin. She want to continue with Keppra for her seizures. The patient's Norvasc had been increased to 10 mg. We will await PT evaluation done. Condition stable and activities increased as tolerated. Jack Khalil MD
[2017-03-20 09:03] LABS: BLOOD UREA NITROGEN 15 mg/dL (7-21); CALCIUM 9.2 mg/dL (8.4-10.5); CARBON DIOXIDE 25 mmol/L (21-33); CHLORIDE 109 mmol/L (98-107); CHOLESTEROL 202 mg/dL (130-200); GFR AFRICAN-AMERICAN > 60; GLUCOSE,RANDOM 77 mg/dL (70-110); MAGNESIUM 1.9 mg/dL (1.7-2.2); PHOSPHOROUS 3.6 mg/dL (2.5-4.5); POTASSIUM 3.9 mmol/L (3.6-5.0); SODIUM 141 mmol/L (132-148)
[2017-03-20] MEDS: levETIRAcetam 500 mg/5ml UD cups PO SCH ×2 (09:35→18:01)
--- NOTE | 2017-03-20 12:49 | PN ---
DATE: 03/20/2017 LOCATION: The patient is in room 376, bed 1. REASON FOR CONSULTATION: Followup on dizziness, fall, and hypertension. SUBJECTIVE: The patient is lying fat in bed without any chest pain, shortness of breath, palpitation, or dizziness. PHYSICAL EXAMINATION: VITAL SIGNS: Blood pressure 141/75, earlier pressure was 131/75, respirations 20, pulse 67, and temperature 98.4. HEENT: Head is normocephalic. Eyes; pupils normal. Conjunctivae normal. Nose and throat normal. NECK: JVP low. Carotid equal. THORAX: AP diameter normal. LUNGS: Clear. CARDIOPULMONARY: S1 and S2. Systolic murmur. No rub. ABDOMEN: Soft. No tenderness. No organomegaly. Bowel sounds are normal. EXTREMITIES: No clubbing. No cyanosis. LABORATORY DATA: Sodium 141, potassium 3.9, BUN 15, creatinine 0.6, random glucose 77, triglycerides 94, cholesterol 202, and HDL 85. Echocardiogram done on 09/15/2016, normal LV size, normal LV systolic function moderately impaired with ejection fraction of 30% to 35%, ruso-qi-[id number] aortic sclerosis versus mild aortic stenosis, wqzfj-ta-xmit mitral regurgitation, mild tricuspid regurgitation, RVSP 34 mmHg. DIAGNOSES: 1. Dizziness and fall. No loss of consciousness. 2. Hypertension. 3. Coronary artery disease. 4. History of non-ST elevation myocardial infarction, which was treated medically because of the patient's mental status with dementia. 5. Seizure disorder. 6. History of breast carcinoma. 7. Dementia. 8. Hypokalemia, which is corrected now. 9. Left ventricular dysfunction with cardiomyopathy. PLAN: Continue Keppra 500 mg two times a day, amlodipine 10 mg daily, Aricept 10 mg daily, and aspirin 81 mg daily. We will add lisinopril 2.5 mg by mouth daily because of low ejection fraction, also to help the blood pressure. The patient's heart rate sometimes goes below 60, so beta-malena not added at this time. We will follow with you. Destiny Man MD 03/20/2017
[2017-03-21] MEDS: levETIRAcetam 500 mg/5ml UD cups PO SCH ×2 (09:43→18:08)
--- NOTE | 2017-03-21 11:06 | PN ---
DATE: 03/21/2017 LOCATION: The patient is in room 376, bed 1. REASON FOR CONSULTATION: Followup on dizziness, fall, and hypertension. SUBJECTIVE: The patient is lying fat in bed. Denies any chest pain, shortness of breath, or palpitation. She denies dizziness. PHYSICAL EXAMINATION VITAL SIGNS: Blood pressure 131/68,respirations 18, pulse 67, and temperature 98.7. HEENT: Head is normocephalic. Eyes, pupils are normal. Conjunctivae normal. Nose and throat normal. NECK: JVP low. Carotid equal. THORAX: AP diameter normal. LUNGS: Clear. CARDIOPULMONARY: S1 and S2. ABDOMEN: Soft. No tenderness. No organomegaly. Bowel sounds are normal. EXTREMITIES: No clubbing. No cyanosis. LABORATORY DATA: Sodium 141, potassium 3.9, BUN 15, and creatinine 0.6. WBC 5.2, hemoglobin 11.3, hematocrit 33.6, and platelets 214. DIAGNOSES: 1. Dizziness and fall. No loss of consciousness. 2. Hypertension. 3. Coronary artery disease. 4. History of non-ST elevation myocardial infarction, which was treated medically because of the patient's mental status and with dementia. 5. Seizure disorder. 6. History of breast carcinoma. 7. Dementia. 8. Left ventricular dysfunction with cardiomyopathy. PLAN: Clinically cardiac status is stable at this point. The patient is on aspirin 81 mg daily, amlodipine 10 daily, lisinopril 2.5 daily, Aricept 10 mg p.o. at bedtime, and Keppra 500 b.i.d. We will continue to follow. Destiny Man MD
--- NOTE | 2017-03-21 22:53 | CP.PCM.PN ---
Subjective - Date & Time of Evaluation Date of Evaluation: 03/20/17 Time of Evaluation: 10:00 - Subjective Subjective: Comfortable in bed. No events overnight. denies chest pain. Objective - Vital Signs/Intake and Output Vital Signs (last 24 hours): Temp Pulse Resp BP Pulse Ox 98.7 F 57 L 18 131/68 99 03/21/17 08:23 03/21/17 09:43 03/21/17 08:23 03/21/17 09:45 03/21/17 08:23 Intake and Output: 03/21/17 03/22/17 18:59 06:59 Intake Total 720 300 Balance 720 300 - Medications Medications: Current Medications Amlodipine Besylate (Norvasc) 10 mg PO DAILY [facility] Last Admin: 03/21/17 09:45 Dose: 10 mg Aspirin (Ecotrin) 81 mg PO DAILY [facility] Last Admin: 03/21/17 09:44 Dose: 81 mg Donepezil HCl (Aricept) 10 mg PO HS [facility] Last Admin: 03/21/17 21:44 Dose: 10 mg Levetiracetam (Keppra) 500 mg PO BID [facility] Last Admin: 03/21/17 18:08 Dose: 500 mg Lisinopril (Zestril) 2.5 mg PO DAILY [facility] Last Admin: 03/21/17 09:43 Dose: 2.5 mg - Labs Labs: 03/19/17 05:30 03/20/17 08:10 PT 10.8 Seconds (9.9-11.8) 03/17/17 16:10 INR 1.00 (0.93-1.08) 03/17/17 16:10 APTT 29.4 Seconds (23.7-30.8) 03/17/17 16:10 - Constitutional Appears: Cachectic, Chronically Ill - Head Exam Head Exam: ATRAUMATIC, NORMAL INSPECTION, NORMOCEPHALIC - Eye Exam Eye Exam: Normal appearance Pupil Exam: NORMAL ACCOMODATION - ENT Exam ENT Exam: Mucous Membranes Moist, Normal Exam - Neck Exam Neck Exam: Normal Inspection - Respiratory Exam Respiratory Exam: Clear to Ausculation Bilateral, NORMAL BREATHING PATTERN - Cardiovascular Exam Cardiovascular Exam: REGULAR RHYTHM, +S1, +S2 - GI/Abdominal Exam GI & Abdominal Exam: Soft, Normal Bowel Sounds - Back Exam Back Exam: NORMAL INSPECTION - Neurological Exam Neurological Exam: Alert, Normal Gait, Oriented x3 - Skin Skin Exam: Normal Color, Warm Assessment and Plan - Assessment and Plan (Free Text) Assessment: 1. CAD 2. Seizure disorder 3. dementia 4. breast cancer left. 5. syncope plan : stable now. Neuro following. failure to thrive. TCU eval. Blood counts stable. oral intake poor. on 1:1 . breast cancer- no evidence of recurrence.
--- NOTE | 2017-03-21 23:00 | CP.PCM.PN ---
Subjective - Date & Time of Evaluation Date of Evaluation: 03/21/17 Time of Evaluation: 10:00 - Subjective Subjective: comfortable in bed. no episodes of syncope. denies diziness. No chest pain. Objective - Vital Signs/Intake and Output Vital Signs (last 24 hours): Temp Pulse Resp BP Pulse Ox 98.7 F 57 L 18 131/68 99 03/21/17 08:23 03/21/17 09:43 03/21/17 08:23 03/21/17 09:45 03/21/17 08:23 Intake and Output: 03/21/17 03/22/17 18:59 06:59 Intake Total 720 300 Balance 720 300 - Medications Medications: Current Medications Amlodipine Besylate (Norvasc) 10 mg PO DAILY [facility] Last Admin: 03/21/17 09:45 Dose: 10 mg Aspirin (Ecotrin) 81 mg PO DAILY [facility] Last Admin: 03/21/17 09:44 Dose: 81 mg Donepezil HCl (Aricept) 10 mg PO HS [facility] Last Admin: 03/21/17 21:44 Dose: 10 mg Levetiracetam (Keppra) 500 mg PO BID [facility] Last Admin: 03/21/17 18:08 Dose: 500 mg Lisinopril (Zestril) 2.5 mg PO DAILY [facility] Last Admin: 03/21/17 09:43 Dose: 2.5 mg - Labs Labs: 03/19/17 05:30 03/20/17 08:10 PT 10.8 Seconds (9.9-11.8) 03/17/17 16:10 INR 1.00 (0.93-1.08) 03/17/17 16:10 APTT 29.4 Seconds (23.7-30.8) 03/17/17 16:10 - Constitutional Appears: Chronically Ill - Head Exam Head Exam: ATRAUMATIC, NORMAL INSPECTION, NORMOCEPHALIC - Eye Exam Eye Exam: Normal appearance Pupil Exam: NORMAL ACCOMODATION - Neck Exam Neck Exam: Normal Inspection - Respiratory Exam Respiratory Exam: Clear to Ausculation Bilateral, NORMAL BREATHING PATTERN - Cardiovascular Exam Cardiovascular Exam: REGULAR RHYTHM, +S1, +S2 - GI/Abdominal Exam GI & Abdominal Exam: Soft, Normal Bowel Sounds - Extremities Exam Extremities Exam: Normal Inspection - Back Exam Back Exam: NORMAL INSPECTION - Neurological Exam Neurological Exam: Alert, CN II-XII Intact, Oriented x3 - Psychiatric Exam Psychiatric exam: Normal Affect - Skin Skin Exam: Normal Color, Warm Assessment and Plan - Assessment and Plan (Free Text) Assessment: 1. Syncope 2. seizure disorder 3. anemia 4. Dementia 5. history of Breast cancer Plan : DC 1:1. awaiting bed TCU for deconditioning. blood counts stable. no evidence of recurrence of breast cancer. CV stable.
[2017-03-22 08:35] VITALS: BP 156/79; PULSE 62; RESP 20; TEMP 97.9; O2SAT 97
[2017-03-22] MEDS: levETIRAcetam 500 mg/5ml UD cups PO SCH (09:43)
--- NOTE | 2017-03-22 21:51 | PN ---
DATE: 03/22/2017 LOCATION: The patient in room 376, bed 1. REASON FOR CONSULTATION: Followup dizziness, fall, hypertension. SUBJECTIVE: The patient is conscious, alert, denies any chest pain, shortness of breath, or palpitation. Her dizziness has also improved. PHYSICAL EXAMINATION VITAL SIGNS: Blood pressure 135/77; earlier, blood pressure was 156/79; respirations 18; pulse 64; temperature 98.2. HEENT: Head is normocephalic. Pupils normal. Conjunctiva normal. Nose and throat normal. NECK: JVP low. Carotid equal. Thorax, AP diameter normal. LUNGS: Clear. CARDIOVASCULAR: S1 and S2, systolic murmur. No rub. ABDOMEN: Soft. No tenderness. No organomegaly. Bowel sounds normal. EXTREMITIES: No clubbing. No cyanosis. LABORATORY DATA: Labs were done on 03/19 and 03/20 and they were reported previous notes. DIAGNOSES: 1. Dizziness and fall. No loss of consciousness. 2. Hypertension. 3. Coronary artery disease. 4. History of non-ST elevation myocardial infarction, which was treated medically because of the patient's mental status with dementia. 5. Seizure disorder. 6. History of breast carcinoma. 7. Dementia. 8. Left ventricular dysfunction with cardiomyopathy pattern. Echocardiogram on 09/15/2016 showed ejection fraction of 30% to 35%, [id number] aortic sclerosis versus mild aortic stenosis, cmnio-fr-ntol mitral regurgitation, mild tricuspid regurgitation, right ventricular systolic pressure 34 mmHg. PLAN: We will continue present therapy. The patient's dizziness has improved and we will continue to follow with you. The patient on Aricept 10 mg at bedtime, aspirin 81 mg daily, Keppra 500 b.i.d., amlodipine 10 daily, lisinopril 2.5 mg p.o. daily. We will continue the therapy. We will follow. Destiny Man MD
--- NOTE | 2017-03-24 08:28 | EEG ---
DATE: 03/20/2017 CONDITION OF THE RECORDING: Drowsy EEG. DIAGNOSES: Syncope/seizure. MEDICATIONS: Reviewed by nurse reconciliation sheet. INTERPRETATION: This is a 16-channel international recording. Background activity was composed of 5 to 7 cycles per second. There was a small amount of beta activity 16 to 20 cycles per second seen in this recording. There was increased amount of theta activity 5 to 7 cycles per second seen in this tracing. Drowsiness was characterized by mixed beta and theta activities and sleep was characterized by vertex transient, sleep spindle, bilateral slowing. Photic stimulation showed no change in the tracing. No paroxysmal activity noted in this recording. CONCLUSION: This is an abnormal EEG due to presence of mild diffuse slowing throughout. Consists of mild bilateral cerebral dysfunction. No evidence of any epileptiform activity. Please clinically correlate. Abhijeet Weber MD
--- NOTE | 2017-03-31 20:36 | DS ---
DATE: 03/22/2017 DISCHARGE DIAGNOSES: 1. Seizure disorder. 2. Dementia. 3. Anemia. 4. History of breast cancer. 5. Failure to thrive. HISTORY OF PRESENT ILLNESS: The patient was admitted to the hospital with history of seizure disorder, dementia, coronary artery diseases, failure to thrive. She was evaluated by neurology during the admission. Antiepileptic was continued. She is being transferred to transitional care unit for deconditioning and gait improvement. PHYSICAL EXAMINATION ON DISCHARGE: GENERAL: Comfortable in bed, in no acute distress. VITAL SIGNS: Temperature 98.7, heart rate 60 per minute, blood pressure 130/80. HEENT: Normal. NECK: No lymphadenopathy. CHEST: Air entry present and equal bilaterally. No added sounds. CARDIOVASCULAR: Within normal limits. ABDOMEN: Soft and nontender. No hepatosplenomegaly. EXTREMITIES: No edema. SKIN: No petechiae. No rash. SPINE: Nontender. EXTREMITIES: No cyanosis. No edema. CONDITION ON DISCHARGE: Stable. DISPOSITION: Discharge to transitional care unit. MEDICATIONS: Continue Norvasc 10 mg daily, Catapres 0.1 mg p.r.n., Aricept 10 mg daily, Keppra 500 mg p.o. b.i.d., Lisinopril 2.5 mg daily. DIET: As tolerated. Time spent in preparing discharge and coordinating care 55 minutes. Maureen Cm MD
== END 2017-03-22 11:45 | DRG 309 ==
LOC: ED 14:56 → ERH 17:52 → 2RSO 18:51 → OBSVTOIN 03-18 15:53 → 3RSO 03-19 21:49
PROVIDERS: ADMIT Internal Medicine Nephrology; ATTEND Internal Medicine Nephrology
DX: R00.1 Bradycardia, unspecified (principal); I50.22 Chronic systolic (congestive) heart failure; I11.0 Hypertensive heart disease with heart failure; I42.9 Cardiomyopathy, unspecified; Z68.1 Body mass index [BMI] 19.9 or less, adult; G30.9 Alzheimer's disease, unspecified; F02.80 Dementia in other diseases classified elsewhere, unspecified severity, without behavioral disturbance, psychotic disturbance, mood disturbance, and anxiety; G40.909 Epilepsy, unspecified, not intractable, without status epilepticus; I25.10 Atherosclerotic heart disease of native coronary artery without angina pectoris; I45.10 Unspecified right bundle-branch block; E87.6 Hypokalemia; I08.3 Combined rheumatic disorders of mitral, aortic and tricuspid valves; R62.7 Adult failure to thrive; D64.9 Anemia, unspecified; R55 Syncope and collapse; R42 Dizziness and giddiness; I25.2 Old myocardial infarction; Z85.3 Personal history of malignant neoplasm of breast; Z90.12 Acquired absence of left breast and nipple; Z91.81 History of falling

== ENCOUNTER 2017-03-22 11:50 | Inpatient (IN) | payer OTHER, BC ==
[2017-03-22 12:23] VITALS: BMI 16.5
[2017-03-22] MEDS ORDERED: Pneumococcal 23-Valent Vaccine IM ONE (13:23)
--- NOTE | 2017-03-23 20:23 | CP.PCM.CON ---
<Emanuel Mcrae - Last Filed: 03/23/17 20:20> History of Present Illness - History of Present Illness History of Present Illness: Neurology Consult Note for Dr. Weber Reason for Consult: Syncope This is an 86 yo AA F with PMH of HTN, CAD, Seizure disorder, Dementia, and breast cancer who initially presented to [facility] for intermittent presyncope lasting for several months. She was recently transferred to the TCU for reconditioning while continuing to receive treatment. No acute events reported overnight or since transfer to the TCU. Patient denies any acute complaints, including CP, SOB, N/V/D, fevers, chills, weakness, numbness, tingling, headache. All other ROS in 12-point systems review negative. PMH: as above Surgical Hx: Left mastectomy, hysterectomy FMH: Noncontributory Social Hx: Denies tobacco/EtOH/illicits/IVDA PMD: Dr. Larson Review of Systems - Review of Systems All systems: reviewed and no additional remarkable complaints except (as per HPI ) Past Patient History - Infectious Disease Hx of Infectious Diseases: None - Past Social History Smoking Status: Never Smoked - CARDIAC Hx Cardiac Disorders: Yes Hx Hypertension: Yes - PULMONARY Hx Respiratory Disorders: No - NEUROLOGICAL Hx Neurological Disorder: Yes (SYNCOPE) Hx Dementia: Yes Hx Dizziness: Yes Hx Seizures: Yes - HEENT Hx HEENT Problems: Yes (wears glasses) - RENAL Hx Chronic Kidney Disease: No - ENDOCRINE/METABOLIC Hx Endocrine Disorders: No - HEMATOLOGICAL/ONCOLOGICAL Hx Cancer: Yes (breast) - INTEGUMENTARY Hx Dermatological Problems: No - MUSCULOSKELETAL/RHEUMATOLOGICAL Hx Falls: No - GASTROINTESTINAL Hx Gastrointestinal Disorders: Yes (CONSTIPATION) - GENITOURINARY/GYNECOLOGICAL Hx Reproductive Disorders: Yes (left mastectomy "yrs ago" denies chemo/radiation ) - PSYCHIATRIC Hx Psychophysiologic Disorder: No Hx Depression: No Hx Emotional Abuse: No Hx Physical Abuse: No Hx Substance Use: No - SURGICAL HISTORY Hx Hysterectomy: Yes - ANESTHESIA Hx Anesthesia: Yes Hx Anesthesia Reactions: No Meds Allergies/Adverse Reactions: Allergies Allergy/AdvReac Type Severity Reaction Status Date / Time [place] And Derivatives Allergy ITCHING Verified 03/24/17 08:41 - Medications Medications: Current Medications Amlodipine Besylate (Norvasc) 10 mg PO DAILY [facility] PRN Reason: Protocol Last Admin: 03/23/17 10:01 Dose: 10 mg Aspirin (Ecotrin) 81 mg PO 0800 [facility] PRN Reason: Protocol Last Admin: 03/23/17 08:00 Dose: 81 mg Donepezil HCl (Aricept) 10 mg PO HS [facility] PRN Reason: Protocol Last Admin: 03/22/17 21:19 Dose: 10 mg Levetiracetam (Keppra) 500 mg PO BID [facility] PRN Reason: Protocol Last Admin: 03/23/17 17:25 Dose: 500 mg Lisinopril (Zestril) 2.5 mg PO DAILY [facility]HE PRN Reason: Protocol Last Admin: 03/23/17 09:46 Dose: 2.5 mg Physical Exam - Constitutional Appears: Well, Non-toxic, No Acute Distress - Head Exam Head Exam: ATRAUMATIC, NORMAL INSPECTION, NORMOCEPHALIC - Eye Exam Eye Exam: EOMI, Normal appearance. absent: Conjunctival injection, Scleral icterus Pupil Exam: absent: Irregular, Unequal - ENT Exam ENT Exam: Mucous Membranes Moist - Neck Exam Neck exam: Positive for: Full Rom - Respiratory Exam Respiratory Exam: Clear to Auscultation Bilateral, NORMAL BREATHING PATTERN. absent: Accessory Muscle Use, Chest Wall Tenderness, Decreased Breath Sounds, Rales, Rhonchi, Wheezes - Cardiovascular Exam Cardiovascular Exam: REGULAR RHYTHM, RRR, +S1, +S2. absent: Bradycardia, Tachycardia, Irregular Rhythm, JVD, +S4 - GI/Abdominal Exam GI & Abdominal Exam: Normal Bowel Sounds, Soft. absent: Diminished Bowel Sounds , Firm, Hyperactive Bowel Sounds, Hypoactive Bowel Sounds, Rigid, Tenderness - Extremities Exam Extremities exam: Positive for: normal inspection. Negative for: calf tenderness, pedal edema, tenderness - Neurological Exam Additional comments: Awake and alert, oriented x3 (self, location, place), CN II-XII intact, moving all extremities spontaneously, able to follow all commands appropriately - Psychiatric Exam Psychiatric exam: Normal Affect, Normal Mood - Skin Skin Exam: Dry, Intact, Normal Color, Warm Results - Vital Signs Recent Vital Signs: Last Vital Signs Temp 98.6 F 03/23/17 16:57 Pulse 70 03/23/17 16:57 Resp 18 03/23/17 16:57 BP 127/68 03/23/17 16:57 Pulse Ox 97 03/23/17 16:57 Assessment & Plan - Assessment and Plan (Free Text) Assessment: This is an 86 yo AA F with PMH of HTN, CAD, Seizure disorder, Dementia, and breast cancer who initially presented to [facility] for intermittent presyncope lasting for several months, and was recently transferred to the TCU for reconditioning. Her presyncope is likely 2/2 decreased PO intake with underlying bradycardia possibly contributing. Plan: 1) Orthostatic vitals 2) Carotid Duplex obtained, negative for acute pathology 3) Recommend Cardiology consult, possible holter monitor 4) Increase oral hydration 5) Avoid sedative medication Patient reviewed and discussed with attending, Dr. Marco Weber. Please reconsult if patient experiences any changes in condition. <Abhijeet Weber - Last Filed: 03/24/17 11:16> Meds - Medications Medications: Current Medications Amlodipine Besylate (Norvasc) 10 mg PO DAILY VAHE PRN Reason: Protocol Last Admin: 03/24/17 10:54 Dose: 10 mg Aspirin (Ecotrin) 81 mg PO 0800 [facility] PRN Reason: Protocol Last Admin: 03/24/17 08:09 Dose: 81 mg Donepezil HCl (Aricept) 10 mg PO HS [facility] PRN Reason: Protocol Last Admin: 03/24/17 00:04 Dose: 10 mg Levetiracetam (Keppra) 500 mg PO BID [facility] PRN Reason: Protocol Last Admin: 03/24/17 10:54 Dose: 500 mg Lisinopril (Zestril) 2.5 mg PO DAILY [facility]E PRN Reason: Protocol Last Admin: 03/24/17 10:54 Dose: 2.5 mg Results - Vital Signs Recent Vital Signs: Last Vital Signs Temp 98.6 F 03/23/17 16:57 Pulse 90 03/24/17 10:54 Resp 18 03/23/17 16:57 BP 138/67 03/24/17 10:54 Pulse Ox 97 03/23/17 16:57 Attending/Attestation - Attestation I have personally seen and examined this patient.: Yes I have fully participated in the care of the patient.: Yes I have reviewed all pertinent clinical information: Yes
--- NOTE | 2017-03-23 23:45 | CON ---
DATE: 03/23/2017 REASON FOR CONSULTATION: Near syncope, continuity of care in transitional care unit, history of hypertension, history of fall. BRIEF CLINICAL HISTORY: An 86-year-old female with a past medical history significant for coronary artery disease, hypertension, breast CA, status post mastectomy, seizure disorder, admitted in the acute medical floor on 03/17/2017 with unsteady gait and feeling very weak and fell down. Denies any loss of conscious. The patient was in telemetry and no arrhythmia noted. PAST MEDICAL HISTORY: Significant for non-ST segment myocardial infarction and was treated medically because of the patient's mental condition, dementia, hypertension, hyperlipidemia, seizure disorder. The patient was admitted with non-ST segment myocardial infarction on 09/11/2016. PERSONAL HISTORY: Used to smoke before, quit smoking many years ago. Denies any history of alcohol abuse. PAST SURGICAL HISTORY: Significant for hysterectomy. ALLERGY: NO KNOWN DRUG ALLERGY. CURRENT MEDICATION AT HOME: The patient was taking amlodipine 5 mg, Aricept 10 mg at bedtime, Keppra 500 mg b.i.d. for seizure disorder. REVIEW OF SYSTEMS: As per HPI. PHYSICAL EXAMINATION: VITAL SIGNS: Temperature afebrile, heart rate is 59, blood pressure 134/79. HEENT: PERRLA. Extraocular muscles are intact. NECK: Supple. No carotid bruit. No thyromegaly. CHEST: Clear to auscultation. HEART: S1 and S2, regular. ABDOMEN: Soft. EXTREMITIES: Clubbing and cyanosis negative. LABORATORY DATA: Blood workup as follows: WBC 5.8, hemoglobin 11.3, hematocrit 33.6, platelet count 214. Chemistry showed sodium 141, potassium 3.9, chloride of 109, carbon dioxide 25, anion gap of 11, BUN 15, creatinine 0.6. Triglycerides are 94, cholesterol 202, LDL 63, HDL 85, TSH 2.23. IMPRESSION: An 86-year-old female with past medical history significant for seizure disorder, hypertension, coronary artery disease, non-ST elevation myocardial infarction in July, history of breast carcinoma, dementia, last echo was 09/15/2016, ejection fraction 30% to 35%, mild aortic stenosis, [id number] mitral regurgitation, mild tricuspid regurgitation, right ventricular systolic pressure of 34, admitted with unsteady gait, near syncope, but denies any loss consciousness. The patient is being treated medically, now the patient is in transitional care unit for continuity of care. RECOMMENDATIONS: Continue rehab, continue Aricept, continue aspirin, continue Keppra, continue amlodipine. Monitor blood pressure. We will check for orthostatic. We will follow with you. Thank you for providing me the opportunity in taking care of the patient. Destiny Gongora MD
--- NOTE | 2017-03-24 13:13 | PN ---
DATE: 03/24/2017 REASON FOR CONSULTATION: Followup near syncope, continuity of care in transitional care unit, history of hypertension, and history of fall. SUBJECTIVE: The patient is lying flat in the bed. Denies any chest pain, shortness of breath, or any palpitation. OBJECTIVE: GENERAL: Lying flat in the bed, not in apparent distress. VITAL SIGNS: Examination as follows; temperature afebrile, heart rate 70 and blood pressure 127/68. HEENT: PERRLA. Extraocular muscles are intact. NECK: Supple. No carotid bruits. No thyromegaly. CHEST: Clear to auscultation. HEART: S1 and S2, regular. ABDOMEN: Soft. EXTREMITIES: Clubbing and cyanosis negative. LABORATORY DATA: Blood workup not available. IMPRESSION: An 86-year-old female with history of coronary artery disease in 1995, myocardial infarction on 09/11/2016, admitted with near syncope, fall, history of hypertension, history of breast carcinoma status post mastectomy, history of seizure disorder, admitted acute medical floor with unsteady gait, now patient being in transitional care unit for continuity of care. Denies any chest pain, history of dementia as well. History of last echo on 09/15/2016, showed ejection fraction 30-35% mild aortic stenosis, [id number] mitral regurgitation, mild tricuspid regurgitation, right ventricular systolic pressure of 34. RECOMMENDATION: Continue medical treatment, no invasive cardiac workup has planned. Continue rehab, continue Aricept, continue aspirin, continue Keppra, and continue amlodipine. Monitor blood pressure. We will follow with you. Thank you Dr. Khalil for providing me the opportunity in taking care of the patient, Antonio Badillo. We will repeat blood workup in the morning. Destiny Gongora MD
[2017-03-25 08:05] LABS: BASO # 0.02 K/mm3 (0.0-2.0); BASO % 0.4 % (0.0-3.0); EOS # 0.3 (0.0-0.7); EOS % 6.3 % (1.5-5.0); GRAN # 1.77 (1.4-6.5); GRAN % 38.6 % (50.0-68.0); HEMATOCRIT 32.5 % (36.0-48.0); LYMPH # 2.1 (1.2-3.4); LYMPH % 46.6 % (22.0-35.0); MEAN CORPUSCULAR HEMOGLOBIN 30.2 pg (25.0-35.0); MEAN CORPUSCULAR HGB CONC 33.5 g/dl (31.0-37.0); MEAN PLATELET VOLUME 9.1 fl (7.0-11.0); MONO # 0.4 (0.1-0.6); MONO % 8.1 % (1.0-6.0); RED CELL DISTRIBUTION WIDTH 13.3 % (11.5-14.5); WHITE BLOOD COUNT 4.6 10^3/ul (4.5-11.0)
[2017-03-25 08:20] LABS: ALB/GLOB RATIO 1.1 (1.1-1.8); ALKALINE PHOSPHATASE 71 U/L (38-133); ALT/SGPT 28 U/L (7-56); AST/SGOT 26 U/L (15-39); BILIRUBIN,TOTAL 0.4 mg/dL (0.2-1.3); BLOOD UREA NITROGEN 15 mg/dL (7-21); CALCIUM 8.9 mg/dL (8.4-10.5); CARBON DIOXIDE 28 mmol/L (21-33); CHLORIDE 107 mmol/L (98-107); GFR AFRICAN-AMERICAN > 60; GLUCOSE,RANDOM 75 mg/dL (70-110); MAGNESIUM 1.9 mg/dL (1.7-2.2); PHOSPHOROUS 3.4 mg/dL (2.5-4.5); POTASSIUM 3.7 mmol/L (3.6-5.0); SODIUM 140 mmol/L (132-148); TOTAL PROTEIN 6.4 g/dL (5.8-8.3)
--- NOTE | 2017-03-25 08:20 | PN ---
DATE: 03/24/2017 SUBJECTIVE: The patient denies any complaints of chest pain. No shortness of breath or headaches. She is coming into this transitional care unit for rehab. PHYSICAL EXAMINATION VITAL SIGNS: Temperature is 98.2, pulse is 69, blood pressure 127/65 and respirations 14. HEENT: No oral lesion. Anicteric sclerae. Moist mucosa. NECK: No JVD, adenopathy, or thyromegaly. CARDIOVASCULAR: S1 and S2, regular. No murmurs, rubs, or gallops. LUNGS: Clear to auscultation bilaterally. No wheeze, rales, or rhonchi. ABDOMEN: Bowel sounds are positive, soft, nontender and nondistended. EXTREMITIES: No cyanosis, clubbing or edema. ASSESSMENT: 1. Dizziness, resolved. 2. Fall. 3. Gait dysfunction. 4. Seizure disorder. 5. Dementia Alzheimer's type. 6. Congestive heart failure secondary to systolic dysfunction with ejection fraction 35%, chronic, stable. 7. Moderate strabismus. PLAN: The patient is currently comfortable. She is on a one to one, noted to be doing harm to herself. The patient is on Aricept. She is going to continue with aspirin, she is on Keppra for her seizures, she is on lisinopril for her hypertension and she is on a heart healthy diet. Plan is for possible discharge tomorrow. I did speak to the social contact worker. The patient is able to ambulate significant amount. She worked with the physical therapist today, and she was able to walk 100 feet . Jack Khalil MD
--- NOTE | 2017-03-25 15:59 | PN ---
DATE: 03/25/2017 LOCATION: Patient is in room 318, bed 1. REASON FOR CONSULTATION AND FOLLOWUP: Near syncope, hypertension, history of fall. SUBJECTIVE: Patient is conscious, alert, lying flat in bed without any cardiac symptoms like chest pain, shortness of breath or palpitation. PHYSICAL EXAMINATION: VITAL SIGNS: Blood pressure is 141/69, earlier this morning was 133/64, respirations 18, pulse 55, temperature 97.5. HEENT: Head is normocephalic. Eyes: Pupils normal. Conjunctivae slightly pale. NECK: JVP low. Carotids are equal. Thorax; AP diameter is normal. LUNGS: Clear. CARDIOVASCULAR: S1 and S2. ABDOMEN: Soft. No tenderness. No organomegaly. EXTREMITIES: No clubbing. No cyanosis. LABORATORY DATA: WBC 4.6, hemoglobin 10.9, hematocrit 32.5, platelets 222. Sodium 140, potassium 3.7, BUN 15, creatinine 0.6. Calcium, phosphorus, magnesium is normal. AST and ALT normal. Total protein and albumin normal. DIAGNOSES: Coronary artery disease, history of hypertension, history of breast carcinoma, status post mastectomy, history of seizure disorder, history of myocardial infarction 09/11/2016, deconditioning, echo 09/15/2016 shows ejection fraction 30% to 35%, mild aortic stenosis, [id number] mitral regurgitation, mild tricuspid regurgitation, right ventricular systolic pressure 34 mmHg. PLAN: Continue aspirin 81 mg p.o. daily, Keppra 500 mg b.i.d., amlodipine 10 mg daily, lisinopril 2.5 mg daily, Aricept 10 mg at bedtime. We will follow. Destiny Man MD
[2017-03-25 16:31] VITALS: BP 123/68; PULSE 67; RESP 19; TEMP 97.8; O2SAT 97
--- NOTE | 2017-03-31 06:53 | DS ---
DISCHARGE DIAGNOSES: 1. Syncope. 2. Seizure disorder. 3. Dementia. 4. Anemia. 5. History of breast cancer. HOSPITAL COURSE: The patient was admitted with Syncope. She recovered during hospitalization. Neurology consult requested. Cardiology consulted. Cardiology recommended conservative treatment and urology evaluated for syncope. She had EEG done in the hospital. They recommended continuation of Keppra 500 mg p.o. b.i.d. She remained stable during the hospitalization. CAT scan of the head was unremarkable. She is being discharged in stable condition. PHYSICAL EXAMINATION ON DISCHARGE: GENERAL: Comfortable in bed, in no acute distress. VITAL SIGNS: Temperature 98.7, heart rate 80 per minute, blood pressure 110/70, respiratory rate 16 per minute. HEENT: Normal. CHEST: Air entry present and equal bilaterally. No added sounds. CARDIOVASCULAR: S1 and S2 normal. No murmur and no gallop. ABDOMEN: Soft and nontender. No hepatosplenomegaly. EXTREMITIES: No edema. GEOSCIENCE SPECIALIST: Alert and oriented x3. No focal sensory or motor deficits. CONDITION ON DISCHARGE: Stable. HOME MEDICATIONS: Continue home medications. Norvasc 5 mg daily, aspirin 81 mg daily, Aricept 10 mg daily, Keppra 500 mg p.o. b.i.d., lisinopril 2.5 mg daily, K-Dur 20 mEq daily. DIET: Normal. FOLLOWUP: Followup with Dr. Khalil in one week. Followup with Dr. Man, cardiology. Followup with neurology, Dr. Weber. DISPOSITION: Discharge home. Time spent in preparing discharge and coordinating care 60 minutes. Maureen Cm MD MTDCharla
== END 2017-03-25 20:15 | disposition home or self-care (01) | DRG 92 ==
LOC: TRCU 11:50
PROVIDERS: ADMIT Internal Medicine Nephrology; ATTEND Internal Medicine Nephrology
PROC: F08Z4ZZ Home Management Treatment (ICD-10-PCS; 2017-03-22)
PROC: F07Z9ZZ Gait Training/Functional Ambulation Treatment (ICD-10-PCS; principal; 2017-03-24)
PROC: F07Z8ZZ Transfer Training Treatment (ICD-10-PCS; 2017-03-24)
PROC: F07L6YZ Therapeutic Exercise Treatment of Musculoskeletal System - Lower Back / Lower Extremity using Other Equipment (ICD-10-PCS; 2017-03-24)
DX: R26.81 Unsteadiness on feet (principal); I50.20 Unspecified systolic (congestive) heart failure; I11.0 Hypertensive heart disease with heart failure; R00.1 Bradycardia, unspecified; G40.909 Epilepsy, unspecified, not intractable, without status epilepticus; R55 Syncope and collapse; I25.10 Atherosclerotic heart disease of native coronary artery without angina pectoris; G30.9 Alzheimer's disease, unspecified; F02.80 Dementia in other diseases classified elsewhere, unspecified severity, without behavioral disturbance, psychotic disturbance, mood disturbance, and anxiety; E78.5 Hyperlipidemia, unspecified; I08.3 Combined rheumatic disorders of mitral, aortic and tricuspid valves; H50.9 Unspecified strabismus; R42 Dizziness and giddiness; Z85.3 Personal history of malignant neoplasm of breast; Z90.10 Acquired absence of unspecified breast and nipple; Z87.891 Personal history of nicotine dependence; I25.2 Old myocardial infarction

== ENCOUNTER 2017-03-29 15:21 | Observation (INO) | payer MEDICARE, BC ==
[2017-03-29 15:28] VITALS: BMI 20.2
[2017-03-29 16:09] LABS: PH,URINE 6.5 (4.7-8.0); URINE BILIRUBIN NEGATIVE (NEGATIVE); URINE BLOOD NEGATIVE (NEGATIVE); URINE GLUCOSE (UA) NEGATIVE (NEGATIVE); URINE KETONE NEGATIVE (NEGATIVE); URINE LEUKOCYTE ESTERASE MODERATE Leu/uL (NEGATIVE); URINE PROTEIN NEGATIVE mg/dL (<30 mg/dL); URINE UROBILINOGEN 0.2 E.U./dL (<1 E.U./dL)
[2017-03-29 16:17] LABS: BASO # 0.02 K/mm3 (0.0-2.0); BASO % 0.3 % (0.0-3.0); EOS # 0.4 (0.0-0.7); EOS % 5.9 % (1.5-5.0); GRAN # 2.94 (1.4-6.5); GRAN % 49.8 % (50.0-68.0); HEMATOCRIT 33.6 % (36.0-48.0); LYMPH # 2.2 (1.2-3.4); LYMPH % 37.2 % (22.0-35.0); MEAN CELL VOLUME 89.8 fl (80.0-105.0); MEAN CORPUSCULAR HGB CONC 34.5 g/dl (31.0-37.0); MONO # 0.4 (0.1-0.6); MONO % 6.8 % (1.0-6.0); RED CELL DISTRIBUTION WIDTH 13.6 % (11.5-14.5); WHITE BLOOD COUNT 5.9 10^3/ul (4.5-11.0)
[2017-03-29 16:21] LABS: URINE APPEARANCE SL CLOUDY (CLEAR); URINE COLOR YELLOW (YELLOW)
[2017-03-29 16:25] LABS: URINE RBC NEGATIVE /hpf (0-2)
[2017-03-29 16:26] LABS: ALB/GLOB RATIO 1.2 (1.1-1.8); ALKALINE PHOSPHATASE 91 U/L (38-126); ALT/SGPT 29 U/L (7-56); AST/SGOT 32 U/L (14-36); BILIRUBIN,TOTAL 0.4 mg/dL (0.2-1.3); BLOOD UREA NITROGEN 10 mg/dL (7-21); CALCIUM 9.3 mg/dL (8.4-10.5); CARBON DIOXIDE 28 mmol/L (21-33); CHLORIDE 106 mmol/L (98-107); GFR AFRICAN-AMERICAN > 60; GLUCOSE,RANDOM 76 mg/dL (70-110); POTASSIUM 3.6 mmol/L (3.6-5.0); SODIUM 143 mmol/L (132-148); TOTAL PROTEIN 7.4 g/dL (5.8-8.3)
[2017-03-29 16:26] LABS: URINE BACTERIA FEW (NEG)
[2017-03-29 16:27] LABS: INR 1.06 (0.93-1.08); PARTIAL THROMBOPLASTIN TIME 30.8 Seconds (23.7-30.8)
--- NOTE | 2017-03-29 16:37 | ED PDOC ---
Arrival/HPI - General Chief Complaint: Weakness/Neurological Deficit Time Seen by Provider: 03/29/17 15:35 Historian: Patient, EMS - History of Present Illness Narrative History of Present Illness (Text): 03/29/17 16:44 86-year-old female presents today complaining of dizziness and weakness. Denies chest pain or shortness of breath. Denies trauma or injury. Patient appears altered, unsure of the date or where she is currently located. Denies numbness or tingling in the extremities. Denies urinary symptoms. Denies abdominal pain. No other complaints Time/Duration: Prior to Arrival Symptom Onset: Sudden Symptom Course: Resolved Past Medical History - Provider Review Nursing Documentation Reviewed: Yes - Travel History Have you recently traveled outside [place] w/in the past 3 mons?: No - Infectious Disease Hx of Infectious Diseases: None - Tetanus Immunization Tetanus Immunization: Unknown - Cardiac Hx Cardiac Disorders: Yes Hx Hypertension: Yes - Pulmonary Hx Respiratory Disorders: No - Neurological Hx Neurological Disorder: Yes (SYNCOPE) Hx Dementia: Yes Hx Dizziness: Yes Hx Seizures: Yes - HEENT Hx HEENT Disorder: Yes (wears glasses) - Renal Hx Renal Disorder: No - Endocrine/Metabolic Hx Endocrine Disorders: No - Hematological/Oncological Hx Cancer: Yes (breast) - Integumentary Hx Dermatological Disorder: No - Musculoskeletal/Rheumatological Hx Falls: No - Gastrointestinal Hx Gastrointestinal Disorders: Yes (CONSTIPATION) - Genitourinary/Gynecological Hx Reproductive Disorders: Yes (left mastectomy "yrs ago" denies chemo/radiation ) - Psychiatric Hx Psychophysiologic Disorder: No Hx Depression: No Hx Emotional Abuse: No Hx Physical Abuse: No Hx Substance Use: No - Surgical History Hx Hysterectomy: Yes - Anesthesia Hx Anesthesia: Yes Hx Anesthesia Reactions: No - Suicidal Assessment Feels Threatened In Home Enviroment: No Family/Social History - Physician Review Nursing Documentation Reviewed: Yes Family/Social History: Unknown Family HX Smoking Status: Never Smoked Hx Alcohol Use: No Hx Substance Use: No Allergies/Home Meds Allergies/Adverse Reactions: Allergies [place] And Derivatives Allergy (Verified 03/29/17 17:47) ITCHING Home Medications: Home Meds Medication Instructions Recorded Confirmed Donepezil [Aricept] 10 mg DAILY 03/18/17 03/29/17 Levetiracetam [Keppra] 500 mg PO BID 03/18/17 03/29/17 Potassium Chloride [K-Dur 20 mEq 10 meq DAILY 03/18/17 03/29/17 ER Tab] Review of Systems - Review of Systems Systems not reviewed;Unavailable: Altered Mental Status Constitutional: absent: Fatigue, Fevers Respiratory: absent: SOB, Cough Cardiovascular: absent: Chest Pain, Palpitations Gastrointestinal: absent: Abdominal Pain, Diarrhea, Nausea, Vomiting Genitourinary Female: absent: Dysuria, Frequency, Hematuria Musculoskeletal: absent: Arthralgias, Back Pain, Neck Pain Skin: absent: Rash, Pruritis Neurological: Headache, Dizziness Psychiatric: absent: Anxiety, Depression Physical Exam Vital Signs Reviewed: Yes Vital Signs Temp Pulse Resp BP Pulse Ox 03/29/17 18:06 67 18 165/79 H 100 03/29/17 17:10 68 18 168/89 H 100 03/29/17 15:27 98.4 F 70 19 178/94 H 100 Temperature: Afebrile Blood Pressure: Hypertensive Pulse: Regular Respiratory Rate: Normal Appearance: Positive for: Non-Toxic, Comfortable, Cachectic Pain Distress: None Mental Status: Positive for: Confused Finger Stick Blood Glucose: 75 - Systems Exam Head: Present: Atraumatic Pupils: Present: Pinpoint Extroacular Muscles: Present: EOMI Conjunctiva: Present: Normal Mouth: Present: Moist Mucous Membranes Pharnyx: Present: Normal Nose (Internal): Present: Normal Inspection Neck: Present: Normal Range of Motion. No: MIDLINE TENDERNESS, Paraspinal Tenderness Respiratory/Chest: Present: Clear to Auscultation, Good Air Exchange. No: Respiratory Distress, Accessory Muscle Use Cardiovascular: Present: Regular Rate and Rhythm, Normal S1, S2. No: Murmurs Abdomen: Present: Normal Bowel Sounds. No: Tenderness, Distention, Peritoneal Signs, Rebound, Guarding Back: Present: Normal Inspection. No: Midline Tenderness, Paraspinal Tenderness Upper Extremity: Present: Normal ROM Lower Extremity: Present: Normal ROM Neurological: Present: Speech Normal Skin: Present: Warm, Dry, Normal Color. No: Rashes Psychiatric: Present: Alert Medical Decision Making ED Course and Treatment: 03/29/17 16:55 86YR OLD FEMALE WITH DIZZINESS AND WEAKNESS. PT IS ALTERED. BUT ALERT. RESTING COMFORTABLY. 03/29/17 18:12 cbc; wnl cmp; wnl trop; wnl ekg; normal sinus rhythm at [address] elevations right bundle-branch block cxr: wnl head ct; FINDINGS: HEMORRHAGE: No intracranial hemorrhage. BRAIN: Diffuse atrophy with prominence of the ventricles and sulci noted. No mass effect or edema. Intracranial atherosclerosis. Scattered periventricular and subcortical white matter hypodensities, which are nonspecific, but often seen with chronic microvascular ischemic disease. Please note that MRI with diffusion imaging is more sensitive in the detection of acute ischemic event. VENTRICLES: No hydrocephalus. CALVARIUM: Unremarkable. PARANASAL SINUSES: Unremarkable as visualized. No significant inflammatory changes. MASTOID AIR CELLS: Unremarkable as visualized. No inflammatory changes. OTHER FINDINGS: None. IMPRESSION: Generalized atrophy. Nonspecific white matter changes. UA; + moderate leukocytes, + wbcs few bacteria rocephin given for uti. case discussed with dr. godinez; will admit observational status to tele for near syncope and UTI. impression; near syncope, uti observational status; tele. - Lab Interpretations Lab Results: 03/29/17 15:55 03/29/17 15:55 Lab Results 03/29/17 16:00: Urine Color Yellow, Urine Appearance Sl cloudy, Urine pH 6.5, Ur Specific [place] 1.010, Urine Protein Negative, Urine Glucose (UA) Negative, Urine Ketones Negative, Urine Blood Negative, Urine Nitrate Negative, Urine Bilirubin Negative, Urine Urobilinogen 0.2, Ur Leukocyte Esterase Moderate H, Urine RBC Negative, Urine WBC 5 - 10, Ur Epithelial Cells 3 - 4, Urine Bacteria Few 03/29/17 15:55: PT 11.4, INR 1.06, APTT 30.8 03/29/17 15:55: WBC 5.9 D, RBC 3.74, Hgb 11.6 L, Hct 33.6 L, MCV 89.8, MCH 31.0 , MCHC 34.5, RDW 13.6, Plt Count 241, MPV 9.0, Gran % 49.8 L, Lymph % (Auto) 37.2 H, [place] % (Auto) 6.8 H, Eos % (Auto) 5.9 H, Baso % (Auto) 0.3, Gran # 2.94 , Lymph # 2.2, [place] # 0.4, Eos # 0.4, Baso # 0.02 03/29/17 15:55: Sodium 143, Potassium 3.6, Chloride 106, Carbon Dioxide 28, Anion Gap 13, BUN 10, Creatinine 0.6, Est GFR ( Amer) > 60, Est GFR (Non- Af Amer) > 60, Random Glucose 76, Calcium 9.3, Total Bilirubin 0.4, AST 32, ALT 29, Alkaline Phosphatase 91, Lactate Dehydrogenase 576, Total Creatine Kinase 74 , Troponin I < 0.01, Total Protein 7.4, Albumin 4.0, Globulin 3.4, Albumin/ Globulin Ratio 1.2 - RAD Interpretation Radiology Orders: 03/29/17 15:37 HEAD W/O CONTRAST [CT] Stat CHEST PORTABLE [RAD] Stat - Medication Orders Current Medication Orders: Discontinued Medications Aspirin (Aspirin) 325 mg PO STAT STA Stop: 03/29/17 18:52 Last Admin: 03/29/17 19:09 Dose: 325 mg Ceftriaxone Sodium (Rocephin 1 Gram Ivpb) 1 gm in 100 mls @ 200 mls/hr IVPB STAT STA PRN Reason: Protocol Stop: 03/29/17 17:51 Last Admin: 03/29/17 18:14 Dose: 200 mls/hr Pneumococcal Polyvalent Vaccine (Pneumovax 23 Vaccine) 0.5 ml IM .ONCE ONE Stop: 03/29/17 19:06 Last Admin: 03/29/17 19:08 Dose: Disposition/Present on Arrival - Present on Arrival Any Indicators Present on Arrival: No History of DVT/PE: No History of Uncontrolled Diabetes: No Urinary Catheter: No History of Decub. Ulcer: No History Surgical Site Infection Following: None - Disposition Have Diagnosis and Disposition been Completed?: Yes Diagnosis: Near syncope, UTI (urinary tract infection) Disposition: HOSPITALIZED Disposition Time: 17:12 Patient Plan: Observation, Telemetry Patient Problems: Current Active Problems Problem Status Onset Near syncope Acute Condition: FAIR
[2017-03-29 16:39] LABS: TROPONIN I < 0.01 ng/mL
--- NOTE | 2017-03-29 16:48 | CT ---
PROCEDURE: CT HEAD WITHOUT CONTRAST. HISTORY: dizziness COMPARISON: Noncontrast head CT performed 03/18/17 TECHNIQUE: Axial computed tomography images were obtained through the head/brain without intravenous contrast. Radiation dose: Total exam DLP = 791.17 mGy-cm. This CT exam was performed using one or more of the following dose reduction techniques: Automated exposure control, adjustment of the mA and/or kV according to patient size, and/or use of iterative reconstruction technique. FINDINGS: HEMORRHAGE: No intracranial hemorrhage. BRAIN: Diffuse atrophy with prominence of the ventricles and sulci noted. No mass effect or edema. Intracranial atherosclerosis. Scattered periventricular and subcortical white matter hypodensities, which are nonspecific, but often seen with chronic microvascular ischemic disease. Please note that MRI with diffusion imaging is more sensitive in the detection of acute ischemic event. VENTRICLES: No hydrocephalus. CALVARIUM: Unremarkable. PARANASAL SINUSES: Unremarkable as visualized. No significant inflammatory changes. MASTOID AIR CELLS: Unremarkable as visualized. No inflammatory changes. OTHER FINDINGS: None. IMPRESSION: Generalized atrophy. Nonspecific white matter changes.
--- NOTE | 2017-03-29 16:53 | RAD ---
HISTORY: dizziness COMPARISON: Chest x-ray performed 03/17/17 TECHNIQUE: Chest, one view. FINDINGS: LUNGS: Mild left basilar atelectasis. Please note that chest x-ray has limited sensitivity for the detection of pulmonary masses. PLEURA: No significant pleural effusion identified. No definite pneumothorax . CARDIOVASCULAR: Heart size appears within normal limits. Ectatic aorta containing atherosclerotic calcifications. OSSEOUS STRUCTURES: Osseous demineralization. Degenerative changes. Scoliosis. VISUALIZED UPPER ABDOMEN: Elevation of the left hemidiaphragm. OTHER FINDINGS: Left axillary clips. Clips project over the left lower chest as well. IMPRESSION: Persistent mild elevation of the left hemidiaphragm with mild left basilar atelectasis.
[2017-03-29] MEDS ORDERED: cefTRIAXone 1 gm 1 GM/100 ML BAG IVPB STA (17:22)
[2017-03-29] MEDS ORDERED: Pneumococcal 23-Valent Vaccine IM ONE (19:05)
[2017-03-30 02:51] VITALS: O2SAT 98
[2017-03-30 12:04] VITALS: BP 148/73; RESP 18
[2017-03-30] MEDS ORDERED: cefTRIAXone 1 gm 1 GM/100 ML BAG IVPB SCH (13:30)
[2017-03-30] MEDS ORDERED: Pantoprazole 40 mg EC Tab PO SCH (16:00)
[2017-03-30 16:21] VITALS: TEMP 82.6
[2017-03-30 16:22] VITALS: PULSE 65
--- NOTE | 2017-03-31 00:30 | CARD ---
APPROVED REPORT EKG Measurement Heart [id number] <Conclusion> Normal sinus rhythm Right bundle branch block Left anterior fascicular block Bifascicular block Voltage criteria for left ventricular hypertrophy Cannot rule out Anteroseptal infarct, age undetermined Abnormal ECG
--- NOTE | 2017-03-31 21:51 | HP ---
DATE: 03/29/2017 HISTORY OF PRESENT ILLNESS: The patient is an 86-year-old female who presented to ED with dizziness and weakness. She has a history of breast cancer. She was recently admitted to the hospital. UA was positive. Urine culture has been sent. She has altered sensorium also. She has baseline dementia. Denies any chest pain, no shortness of breath, no cough with expectoration. PAST MEDICAL HISTORY: Dementia Alzheimer's type, recurrent UTI's, history of breast cancer, hypertension, coronary artery disease, history of syncope, left-sided breast cancer, left mastectomy treated with chemoradiation. PAST SURGICAL HISTORY: Hysterectomy and mastectomy. REVIEW OF SYSTEMS: As per HPI. Rest of the 12-point review of system reviewed and negative. PERSONAL HISTORY: Never smoked. No history of alcohol abuse. SOCIAL HISTORY: Lives at home. ALLERGIES: NO KNOWN DRUG ALLERGIES. HOME MEDICATIONS: Aricept 10 mg daily, Keppra 500 mg p.o. b.i.d., potassium 10 mEq daily. PHYSICAL EXAMINATION: GENERAL: Comfortable in bed, in no acute distress. VITAL SIGNS: Temperature 98.7, heart rate 75 per minute, respiratory rate 18 per minute, blood pressure 170/90, and pulse oximetry is 100% on room air. HEENT: Normal. CHEST: Air entry present equal and bilateral. No added sounds. CARDIOVASCULAR: S1 and S2 normal. No murmur or gallop. ABDOMEN: Soft, nontender. No hepatosplenomegaly. EXTREMITIES: No edema. SKIN: Warm and dry. Normal color. No rash. No petechia. CENTRAL NERVOUS SYSTEM: Communicative, alert, oriented to time and place. CT head no acute changes. LABORATORY DATA: White count 5.9, hemoglobin 11.6, hematocrit 33.6 and platelet count 241. Sodium 143, potassium 3.6, BUN 10, creatinine 0.6, glucose 76. Troponin is negative. Chest x-ray no infiltrate. ASSESSMENT: 1. Urinary tract infection. 2. Anemia. 3. Dementia. 4. Left-sided breast cancer, on remission. 5. Near syncope. PLAN: She will be admitted to tele monitoring. She has uncontrolled hypertension. She was give Klonopin in the ER. We will continue Keppra 500 mg p.o. b.i.d., continue Protonix 40 mg daily, ceftriaxone 1 g daily[address] ID consultation Dr. Boghossian requested. Norvasc 10 mg daily. We will continue to monitor closely. Maureen Cm MD
--- NOTE | 2017-04-01 08:27 | DS ---
DATE OF DISCHARGE: 03/30/2017 DISCHARGE DIAGNOSES: 1. Urinary tract infection. 2. Altered mental status. 3. History of breast cancer, left-sided. 4. Anemia. 5. Uncontrolled hypertension. HOSPITAL COURSE: The patient was admitted with altered mental status, history of syncope, and she has uncontrolled hypertension with elevated blood pressure. She was started on Norvasc 10 mg daily in the hospital, blood pressures are controlled. She is currently being transferred to transitional care unit for treatment of UTI. Urine culture showed E. coli positive. ID consultation was requested during the hospitalization. PHYSICAL EXAMINATION: GENERAL: Comfortable in bed, in no acute distress. VITAL SIGNS: Temperature 98.7, heart rate 80 per minute, respiratory rate 16 per minute, oxygen saturation 98% on room air. HEENT: Normal. Pallor positive. CHEST: Air entry present equal and bilateral. No added sounds. CARDIOVASCULAR: Within normal limits. ABDOMEN: Soft, nontender. No hepatosplenomegaly. EXTREMITIES: No edema. CONDITION ON DISCHARGE: Stable. DISCHARGE DISPOSITION: Transitional care unit. MEDICATIONS: Continue current medication Norvasc 10 mg daily, Maxitin q. 8 hours, Aricept 1 mg daily, Keppra 500 mg p.o. b.i.d., and Protonix 40 mg p.o. daily. Physical therapy to be continued. DIET: Heart-healthy diet. Time spent in preparing discharge and coordinating care 60 minutes. Maureen Soila, MD
== END 2017-03-30 17:29 ==
LOC: ED 15:21 → ERH 17:21 → 2RSO 18:27
PROVIDERS: ADMIT Internal Medicine Nephrology; ATTEND Internal Medicine Nephrology
DX: N39.0 Urinary tract infection, site not specified (principal); B96.20 Unspecified Escherichia coli [E. coli] as the cause of diseases classified elsewhere; R55 Syncope and collapse; I10 Essential (primary) hypertension; G30.9 Alzheimer's disease, unspecified; F02.80 Dementia in other diseases classified elsewhere, unspecified severity, without behavioral disturbance, psychotic disturbance, mood disturbance, and anxiety; D64.9 Anemia, unspecified; I25.10 Atherosclerotic heart disease of native coronary artery without angina pectoris; R41.82 Altered mental status, unspecified; R53.1 Weakness; R42 Dizziness and giddiness; Z85.3 Personal history of malignant neoplasm of breast; Z90.12 Acquired absence of left breast and nipple; Z90.710 Acquired absence of both cervix and uterus; Z87.440 Personal history of urinary (tract) infections; Z92.3 Personal history of irradiation; Z92.21 Personal history of antineoplastic chemotherapy
CPT/HCPCS: 70450; 71010; 80053; 81001; 82550; 83615; 84484; 85025; 85610; 85730; 87040; 87086; 93005; 99285; G0378; J0696

== ENCOUNTER 2017-03-30 17:29 | Inpatient (IN) | payer OTHER, BC ==
[2017-03-30 19:07] VITALS: BMI 16.1
[2017-03-31] MEDS: Pantoprazole 40 mg EC Tab PO SCH ×2 (05:41→16:55)
[2017-03-31] MEDS ORDERED: cefTRIAXone 1 gm 1 GM/100 ML BAG IVPB SCH ×2 (06:00→10:00)
[2017-03-31] MEDS: Cefepime IV 2 gm in NS 2 GM/100 ML BAG IVPB SCH (17:20)
[2017-04-01] MEDS: Cefepime IV 2 gm in NS 2 GM/100 ML BAG IVPB SCH ×2 (05:14→18:03)
[2017-04-01] MEDS: Pantoprazole 40 mg EC Tab PO SCH ×2 (05:14→16:02)
[2017-04-02] MEDS: Pantoprazole 40 mg EC Tab PO SCH ×2 (05:43→17:00)
[2017-04-02] MEDS: Cefepime IV 2 gm in NS 2 GM/100 ML BAG IVPB SCH ×2 (05:51→17:14)
[2017-04-02] MEDS ORDERED: Vancomycin 1gm in NS 250ml 1 GM/250 ML BAG IVPB STA (17:28)
[2017-04-03] MEDS: Pantoprazole 40 mg EC Tab PO SCH ×2 (06:15→17:40)
[2017-04-03] MEDS: Amoxicillin-Clav 875-125 mg Tab PO SCH ×2 (10:31→21:33)
[2017-04-03] MEDS: Tmp-Smz 800 mg-160 mg DS Tab PO SCH ×2 (10:31→17:39)
--- NOTE | 2017-04-03 17:40 | CP.PCM.CON ---
History of Present Illness - History of Present Illness History of Present Illness: 86 year old female with PMH of HTN, CAD, seizure disorder, dementia, breast cancer S/P left mastectomy, S/P hysterectomy was initially admitted in [facility] because of syncope / pre-syncope. She is now transferred to [facility] for continued medical therapy and physical rehab. Infectious Diseases consult is requested for evaluation of the possibility of UTI in this patient. She is currently afebrile, no vomiting, no convulsions, no diarrhea, no vomiting. Full review of systems is unobtainable because of the patient's dementia. Review of Systems - Review of Systems All systems: reviewed and no additional remarkable complaints except (as per HPI ) Past Patient History - Infectious Disease Hx of Infectious Diseases: None - Tetanus Immunizations Tetanus Immunization: Unknown - Past Social History Smoking Status: Never Smoked - CARDIAC Hx Cardiac Disorders: Yes Hx Hypertension: Yes - PULMONARY Hx Respiratory Disorders: No - NEUROLOGICAL Hx Neurological Disorder: Yes (SYNCOPE) Hx Dementia: Yes Hx Dizziness: Yes Hx Seizures: Yes - HEENT Hx HEENT Problems: Yes (wears glasses) - RENAL Hx Chronic Kidney Disease: No - ENDOCRINE/METABOLIC Hx Endocrine Disorders: No - HEMATOLOGICAL/ONCOLOGICAL Hx Cancer: Yes (breast) - INTEGUMENTARY Hx Dermatological Problems: No - MUSCULOSKELETAL/RHEUMATOLOGICAL Hx Falls: Yes - GASTROINTESTINAL Hx Gastrointestinal Disorders: No - GENITOURINARY/GYNECOLOGICAL Hx Genitourinary Disorders: No Hx Reproductive Disorders: No - PSYCHIATRIC Hx Psychophysiologic Disorder: No Hx Depression: No Hx Emotional Abuse: No Hx Physical Abuse: No Hx Substance Use: No - SURGICAL HISTORY Hx Hysterectomy: Yes - ANESTHESIA Hx Anesthesia: Yes Hx Anesthesia Reactions: No Meds Allergies/Adverse Reactions: Allergies Allergy/AdvReac Type Severity Reaction Status Date / Time [place] [employer] Allergy ITCHING Verified 03/29/17 17:47 - Medications Medications: Current Medications Amlodipine Besylate (Norvasc) 10 mg PO DAILY [facility] PRN Reason: Protocol Last Admin: 04/02/17 09:20 Dose: 10 mg Donepezil HCl (Aricept) 10 mg PO HS [facility] PRN Reason: Protocol Last Admin: 04/01/17 22:00 Dose: 10 mg Cefepime HCl (Maxipime 2gm) 2 gm in 100 mls @ 100 mls/hr IVPB 0600,1800 [facility] PRN Reason: Protocol Stop: 04/05/17 18:01 Last Admin: 04/02/17 17:14 Dose: Not Given Vancomycin HCl (Vancomycin 1gm) 1 gm in 250 mls @ 167 mls/hr IVPB STAT STA PRN Reason: Protocol Stop: 04/02/17 18:57 Levetiracetam (Keppra) 500 mg PO BID [facility] PRN Reason: Protocol Last Admin: 04/02/17 17:13 Dose: 500 mg Pantoprazole Sodium (Protonix Ec Tab) 40 mg PO 0600,1600 [facility] PRN Reason: Protocol Last Admin: 04/02/17 17:00 Dose: 40 mg Physical Exam - Constitutional Appears: Non-toxic, No Acute Distress - Head Exam Head Exam: NORMAL INSPECTION - ENT Exam ENT Exam: Mucous Membranes Moist - Neck Exam Neck exam: Negative for: Meningismus - Respiratory Exam Respiratory Exam: Decreased Breath Sounds - Cardiovascular Exam Cardiovascular Exam: +S1, +S2 - GI/Abdominal Exam GI & Abdominal Exam: Soft. absent: Tenderness Results - Vital Signs Recent Vital Signs: Last Vital Signs Temp 97.2 F L 04/02/17 17:07 Pulse 63 04/02/17 17:07 Resp 16 04/02/17 17:07 BP 137/60 04/02/17 17:07 Pulse Ox 100 04/02/17 17:07 Assessment & Plan - Assessment and Plan (Free Text) Plan: Assessment Consider UTI with gram negative bacilli HTN CAD seizure disorder dementia breast cancer S/P left mastectomy S/P hysterectomy Plan Started patient on Augmentin and Bactrim pending identification and sensitivities of the gram positive cocci in the urine will monitor clinically
--- NOTE | 2017-04-04 01:20 | PN ---
DATE: 04/03/2017 SUBJECTIVE: She is comfortable in bed, in no acute distress. She is able to participate in physical therapy. She has dementia and does not remember anything. Denies any chest pain. No shortness of breath. She has urine positive for Gram negative. Urine culture is staphylococcal epidermidis. No fever, no cough, and no expectoration. REVIEW OF SYSTEMS: As per HPI. Rest of the 12-point review of systems reviewed and negative. PHYSICAL EXAMINATION GENERAL: Comfortable in bed, in no acute distress. VITAL SIGNS: Temperature is 98.7, heart rate is 80 per minute, blood pressure is 120/70, and pulse oximetry is 100% on room air. HEENT: Normal. Cachectic. CHEST: Air entry present and equal bilaterally. No added sound. CARDIOVASCULAR: S1 and S2 normal. No murmur and no gallop. ABDOMEN: Soft and nontender. No hepatosplenomegaly. EXTREMITIES: No edema. CENTRAL NERVOUS SYSTEM: Dementia. No focal sensory or motor deficit. LABORATORY DATA: None current. ASSESSMENT AND PLAN: 1. Urinary tract infection. 2. Seizure disorder. 3. Dementia. 4. Left breast cancer. 5. Hypertension. 6. Coronary artery disease. PLAN: ID consultation requested by Dr. Duenas. She was started on p.o. Augmentin and Bactrim. Urine culture is positive for Staphylococcus epidermidis. We will continue physical therapy. Continue current medication of Aricept 10 mg daily, Keppra 500 mg p.o. b.i.d. and Protonix. We will also continue antihypertensive, Norvasc 10 mg daily. Maureen Cm MD
[2017-04-04] MEDS: Pantoprazole 40 mg EC Tab PO SCH ×2 (06:04→17:00)
[2017-04-04] MEDS: Amoxicillin-Clav 875-125 mg Tab PO SCH (10:57)
[2017-04-04] MEDS: Tmp-Smz 800 mg-160 mg DS Tab PO SCH ×2 (10:57→17:02)
--- NOTE | 2017-04-04 18:29 | CP.PCM.PN ---
Subjective - Date & Time of Evaluation Date of Evaluation: 04/04/17 Time of Evaluation: 11:25 - Subjective Subjective: Comfortable on a chair, not in distress, afebrile. Objective - Vital Signs/Intake and Output Vital Signs (last 24 hours): Temp Pulse Resp BP Pulse Ox 97.1 F L 66 18 135/70 98 04/03/17 16:19 04/03/17 16:19 04/03/17 16:19 04/03/17 16:19 04/03/17 16:19 Intake and Output: 04/03/17 04/03/17 06:59 18:59 Intake Total 420 Balance 420 - Medications Medications: Current Medications Amlodipine Besylate (Norvasc) 10 mg PO DAILY [facility] PRN Reason: Protocol Last Admin: 04/03/17 10:31 Dose: 10 mg Amoxicillin/Clavulanate Potassium (Augmentin 875 Mg-125 Mg Tab) 1 tab PO Q12 [facility] PRN Reason: Protocol Last Admin: 04/03/17 10:31 Dose: 1 tab Donepezil HCl (Aricept) 10 mg PO HS [facility] PRN Reason: Protocol Last Admin: 04/02/17 21:24 Dose: 10 mg Levetiracetam (Keppra) 500 mg PO BID [facility] PRN Reason: Protocol Last Admin: 04/03/17 10:31 Dose: 500 mg Pantoprazole Sodium (Protonix Ec Tab) 40 mg PO 0600,1600 [facility] PRN Reason: Protocol Last Admin: 04/03/17 06:15 Dose: 40 mg Trimethoprim/Sulfamethoxazole (Bactrim Ds Tab) 1 tab PO BID [facility] PRN Reason: Protocol Last Admin: 04/03/17 10:31 Dose: 1 tab - Constitutional Appears: Non-toxic, No Acute Distress - Head Exam Head Exam: NORMAL INSPECTION - Neck Exam Neck Exam: absent: Meningismus - Respiratory Exam Respiratory Exam: Decreased Breath Sounds - Cardiovascular Exam Cardiovascular Exam: +S1, +S2 - GI/Abdominal Exam GI & Abdominal Exam: Soft. absent: Tenderness Assessment and Plan - Assessment and Plan (Free Text) Plan: Assessment Staph epidermidis in the urine, probably contamination HTN CAD seizure disorder dementia breast cancer S/P left mastectomy S/P hysterectomy Plan patient has no dysuria - will d/c antibiotics and observe
[2017-04-05] MEDS: Pantoprazole 40 mg EC Tab PO SCH (05:55)
--- NOTE | 2017-04-05 14:37 | CP.PCM.PN ---
Subjective - Date & Time of Evaluation Date of Evaluation: 04/05/17 Time of Evaluation: 11:40 - Subjective Subjective: Comfortable, no fevers, not in distress. Objective - Vital Signs/Intake and Output Vital Signs (last 24 hours): Temp Pulse Resp BP Pulse Ox 98.1 F 74 14 153/66 H 98 04/04/17 10:00 04/04/17 10:00 04/04/17 10:00 04/04/17 10:58 04/03/17 16:19 Intake and Output: 04/04/17 04/04/17 06:59 18:59 Intake Total 420 Balance 420 - Medications Medications: Current Medications Amlodipine Besylate (Norvasc) 10 mg PO DAILY [facility] PRN Reason: Protocol Last Admin: 04/04/17 10:58 Dose: 10 mg Donepezil HCl (Aricept) 10 mg PO HS [facility] PRN Reason: Protocol Last Admin: 04/03/17 21:34 Dose: 10 mg Levetiracetam (Keppra) 500 mg PO BID [facility] PRN Reason: Protocol Last Admin: 04/04/17 17:03 Dose: 500 mg Pantoprazole Sodium (Protonix Ec Tab) 40 mg PO 0600,1600 [facility] PRN Reason: Protocol Last Admin: 04/04/17 17:00 Dose: 40 mg - Constitutional Appears: Non-toxic, No Acute Distress - Head Exam Head Exam: NORMAL INSPECTION - ENT Exam ENT Exam: Mucous Membranes Moist - Neck Exam Neck Exam: absent: Meningismus - Respiratory Exam Respiratory Exam: Decreased Breath Sounds - Cardiovascular Exam Cardiovascular Exam: +S1, +S2 - GI/Abdominal Exam GI & Abdominal Exam: Soft. absent: Tenderness Assessment and Plan - Assessment and Plan (Free Text) Plan: Assessment Staph epidermidis in the urine, probably contamination HTN CAD seizure disorder dementia breast cancer S/P left mastectomy S/P hysterectomy Plan patient has no dysuria - will continue to monitor off antibiotics since she is at risk for nosocomial infections
--- NOTE | 2017-04-05 15:57 | PN ---
DATE: 04/05/2017 SUBJECTIVE: The patient has no complaints of any chest pain or shortness of breath. No headache or dizziness. PHYSICAL EXAMINATION: VITAL SIGNS: Temperature is 98.1, pulse is 74, blood pressure is 153/66, respiration is 14. GENERAL: The patient is lying in bed, flat, comfortable. HEENT: No oral lesion. Anicteric sclerae. Moist mucosa. NECK: No JVD, adenopathy, or thyromegaly. CARDIOVASCULAR: S1 and S2, regular. No murmurs, rubs, or gallops. LUNGS: Clear to auscultation bilaterally. No wheeze, rales, or rhonchi. ABDOMEN: Bowel sounds are positive, soft, nontender and nondistended. EXTREMITIES: No cyanosis, clubbing or edema. ASSESSMENT: 1. Urinary tract infection, resolved. 2. Seizure disorder. 3. Dementia Alzheimer's type. 4. Hypertension. 5. Coronary artery disease. PLAN: The patient is on Aricept for her dementia. She is going to continue with Keppra for her seizures. She is receiving amlodipine for her hypertension. She is on her heart-healthy diet. Jack Khalil MD
--- NOTE | 2017-04-06 13:22 | PN ---
DATE: 04/06/2017 The patient was seen earlier this morning in room #319. SUBJECTIVE: The patient is seen in bed in no acute distress. Nontoxic. PHYSICAL EXAMINATION: VITAL SIGNS: Temperature is 98, blood pressure is 153/75, respiratory rate of 18, and heart rate of 63. HEENT: Unremarkable. NECK: Supple. LUNGS: Decreased breath sounds. HEART: Normal S1 and S2. ABDOMEN: Soft, nontender. Review of orders reveals the patient to have off of antibiotics. ASSESSMENT AND PLAN: He is an 86-year-old female seen earlier today in room 319 with Staphylococcus epidermidis in the urine, probably a contamination, hypertension, coronary artery disease, seizure disorder, dementia, breast cancer, and status post left mastectomy. Currently, the patient off of antibiotics and no evidence of infection; however, the patient is at risk for developing nosocomial infection. Rui Duenas MD
[2017-04-06 16:22] VITALS: RESP 18
--- NOTE | 2017-04-06 17:15 | PN ---
DATE: SUBJECTIVE: The patient is 86 years old seen and examined, sitting in chair, participating in therapy, doing well. Confused, disoriented to time, person, and place. PHYSICAL EXAMINATION: VITAL SIGNS: She is afebrile, pulse 63, respirations 14, blood pressure 143/66. LUNGS: Bilateral good air flow. No rhonchi or crackle. HEART: S1 and S2, audible. ABDOMEN: Soft, nontender. No rebound, no guarding. NEUROLOGIC: She is awake and alert, able to communicate, but confused and disoriented. ASSESSMENT: 1. Resolving urinary tract infection. 2. Altered mental status. 3. Seizure disorder. 4. Profound dementia. 5. Hypertension. PLAN: Currently, the patient is on antiseizure and medication. Encourage physical therapy, discharge plan. Scottie Lea MD
--- NOTE | 2017-04-07 15:13 | PN ---
DATE: SUBJECTIVE: The patient is an 86 years old, seen and examined, lying in bed, seemed to be comfortable. Confused and disoriented to time, place and person, but not in any distress. Eating and tolerating. Participating in therapy. PHYSICAL EXAMINATION: GENERAL: She is afebrile, pulse 62, respirations 18, and blood pressure 138/66. LUNGS: Bilateral fair air flow. No rhonchi or crackle. HEART: S1 and S2, audible. No murmur. ABDOMEN: Soft, nontender. No rebound, no guarding. NEUROLOGIC: She is awake and alert, able to communicate, and ambulates with minimal assistance. ASSESSMENT: 1. Status post altered mental status. 2. Severe dementia. 3. History of seizure disorder. 4. Resolved urinary tract infection. PLAN: We will continue patient on current medical treatment, discharge plan. Scottie Lea MD
[2017-04-07 16:49] VITALS: BP 139/65; PULSE 63; TEMP 97.9; O2SAT 96
--- NOTE | 2017-04-07 19:35 | CP.PCM.PN ---
Subjective - Date & Time of Evaluation Date of Evaluation: 04/07/17 Time of Evaluation: 17:50 - Subjective Subjective: Comfortable, afebrile. Objective - Vital Signs/Intake and Output Vital Signs (last 24 hours): Temp Pulse Resp BP Pulse Ox 97.9 F 63 18 139/65 96 04/07/17 16:00 04/07/17 16:00 04/07/17 16:00 04/07/17 16:00 04/07/17 16:00 - Medications Medications: Current Medications Amlodipine Besylate (Norvasc) 10 mg PO DAILY [facility] PRN Reason: Protocol Last Admin: 04/07/17 09:43 Dose: 10 mg Donepezil HCl (Aricept) 10 mg PO HS [facility] PRN Reason: Protocol Last Admin: 04/06/17 22:29 Dose: 10 mg Levetiracetam (Keppra) 500 mg PO BID [facility] PRN Reason: Protocol Last Admin: 04/07/17 17:23 Dose: 500 mg - Constitutional Appears: Non-toxic, No Acute Distress - Head Exam Head Exam: NORMAL INSPECTION - Respiratory Exam Respiratory Exam: Decreased Breath Sounds - Cardiovascular Exam Cardiovascular Exam: +S1, +S2 - GI/Abdominal Exam GI & Abdominal Exam: Soft. absent: Tenderness Assessment and Plan - Assessment and Plan (Free Text) Plan: Assessment Staph epidermidis in the urine, probably contamination HTN CAD seizure disorder dementia breast cancer S/P left mastectomy S/P hysterectomy Plan patient has no dysuria - will continue to monitor off antibiotics since she is at risk for hospital-acquired infections
== END 2017-04-07 20:30 | disposition home or self-care (01) | DRG 690 ==
LOC: TRCU 17:29
PROVIDERS: ADMIT Internal Medicine Nephrology; ATTEND Internal Medicine
PROC: F07Z9ZZ Gait Training/Functional Ambulation Treatment (ICD-10-PCS; principal; 2017-04-01)
PROC: F07Z8FZ Transfer Training Treatment using Assistive, Adaptive, Supportive or Protective Equipment (ICD-10-PCS; 2017-04-01)
DX: N39.0 Urinary tract infection, site not specified (principal); I10 Essential (primary) hypertension; G30.9 Alzheimer's disease, unspecified; F02.80 Dementia in other diseases classified elsewhere, unspecified severity, without behavioral disturbance, psychotic disturbance, mood disturbance, and anxiety; G40.909 Epilepsy, unspecified, not intractable, without status epilepticus; I25.10 Atherosclerotic heart disease of native coronary artery without angina pectoris; Z90.12 Acquired absence of left breast and nipple; Z90.710 Acquired absence of both cervix and uterus; Z85.3 Personal history of malignant neoplasm of breast

== ENCOUNTER 2017-06-23 14:57 | Emergency (ER) | payer MEDICARE, BC ==
[2017-06-23 14:57] VITALS: BMI 20.2
[2017-06-23 15:35] VITALS: RESP 18; TEMP 97.7
--- NOTE | 2017-06-23 16:05 | ED PDOC ---
Arrival/HPI - General Chief Complaint: Female Genitourinary Time Seen by Provider: 06/23/17 15:39 Historian: Patient - History of Present Illness Narrative History of Present Illness (Text): 06/23/17 16:02 86yo female with PMHx of hypertension present with the son to ED for evaluation. The son states patient has been angry lately and usually have UTI when she is this angry. states she was scheduled to see Dr. Lea today, but refused to go. He is also requesting potassium check. states patient takes Potassium. Patient however denies any somatic complaint in ED. She was laughing and calm in ED. 06/23/17 16:47 Past Medical History - Provider Review Nursing Documentation Reviewed: Yes - Infectious Disease Hx of Infectious Diseases: None - Tetanus Immunization Tetanus Immunization: Unknown - Reproductive Menopause: Yes - Cardiac Hx Cardiac Disorders: Yes Hx Hypertension: Yes - Pulmonary Hx Respiratory Disorders: No - Neurological Hx Neurological Disorder: Yes (SYNCOPE) Hx Dementia: Yes Hx Dizziness: Yes Hx Seizures: Yes - HEENT Hx HEENT Disorder: Yes (wears glasses) - Renal Hx Renal Disorder: No - Endocrine/Metabolic Hx Endocrine Disorders: No - Hematological/Oncological Hx Cancer: Yes (breast) - Integumentary Hx Dermatological Disorder: No - Musculoskeletal/Rheumatological Hx Falls: No - Gastrointestinal Hx Gastrointestinal Disorders: Yes (CONSTIPATION) - Genitourinary/Gynecological Hx Genitourinary Disorders: Yes (HYSTERECTOMY) Hx Reproductive Disorders: Yes (left mastectomy "yrs ago" denies chemo/radiation ) - Psychiatric Hx Psychophysiologic Disorder: No Hx Depression: No Hx Emotional Abuse: No Hx Physical Abuse: No Hx Substance Use: No - Surgical History Hx Hysterectomy: Yes - Anesthesia Hx Anesthesia: Yes Hx Anesthesia Reactions: No - Suicidal Assessment Feels Threatened In Home Enviroment: No Family/Social History - Physician Review Nursing Documentation Reviewed: Yes Family/Social History: Unknown Family HX Smoking Status: Never Smoked Hx Alcohol Use: No Hx Substance Use: No Allergies/Home Meds Allergies/Adverse Reactions: Allergies [place] And Derivatives Allergy (Verified 03/29/17 17:47) ITCHING Review of Systems - Physician Review All systems were reviewed & negative as marked: Yes - Review of Systems Constitutional: Normal, Other (anger) Eyes: Normal ENT: Normal Respiratory: Normal Cardiovascular: Normal Gastrointestinal: Normal Genitourinary Female: Normal Musculoskeletal: Normal Skin: Normal Neurological: Normal Endocrine: Normal Hemo/Lymphatic: Normal Psychiatric: Normal Physical Exam Vital Signs Reviewed: Yes Vital Signs Temp Pulse Resp BP Pulse Ox 06/23/17 17:04 86 18 138/69 98 06/23/17 15:31 97.7 F 60 18 169/76 H 99 Temperature: Afebrile Blood Pressure: Normal Pulse: Regular Respiratory Rate: Normal Appearance: Positive for: Well-Appearing, Non-Toxic, Comfortable Pain Distress: None Mental Status: Positive for: Alert and Oriented X 3 - Systems Exam Head: Present: Atraumatic, Normocephalic Pupils: Present: PERRL Extroacular Muscles: Present: EOMI Conjunctiva: Present: Normal Mouth: Present: Moist Mucous Membranes Neck: Present: Normal Range of Motion Respiratory/Chest: Present: Clear to Auscultation, Good Air Exchange. No: Respiratory Distress, Accessory Muscle Use Cardiovascular: Present: Regular Rate and Rhythm, Normal S1, S2. No: Murmurs Abdomen: Present: Normal Bowel Sounds. No: Tenderness, Distention, Peritoneal Signs Back: Present: Normal Inspection Upper Extremity: Present: Normal Inspection. No: Cyanosis, Edema Lower Extremity: Present: Normal Inspection. No: Edema Neurological: Present: GCS=15, CN II-XII Intact, Speech Normal Skin: Present: Warm, Dry, Normal Color. No: Rashes Psychiatric: Present: Alert, Oriented x 3, Normal Insight, Normal Concentration Medical Decision Making ED Course and Treatment: 06/23/17 19:47 PT was very comfortable in ED. smiling and ambulatory without any distress. She was treated for UTI with Keflex 250mg and potassium of 3.3 was repleted. she was referred to her PMD. TRT ED for any new symptoms. - Lab Interpretations Lab Results: 06/23/17 16:05 06/23/17 16:05 Lab Results 06/23/17 16:25: Urine Color Yellow, Urine Appearance Sl cloudy, Urine pH 6.0, Ur Specific [place] 1.015, Urine Protein Negative, Urine Glucose (UA) Negative, Urine Ketones Negative, Urine Blood Negative, Urine Nitrate Negative, Urine Bilirubin Negative, Urine Urobilinogen 0.2, Ur Leukocyte Esterase Small H, Urine RBC Negative, Urine WBC 5 - 10, Ur Epithelial Cells 4 - 5, Urine Bacteria Mod 06/23/17 16:05: Sodium 138, Potassium 3.3 L, Chloride 105, Carbon Dioxide 25, Anion Gap 12, BUN 12, Creatinine 0.6 L, Est GFR ( Amer) > 60, Est GFR ( Non-Af Amer) > 60, Random Glucose 77, Calcium 9.2, Total Bilirubin 0.5, AST 28, ALT 33, Alkaline Phosphatase 111, Total Protein 7.9, Albumin 4.2, Globulin 3.7, Albumin/Globulin Ratio 1.1 06/23/17 16:05: WBC 7.2 D, RBC 4.03, Hgb 12.4, Hct 36.8, MCV 91.3, MCH 30.8, MCHC 33.7, RDW 13.3, Plt Count 233, MPV 9.2, Gran % 46.0 L, Lymph % (Auto) 42.1 H, [place] % (Auto) 6.1 H, Eos % (Auto) 5.4 H, Baso % (Auto) 0.4, Gran # 3.30, Lymph # 3.0, [place] # 0.4, Eos # 0.4, Baso # 0.03 - Medication Orders Current Medication Orders: Discontinued Medications Cephalexin Monohydrate (Keflex) 250 mg PO STAT STA PRN Reason: Protocol Stop: 06/23/17 16:54 Last Admin: 06/23/17 17:09 Dose: 250 mg Potassium Chloride (K-Dur 20 Meq Er Tab) 20 meq PO STAT STA Stop: 06/23/17 16:40 Last Admin: 06/23/17 17:09 Dose: 20 meq Disposition/Present on Arrival - Present on Arrival Any Indicators Present on Arrival: No History of DVT/PE: No History of Uncontrolled Diabetes: No Urinary Catheter: No History of Decub. Ulcer: No History Surgical Site Infection Following: None - Disposition Have Diagnosis and Disposition been Completed?: Yes Diagnosis: UTI (urinary tract infection), Hypokalemia Disposition: HOME/ ROUTINE Disposition Time: 16:50 Patient Plan: Discharge Condition: STABLE Discharge Instructions (ExitCare): Urinary Tract Infection in Women (ED) Additional Instructions: Follow up with your doctor Return to ED for any new or worsening symptoms Prescriptions: Cephalexin [cephalexin] 250 mg PO TID #21 cap Nitrofurantoin Macrocrystals [Macrobid] 100 mg PO BID #14 cap Referrals: Scottie Lea MD [Primary Care Provider] - Follow up with primary Forms: [employer] ([place]i)
[2017-06-23 16:28] LABS: BASO # 0.03 K/mm3 (0.0-2.0); BASO % 0.4 % (0.0-3.0); EOS # 0.4 (0.0-0.7); EOS % 5.4 % (1.5-5.0); GRAN # 3.3 (1.4-6.5); HEMATOCRIT 36.8 % (36.0-48.0); LYMPH % 42.1 % (22.0-35.0); MEAN CELL VOLUME 91.3 fl (80.0-105.0); MEAN CORPUSCULAR HEMOGLOBIN 30.8 pg (25.0-35.0); MEAN CORPUSCULAR HGB CONC 33.7 g/dl (31.0-37.0); MEAN PLATELET VOLUME 9.2 fl (7.0-11.0); MONO # 0.4 (0.1-0.6); MONO % 6.1 % (1.0-6.0); RED CELL DISTRIBUTION WIDTH 13.3 % (11.5-14.5); WHITE BLOOD COUNT 7.2 10^3/ul (4.5-11.0)
[2017-06-23 16:32] LABS: URINE BILIRUBIN NEGATIVE (NEGATIVE); URINE BLOOD NEGATIVE (NEGATIVE); URINE GLUCOSE (UA) NEGATIVE (NEGATIVE); URINE KETONE NEGATIVE (NEGATIVE); URINE LEUKOCYTE ESTERASE SMALL Leu/uL (NEGATIVE); URINE PROTEIN NEGATIVE mg/dL (<30 mg/dL); URINE UROBILINOGEN 0.2 E.U./dL (<1 E.U./dL)
[2017-06-23 16:38] LABS: BLOOD UREA NITROGEN 12 mg/dL (7-21); CALCIUM 9.2 mg/dL (8.4-10.5); CARBON DIOXIDE 25 mmol/L (21-33); CHLORIDE 105 mmol/L (98-107); GFR AFRICAN-AMERICAN > 60; GLUCOSE,RANDOM 77 mg/dL (70-110); POTASSIUM 3.3 mmol/L (3.6-5.0); SODIUM 138 mmol/L (132-148); TOTAL PROTEIN 7.9 g/dL (5.8-8.3)
[2017-06-23 16:39] LABS: ALB/GLOB RATIO 1.1 (1.1-1.8); ALKALINE PHOSPHATASE 111 U/L (38-126); ALT/SGPT 33 U/L (7-56); AST/SGOT 28 U/L (14-36); BILIRUBIN,TOTAL 0.5 mg/dL (0.2-1.3)
[2017-06-23] MEDS ORDERED: Potassium Chloride 20 mEq ER Tab PO STA (16:39)
[2017-06-23 16:41] LABS: URINE COLOR YELLOW (YELLOW)
[2017-06-23 16:43] LABS: URINE APPEARANCE SL CLOUDY (CLEAR); URINE RBC NEGATIVE /hpf (0-2)
[2017-06-23 16:44] LABS: URINE BACTERIA MOD (NEG)
[2017-06-23 17:04] VITALS: BP 138/69; PULSE 86; O2SAT 98
== END 2017-06-23 17:14 | disposition home or self-care (01) ==
LOC: ED 14:57
DX: N39.0 Urinary tract infection, site not specified (principal); E87.6 Hypokalemia; I10 Essential (primary) hypertension

== ENCOUNTER 2017-07-03 00:58 | Inpatient (IN) | payer MEDICARE, BC ==
[2017-07-03 00:59] VITALS: BMI 20.2
--- NOTE | 2017-07-03 01:21 | ED PDOC ---
Arrival/HPI - General Chief Complaint: Medical Clearance Time Seen by Provider: 07/03/17 01:13 Historian: Patient - History of Present Illness Narrative History of Present Illness (Text): 07/03/17 01:21 Aby Alvarez is an 86 year old female, Alzheimer's-type dementia, recurrent UTI, breast canger s/p mastectomy and chemoradiation, hypertension, and CAD, who presents to the Emergency department complaining of dizziness. Patient states she felt dizzy and near-syncopal prior to arrival. Patient notes she had a syncopal episode at home a few days prior. Patient denies any fever, chills, chest pain, shortness of breath, nausea, vomiting, neck pain, headache, or any other complaints. PMD: Dr. Lea Time/Duration: Other (tonight) Symptom Onset: Gradual Symptom Course: Unchanged Activities at Onset: Light Context: Home Past Medical History - Provider Review Nursing Documentation Reviewed: Yes - Infectious Disease Hx of Infectious Diseases: None - Tetanus Immunization Tetanus Immunization: Unknown - Cardiac Hx Cardiac Disorders: Yes Hx Hypertension: Yes - Pulmonary Hx Respiratory Disorders: No - Neurological Hx Neurological Disorder: Yes (SYNCOPE) Hx Dementia: Yes Hx Dizziness: Yes Hx Seizures: Yes - HEENT Hx HEENT Disorder: Yes (wears glasses) - Renal Hx Renal Disorder: No - Endocrine/Metabolic Hx Endocrine Disorders: No - Hematological/Oncological Hx Cancer: Yes (breast) - Integumentary Hx Dermatological Disorder: No - Musculoskeletal/Rheumatological Hx Falls: No - Gastrointestinal Hx Gastrointestinal Disorders: Yes (CONSTIPATION) - Genitourinary/Gynecological Hx Genitourinary Disorders: Yes (HYSTERECTOMY) Hx Reproductive Disorders: Yes (left mastectomy "yrs ago" denies chemo/radiation ) - Psychiatric Hx Psychophysiologic Disorder: No Hx Depression: No Hx Emotional Abuse: No Hx Physical Abuse: No Hx Substance Use: No - Surgical History Hx Hysterectomy: Yes - Anesthesia Hx Anesthesia: Yes Hx Anesthesia Reactions: No - Suicidal Assessment Feels Threatened In Home Enviroment: No Family/Social History - Physician Review Nursing Documentation Reviewed: Yes Family/Social History: Unknown Family HX Smoking Status: Never Smoked Hx Alcohol Use: No Hx Substance Use: No Allergies/Home Meds Allergies/Adverse Reactions: Allergies [place] And Derivatives Allergy (Verified 03/29/17 17:47) ITCHING Review of Systems - Physician Review All systems were reviewed & negative as marked: Yes - Review of Systems Constitutional: Normal. absent: Fevers Eyes: Normal ENT: Normal Respiratory: Normal. absent: SOB, Cough Cardiovascular: Other (+near-syncope). absent: Chest Pain Gastrointestinal: Normal. absent: Abdominal Pain, Diarrhea, Nausea, Vomiting Genitourinary Female: Normal. absent: Dysuria, Frequency, Hematuria, Urine Output Changes Musculoskeletal: Normal. absent: Back Pain, Neck Pain Skin: Normal. absent: Rash Neurological: Dizziness. absent: Headache Endocrine: Normal Hemo/Lymphatic: Normal Psychiatric: Normal Physical Exam Vital Signs Reviewed: Yes Vital Signs Temp Pulse Resp BP Pulse Ox 07/03/17 03:54 70 16 119/76 99 07/03/17 02:56 57 L 18 171/79 H 100 07/03/17 01:12 97.5 F L 60 18 178/71 H 99 Temperature: Afebrile Blood Pressure: Hypertensive Pulse: Regular Respiratory Rate: Normal Appearance: Positive for: Well-Appearing, Non-Toxic, Comfortable Pain Distress: None Mental Status: Positive for: Alert and Oriented X 3 - Systems Exam Head: Present: Atraumatic, Normocephalic Pupils: Present: PERRL Extroacular Muscles: Present: EOMI Conjunctiva: Present: Normal Mouth: Present: Moist Mucous Membranes Neck: Present: Normal Range of Motion. No: Meningeal Signs, MIDLINE TENDERNESS , Paraspinal Tenderness Respiratory/Chest: Present: Clear to Auscultation, Good Air Exchange. No: Respiratory Distress, Accessory Muscle Use Cardiovascular: Present: Regular Rate and Rhythm, Normal S1, S2. No: Murmurs Abdomen: Present: Normal Bowel Sounds. No: Tenderness, Distention, Peritoneal Signs Back: Present: Normal Inspection. No: CVA Tenderness, Midline Tenderness, Paraspinal Tenderness Upper Extremity: Present: Normal Inspection. No: Cyanosis, Edema Lower Extremity: Present: Normal Inspection. No: Edema Neurological: Present: GCS=15, CN II-XII Intact, Speech Normal, Motor Func Grossly Intact, Normal Sensory Function, Normal Cerebellar Funct, Memory Normal Skin: Present: Warm, Dry, Normal Color. No: Rashes Psychiatric: Present: Alert, Oriented x 3, Normal Insight, Normal Concentration Medical Decision Making ED Course and Treatment: 07/03/17 01:21 Impression: 86 year old female presents for dizziness and near-syncope. Differential Diagnosis included but are not limited to: near-syncope Plan: -- CT Head w/o contrast -- EKG -- CXR -- Labs, cardiac enzymes -- Urinalysis -- Reassess and disposition Prior Visits: Notes and results from previous visits were reviewed. On 06/23/2017, pt was seen in the Emergency department for evaluation of possible UTI. Pt was d/c home. Progress Notes: 07/03/17 01:55 reviewed EKG, sinus bradycardia at 53 bpm. RBBB. LAHB. LVH. 07/03/17 03:17 Reviewed radiology, CXR shows no acute no processes. CT Head shows: Brain: Moderate atrophy. No intracranial hemorrhage. No mass. Several scattered foci of decreased attenuation within periventricular/subcortical white matter. No definite edema. Ventricles: No hydrocephalus. Bones/joints: No acute fracture. Large lucent lesion within LEFT calvarium, nonspecific but stable. Soft tissues: Unremarkable. Vasculature: Atherosclerotic disease of intracranial arteries. Sinuses: No acute sinusitis. Mastoid air cells: No mastoid effusion. Orbits: Unremarkable as visualized. IMPRESSION: 1. Nonspecific white matter changes. Acute infarction may be CT occult within first 24 hours. If a focal deficit persists, consider followup CT or MRI for further evaluation. 2. Incidental/non-acute findings are described above. 07/03/17 03:[address] Khalil, who is aware and agrees with plan. Accepts pt in to his service. Pt will go to Telemetry observation for near-syncope. - Lab Interpretations Lab Results: 07/03/17 01:45 07/03/17 01:45 Lab Results 07/03/17 02:40: PT 12.1, INR 1.11 H, APTT 30.8 07/03/17 02:00: Urine Color Yellow, Urine Appearance Clear, Urine pH 7.0, Ur Specific [place] 1.015, Urine Protein Negative, Urine Glucose (UA) Negative, Urine Ketones Negative, Urine Blood Negative, Urine Nitrate Negative, Urine Bilirubin Negative, Urine Urobilinogen 0.2, Ur Leukocyte Esterase Trace H, Urine RBC Negative, Urine WBC Negative, Ur Epithelial Cells 0 - 2, Calcium Oxalate Crystal Small, Urine Bacteria Small 07/03/17 01:45: WBC 6.7, RBC 4.36, Hgb 13.6, Hct 40.1, MCV 92.0, MCH 31.2, MCHC 33.9, RDW 13.4, Plt Count 253, MPV 9.3 07/03/17 01:45: Sodium 143, Potassium 3.8, Chloride 104, Carbon Dioxide 29, Anion Gap 13, BUN 13, Creatinine 0.7, Est GFR ( Amer) > 60, Est GFR (Non- Af Amer) > 60, Random Glucose 97, Calcium 9.8, Total Bilirubin 0.5, AST 45 H D, ALT 30, Alkaline Phosphatase 109, Lactate Dehydrogenase 875 H, Total Creatine Kinase 100, Troponin I < 0.01, Total Protein 8.2, Albumin 4.3, Globulin 3.9, Albumin/Globulin Ratio 1.1 I have reviewed the lab results: Yes - RAD Interpretation Radiology Orders: 07/03/17 01:30 HEAD W/O CONTRAST [CT] Stat 07/03/17 01:31 CHEST PORTABLE [RAD] Stat [employer]: ED Physician, Radiologist - EKG Interpretation Interpreted by ED Physician: Yes Type: 12 lead EKG - Scribe Statement The provider has reviewed the documentation as recorded by the Scribtemi Menon All medical record entries made by the Monaibtemi were at my direction and personally dictated by me. I have reviewed the chart and agree that the record accurately reflects my personal performance of the history, physical exam, medical decision making, and the department course for this patient. I have also personally directed, reviewed, and agree with the discharge instructions and disposition. Disposition/Present on Arrival - Present on Arrival Any Indicators Present on Arrival: No History of DVT/PE: No History of Uncontrolled Diabetes: No Urinary Catheter: No History of Decub. Ulcer: No History Surgical Site Infection Following: None - Disposition Have Diagnosis and Disposition been Completed?: Yes Diagnosis: Near syncope Disposition: HOSPITALIZED Disposition Time: 03:39 Patient Plan: Observation Patient Problems: Current Active Problems Problem Status Onset Near syncope Acute Condition: STABLE
[2017-07-03 02:20] LABS: TROPONIN I < 0.01 ng/mL
[2017-07-03 02:23] LABS: ALB/GLOB RATIO 1.1 (1.1-1.8); ALKALINE PHOSPHATASE 109 U/L (38-126); ALT/SGPT 30 U/L (7-56); AST/SGOT 45 U/L (14-36); BILIRUBIN,TOTAL 0.5 mg/dL (0.2-1.3); BLOOD UREA NITROGEN 13 mg/dL (7-21); CALCIUM 9.8 mg/dL (8.4-10.5); CARBON DIOXIDE 29 mmol/L (21-33); CHLORIDE 104 mmol/L (98-107); GFR AFRICAN-AMERICAN > 60; GLUCOSE,RANDOM 97 mg/dL (70-110); HEMATOCRIT 40.1 % (36.0-48.0); MEAN CORPUSCULAR HEMOGLOBIN 31.2 pg (25.0-35.0); MEAN CORPUSCULAR HGB CONC 33.9 g/dl (31.0-37.0); MEAN PLATELET VOLUME 9.3 fl (7.0-11.0); POTASSIUM 3.8 mmol/L (3.6-5.0); RED CELL DISTRIBUTION WIDTH 13.4 % (11.5-14.5); SODIUM 143 mmol/L (132-148); TOTAL PROTEIN 8.2 g/dL (5.8-8.3); WHITE BLOOD COUNT 6.7 10^3/ul (4.5-11.0)
[2017-07-03 02:30] LABS: URINE BILIRUBIN NEGATIVE (NEGATIVE); URINE BLOOD NEGATIVE (NEGATIVE); URINE GLUCOSE (UA) NEGATIVE (NEGATIVE); URINE KETONE NEGATIVE (NEGATIVE); URINE LEUKOCYTE ESTERASE TRACE Leu/uL (NEGATIVE); URINE PROTEIN NEGATIVE mg/dL (<30 mg/dL); URINE UROBILINOGEN 0.2 E.U./dL (<1 E.U./dL)
[2017-07-03 02:31] LABS: URINE APPEARANCE CLEAR (CLEAR); URINE COLOR YELLOW (YELLOW)
--- NOTE | 2017-07-03 02:53 | CT ---
EXAM: CT Head Without Intravenous Contrast CLINICAL HISTORY: 86 years old, female; Signs and symptoms; Dizziness; Additional info: Dizzy TECHNIQUE: Axial computed tomography images of the head/brain without intravenous contrast. All CT scans at this facility use one or more dose reduction techniques, viz.: automated exposure control; ma/kV adjustment per patient size (including targeted exams where dose is matched to indication; i.e. head); or iterative reconstruction technique. COMPARISON: CT - HEAD W/O CONTRAST 2017-03-29 16:07 FINDINGS: Brain: Moderate atrophy. No intracranial hemorrhage. No mass. Several scattered foci of decreased attenuation within periventricular/subcortical white matter. No definite edema. Ventricles: No hydrocephalus. Bones/joints: No acute fracture. Large lucent lesion within LEFT calvarium, nonspecific but stable. Soft tissues: Unremarkable. Vasculature: Atherosclerotic disease of intracranial arteries. Sinuses: No acute sinusitis. Mastoid air cells: No mastoid effusion. Orbits: Unremarkable as visualized. IMPRESSION: 1. Nonspecific white matter changes. Acute infarction may be CT occult within first 24 hours. If a focal deficit persists, consider followup CT or MRI for further evaluation. 2. Incidental/non-acute findings are described above.
[2017-07-03 03:12] LABS: INR 1.11 (0.93-1.08); PARTIAL THROMBOPLASTIN TIME 30.8 Seconds (25.1-36.5)
[2017-07-03 03:31] LABS: URINE BACTERIA SMALL (NEG); URINE CALCIUM OXALATE CRYSTALS SMALL /hpf; URINE EPITHELIAL CELLS 0 - 2 /hpf (0-5); URINE RBC NEGATIVE /hpf (0-2); URINE WBC NEGATIVE /hpf (0-6)
--- NOTE | 2017-07-03 09:39 | RAD ---
HISTORY: fever COMPARISON: Comparison chest 03/29/2017. FINDINGS: LUNGS: Minor blunting both CP angle regions PLEURA: As above. No pneumothorax apparent. CARDIOVASCULAR: Heart size is upper limits of normal/ borderline enlarged. Aorta is ectatic and uncoiled. OSSEOUS STRUCTURES: Minor degenerative changes both shoulder girdles. VISUALIZED UPPER ABDOMEN: Normal. OTHER FINDINGS: Heart cachexia. Multiple metallic surgical clips again seen within the soft tissues left axillary region and over left at lateral mid laure thorax with asymmetric breast tissue suggesting prior low left mastectomy or partial left mastectomy and lymph node dissection. Clinic correlation recommended. Clinic correlation with surgical history recommended as IMPRESSION: No infiltrates. See above discussion for additional details and findings.
--- NOTE | 2017-07-03 10:44 | CARD ---
APPROVED REPORT EKG Measurement Heart [id number] <Conclusion> Sinus bradycardia Right bundle branch block Left anterior fascicular block Bifascicular block Left ventricular hypertrophy with repolarization abnormality Cannot rule out Anteroseptal infarct, age undetermined Abnormal ECG
--- NOTE | 2017-07-05 08:59 | HP ---
HISTORY OF PRESENT ILLNESS: The patient is an 86-year-old known to me from multiple previous admissions, who was brought to emergency room because of generalized weakness and dizziness. The patient is demented, cannot recall what happened. She does not even know where she is. When I enquired the patient, she states she feels fine and wants to go home; however, ER note shows that she was about to pass out. PAST MEDICAL HISTORY: Significant for, 1. Seizure disorder. 2. Hypertension. 3. Dementia. 4. History of UTI in the past. 5. History of breast CA. 6. History of coronary artery disease. PAST SURGICAL HISTORY: Significant for hysterectomy and mastectomy. ALLERGIES: SHE IS ALLERGIC TO [employer]. MEDICATIONS AT HOME: She is on Keppra 500 twice a day, amlodipine 10 mg daily, Aricept 10 mg daily. SOCIAL HISTORY: She lives with her son. No history of smoking or drinking. PHYSICAL EXAMINATION: GENERAL: She is awake, alert, confused, and disoriented. VITAL SIGNS: She is afebrile, pulse 57, respirations 18, and blood pressure 153/74. LUNGS: Bilateral good airflow. No rhonchi or crackles. HEART: S1 and S2 audible. ABDOMEN: Soft, nontender. No rebound. No guarding. NEUROLOGIC: The patient is awake and alert, but confused and disoriented. ASSESSMENT: 1. Dementia with questionable syncope. 2. Generalized weakness and dizziness. She recently had workup done including MRI of the brain, echocardiogram, and carotid Doppler; all seems to be unremarkable. 3. History of hypertension. 4. Seizure disorder. 5. Alzheimer's. 6. Vascular dementia. PLAN: According to son, the patient elopes from home and is increasingly forgetful. Probably, she is a candidate of [facility] facility where she can be watched 24 hours. We will discuss with [employer] Art [employer] and make further plan. Scottie Lea MD
--- NOTE | 2017-07-05 09:15 | PN ---
DATE: 07/04/2017 SUBJECTIVE: The patient is an 86-year-old, pleasantly demented has no recent memory. She cannot recall what happened. She does not know now she is in the hospital or does not offer any complaint. She had headaches this morning, but feeling better now. PHYSICAL EXAMINATION: VITAL SIGNS: She is afebrile, pulse is 61, respirations are 16, and blood pressure is 172/82. LUNGS: Bilateral good airflow. No rhonchi or crackle. HEART: S1 and S2, audible. ABDOMEN: Soft and nontender. No rebound. No guarding. NEUROLOGIC: She is awake, alert, oriented, and able to communicate. ASSESSMENT: 1. Uncontrolled hypertension. 2. Dementia. 3. History of seizure disorder. 4. Deconditioning. PLAN: The patient is currently on Norvasc, I will add lisinopril. We will discontinue her telemetry. Physical therapy evaluation and treatment will be done. The patient is a perfect candidate to be in the assisted. She usually for a home and she is not very happy with the son's care. She claimed that her son is keeping her because he wants her check. I will discuss with [employer] Representative for safety reason. The patient should be in the assisted. Scottie Lea MD
--- NOTE | 2017-07-05 22:42 | PN ---
DATE: SUBJECTIVE: The patient is 86-year-old, seen and examined, sitting in chair, seems to be comfortable, confused, disoriented, not in any distress, eating and tolerating. PHYSICAL EXAMINATION: VITAL SIGNS: She is afebrile, pulse 72, respirations 18, blood pressure 109/68. LUNGS: Bilateral fair airflow. No rhonchi or crackle. HEART: S1 and S2 audible. No murmur. ABDOMEN: Soft, nontender. No rebound. No guarding. NEUROLOGIC: The patient is awake and alert, but confused and disoriented. ASSESSMENT: 1. dementia. 2. Hypertension. 3. Seizure disorder. 4. Deconditioning and difficulty walking. PLAN: Discussed with Test Director, the patient need to be in protected environment. She is a best candidate to be in the [facility] [facility]. We will reach out to the son to make further decision. Scottie Lea MD
--- NOTE | 2017-07-06 22:56 | PN ---
DATE: SUBJECTIVE: The patient is an 86-year-old seen and examined, sitting in chair. She seems to be comfortable, very much confused and disoriented. Not harmful to herself or for to others. PHYSICAL EXAMINATION: VITAL SIGNS: She is afebrile, pulse is 89, respirations are 16 and blood pressure is 113/66. LUNGS: Bilateral fair airflow. No rhonchi or crackles. HEART: S1 and S2 audible. ABDOMEN: Soft and nontender. No rebound. No guarding. NEUROLOGIC: She is awake and alert, but disoriented. ASSESSMENT: 1. Unstable gait. 2. Worsening dementia. 3. Seizure disorder. 4. Hypertension. PLAN: We will continue the patient on current medical treatment. TCU evaluation has been requested. Once the bed is available, the patient will be transferred to TCU. Scottie Lea MD
--- NOTE | 2017-07-07 16:06 | PN ---
DATE: SUBJECTIVE: The patient is an 86-year-old seen and examined, sitting in chair, seems to be comfortable. She is still confused and disoriented, does not know where she is. PHYSICAL EXAMINATION: VITAL SIGNS: She is afebrile, pulse 66, respirations 16, and blood pressure is 115/59. LUNGS: Bilateral good airflow. No rhonchi or crackles. HEART: S1 and S2 audible. ABDOMEN: Soft and nontender. No rebound. No guarding. NEUROLOGIC: She is awake and alert, confused and disoriented to time, place and person. ASSESSMENT AND PLAN: 1. Status post near syncope. 2. Dementia. 3. Hypertension. 4. Seizure disorder. 5. Deconditioning and difficulty walking. PLAN: I will continue the patient on current medication. Awaiting acceptance in TCU, once she is accepted, she can be transferred to TCU. Scottie Lea MD
[2017-07-07 16:27] VITALS: RESP 18
[2017-07-08 09:51] VITALS: PULSE 61; TEMP 97.1; O2SAT 96
[2017-07-08 11:37] VITALS: BP 136/68
--- NOTE | 2017-07-08 19:33 | PN ---
DATE: SUBJECTIVE: The patient is an 86-year-old seen and examined, sitting in chair, seems to be comfortable, confused and disoriented, eating well, does not know where she is, and does not offer any complaints. PHYSICAL EXAMINATION: VITAL SIGNS: She is afebrile, pulse 61, respirations 18, and blood pressure 136/68. LUNGS: Bilateral good airflow. No rhonchi or crackles. HEART: S1 and S2 audible. ABDOMEN: Soft and nontender. No rebound. No guarding. NEUROLOGIC: The patient is awake and alert, confused and disoriented. ASSESSMENT: 1. Status post near syncope. 2. Dementia. 3. Hypertension. 4. History of seizure disorder. PLAN: So since the patient is profoundly demented, she elopes from home and end up coming to hospital safety issues, she needs to be on senior living. We will discuss with the patient's family and social service. Scottie Lea MD
== END 2017-07-08 18:59 | DRG 57 ==
LOC: ED 00:58 → ERH 03:42 → 2RSO 04:55 → 5RSO 07-04 14:18 → OBSVTOIN 07-05 14:26
PROVIDERS: ADMIT Internal Medicine Nephrology; ATTEND Internal Medicine
DX: G30.9 Alzheimer's disease, unspecified (principal); F01.50 Vascular dementia, unspecified severity, without behavioral disturbance, psychotic disturbance, mood disturbance, and anxiety; F02.80 Dementia in other diseases classified elsewhere, unspecified severity, without behavioral disturbance, psychotic disturbance, mood disturbance, and anxiety; G40.909 Epilepsy, unspecified, not intractable, without status epilepticus; I10 Essential (primary) hypertension; R26.2 Difficulty in walking, not elsewhere classified; R55 Syncope and collapse

== ENCOUNTER 2017-07-08 19:12 | Inpatient (IN) | payer OTHER, BC ==
[2017-07-09 01:26] VITALS: BMI 17.6
--- NOTE | 2017-07-10 02:39 | HP ---
HISTORY OF PRESENT ILLNESS: The patient is an 86-year-old seen and examined. The patient was brought by EMT after she states she is feeling dizzy and she is going to pass out. The patient had similar complaints multiple times, had neurological workup done. She is found to have profound dementia. Her son is the spooling supervisor, but the patient elopes. So, she came to emergency room and was found to have unstable gait, transferred to TCU for gait training and physical therapy. PAST MEDICAL HISTORY: Significant for; 1. Hypertension. 2. History of CA of breast, status post lumpectomy. 3. Dementia. 4. Generalized osteoarthritis. ALLERGIES: SHE IS ALLERGIC TO CITRUS AND DERIVATIVES. SOCIAL HISTORY: She lives with her son. Denies smoking, drinking, or alcohol use. MEDICATIONS: At home, she is on Keppra 500 twice a day, amlodipine 10 mg daily, Aricept 10 mg at bedtime. PHYSICAL EXAMINATION GENERAL: She is awake and alert, but confused and disoriented. VITAL SIGNS: She is afebrile. Pulse 60, respiration 18, blood pressure 128/68. LUNGS: Bilaterally good air flow. No rhonchi or crackle. HEART: S1, S2 audible. No murmur. ABDOMEN: Soft, nontender. No rebound. No guarding. NEUROLOGIC: She is awake and alert, confused and disoriented. ASSESSMENT: 1. Severe dementia. 2. Hypertension. 3. Seizure disorder. 4. Chronic anemia. PLAN: The patient will receive physical therapy. We will resume her medications. We will continue gait training. The patient is a candidate for half-way placement. Social service is to make arrangement. Scottie Lea MD
--- NOTE | 2017-07-11 01:21 | PN ---
DATE: SUBJECTIVE: The patient is [id number], seen and examined, lying in bed, seems to be comfortable. No nausea, vomiting. No diarrhea. PHYSICAL EXAMINATION VITAL SIGNS: She is afebrile. Pulse 53, respiration 16, blood pressure 123/58. LUNGS: Bilateral fair air flow. No rhonchi or crackle. HEART: S1, S2 audible. ABDOMEN: Soft, nontender. No rebound. No guarding. NEUROLOGIC: The patient is awake and alert, confused, disoriented. Bilateral leg no edema. ASSESSMENT AND PLAN: 1. Seizure disorder. 2. Dementia. 3. Deconditioning and difficulty walking. 4. Hypertension. PLAN: We will continue patient on current medication. Continue physical therapy. Continue her on Keppra. Encourage ambulation. Scottie Lea MD
--- NOTE | 2017-07-11 20:46 | PN ---
DATE: 07/08/2015 SUBJECTIVE: The patient is 86-year-old seen and examined, doing well, confused, disoriented, eating and tolerating, ambulating. OBJECTIVE: VITAL SIGNS: She is afebrile, pulse 80, respiration , blood pressure 143/68. LUNGS: Bilateral good airflow. No rhonchi or crackle. HEART: S1 and S2 audible. ABDOMEN: Soft, nontender. No rebound. No guarding. NEUROLOGIC: The patient is awake and alert, confused, disoriented. ASSESSMENT: 1. Dementia. 2. History of seizure disorder. 3. Deconditioning, difficulty walking. PLAN: We will continue current medication. We will discuss with social service worker. She has a good candidate for placement. We will reevaluate the patient in a.m. Scottie Lea MD
--- NOTE | 2017-07-12 21:02 | PN ---
DATE: SUBJECTIVE: The patient is an 87-year-old, seen and examined, lying in bed, seems to be comfortable, not in any distress, and eating and tolerating. PHYSICAL EXAMINATION: VITAL SIGNS: She is afebrile, pulse 70, respirations 15, and blood pressure 144/73. LUNGS: Bilateral good airflow. No rhonchi or crackles. HEART: S1 and S2 audible. ABDOMEN: Soft and nontender. No rebound. No guarding. NEUROLOGIC: The patient is awake and alert, but confused and disoriented, able to communicate and answer simple questions. ASSESSMENT: 1. Dementia with disorientation. 2. Hypertension. 3. History of seizure disorder. PLAN: Continue supportive care. The patient need long-term placement. Discussed with social work associate. The patient did have episode of itchiness last night. She was given prednisone. She was given Benadryl where it was found out later on that she has bedbugs, so the necessary precaution has been taken to take care of it. Scottie Lea MD
--- NOTE | 2017-07-13 20:54 | PN ---
DATE: SUBJECTIVE: The patient is an [id number], seen and examined, lying in bed, seems to be comfortable, participating in therapy, and ambulating. PHYSICAL EXAMINATION: VITAL SIGNS: She is afebrile, pulse 64, respirations 16, and blood pressure 126/58. LUNGS: Bilateral good airflow. No rhonchi or crackle. HEART: S1 and S2 audible. ABDOMEN: Soft and nontender. No rebound. No guarding. NEUROLOGIC: She is awake, alert, oriented, and able to communicate, and very forgetful. ASSESSMENT: 1. History of hypertension. 2. Severe dementia. 3. Hypertension. 4. seizure disorder. PLAN: We will continue the patient on current medication. She is scheduled to be discharge on 07/16/2017. Scottie Lea MD
--- NOTE | 2017-07-14 22:29 | PN ---
DATE: SUBJECTIVE: The patient is an 87-year-old, seen and examined, doing well, lying in bed, seems to be comfortable. No nausea, vomiting. No diarrhea. Eating and tolerating. OBJECTIVE: VITAL SIGNS: She is afebrile, pulse 60, respirations 18, blood pressure 126/59. LUNGS: Bilateral good airflow. No rhonchi or crackle. HEART: S1 and S2 audible. No murmur. ABDOMEN: Soft and nontender. No rebound. No guarding. NEUROLOGIC: She is awake and alert, but confused and disoriented. ASSESSMENT: 1. Severe dementia. 2. Deconditioning and difficulty walking. 3. Hyperlipidemia. 4. Seizure disorder. PLAN: We will continue current medication. The patient is scheduled to be discharged on Wednesday. Scottie Lea MD
[2017-07-15 12:46] LABS: MEAN CELL VOLUME 90.2 fl (80.0-105.0); MEAN CORPUSCULAR HEMOGLOBIN 30.6 pg (25.0-35.0); MEAN CORPUSCULAR HGB CONC 33.9 g/dl (31.0-37.0); MEAN PLATELET VOLUME 8.9 fl (7.0-11.0); RED CELL DISTRIBUTION WIDTH 13.2 % (11.5-14.5); WHITE BLOOD COUNT 5.4 10^3/ul (4.5-11.0)
[2017-07-15 12:56] LABS: ALB/GLOB RATIO 1.1 (1.1-1.8); ALKALINE PHOSPHATASE 104 U/L (38-126); ALT/SGPT 38 U/L (7-56); AST/SGOT 29 U/L (14-36); BILIRUBIN,TOTAL 0.4 mg/dL (0.2-1.3); BLOOD UREA NITROGEN 17 mg/dL (7-21); CALCIUM 9.6 mg/dL (8.4-10.5); CARBON DIOXIDE 29 mmol/L (21-33); CHLORIDE 105 mmol/L (98-107); GFR AFRICAN-AMERICAN > 60; GLUCOSE,RANDOM 79 mg/dL (70-110); POTASSIUM 3.7 mmol/L (3.6-5.0); SODIUM 140 mmol/L (132-148); TOTAL PROTEIN 7.6 g/dL (5.8-8.3)
--- NOTE | 2017-07-15 22:05 | PN ---
DATE: SUBJECTIVE: The patient is an 87-year-old, seen and examined, sitting in chair, seems to be comfortable. No nausea. No vomiting. No diarrhea. Eating, tolerating and ambulating. PHYSICAL EXAMINATION: VITAL SIGNS: She is afebrile, pulse 60, respirations 16, blood pressure 143/69. LUNGS: Bilateral good airflow. No rhonchi or crackle. HEART: S1 and S2 audible. ABDOMEN: Soft, nontender. No rebound. No guarding. NEUROLOGIC: She is awake, alert, oriented, communicative, ambulatory. LABORATORY EXAMINATION: WBC is 5.4, hemoglobin 12, hematocrit 36, platelets 251. Chemistry; sodium 140, potassium 3.7, chloride 105, CO2 of 29, BUN 17, creatinine 0.7, blood sugar of 79. LFTs are within normal limits. ASSESSMENT: 1. Dementia. 2. History of seizure disorder. 3. Deconditioning and difficulty walking. PLAN: We will continue the patient on current medications. Discharge plan for a.m. Scottie Lea MD
[2017-07-16 05:48] VITALS: RESP 18; TEMP 98.7; O2SAT 99
[2017-07-16 09:59] VITALS: BP 137/67; PULSE 64
== END 2017-07-16 20:18 | disposition home or self-care (01) | DRG 556 ==
LOC: TRCU 19:12
PROVIDERS: ADMIT Internal Medicine; ATTEND Internal Medicine
PROC: F07Z9ZZ Gait Training/Functional Ambulation Treatment (ICD-10-PCS; principal; 2017-07-10)
PROC: F07L6ZZ Therapeutic Exercise Treatment of Musculoskeletal System - Lower Back / Lower Extremity (ICD-10-PCS; 2017-07-11)
PROC: F08Z2ZZ Grooming/Personal Hygiene Treatment (ICD-10-PCS; 2017-07-11)
PROC: F08Z1FZ Dressing Techniques Treatment using Assistive, Adaptive, Supportive or Protective Equipment (ICD-10-PCS; 2017-07-11)
DX: R26.2 Difficulty in walking, not elsewhere classified (principal); F03.90 Unspecified dementia, unspecified severity, without behavioral disturbance, psychotic disturbance, mood disturbance, and anxiety; D64.9 Anemia, unspecified; G40.909 Epilepsy, unspecified, not intractable, without status epilepticus; I10 Essential (primary) hypertension; M15.9 Polyosteoarthritis, unspecified; E78.5 Hyperlipidemia, unspecified; Z85.3 Personal history of malignant neoplasm of breast

== ENCOUNTER 2017-08-27 19:51 | Emergency (ER) | payer MEDICARE, BC ==
[2017-08-27 20:07] VITALS: BMI 22.4
--- NOTE | 2017-08-27 20:23 | ED PDOC ---
Arrival/HPI - General Chief Complaint: Altered Mental Status Time Seen by Provider: 08/27/17 19:59 Historian: Patient, Family - History of Present Illness Narrative History of Present Illness (Text): 08/27/17 20:22 An 87 year old female, whose past medical history includes Alzheimer's, breast cancer s/p mastectomy and chemoradiation, CAD and hypertension, was brought in by EMS to the emergency department from home for agitation and mild confusion, according to family. Patient in the emergency department asymptomatic and states she didn't want to come to the emergency department. Reports she feels fine and her family was bothering her to get evaluated. Patient denies any trauma, pain or any other complaints at this time. Symptom Onset: Sudden Symptom Course: Unchanged Activities at Onset: Rest Context: Home Past Medical History - Provider Review Nursing Documentation Reviewed: Yes - Infectious Disease Hx of Infectious Diseases: None - Tetanus Immunization Tetanus Immunization: Unknown - Cardiac Hx Cardiac Disorders: Yes Hx Hypertension: Yes - Pulmonary Hx Respiratory Disorders: No - Neurological Hx Neurological Disorder: Yes (SYNCOPE) Hx Dementia: Yes Hx Dizziness: Yes Hx Seizures: Yes - HEENT Hx HEENT Disorder: Yes (wears glasses) - Renal Hx Renal Disorder: No - Endocrine/Metabolic Hx Endocrine Disorders: No - Hematological/Oncological Hx Cancer: Yes (breast) - Integumentary Hx Dermatological Disorder: No - Musculoskeletal/Rheumatological Hx Falls: No - Gastrointestinal Hx Gastrointestinal Disorders: Yes (CONSTIPATION) - Genitourinary/Gynecological Hx Reproductive Disorders: No - Psychiatric Hx Psychophysiologic Disorder: No Hx Depression: No Hx Emotional Abuse: No Hx Physical Abuse: No Hx Substance Use: No - Surgical History Hx Hysterectomy: Yes - Anesthesia Hx Anesthesia: Yes Hx Anesthesia Reactions: No - Suicidal Assessment Feels Threatened In Home Enviroment: No Family/Social History - Physician Review Nursing Documentation Reviewed: Yes Family/Social History: No Known Family HX Smoking Status: Never Smoked Hx Alcohol Use: No Hx Substance Use: No Allergies/Home Meds Allergies/Adverse Reactions: Allergies [place] And Derivatives Allergy (Verified 08/27/17 20:01) ITCHING Review of Systems - Review of Systems Systems not reviewed;Unavailable: Other (refusing ROS) Gastrointestinal: absent: Abdominal Pain Neurological: absent: Headache Psychiatric: Other (agitation and mild confusion) Physical Exam Vital Signs Reviewed: Yes Vital Signs Temp Pulse Resp BP Pulse Ox 08/27/17 20:06 98.2 F 66 18 163/84 H 100 Temperature: Afebrile Blood Pressure: Normal Pulse: Regular Respiratory Rate: Normal Appearance: Positive for: Comfortable, Other (thin, frail) Pain Distress: None Mental Status: Positive for: Alert and Oriented X 3 Finger Stick Blood Glucose: 88 - Systems Exam Head: Present: Atraumatic, Normocephalic Pupils: Present: PERRL Extroacular Muscles: Present: EOMI Conjunctiva: Present: Normal Mouth: Present: Moist Mucous Membranes Neck: Present: Normal Range of Motion Respiratory/Chest: Present: Clear to Auscultation, Good Air Exchange. No: Respiratory Distress, Accessory Muscle Use Cardiovascular: Present: Regular Rate and Rhythm, Normal S1, S2. No: Murmurs Abdomen: Present: Normal Bowel Sounds. No: Tenderness, Distention, Peritoneal Signs Back: Present: Normal Inspection Upper Extremity: Present: Normal Inspection. No: Cyanosis, Edema Lower Extremity: Present: Normal Inspection. No: Edema Neurological: Present: GCS=15, CN II-XII Intact, Speech Normal Skin: Present: Warm, Dry, Normal Color. No: Rashes Psychiatric: Present: Alert, Oriented x 3, Normal Insight, Normal Concentration Medical Decision Making ED Course and Treatment: 08/27/17 20:20 Impression: An 87 year old female with agitation and mild confusion. Plan: -- labs -- Urinalysis -- Reassess and disposition Prior Visits: Notes and results from previous visits were reviewed. Patient was last seen in the emergency department on 07/03/17 for evaluation of dizziness. Progress Notes: 08/27/17 22:23 stable; labs/UA WNL - Lab Interpretations Lab Results: 08/27/17 20:31 08/27/17 20:31 Lab Results 08/27/17 21:30: Urine Color Yellow, Urine Appearance Clear, Urine pH 7.5, Ur Specific [place] 1.015, Urine Protein Negative, Urine Glucose (UA) Negative, Urine Ketones Negative, Urine Blood Negative, Urine Nitrate Negative, Urine Bilirubin Negative, Urine Urobilinogen 0.2, Ur Leukocyte Esterase Negative 08/27/17 20:31: Sodium 143, Potassium 3.7, Chloride 105, Carbon Dioxide 27, Anion Gap 14, BUN 11, Creatinine 0.5 L, Est GFR ( Amer) > 60, Est GFR ( Non-Af Amer) > 60, Random Glucose 81, Calcium 10.4, Total Bilirubin 0.5, AST 33 , ALT 28, Alkaline Phosphatase 94, Total Protein 8.4 H, Albumin 3.9, Globulin 4.5, Albumin/Globulin Ratio 0.9 L 08/27/17 20:31: WBC 5.9, RBC 4.20, Hgb 12.9, Hct 38.2, MCV 91.0, MCH 30.7, MCHC 33.8, RDW 13.7, Plt Count 263, MPV 9.3, Gran % 45.3 L, Lymph % (Auto) 42.2 H, [place] % (Auto) 7.3 H, Eos % (Auto) 4.7, Baso % (Auto) 0.5, Gran # 2.67, Lymph # ( Auto) 2.5, [place] # (Auto) 0.4, Eos # (Auto) 0.3, Baso # (Auto) 0.03 08/27/17 20:02: POC Glucose (mg/dL) 88 I have reviewed the lab results: Yes - Scribe Statement The provider has reviewed the documentation as recorded by the Roxanna Jara Provider Scribe Attestation: All medical record entries made by the Scribe were at my direction and personally dictated by me. I have reviewed the chart and agree that the record accurately reflects my personal performance of the history, physical exam, medical decision making, and the department course for this patient. I have also personally directed, reviewed, and agree with the discharge instructions and disposition. Disposition/Present on Arrival - Present on Arrival Any Indicators Present on Arrival: No History of DVT/PE: No History of Uncontrolled Diabetes: No Urinary Catheter: No History of Decub. Ulcer: No History Surgical Site Infection Following: None - Disposition Have Diagnosis and Disposition been Completed?: Yes Diagnosis: Dementia Disposition: HOME/ ROUTINE Disposition Time: 22:30 Patient Plan: Discharge Condition: STABLE Referrals: Kasey Negrete, [Primary Care Provider] - Follow up with primary Forms: [employer] ([employer])
[2017-08-27 20:50] LABS: BASO # 0.03 K/mm3 (0.0-2.0); BASO % 0.5 % (0.0-3.0); EOS # 0.3 (0.0-0.7); EOS % 4.7 % (1.5-5.0); GRAN # 2.67 (1.4-6.5); GRAN % 45.3 % (50.0-68.0); HEMOGLOBIN 12.9 g/dL (12.0-16.0); LYMPH # 2.5 (1.2-3.4); LYMPH % 42.2 % (22.0-35.0); MEAN CORPUSCULAR HEMOGLOBIN 30.7 pg (25.0-35.0); MEAN CORPUSCULAR HGB CONC 33.8 g/dl (31.0-37.0); MEAN PLATELET VOLUME 9.3 fl (7.0-11.0); MONO # 0.4 (0.1-0.6); MONO % 7.3 % (1.0-6.0); RBC 4.2 10^6/uL (3.5-6.1); RED CELL DISTRIBUTION WIDTH 13.7 % (11.5-14.5); WHITE BLOOD COUNT 5.9 10^3/ul (4.5-11.0)
[2017-08-27 21:23] LABS: ALB/GLOB RATIO 0.9 (1.1-1.8); ALBUMIN 3.9 g/dL (3.0-4.8); ALT/SGPT 28 U/L (7-56); AST/SGOT 33 U/L (14-36); BLOOD UREA NITROGEN 11 mg/dL (7-21); CALCIUM 10.4 mg/dL (8.4-10.5); GFR AFRICAN-AMERICAN > 60; GFR NON-AFRICAN AMERICAN > 60
[2017-08-27 21:47] LABS: PH,URINE 7.5 (4.7-8.0); URINE APPEARANCE CLEAR (CLEAR); URINE BILIRUBIN NEGATIVE (NEGATIVE); URINE BLOOD NEGATIVE (NEGATIVE); URINE COLOR YELLOW (YELLOW); URINE GLUCOSE (UA) NEGATIVE (NEGATIVE); URINE LEUKOCYTE ESTERASE NEGATIVE Leu/uL (NEGATIVE); URINE NITRATE NEGATIVE (NEGATIVE); URINE PROTEIN NEGATIVE mg/dL (<30 mg/dL); URINE UROBILINOGEN 0.2 E.U./dL (<1 E.U./dL)
[2017-08-27 23:38] VITALS: RESP 16; O2SAT 99
[2017-08-28 01:01] VITALS: BP 139/74; PULSE 65; TEMP 97.8
== END 2017-08-28 01:31 | disposition home or self-care (01) ==
LOC: ED 19:51
DX: F03.90 Unspecified dementia, unspecified severity, without behavioral disturbance, psychotic disturbance, mood disturbance, and anxiety (principal); G30.9 Alzheimer's disease, unspecified; I10 Essential (primary) hypertension; I25.10 Atherosclerotic heart disease of native coronary artery without angina pectoris; Z85.3 Personal history of malignant neoplasm of breast

== ENCOUNTER 2018-01-07 10:23 | Emergency (ER) | payer MEDICARE, BC ==
[2018-01-07 10:33] VITALS: BMI 19.9
[2018-01-07 10:37] VITALS: O2SAT 98
--- NOTE | 2018-01-07 11:17 | ED PDOC ---
Arrival/HPI - General Chief Complaint: Dizziness/Lightheaded Time Seen by Provider: 01/07/18 10:55 Historian: Patient - History of Present Illness Narrative History of Present Illness (Text): 87yo female with history of dementia, presents to ER today with complaints of dizziness present intermittently. Patient states she "feels funny", especially after walking a while. She denies any headache, chest pain, abdominal pain, nausea, vomiting, diarrhea or shortness of breath. Of note, patient is on Aricept but states she ran out of her medications. She offers no other medical complaints. PMD: Dr. Ceron Symptom Onset: Gradual Context: Walking Past Medical History - Provider Review Nursing Documentation Reviewed: Yes - Infectious Disease Hx of Infectious Diseases: None - Tetanus Immunization Tetanus Immunization: Unknown - Cardiac Hx Cardiac Disorders: Yes Hx Hypertension: Yes - Pulmonary Hx Respiratory Disorders: No - Neurological Hx Neurological Disorder: Yes (SYNCOPE) Hx Dementia: Yes Hx Dizziness: Yes Hx Seizures: Yes - HEENT Hx HEENT Disorder: Yes (wears glasses) - Renal Hx Renal Disorder: No - Endocrine/Metabolic Hx Endocrine Disorders: No - Hematological/Oncological Hx Cancer: Yes (breast) - Integumentary Hx Dermatological Disorder: No - Musculoskeletal/Rheumatological Hx Falls: No - Gastrointestinal Hx Gastrointestinal Disorders: Yes (CONSTIPATION) - Genitourinary/Gynecological Hx Reproductive Disorders: No - Psychiatric Hx Psychophysiologic Disorder: No Hx Depression: No Hx Emotional Abuse: No Hx Physical Abuse: No Hx Substance Use: No - Surgical History Hx Hysterectomy: Yes - Anesthesia Hx Anesthesia: Yes Hx Anesthesia Reactions: No - Suicidal Assessment Feels Threatened In Home Enviroment: No Family/Social History - Physician Review Nursing Documentation Reviewed: Yes Family/Social History: No Known Family HX Smoking Status: Never Smoked Hx Alcohol Use: No Hx Substance Use: No Allergies/Home Meds Allergies/Adverse Reactions: Allergies [place] And Derivatives Allergy (Verified 01/07/18 10:34) ITCHING Home Medications: Home Meds Medication Instructions Recorded Confirmed Potassium Chloride [Klor-Con 0 meq PO DAILY 01/07/18 01/07/18 Sprinkle] Review of Systems - Physician Review All systems were reviewed & negative as marked: Yes - Review of Systems Eyes: absent: Vision Changes Respiratory: absent: SOB Cardiovascular: absent: Chest Pain Gastrointestinal: absent: Abdominal Pain, Nausea, Vomiting Neurological: Dizziness. absent: Headache Physical Exam Vital Signs Reviewed: Yes Vital Signs Temp Pulse Resp BP Pulse Ox 01/07/18 13:53 97.9 F 88 18 134/79 98 01/07/18 10:34 98.0 F 80 17 143/80 98 Temperature: Afebrile Blood Pressure: Normal Pulse: Regular Respiratory Rate: Normal Appearance: Positive for: Non-Toxic, Comfortable Pain Distress: None Finger Stick Blood Glucose: 80 - Systems Exam Head: Present: Atraumatic, Normocephalic Pupils: Present: PERRL Extroacular Muscles: Present: EOMI Conjunctiva: Present: Normal Neck: Present: Normal Range of Motion Respiratory/Chest: Present: Clear to Auscultation, Good Air Exchange. No: Respiratory Distress, Accessory Muscle Use Cardiovascular: Present: Regular Rate and Rhythm, Normal S1, S2. No: Murmurs Abdomen: No: Tenderness, Distention Upper Extremity: Present: Normal Inspection. No: Cyanosis, Edema Lower Extremity: Present: Normal Inspection. No: Edema Neurological: Present: GCS=15, CN II-XII Intact, Speech Normal, Motor Func Grossly Intact, Normal Sensory Function Skin: Present: Warm, Dry, Normal Color. No: Rashes Psychiatric: Present: Alert, Normal Insight, Normal Concentration Medical Decision Making ED Course and Treatment: Impression: Dizziness Plan: -- Labs -- EKG -- Urinalysis Progress: 01/07/18 11:25 EKG: Normal sinus rhythm at 66 Left anterior fascicular block, RBBB QTC 473 T-wave inversion in lateral leads Similar to prior EKG on 07/03/17 01/07/18 13:32 Labs reviewed with no clinically significant abnormalities. Urinalysis shows small leuks and 10-15 white cells. Patient to be treated for a UTI with Macrobid (prescription given). Case discussed with Dr. Ceron, patient's PMD who is agreeable with plan for discharge home and outpatient follow up. - Lab Interpretations Lab Results: 01/07/18 11:12 01/07/18 11:23 Lab Results 01/07/18 12:30: Urine Color Yellow, Urine Appearance Clear, Urine pH 6.0, Ur Specific [place] 1.025, Urine Protein Trace H, Urine Glucose (UA) Negative, Urine Ketones Negative, Urine Blood Negative, Urine Nitrate Negative, Urine Bilirubin Negative, Urine Urobilinogen 0.2, Ur Leukocyte Esterase Small H, Urine RBC 0 - 2, Urine WBC 10 - 15, Ur Epithelial Cells 4 - 5, Calcium Oxalate Crystal Many, Amorphous Sediment Few, Urine Bacteria Many, Fine Granular Casts 0 - 2, Coarse Granular Casts Trace H, Urine Other [place] 01/07/18 11:23: Sodium 144, Potassium 3.9, Chloride 107, Carbon Dioxide 27, Anion Gap 14, BUN 15, Creatinine 0.6 L, Est GFR ( Amer) > 60, Est GFR ( Non-Af Amer) > 60, Random Glucose 82, Calcium 9.0, Total Bilirubin 0.4, AST 30, ALT 29, Alkaline Phosphatase 93, Total Protein 7.6, Albumin 4.1, Globulin 3.5, Albumin/Globulin Ratio 1.2 01/07/18 11:12: WBC 6.5, RBC 3.95, Hgb 11.9 L, Hct 35.1 L, MCV 88.9, MCH 30.1, MCHC 33.9, RDW 13.9, Plt Count 251, MPV 9.1, Gran % 56.6, Lymph % (Auto) 30.5, [place] % (Auto) 7.8 H, Eos % (Auto) 4.8, Baso % (Auto) 0.3, Gran # 3.69, Lymph # ( Auto) 2.0, [place] # (Auto) 0.5, Eos # (Auto) 0.3, Baso # (Auto) 0.02 - Scribe Statement The provider has reviewed the documentation as recorded by the Scribe (Yaz Zarate) Provider Attestation: All medical record entries made by the Scribe were at my direction and personally dictated by me. I have reviewed the chart and agree that the record accurately reflects my personal performance of the history, physical exam, medical decision making, and the department course for this patient. I have also personally directed, reviewed, and agree with the discharge instructions and disposition. Disposition/Present on Arrival - Present on Arrival Any Indicators Present on Arrival: No History of DVT/PE: No History of Uncontrolled Diabetes: No Urinary Catheter: No History of Decub. Ulcer: No History Surgical Site Infection Following: None - Disposition Have Diagnosis and Disposition been Completed?: Yes Diagnosis: UTI (urinary tract infection), Dizziness Disposition: HOME/ ROUTINE Disposition Time: 13:34 Condition: STABLE Additional Instructions: LIA DURBIN, thank you for letting us take care of you today. Your provider was Maday Anne MD and you were treated for DIZZINESS and URINARY TRACT INFECTION. The emergency medical care you received today was directed at your acute symptoms. If you were prescribed any medication, please fill it and take as directed. It may take several days for your symptoms to resolve. Return to the Emergency Department if your symptoms worsen, do not improve, or if you have any other problems. Please contact your doctor or call one of the physicians/clinics you have been referred to that are listed on the Patient Visit Information form that is included in your discharge packet. Bring any paperwork you were given at discharge with you along with any medications you are taking to your follow up visit. Our treatment cannot replace ongoing medical care by a primary care provider outside of the emergency department. Thank you for allowing the [facility] team to be part of your care today. If you had an X-Ray or CT scan: A Radiologist will review the ED reading if any change in treatment is needed we will contact you. If you had a blood, urine, or wound culture: It will take several days for the results, if any change in treatment is needed we will contact you. If you had an STI test: It will take 48 hours for the results. Please call after 1 week if you have not heard back. Prescriptions: Nitrofurantoin Macrocrystals [Macrobid] 100 mg PO BID #20 cap Forms: [email or web address] ([place])
[2018-01-07 11:56] LABS: BASO # 0.02 K/mm3 (0.0-2.0); BASO % 0.3 % (0.0-3.0); EOS # 0.3 (0.0-0.7); EOS % 4.8 % (1.5-5.0); GRAN # 3.69 (1.4-6.5); GRAN % 56.6 % (50.0-68.0); HEMOGLOBIN 11.9 g/dL (12.0-16.0); LYMPH % 30.5 % (22.0-35.0); MEAN CELL VOLUME 88.9 fl (80.0-105.0); MEAN CORPUSCULAR HEMOGLOBIN 30.1 pg (25.0-35.0); MEAN CORPUSCULAR HGB CONC 33.9 g/dl (31.0-37.0); MEAN PLATELET VOLUME 9.1 fl (7.0-11.0); MONO # 0.5 (0.1-0.6); MONO % 7.8 % (1.0-6.0); RBC 3.95 10^6/uL (3.5-6.1); RED CELL DISTRIBUTION WIDTH 13.9 % (11.5-14.5); WHITE BLOOD COUNT 6.5 10^3/ul (4.5-11.0)
[2018-01-07 12:11] LABS: ALB/GLOB RATIO 1.2 (1.1-1.8); ALBUMIN 4.1 g/dL (3.0-4.8); ALT/SGPT 29 U/L (7-56); AST/SGOT 30 U/L (14-36); BLOOD UREA NITROGEN 15 mg/dL (7-21); GFR AFRICAN-AMERICAN > 60; GFR NON-AFRICAN AMERICAN > 60
[2018-01-07 12:43] LABS: URINE BILIRUBIN NEGATIVE (NEGATIVE); URINE BLOOD NEGATIVE (NEGATIVE); URINE GLUCOSE (UA) NEGATIVE (NEGATIVE); URINE LEUKOCYTE ESTERASE SMALL Leu/uL (NEGATIVE); URINE PROTEIN TRACE mg/dL (<30 mg/dL); URINE UROBILINOGEN 0.2 E.U./dL (<1 E.U./dL)
[2018-01-07 12:49] LABS: URINE APPEARANCE CLEAR (CLEAR); URINE COLOR YELLOW (YELLOW)
[2018-01-07 12:51] LABS: URINE RBC 0 - 2 /hpf (0-2)
[2018-01-07 12:52] LABS: URINE BACTERIA MANY (NEG); URINE CALCIUM OXALATE CRYSTALS MANY /hpf; URINE FINE GRANULAR CAST 0 - 2 /hpf (0-2)
[2018-01-07 12:53] LABS: URINE AMORPHOUS SEDIMENT FEW; URINE COARSE GRANULAR CAST TRACE /hpf (0-2)
[2018-01-07 13:54] VITALS: BP 134/79; PULSE 88; RESP 18; TEMP 97.9
--- NOTE | 2018-01-07 21:24 | CARD ---
APPROVED REPORT EKG Measurement Heart [id number] <Conclusion> Normal sinus rhythm Right bundle branch block Left anterior fascicular block Bifascicular block Voltage criteria for left ventricular hypertrophy Cannot rule out Septal infarct, age undetermined Nonspecific T wave abnormality Abnormal ECG
== END 2018-01-07 14:00 | disposition home or self-care (01) ==
LOC: ED 10:23
DX: R42 Dizziness and giddiness (principal); N39.0 Urinary tract infection, site not specified; I10 Essential (primary) hypertension; F03.90 Unspecified dementia, unspecified severity, without behavioral disturbance, psychotic disturbance, mood disturbance, and anxiety

== ENCOUNTER 2018-03-21 02:51 | Observation (INO) | payer MEDICARE, BC ==
[2018-03-21 02:57] VITALS: BMI 21.9
--- NOTE | 2018-03-21 03:02 | ED PDOC ---
Arrival/HPI - General Chief Complaint: Altered Mental Status Time Seen by Provider: 03/21/18 02:55 Historian: Patient, EMS - History of Present Illness Narrative History of Present Illness (Text): 03/21/18 03:01 Aby Alvarez is an 87 year old female, whose past medical history includes hypertension, breast cancer s/p mastectomy/chemoradiation, Alzheimer's disease, recurrent UTIs, and CAD, who presents to the Emergency department brought in by EMS for altered mental status. As per EMS, son reports patient has been experiencing increased confusion for the past few days and notes patient has been staying up at night talking to herself. EMS states son reported patient becomes more confused than usual when she has a UTI. Patient states she has been losing weight recently but otherwise denies any chest pain, abdominal pain , nausea, vomiting, back pain, headache, or any other complaints. PMD: Dr. Lea Symptom Onset: Gradual Symptom Course: Unchanged Activities at Onset: Light Context: Home Past Medical History - Provider Review Nursing Documentation Reviewed: Yes - Infectious Disease Hx of Infectious Diseases: None - Tetanus Immunization Tetanus Immunization: Unknown - Cardiac Hx Cardiac Disorders: Yes Hx Hypertension: Yes - Pulmonary Hx Respiratory Disorders: No - Neurological Hx Neurological Disorder: Yes (SYNCOPE) Hx Dementia: Yes Hx Dizziness: Yes Hx Seizures: Yes - HEENT Hx HEENT Disorder: Yes (wears glasses) - Renal Hx Renal Disorder: No - Endocrine/Metabolic Hx Endocrine Disorders: No - Hematological/Oncological Hx Cancer: Yes (breast) - Integumentary Hx Dermatological Disorder: No - Musculoskeletal/Rheumatological Hx Falls: No - Gastrointestinal Hx Gastrointestinal Disorders: Yes (CONSTIPATION) - Genitourinary/Gynecological Hx Reproductive Disorders: No - Psychiatric Hx Psychophysiologic Disorder: No Hx Depression: No Hx Emotional Abuse: No Hx Physical Abuse: No Hx Substance Use: No - Surgical History Hx Hysterectomy: Yes - Anesthesia Hx Anesthesia: Yes Hx Anesthesia Reactions: No - Suicidal Assessment Feels Threatened In Home Enviroment: No Family/Social History - Physician Review Nursing Documentation Reviewed: Yes Family/Social History: Unknown Family HX Smoking Status: Never Smoked Hx Alcohol Use: No Hx Substance Use: No Allergies/Home Meds Allergies/Adverse Reactions: Allergies [place] And Derivatives Allergy (Verified 01/07/18 10:34) ITCHING Home Medications: Home Meds Medication Instructions Recorded Confirmed Potassium Chloride [Klor-Con 0 meq PO DAILY 01/07/18 01/07/18 Sprinkle] Review of Systems - Physician Review All systems were reviewed & negative as marked: Yes - Review of Systems Constitutional: Weight Change (+weight loss) Cardiovascular: absent: Chest Pain Gastrointestinal: absent: Abdominal Pain, Nausea, Vomiting Musculoskeletal: absent: Back Pain Neurological: Other (+confusion) Physical Exam Vital Signs Reviewed: Yes Vital Signs Temp Pulse Resp BP Pulse Ox 03/21/18 04:40 74 17 176/84 H 99 03/21/18 04:06 74 183/96 H 03/21/18 02:51 97.6 F 72 18 184/107 H 100 Temperature: Afebrile Blood Pressure: Hypertensive Pulse: Regular Respiratory Rate: Normal Appearance: Positive for: Non-Toxic, Comfortable, Cachectic Pain Distress: None Mental Status: Positive for: other (Alert, oriented x2 (person and place)) - Systems Exam Head: Present: Atraumatic, Normocephalic Pupils: Present: PERRL Extroacular Muscles: Present: EOMI Conjunctiva: Present: Normal Mouth: Present: Moist Mucous Membranes Neck: Present: Normal Range of Motion. No: Meningeal Signs, MIDLINE TENDERNESS , Paraspinal Tenderness Respiratory/Chest: Present: Clear to Auscultation, Good Air Exchange. No: Respiratory Distress, Accessory Muscle Use Cardiovascular: Present: Regular Rate and Rhythm, Normal S1, S2. No: Murmurs Abdomen: No: Tenderness, Distention, Peritoneal Signs Back: Present: Normal Inspection. No: CVA Tenderness, Midline Tenderness, Paraspinal Tenderness Upper Extremity: Present: Normal Inspection. No: Cyanosis, Edema Lower Extremity: Present: Normal Inspection. No: Edema Neurological: Present: GCS=15, CN II-XII Intact, Speech Normal Skin: Present: Warm, Dry, Normal Color. No: Rashes Psychiatric: Present: Alert. No: Oriented x 3 (Oriented x2 (person and place)) Medical Decision Making ED Course and Treatment: 03/21/18 03:01 Impression: 87 year old female brought in for altered mental status. Plan: -- CT Head w/o contrast -- EKG -- Chest X-ray -- Labs, cardiac enzymes -- UA -- Reassess and disposition Prior Visits: Notes and results from previous visits were reviewed. On 01/07/2018, pt was seen in the Emergency department for dizziness. Pt was d/ c home. Progress Notes: 03/21/18 03:50 Reviewed EKG, NSR at 76 bpm. RBBB. LAHB. LVH. Non-specific ST/T wave changes. 03/21/18 03:52 Chest X-ray reviewed, shows no acute processes. 03/21/18 04:14 CT Head shows: Brain: Age-related atrophy with commensurate ventricular dilatation and chronic small vessel ischemic disease. No hemorrhage. Ventricles: See above. Bones/joints: Large lucent lesion in the left calvarium nonspecific but unchanged. No acute fracture. Soft tissues: Unremarkable. Sinuses: Minimal mucosal thickening in the inferior right frontal sinus and ethmoid air cells. Mastoid air cells: Unremarkable as visualized. No mastoid effusion. IMPRESSION: 1. No acute intracranial findings. 2. Age-related atrophy and chronic small vessel ischemic disease. 3. Additional chronic/incidental findings as described above. Dictated and Authenticated by: Pastora Saavedra MD 03/21/2018 4:13 AM Eastern Time ([place] & [place]) 03/21/18 04:[address] Lea, who is aware and agrees with plan. Accepts pt in to her service. Pt will go to remote telemetry observation for altered mental status. - Lab Interpretations Lab Results: 03/21/18 03:15 03/21/18 03:15 Lab Results 03/21/18 03:18: Urine Color Straw, Urine Appearance Sl cloudy, Urine pH 7.5, Ur Specific [place] 1.010, Urine Protein Negative, Urine Glucose (UA) Negative, Urine Ketones Negative, Urine Blood Negative, Urine Nitrate Negative, Urine Bilirubin Negative, Urine Urobilinogen 0.2, Ur Leukocyte Esterase Small H, Urine RBC Negative, Urine WBC 0 - 2, Ur Epithelial Cells 3 - 4, Urine Bacteria Few 03/21/18 03:15: WBC 8.2 D, RBC 4.35, Hgb 13.1, Hct 38.2, MCV 87.8, MCH 30.1, MCHC 34.3, RDW 14.4, Plt Count 244, MPV 8.9 03/21/18 03:15: Sodium 144, Potassium 3.4 L, Chloride 107, Carbon Dioxide 26, Anion Gap 14, BUN 11, Creatinine 0.5 L, Est GFR ( Amer) > 60, Est GFR ( Non-Af Amer) > 60, Random Glucose 95, Calcium 9.7, Total Bilirubin 0.3, AST 45 H D, ALT 53, Alkaline Phosphatase 149 H D, Lactate Dehydrogenase 676, Total Creatine Kinase 101, Troponin I < 0.01, Total Protein 8.6 H, Albumin 4.6, Globulin 4.0, Albumin/Globulin Ratio 1.1 03/21/18 03:15: PT 11.7, INR 1.03, APTT 32.0 03/21/18 02:57: POC Glucose (mg/dL) 78 I have reviewed the lab results: Yes - RAD Interpretation Radiology Orders: 03/21/18 03:03 CHEST PORTABLE [RAD] Stat 03/21/18 03:05 HEAD W/O CONTRAST [CT] Stat Director Supplier Quality: ED Physician, Radiologist - EKG Interpretation Interpreted by ED Physician: Yes Type: 12 lead EKG - Medication Orders Current Medication Orders: Discontinued Medications Clonidine HCl (Catapres) 0.2 mg PO STAT STA Stop: 03/21/18 03:50 Last Admin: 03/21/18 04:06 Dose: 0.2 mg MAR Pulse and Blood Pressure Document 03/21/18 04:06 IT (Rec: 03/21/18 04:06 IT [id number]) Pulse Pulse Rate (60-90 beats/min) 74 Blood Pressure Blood Pressure (100/60-150/90 mm Hg) 183/96 Potassium Chloride (K-Dur 20 Meq Er Tab) 20 meq PO STAT STA Stop: 03/21/18 04:35 Last Admin: 03/21/18 04:40 Dose: 20 meq - Scribe Statement The provider has reviewed the documentation as recorded by the Roxanna Menon Provider Scribe Attestation: All medical record entries made by the Scribe were at my direction and personally dictated by me. I have reviewed the chart and agree that the record accurately reflects my personal performance of the history, physical exam, medical decision making, and the department course for this patient. I have also personally directed, reviewed, and agree with the discharge instructions and disposition. Disposition/Present on Arrival - Present on Arrival Any Indicators Present on Arrival: No History of DVT/PE: No History of Uncontrolled Diabetes: No Urinary Catheter: No History of Decub. Ulcer: No History Surgical Site Infection Following: None - Disposition Have Diagnosis and Disposition been Completed?: Yes Diagnosis: Altered mental status Disposition: HOSPITALIZED Disposition Time: 04:47 Condition: STABLE Forms: [facility] ([place])
[2018-03-21 03:24] LABS: HEMOGLOBIN 13.1 g/dL (12.0-16.0); MEAN CELL VOLUME 87.8 fl (80.0-105.0); MEAN CORPUSCULAR HEMOGLOBIN 30.1 pg (25.0-35.0); MEAN CORPUSCULAR HGB CONC 34.3 g/dl (31.0-37.0); MEAN PLATELET VOLUME 8.9 fl (7.0-11.0); RBC 4.35 10^6/uL (3.5-6.1); RED CELL DISTRIBUTION WIDTH 14.4 % (11.5-14.5); WHITE BLOOD COUNT 8.2 10^3/ul (4.5-11.0)
[2018-03-21 03:33] LABS: INR 1.03; PROTHROMBIN TIME 11.7 SECONDS (9.4-12.5)
[2018-03-21 03:37] LABS: PH,URINE 7.5 (4.7-8.0); URINE APPEARANCE SL CLOUDY (CLEAR); URINE BILIRUBIN NEGATIVE (NEGATIVE); URINE BLOOD NEGATIVE (NEGATIVE); URINE COLOR STRAW (YELLOW); URINE GLUCOSE (UA) NEGATIVE (NEGATIVE); URINE LEUKOCYTE ESTERASE SMALL Leu/uL (NEGATIVE); URINE PROTEIN NEGATIVE mg/dL (<30 mg/dL); URINE UROBILINOGEN 0.2 E.U./dL (<1 E.U./dL)
[2018-03-21 03:47] LABS: URINE RBC NEGATIVE /hpf (0-2); URINE WBC 0 - 2 /hpf (0-6)
[2018-03-21 03:48] LABS: URINE BACTERIA FEW (NEG)
[2018-03-21 03:49] LABS: ALB/GLOB RATIO 1.1 (1.1-1.8); ALBUMIN 4.6 g/dL (3.0-4.8); ALT/SGPT 53 U/L (7-56); AST/SGOT 45 U/L (14-36); BLOOD UREA NITROGEN 11 mg/dL (7-21); CALCIUM 9.7 mg/dL (8.4-10.5); GFR NON-AFRICAN AMERICAN > 60
[2018-03-21 04:00] LABS: TROPONIN I < 0.01 ng/mL
[2018-03-21] MEDS ORDERED: Potassium Chloride 20 mEq ER Tab PO STA (04:34)
--- NOTE | 2018-03-21 07:36 | CT ---
Date of service: 03/21/2018 PROCEDURE: CT HEAD WITHOUT CONTRAST. HISTORY: ams COMPARISON: None available. TECHNIQUE: Axial computed tomography images were obtained through the head/brain without intravenous contrast. Radiation dose: Total exam DLP = mGy-cm. This CT exam was performed using one or more of the following dose reduction techniques: Automated exposure control, adjustment of the mA and/or kV according to patient size, and/or use of iterative reconstruction technique. FINDINGS: HEMORRHAGE: No intracranial hemorrhage. BRAIN: No mass effect or edema. Atrophy and chronic microvascular ischemic changes. VENTRICLES: Unremarkable. No hydrocephalus. CALVARIUM: Unremarkable. PARANASAL SINUSES: Unremarkable as visualized. No significant inflammatory changes. MASTOID AIR CELLS: Unremarkable as visualized. No inflammatory changes. OTHER FINDINGS: None. IMPRESSION: No bleed..
--- NOTE | 2018-03-21 08:46 | CARD ---
APPROVED REPORT Date of service: 03/21/2018 EKG Measurement Heart [id number] <Conclusion> Normal sinus rhythm Right bundle branch block Left anterior fascicular block Bifascicular block Left ventricular hypertrophy with repolarization abnormality No change
--- NOTE | 2018-03-21 09:44 | RAD ---
Date of service: 03/21/2018 HISTORY: ams COMPARISON: 07/03/2017 FINDINGS: LUNGS: No active pulmonary disease. PLEURA: No significant pleural effusion identified, no pneumothorax apparent. CARDIOVASCULAR: Normal. OSSEOUS STRUCTURES: No significant abnormalities. VISUALIZED UPPER ABDOMEN: Normal. OTHER FINDINGS: Aortic tortuosity IMPRESSION: No active disease.
[2018-03-21 11:09] VITALS: RESP 18
[2018-03-21] MEDS: Potassium Chloride 10 mEq ER Tab PO SCH (11:20)
--- NOTE | 2018-03-21 21:42 | HP ---
Copied To: Scottie Lea MD Attending MD: Scottie Lea MD DATE OF EXAM: 03/21/2018 HISTORY OF PRESENT ILLNESS: The patient is 87 years old, known to me from multiple previous admissions, who was recently seen in the office last week for a regular checkup. According to son, she seems to be confused at times, mostly in the evening, so last night when son came from outside, he found mom confused more than usual. So, he called ambulance and she was brought to emergency room for increasing confusion. According to son, she does not sleep she talks herself. PAST MEDICAL HISTORY: She has significant past medical history positive for; 1. Hypertension. 2. History of CA breast status post mastectomy. 3. Dementia. 4. History of UTI. 5. History of seizure disorder. ALLERGIES: SHE IS ALLERGIC TO [place] AND ITS DERIVATIVES. MEDICATIONS AT HOME: She is on Keppra 250 b.i.d., amlodipine 10 mg daily, potassium 10 mEq daily and Aricept 10 mg daily. SOCIAL HISTORY: She lives with her son who she claims does not do anything. She cooks for him. She goes to [employer]ian[employer] regularly. PHYSICAL EXAMINATION GENERAL: Today, she is sleepy, but arousable. VITAL SIGNS: She is afebrile, pulse 59, respirations 17, and blood pressure 137/69. LUNGS: Bilateral fair airflow. No rhonchi or crackles. HEART: S1 and S2 audible. ABDOMEN: Soft, nontender. No rebound. No guarding. NEUROLOGIC: She is awake, alert, oriented, communicative. LABORATORY DATA: WBC is 8.2, hemoglobin 13, hematocrit 38, platelet 244. PT 11.7, INR 1.03. Chemistry: Sodium 144, potassium 3.4, chloride 107, CO2 of 26, BUN 11, creatinine 0.5, blood sugar of 95. AST 45, ALT 53, alkaline phosphatase 149. Urinalysis shows moderate leukocytes. CT scan of the brain is unremarkable. ASSESSMENT: 1. Altered mental status, etiology unclear. 2. History of seizure disorder. 3. Hypertension. 4. Hyperlipidemia. 5. Hypokalemia. 6. History of cancer of breast. PLAN: We will observe for next 24 hours. We will restart her usual medication. Request for physical therapy. The patient is ambulating. She can be discharged either today or tomorrow depending on contact with the patient's family who is willing to receive her at home. Scottie Lea MD [facility] # [phone]
[2018-03-22 00:27] VITALS: O2SAT 96
[2018-03-22] MEDS: Potassium Chloride 10 mEq ER Tab PO SCH (09:28)
[2018-03-22 18:35] VITALS: BP 127/63; PULSE 69; TEMP 97.8
--- NOTE | 2018-03-23 07:52 | DS ---
Copied To: Scottie Lea MD Attending MD: Scottie Lea MD HISTORY OF PRESENT ILLNESS: The patient is 87 years old. Awake and alert but not oriented, forgetful, not oriented to time and place. Eating and tolerating. Does not look in any distress. No nausea or vomiting. No diarrhea. No fever. No chills. No shortness of breath. PHYSICAL EXAMINATION: VITAL SIGNS: She is afebrile, pulse 82, respirations 18, blood pressure 140/72. LUNGS: Bilateral good airflow. No rhonchi or crackle. HEART: S1 and S2 audible. ABDOMEN: Soft, nontender. No rebound. No guarding. NEUROLOGICAL: She is awake and alert but confused, disoriented. ASSESSMENT AND PLAN: 1. Altered mental status. 2. Worsening of her dementia. 3. Hypertension. 4. Hypokalemia, resolved. Workup is negative. PLAN: Patient will be discharged today. We will get in touch with patient's son who is sole project estimator, this issue was raised in the past. He does not want her to be in the long-term so we will arrange for visiting nurses who can monitor her healthcare as outpatient and we will talk to the son who is involved in her care and she will follow up in office in a month. Scottie Lea MD
== END 2018-03-22 20:50 | disposition home or self-care (01) ==
LOC: ED 02:51 → ERH 04:42 → 2RNO 08:11
PROVIDERS: ADMIT Internal Medicine; ATTEND Internal Medicine
DX: R41.82 Altered mental status, unspecified (principal); I10 Essential (primary) hypertension; E87.6 Hypokalemia; G30.9 Alzheimer's disease, unspecified; F02.80 Dementia in other diseases classified elsewhere, unspecified severity, without behavioral disturbance, psychotic disturbance, mood disturbance, and anxiety; E78.5 Hyperlipidemia, unspecified; I25.10 Atherosclerotic heart disease of native coronary artery without angina pectoris; G40.909 Epilepsy, unspecified, not intractable, without status epilepticus; Z85.3 Personal history of malignant neoplasm of breast; Z90.10 Acquired absence of unspecified breast and nipple; Z87.440 Personal history of urinary (tract) infections
CPT/HCPCS: 70450; 71045; 80053; 81001; 82550; 82948; 83615; 84484; 85027; 85610; 85730; 87086; 93005; 97116; 97161; 99285; G0378; G8978; G8979

== ENCOUNTER 2018-06-30 13:47 | Observation (INO) | payer MEDICARE, BC ==
[2018-06-30 13:51] VITALS: BMI 20.2
--- NOTE | 2018-06-30 14:29 | ED PDOC ---
Arrival/HPI - General Chief Complaint: Altered Mental Status Time Seen by Provider: 06/30/18 13:58 Historian: Patient, Family (Son helped provide information ) - History of Present Illness Narrative History of Present Illness (Text): 06/30/18 13:58 87 year old female, whose past medical history includes Alzheimer's disease, recurrent UTI's, CAD, breast cancer, and hypertension, who was brought into the Emergency department via ambulance as per son's request due to patient having more AMS than usual noticed today at 12:00. Son states patient was fine when he saw her last night, but the property care team coordinator scheduler called him today and told him the patient "went into someone else's apartment and left a box there." Son requests further evaluation, noting that she usually has a UTI when this happens. Son and patient do not note any other complaints at this time. PMD: Scottie Bangura Time/Duration: Prior to Arrival Symptom Onset: Sudden Symptom Course: Unchanged Activities at Onset: Light Past Medical History - Provider Review Nursing Documentation Reviewed: Yes - Infectious Disease Hx of Infectious Diseases: None - Tetanus Immunization Tetanus Immunization: Unknown - Cardiac Hx Cardiac Disorders: Yes (CAD) Hx Hypertension: Yes - Pulmonary Hx Respiratory Disorders: No - Neurological Hx Alzheimer's Disease: Yes Hx Dizziness: Yes Hx Seizures: Yes - HEENT Hx HEENT Disorder: Yes (wears glasses) - Renal Hx Renal Disorder: No - Endocrine/Metabolic Hx Endocrine Disorders: No - Hematological/Oncological Hx Anemia: Yes - Integumentary Hx Dermatological Disorder: No - Musculoskeletal/Rheumatological Hx Falls: Yes - Gastrointestinal Hx Gastrointestinal Disorders: Yes (CONSTIPATION) - Genitourinary/Gynecological Hx Reproductive Disorders: No - Psychiatric Hx Anxiety: Yes Hx Substance Use: No - Surgical History Hx Hysterectomy: Yes Hx Mastectomy: Yes (left breast chemo&radiation) - Anesthesia Hx Anesthesia: Yes Hx Anesthesia Reactions: No Hx Malignant Hyperthermia: No - Suicidal Assessment Feels Threatened In Home Enviroment: No Family/Social History - Physician Review Nursing Documentation Reviewed: Yes Family/Social History: No Known Family HX Smoking Status: Never Smoked Hx Alcohol Use: No Hx Substance Use: No Allergies/Home Meds Allergies/Adverse Reactions: Allergies [place] And Derivatives Allergy (Verified 06/30/18 13:51) ITCHING Home Medications: Home Meds Medication Instructions Recorded Confirmed Potassium Chloride [Klor-Con 0 meq PO DAILY 01/07/18 01/07/18 Sprinkle] Review of Systems - Physician Review All systems were reviewed & negative as marked: Yes - Review of Systems Constitutional: Normal Psychiatric: Other (Son called ambulance due to patient having more altered mental status than usual ). absent: Normal Physical Exam Vital Signs Reviewed: Yes Vital Signs Temp Pulse Resp BP Pulse Ox 06/30/18 14:02 98 F 67 16 186/88 H 100 Temperature: Afebrile Blood Pressure: Hypertensive (at 186/88 H) Pulse: Regular Respiratory Rate: Normal Appearance: Positive for: Well-Appearing, Non-Toxic, Comfortable Pain Distress: None Mental Status: Positive for: other (Patient has past medical history of Alzheimer's disease) Finger Stick Blood Glucose: 79 - Systems Exam Head: Present: Atraumatic, Normocephalic Pupils: Present: PERRL Extroacular Muscles: Present: EOMI Conjunctiva: Present: Normal Mouth: Present: Moist Mucous Membranes Neck: Present: Normal Range of Motion Respiratory/Chest: Present: Clear to Auscultation, Good Air Exchange. No: Respiratory Distress, Accessory Muscle Use Cardiovascular: Present: Regular Rate and Rhythm, Normal S1, S2. No: Murmurs Abdomen: No: Tenderness, Distention, Peritoneal Signs Back: Present: Normal Inspection Upper Extremity: Present: Normal Inspection, Normal ROM. No: Cyanosis, Edema Lower Extremity: Present: Normal Inspection, Normal ROM. No: Edema Neurological: Present: GCS=15, CN II-XII Intact, Speech Normal Skin: Present: Warm, Dry, Normal Color. No: Rashes Psychiatric: Present: Alert Medical Decision Making ED Course and Treatment: 06/30/18 13:58 Impression:87 year old female who was brought into the Emergency department via ambulance, as per son's request, due to patient having more AMS than usual noticed today at 12:00. Last seen normal yesterday night however. Per son, no slurred speech, unilateral weakness or confusion at this time. Per son pt appears baseline at this time. Likely UTI, pt has hx of UTIs w/ similiar appearance. Besides AOx1 (son notes this is baseline) Normal neuro exam. Plan: -- Labs -- CT of head w/o contrast -- EKG -- CMP -- Magnesium -- Troponin I -- CBC (with differential) -- X-Ray of chest, 2 views (PA/LAT) -- Blood culture -- Urinalysis -- Reassess and disposition Prior Visits: Notes and results from previous visits were reviewed. Patient was last seen in the emergency department on 03/21/18 presents to the Emergency department brought in by EMS for altered mental status. Pt was hospitalized in stable condition with diagnosis of altered mental status. Progress Notes: 06/30/18 16:[address] unremarkable XRay unremarkable. Pending UA 06/30/18 19:14 UA unremarkable. appreciate consult w/ Dr. Lea: to admit to her service family and pt agreeable. - RAD Interpretation Narrative RAD Interpretations (Text): X-Ray of chest reviewed by radiologist, shows: Dictated by: Saqib Kumar MD Dictated Time/Date: 06/30/18 15:28 Impression: No active disease. CT of head reviewed by radiologist, shows: Dictated by: Saqib Kumar MD Dictated Date/Time: 06/30/18 15:38 Impression: No acute intracranial findings. Radiology Orders: 06/30/18 14:08 HEAD W/O CONTRAST [CT] Stat 06/30/18 14:09 CHEST TWO VIEWS (PA/LAT) [RAD] Stat Medical Lead: Radiologist - EKG Interpretation EKG Interpretation (Text): 06/30/18 EKG: Ordered, reviewed, and independently interpreted the EKG. Rate : 59 BPM Rhythm : NSR Interpretation : No STEMI Interpreted by ED Physician: Yes Type: 12 lead EKG - Scribe Statement The provider has reviewed the documentation as recorded by the Scribe Evie Reyna All medical record entries made by the Scribe were at my direction and personally dictated by me. I have reviewed the chart and agree that the record accurately reflects my personal performance of the history, physical exam, medical decision making, and the department course for this patient. I have also personally directed, reviewed, and agree with the discharge instructions and disposition. Disposition/Present on Arrival - Present on Arrival Any Indicators Present on Arrival: No History of DVT/PE: No History of Uncontrolled Diabetes: No Urinary Catheter: No History of Decub. Ulcer: No History Surgical Site Infection Following: None - Disposition Have Diagnosis and Disposition been Completed?: Yes Diagnosis: Altered mental status Disposition Time: 19:14 Patient Problems: Current Active Problems Problem Status Onset Altered mental status Acute Condition: GOOD
--- NOTE | 2018-06-30 15:32 | RAD ---
Date of service: 06/30/2018 HISTORY: ams COMPARISON: 03/21/2018 TECHNIQUE: Chest PA and lateral FINDINGS: LUNGS: No active pulmonary disease. PLEURA: No significant pleural effusion identified. No pneumothorax apparent. CARDIOVASCULAR: Aortic calcification Normal cardiac size. No pulmonary vascular congestion. OSSEOUS STRUCTURES: No significant abnormalities. VISUALIZED UPPER ABDOMEN: Normal. OTHER FINDINGS: None. IMPRESSION: No active disease.
--- NOTE | 2018-06-30 15:42 | CT ---
Date of service: 06/30/2018 PROCEDURE: CT HEAD WITHOUT CONTRAST. HISTORY: ams COMPARISON: None available. TECHNIQUE: Axial computed tomography images were obtained through the head/brain without intravenous contrast. Radiation dose: Total exam DLP = 736.95 mGy-cm. This CT exam was performed using one or more of the following dose reduction techniques: Automated exposure control, adjustment of the mA and/or kV according to patient size, and/or use of iterative reconstruction technique. FINDINGS: HEMORRHAGE: No intracranial hemorrhage. BRAIN: No mass effect or edema. Severe chronic microvascular changes. Mild atrophy VENTRICLES: Unremarkable. No hydrocephalus. CALVARIUM: There is diffuse lucency in the left posterior calvarium. This is unchanged. This could represent osteopenia or Paget's disease. PARANASAL SINUSES: Unremarkable as visualized. No significant inflammatory changes. MASTOID AIR CELLS: Unremarkable as visualized. No inflammatory changes. OTHER FINDINGS: None IMPRESSION: No acute intracranial findings
[2018-06-30 16:23] LABS: BASO # 0.02 K/mm3 (0.0-2.0); BASO % 0.3 % (0.0-3.0); EOS # 0.2 (0.0-0.7); EOS % 3.6 % (1.5-5.0); GRAN # 3.02 (1.4-6.5); GRAN % 51.5 % (50.0-68.0); HEMOGLOBIN 12.6 g/dL (12.0-16.0); LYMPH # 2.2 (1.2-3.4); MEAN CELL VOLUME 89.6 fl (80.0-105.0); MEAN CORPUSCULAR HEMOGLOBIN 30.5 pg (25.0-35.0); MEAN CORPUSCULAR HGB CONC 34.1 g/dl (31.0-37.0); MEAN PLATELET VOLUME 9.2 fl (7.0-11.0); MONO # 0.4 (0.1-0.6); MONO % 6.6 % (1.0-6.0); RBC 4.13 10^6/uL (3.5-6.1); RED CELL DISTRIBUTION WIDTH 13.8 % (11.5-14.5); WHITE BLOOD COUNT 5.9 10^3/uL (4.5-11.0)
[2018-06-30 16:26] LABS: VENOUS BLOOD GAS BASE EXCESS 0.1 mmol/L (0.0-2.0); VENOUS BLOOD GAS PO2 102 mm/Hg (30-55); VENOUS BLOOD PH 7.41 (7.32-7.43)
[2018-06-30 16:38] LABS: ALB/GLOB RATIO 1.1 (1.1-1.8); ALBUMIN 4.3 g/dL (3.0-4.8); ALT/SGPT 22 U/L (7-56); AST/SGOT 29 U/L (14-36); BLOOD UREA NITROGEN 11 mg/dL (7-21); CALCIUM 9.6 mg/dL (8.4-10.5); GFR NON-AFRICAN AMERICAN > 60
[2018-06-30 16:48] LABS: TROPONIN I < 0.01 ng/mL
[2018-06-30 17:34] LABS: URINE BILIRUBIN NEGATIVE (NEGATIVE); URINE BLOOD NEGATIVE (NEGATIVE); URINE GLUCOSE (UA) NEGATIVE (NEGATIVE); URINE LEUKOCYTE ESTERASE SMALL Leu/uL (NEGATIVE); URINE PROTEIN NEGATIVE mg/dL (<30 mg/dL); URINE UROBILINOGEN 0.2 E.U./dL (<1 E.U./dL)
[2018-06-30 17:37] LABS: URINE APPEARANCE CLEAR (CLEAR); URINE COLOR YELLOW (YELLOW)
[2018-06-30 17:41] LABS: URINE BACTERIA NEG (NEG); URINE EPITHELIAL CELLS 0 - 2 /hpf (0-5); URINE RBC NEGATIVE /hpf (0-2); URINE WBC 0 - 2 /hpf (0-6)
[2018-06-30 17:44] VITALS: RESP 18
--- NOTE | 2018-07-01 01:09 | HP ---
DATE OF EXAM: 06/30/2018 HISTORY OF PRESENT ILLNESS: The patient is an 87-year-old, known to me from multiple admissions in the past. Son called ambulance and was brought to emergency room because of altered mental status. She has been acting different and strange since last night. 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 So, eventually brought to emergency room for further evaluation. PAST MEDICAL HISTORY: She has significant past medical history of: 1. Coronary artery disease. 2. Hypertension. 3. History of dementia. 4. Seizure disorder. 5. Chronic anemia. 6. Anxiety disorder. 7. Status post left mastectomy, status post chemo and radiation. ALLERGIES: THE PATIENT IS ALLERGIC TO CITRUS DERIVATIVES. MEDICATION AT HOME: She is on Keppra 250 twice a day, amlodipine 10 mg daily, Aricept 10 mg at bedtime, potassium 10 mEq a day, nitrofurantoin 100 mg twice a day. SOCIAL HISTORY: She lives with her son. No history of smoking or drinking. PHYSICAL EXAMINATION: GENERAL: The patient is awake and alert, but confused and disoriented. VITAL SIGNS: She is afebrile. Pulse 67, respirations 18, blood pressure 143/84. LUNGS: Bilateral fair airflow. No rhonchi or crackle. HEART: S1 and S2 audible. ABDOMEN: Soft, nontender. No rebound. No guarding. NEUROLOGIC: She is awake and alert, but confused and disoriented. LABORATORY EXAM: WBC is 5.9, hemoglobin 12.6, hematocrit 37, and platelets 218. Chemistry; sodium 137, potassium 3.9, chloride 107, CO2 of 24, BUN 11, creatinine 0.6, and blood sugar 69. Urinalysis shows small leukocyte. CT scan of the head, no acute intracranial abnormality noted. X-rays of chest unremarkable. ASSESSMENT: 1. Altered mental status, etiology unknown. 2. Seizure disorder. 3. Hypertension. 4. Hyperlipidemia. PLAN: Continue the patient on usual medication. We will observe for next 24 hours. Encourage ambulation. We will re-evaluate the patient in a.m. Scottie Lea MD
[2018-07-01 09:15] VITALS: O2SAT 98
[2018-07-01 14:46] VITALS: BP 118/64; PULSE 71; TEMP 98.6
--- NOTE | 2018-07-01 16:30 | CARD ---
APPROVED REPORT Date of service: 06/30/2018 EKG Measurement Heart [id number] <Conclusion> Sinus bradycardia Right bundle branch block Left anterior fascicular block Bifascicular block Voltage criteria for left ventricular hypertrophy Cannot rule out Septal infarct, age undetermined T wave abnormality, consider inferior ischemia Abnormal ECG
--- NOTE | 2018-07-04 09:57 | DS ---
HISTORY OF PRESENT ILLNESS: The patient is an 87-year-old, seen and examined, awake and alert, somewhat confused and confabulates, eating and tolerating. PHYSICAL EXAMINATION: VITAL SIGNS: She is afebrile, pulse 67, respirations 18, blood pressure /64. LUNGS: Bilateral fair airflow. No rhonchi or crackle. HEART: S1, S2 audible. ABDOMEN: Soft, nontender. No rebound, no guarding. NEUROLOGIC: The patient is awake, alert, oriented. Communicative. DIAGNOSTIC DATA: CT scan of the head is negative. Chest x-ray is negative. ASSESSMENT: 1. Questionable altered mental status. 2. Dementia. 3. History of seizure disorder. 4. History of breast carcinoma, status post lumpectomy. PLAN: So, plan is the patient is clinically stable, back to her baseline, will be discharged today to home with her son. Scottie Lea MD
== END 2018-07-01 20:11 | disposition home or self-care (01) ==
LOC: ED 13:47 → UNDOADMOB 19:12 → INTOOBSV 19:12 → ERH 19:12 → 5RNO 07-01 06:00 → ERH 07-01 08:58 → 5RNO 07-01 10:18 → ERH 07-01 10:18
PROVIDERS: ADMIT Internal Medicine; ATTEND Internal Medicine
DX: R41.82 Altered mental status, unspecified (principal); E78.5 Hyperlipidemia, unspecified; G30.9 Alzheimer's disease, unspecified; F02.80 Dementia in other diseases classified elsewhere, unspecified severity, without behavioral disturbance, psychotic disturbance, mood disturbance, and anxiety; I10 Essential (primary) hypertension; G40.909 Epilepsy, unspecified, not intractable, without status epilepticus; I25.10 Atherosclerotic heart disease of native coronary artery without angina pectoris; D64.9 Anemia, unspecified; F41.9 Anxiety disorder, unspecified; Z85.3 Personal history of malignant neoplasm of breast; Z90.12 Acquired absence of left breast and nipple; Z87.440 Personal history of urinary (tract) infections; Z92.21 Personal history of antineoplastic chemotherapy; Z92.3 Personal history of irradiation
CPT/HCPCS: 70450; 71046; 80053; 81001; 82803; 82948; 83735; 84484; 85025; 87040; 87086; 93005; 99285; G0378

== ENCOUNTER 2018-09-05 04:15 | Observation (INO) | payer MEDICARE, BC ==
--- NOTE | 2018-09-05 04:57 | ED PDOC ---
Arrival/HPI - General Historian: Patient - History of Present Illness Narrative History of Present Illness (Text): 09/05/18 04:57 Aby Alvarez is an 87 year old female, whose past medical history includes hypertension, breast cancer s/p mastectomy/chemoradiation, Alzheimer's disease, recurrent UTIs, and CAD, who presents to the Emergency department brought in by EMS for worsening confusion for the past few days. On arrival, patient is alert and oriented to person only. EMS states son reported patient becomes more confused than usual when she has a UTI. Patient denies any fever, chills, chest pain, shortness of breath, nausea, vomiting, diarrhea, urinary symptoms, back pa in, neck pain, headache, dizziness, or any other complaints. PMD: Dr. Lea Symptom Onset: Gradual Symptom Course: Unchanged Activities at Onset: Light Context: Home <Stevne Santos - Last Filed: 09/05/18 06:53> <Marvin Alvarez - Last Filed: 09/05/18 08:58> - General Chief Complaint: Altered Mental Status Time Seen by Provider: 09/05/18 04:16 Past Medical History - Provider Review Nursing Documentation Reviewed: Yes - Infectious Disease Hx of Infectious Diseases: None - Tetanus Immunization Tetanus Immunization: Unknown - Cardiac Hx Angina: Yes Hx Hypertension: Yes - Pulmonary Hx Respiratory Disorders: No - Neurological HX Cerebrovascular Accident: Yes Hx Dementia: Yes Hx Seizures: Yes - HEENT Hx HEENT Disorder: Yes (wears glasses) - Renal Hx Renal Disorder: No - Endocrine/Metabolic Hx Endocrine Disorders: No - Hematological/Oncological Hx Anemia: Yes - Integumentary Hx Dermatological Disorder: No - Musculoskeletal/Rheumatological Hx Falls: No - Gastrointestinal Hx Gastrointestinal Disorders: Yes (CONSTIPATION) - Genitourinary/Gynecological Hx Reproductive Disorders: No - Psychiatric Hx Anxiety: Yes Hx Depression: Yes Hx Substance Use: No - Surgical History Hx Hysterectomy: Yes Hx Mastectomy: Yes (left breast chemo&radiation) - Anesthesia Hx Anesthesia: Yes Hx Anesthesia Reactions: No Hx Malignant Hyperthermia: No - Suicidal Assessment Feels Threatened In Home Enviroment: No <Steven Santos - Last Filed: 09/05/18 06:53> Family/Social History - Physician Review Nursing Documentation Reviewed: Yes Family/Social History: Unknown Family HX Smoking Status: Former Smoker Hx Alcohol Use: No Hx Substance Use: No <Steven Santos - Last Filed: 09/05/18 06:53> Allergies/Home Meds <Steven Santos - Last Filed: 09/05/18 06:53> <Marvin Alvarez - Last Filed: 09/05/18 08:58> Allergies/Adverse Reactions: Allergies Major And Derivatives Allergy (Verified 06/30/18 13:51) ITCHING Review of Systems - Physician Review All systems were reviewed & negative as marked: Yes - Review of Systems Constitutional: Normal. absent: Fevers Eyes: Normal ENT: Normal Respiratory: Normal. absent: SOB, Cough Cardiovascular: Normal. absent: Chest Pain Gastrointestinal: Normal. absent: Abdominal Pain, Diarrhea, Nausea, Vomiting Genitourinary Female: Normal. absent: Dysuria, Frequency, Hematuria, Urine Output Changes Musculoskeletal: Normal. absent: Back Pain, Neck Pain Skin: Normal. absent: Rash Neurological: Other (+worsening confusion) Endocrine: Normal Hemo/Lymphatic: Normal Psychiatric: Normal <Steven Santos - Last Filed: 09/05/18 06:53> Physical Exam Vital Signs Reviewed: Yes Temperature: Afebrile Blood Pressure: Normal Pulse: Regular Respiratory Rate: Normal Appearance: Positive for: Well-Appearing, Non-Toxic, Comfortable Pain Distress: None Mental Status: No: Alert and Oriented X 3 (Alert and oriented x 1 (person)) - Systems Exam Head: Present: Atraumatic, Normocephalic Pupils: Present: PERRL Extroacular Muscles: Present: EOMI Conjunctiva: Present: Normal Mouth: Present: Moist Mucous Membranes Neck: Present: Normal Range of Motion Respiratory/Chest: Present: Clear to Auscultation, Good Air Exchange. No: Respiratory Distress, Accessory Muscle Use Cardiovascular: Present: Regular Rate and Rhythm, Normal S1, S2. No: Murmurs Abdomen: No: Tenderness, Distention, Peritoneal Signs Back: Present: Normal Inspection Upper Extremity: Present: Normal Inspection. No: Cyanosis, Edema Lower Extremity: Present: Normal Inspection. No: Edema Neurological: Present: GCS=15, CN II-XII Intact, Speech Normal Skin: Present: Warm, Dry, Normal Color. No: Rashes Psychiatric: Present: Alert. No: Oriented x 3 (oriented x 1 (person)) <Steven Santos - Last Filed: 09/05/18 06:53> Vital Signs Temp Pulse Resp BP Pulse Ox 09/05/18 07:25 66 21 181/105 H 98 09/05/18 06:48 198/86 H 09/05/18 06:11 98 F 70 18 189/80 H 98 09/05/18 05:24 97.6 F 72 16 193/83 H 97 09/05/18 04:22 97.5 F L 82 18 196/104 H 97 <Marvin Alvarez - Last Filed: 09/05/18 08:58> Medical Decision Making ED Course and Treatment: 09/05/18 04:57 Impression: 88 year old female brought in for worsening confusion. Plan: -- CT Head w/o contrast -- EKG -- Chest X-ray -- Labs, cardiac enzymes -- Reassess and disposition Prior Visits: Notes and results from previous visits were reviewed. Progress Notes: Reviewed EKG, NSR at 66 bpm. RBBB. LAHB. Non-specific T wave changes. 09/05/18 06:00 Reviewed Chest X-ray, shows no acute processes. 09/05/18 07:00 Case endorsed to /pending CT Head results/labs/urinalysis eventual admission to hospital Case was discussed earlier with who requested patient be placed on her service following completion of her workup. - RAD Interpretation Grades 9 Thru 12 Visiting Teacher: ED Physician - EKG Interpretation Interpreted by ED Physician: Yes Type: 12 lead EKG <Steven Santos - Last Filed: 09/05/18 06:53> - Lab Interpretations Lab Results: PT 12.6 SECONDS (9.4-12.5) H 09/05/18 06:20 INR 1.12 09/05/18 06:20 APTT 29.1 Seconds (26.9-38.3) 09/05/18 06:20 Troponin I < 0.01 ng/mL 09/05/18 06:20 Total Bilirubin 0.3 mg/dL (0.2-1.3) 09/05/18 06:20 AST 31 U/L (14-36) 09/05/18 06:20 ALT 12 U/L (7-56) 09/05/18 06:20 Alkaline Phosphatase 114 U/L (38-126) 09/05/18 06:20 Total Protein 7.8 g/dL (5.8-8.3) 09/05/18 06:20 Albumin 4.1 g/dL (3.0-4.8) 09/05/18 06:20 Globulin 3.7 gm/dL 09/05/18 06:20 Albumin/Globulin Ratio 1.1 (1.1-1.8) 09/05/18 06:20 Urine Color Yellow (YELLOW) 09/05/18 06:00 Urine Appearance Clear (CLEAR) 09/05/18 06:00 Urine pH 7.0 (4.7-8.0) 09/05/18 06:00 Ur Specific [place] 1.020 (1.005-1.035) 09/05/18 06:00 Urine Protein Trace mg/dL (<30 mg/dL) H 09/05/18 06:00 Urine Glucose (UA) Negative mg/dL (NEGATIVE) 09/05/18 06:00 Urine Ketones Negative mg/dL (NEGATIVE) 09/05/18 06:00 Urine Blood Negative (NEGATIVE) 09/05/18 06:00 Urine Nitrate Negative (NEGATIVE) 09/05/18 06:00 Urine Bilirubin Negative (NEGATIVE) 09/05/18 06:00 Urine Urobilinogen 0.2 E.U./dL (<1 E.U./dL) 09/05/18 06:00 Ur Leukocyte Esterase Small Heidi/uL (NEGATIVE) H 09/05/18 06:00 Urine RBC 0 - 2 /hpf (0-2) 09/05/18 06:00 Urine WBC 0 - 2 /hpf (0-6) 09/05/18 06:00 Ur Epithelial Cells 0 - 2 /hpf (0-5) 09/05/18 06:00 Urine Bacteria None /hpf (NONE) 09/05/18 06:00 - RAD Interpretation Radiology Orders: 09/05/18 04:58 CHEST PORTABLE [RAD] Stat 09/05/18 04:59 HEAD W/O CONTRAST [CT] Stat - Medication Orders Current Medication Orders: Discontinued Medications Amlodipine Besylate (Norvasc) 10 mg PO STAT STA Stop: 09/05/18 06:39 Last Admin: 09/05/18 06:48 Dose: 10 mg MAR Blood Pressure Document 09/05/18 06:48 RG (Rec: 09/05/18 06:50 RG [id number]) Blood Pressure Blood Pressure (100/60-150/90) 198/86 <Marvin Alvarez - Last Filed: 09/05/18 08:58> - Scribe Statement The provider has reviewed the documentation as recorded by the Roxanna Menon Provider Scribe Attestation: All medical record entries made by the Scribe were at my direction and personally dictated by me. I have reviewed the chart and agree that the record accurately reflects my personal performance of the history, physical exam, medical decision making, and the department course for this patient. I have also personally directed, reviewed, and agree with the discharge instructions and disposition. <Steven Santos - Last Filed: 09/05/18 06:53> Disposition/Present on Arrival - Present on Arrival Any Indicators Present on Arrival: No History of DVT/PE: No History of Uncontrolled Diabetes: No Urinary Catheter: No History of Decub. Ulcer: No History Surgical Site Infection Following: None - Disposition Have Diagnosis and Disposition been Completed?: No Disposition Time: 07:00 <Steven Santos - Last Filed: 09/05/18 06:53> <Marvin Alvarez - Last Filed: 09/05/18 08:58> - Disposition Diagnosis: Altered mental status Condition: STABLE
[2018-09-05 05:40] LABS: HEMOGLOBIN 11.9 g/dL (12.0-16.0); MEAN CORPUSCULAR HEMOGLOBIN 30.4 pg (25.0-35.0); MEAN CORPUSCULAR HGB CONC 32.8 g/dl (31.0-37.0); MEAN PLATELET VOLUME 9.7 fl (7.0-11.0); RBC 3.91 10^6/uL (3.5-6.1); RED CELL DISTRIBUTION WIDTH 14.2 % (11.5-14.5); WHITE BLOOD COUNT 6.6 10^3/uL (4.5-11.0)
[2018-09-05 05:45] LABS: MEAN CELL VOLUME 92.8 fl (80.0-105.0)
[2018-09-05 06:57] LABS: URINE APPEARANCE CLEAR (CLEAR); URINE BILIRUBIN NEGATIVE (NEGATIVE); URINE BLOOD NEGATIVE (NEGATIVE); URINE COLOR YELLOW (YELLOW); URINE GLUCOSE (UA) NEGATIVE (NEGATIVE); URINE LEUKOCYTE ESTERASE SMALL Leu/uL (NEGATIVE); URINE PROTEIN TRACE mg/dL (<30 mg/dL); URINE UROBILINOGEN 0.2 E.U./dL (<1 E.U./dL)
[2018-09-05 07:02] LABS: ALB/GLOB RATIO 1.1 (1.1-1.8); ALBUMIN 4.1 g/dL (3.0-4.8); ALT/SGPT 12 U/L (7-56); AST/SGOT 31 U/L (14-36); BLOOD UREA NITROGEN 18 mg/dL (7-21); CALCIUM 9.3 mg/dL (8.4-10.5); GFR NON-AFRICAN AMERICAN > 60
[2018-09-05 07:04] LABS: URINE EPITHELIAL CELLS 0 - 2 /hpf (0-5); URINE RBC 0 - 2 /hpf (0-2); URINE WBC 0 - 2 /hpf (0-6)
[2018-09-05 07:06] LABS: INR 1.12; PARTIAL THROMBOPLASTIN TIME 29.1 Seconds (26.9-38.3); PROTHROMBIN TIME 12.6 SECONDS (9.4-12.5)
[2018-09-05 07:15] LABS: TROPONIN I < 0.01 ng/mL
--- NOTE | 2018-09-05 07:22 | ED PDOC ---
Physical Exam Vital Signs Reviewed: Yes Vital Signs Temp Pulse Resp BP Pulse Ox 09/05/18 06:48 198/86 H 09/05/18 06:11 98 F 70 18 189/80 H 98 09/05/18 05:24 97.6 F 72 16 193/83 H 97 09/05/18 04:22 97.5 F L 82 18 196/104 H 97 Temperature: Afebrile Blood Pressure: Hypertensive Pulse: Regular Respiratory Rate: Normal Appearance: Positive for: Well-Appearing, Non-Toxic, Comfortable Pain Distress: None Mental Status: Positive for: Confused (Alert and oriented x 1 (person)) Finger Stick Blood Glucose: 86 - Systems Exam Head: Present: Atraumatic, Normocephalic Pupils: Present: PERRL Extroacular Muscles: Present: EOMI Conjunctiva: Present: Normal Mouth: Present: Moist Mucous Membranes Respiratory/Chest: Present: Clear to Auscultation, Good Air Exchange. No: Respiratory Distress, Accessory Muscle Use Cardiovascular: Present: Regular Rate and Rhythm, Normal S1, S2. No: Murmurs Abdomen: No: Tenderness, Distention, Peritoneal Signs Upper Extremity: Present: Normal Inspection. No: Cyanosis, Edema Lower Extremity: Present: Normal Inspection. No: Edema Neurological: Present: GCS=15 Skin: Present: Warm, Dry, Normal Color. No: Rashes Psychiatric: Present: Alert (Alert and oriented x 1 (person)) Medical Decision Making ED Course and Treatment: 09/05/18 07:00 Case endorsed to me by Dr. Santos for pending CT Head results/labs/urinalysis and eventual admission to the hospital. Patient is an 88 year old female who presented to the ED earlier today for worsening confusion. Patient is currently resting in bed in no acute distress. Patient presents no new medical complaints. Dr. Lea is aware and has accepted patient admission under her service after completion of work-up. 09/05/18 07:26 CT of head reviewed by radiologist, shows: IMPRESSION: 1. Age-appropriate cerebellar and cerebral atrophy. 2. Mild chronic microvascular disease. 3. No evidence of acute intracranial pathology. 4. Lytic changes of left parietal bone, unchanged. CXR unremarkable, largely unchanged from previous CXR from my read. No consolidation or infiltrate note . 09/05/18 07:31 labs largely unremarkable. abdomen non-ttp, no peritoneal signs No meningeal signs. Pt alert, GCS 15. paged dr. lea for update on imaging and labs 09/05/18 07:41 appreciate consult w/ Dr. Lea: to admit to her service - Lab Interpretations Lab Results: PT 12.6 SECONDS (9.4-12.5) H 09/05/18 06:20 INR 1.12 09/05/18 06:20 APTT 29.1 Seconds (26.9-38.3) 09/05/18 06:20 Troponin I < 0.01 ng/mL 09/05/18 06:20 Total Bilirubin 0.3 mg/dL (0.2-1.3) 09/05/18 06:20 AST 31 U/L (14-36) 09/05/18 06:20 ALT 12 U/L (7-56) 09/05/18 06:20 Alkaline Phosphatase 114 U/L (38-126) 09/05/18 06:20 Total Protein 7.8 g/dL (5.8-8.3) 09/05/18 06:20 Albumin 4.1 g/dL (3.0-4.8) 09/05/18 06:20 Globulin 3.7 gm/dL 09/05/18 06:20 Albumin/Globulin Ratio 1.1 (1.1-1.8) 09/05/18 06:20 Urine Color Yellow (YELLOW) 09/05/18 06:00 Urine Appearance Clear (CLEAR) 09/05/18 06:00 Urine pH 7.0 (4.7-8.0) 09/05/18 06:00 Ur Specific [place] 1.020 (1.005-1.035) 09/05/18 06:00 Urine Protein Trace mg/dL (<30 mg/dL) H 09/05/18 06:00 Urine Glucose (UA) Negative mg/dL (NEGATIVE) 09/05/18 06:00 Urine Ketones Negative mg/dL (NEGATIVE) 09/05/18 06:00 Urine Blood Negative (NEGATIVE) 09/05/18 06:00 Urine Nitrate Negative (NEGATIVE) 09/05/18 06:00 Urine Bilirubin Negative (NEGATIVE) 09/05/18 06:00 Urine Urobilinogen 0.2 E.U./dL (<1 E.U./dL) 09/05/18 06:00 Ur Leukocyte Esterase Small Heidi/uL (NEGATIVE) H 09/05/18 06:00 Urine RBC 0 - 2 /hpf (0-2) 09/05/18 06:00 Urine WBC 0 - 2 /hpf (0-6) 09/05/18 06:00 Ur Epithelial Cells 0 - 2 /hpf (0-5) 09/05/18 06:00 Urine Bacteria None /hpf (NONE) 09/05/18 06:00 - RAD Interpretation Radiology Orders: 09/05/18 04:58 CHEST PORTABLE [RAD] Stat 09/05/18 04:59 HEAD W/O CONTRAST [CT] Stat - Medication Orders Current Medication Orders: Discontinued Medications Amlodipine Besylate (Norvasc) 10 mg PO STAT STA Stop: 09/05/18 06:39 Last Admin: 09/05/18 06:48 Dose: 10 mg MAR Blood Pressure Document 09/05/18 06:48 RG (Rec: 09/05/18 06:50 RG [id number]) Blood Pressure Blood Pressure (100/60-150/90) 198/86 - Scribe Statement The provider has reviewed the documentation as recorded by the Scribe Odalis Brasher. All medical record entries made by the Scribe were at my direction and personally dictated by me. I have reviewed the chart and agree that the record accurately reflects my personal performance of the history, physical exam, medical decision making, and the department course for this patient. I have also personally directed, reviewed, and agree with the discharge instructions and disposition. Disposition/Present on Arrival - Present on Arrival Any Indicators Present on Arrival: No History of DVT/PE: No History of Uncontrolled Diabetes: No Urinary Catheter: No History of Decub. Ulcer: No History Surgical Site Infection Following: None - Disposition Have Diagnosis and Disposition been Completed?: Yes Diagnosis: Altered mental status Disposition Time: 07:31 Patient Problems: Current Active Problems Problem Status Onset Altered mental status Acute Condition: STABLE Referrals: Scottie Lea MD [Primary Care Provider] - Follow up with primary Forms: [employer] (Kazakh)
--- NOTE | 2018-09-05 09:17 | CT ---
Date of service: 09/05/2018 PROCEDURE: CT HEAD WITHOUT CONTRAST. HISTORY: ams COMPARISON: 08/31/2017 TECHNIQUE: Axial computed tomography images were obtained through the head/brain without intravenous contrast. Radiation dose: Total exam DLP = 704.26 mGy-cm. This CT exam was performed using one or more of the following dose reduction techniques: Automated exposure control, adjustment of the mA and/or kV according to patient size, and/or use of iterative reconstruction technique. FINDINGS: HEMORRHAGE: No intracranial hemorrhage. BRAIN: No mass effect or edema. Severe chronic microvascular changes are seen in the periventricular white matter. There is moderate atrophy with ventricular dilatation. Findings are unchanged VENTRICLES: Unremarkable. No hydrocephalus. CALVARIUM: Unremarkable. PARANASAL SINUSES: Unremarkable as visualized. No significant inflammatory changes. MASTOID AIR CELLS: Unremarkable as visualized. No inflammatory changes. OTHER FINDINGS: The report concurs with the preliminary [facility] report IMPRESSION: No acute intracranial findings
[2018-09-05] MEDS ORDERED: Potassium Chloride 20 mEq ER Tab PO STA (11:30)
--- NOTE | 2018-09-05 12:33 | RAD ---
Date of service: 09/05/2018 HISTORY: medical clearance COMPARISON: 06/30/2018 FINDINGS: LUNGS: No active pulmonary disease. PLEURA: No significant pleural effusion identified, no pneumothorax apparent. CARDIOVASCULAR: Aortic calcification Mild cardiomegaly no pulmonary vascular congestion. OSSEOUS STRUCTURES: No significant abnormalities. VISUALIZED UPPER ABDOMEN: Normal. OTHER FINDINGS: None. IMPRESSION: No active disease.
[2018-09-05 13:36] VITALS: BMI 20.3
[2018-09-05] MEDS ORDERED: Influenza Vaccine 60 mcg/0.5 mL SYR (4YR UP) IM ONE (13:37)
[2018-09-05] MEDS ORDERED: Pneumococcal 23-Valent Vaccine IM ONE (13:37)
--- NOTE | 2018-09-05 17:12 | CARD ---
APPROVED REPORT Date of service: 09/05/2018 EKG Measurement Heart [id number] <Conclusion> Normal sinus rhythm Right bundle branch block Left anterior fascicular block Bifascicular block Voltage criteria for left ventricular hypertrophy Cannot rule out Septal infarct, age undetermined T wave abnormality, consider inferolateral ischemia Abnormal ECG
--- NOTE | 2018-09-05 19:55 | HP ---
DATE OF EXAM: 09/05/2018HISTORY OF PRESENT ILLNESS: The patient is an 88-year-old who was brought to emergency room after she was found to be confused and disoriented. According to son who she lives with and she has been increasingly confused for the last few days. She has multiple admissions for the same reason. Upon interviewing, she seem to be awake and alert, but she confabulates and seems to be forgetful. PAST MEDICAL HISTORY: She has significant past medical history of: 1. Hypertension. 2. History of breast CA, status post mastectomy followed by chemo and radiation. 3. Dementia. 4. History of coronary artery disease. 5. History of seizure disorder. ALLERGIES: SHE IS ALLERGIC TO CITRUS DERIVATIVES. MEDICATIONS AT HOME: She is on Keppra 250 b.i.d., Norvasc 10 mg daily, and Aricept 10 mg at bedtime. SOCIAL HISTORY: She lives with her son and denies smoking, drinking or alcohol use. PHYSICAL EXAMINATION: GENERAL: She seems to be awake and alert, but forgetful. VITAL SIGNS: She is afebrile, pulse 65, respirations 20, and blood pressure 175/86. LUNGS: Bilateral fair airflow. No rhonchi or crackle. HEART: S1 and S2 audible. ABDOMEN: Soft and nontender. No rebound. No guarding. NEUROLOGICAL: She is awake and alert, able to communicate. No sensory or motor deficits. LABORATORY DATA: WBC is 6.6, hemoglobin 11.9, and hematocrit 36.3. PT 12.6 and INR 1.12. Chemistry; sodium 142, potassium 3.2, chloride 109, CO2 of 27, BUN 18, creatinine 0.6, and blood sugar of 82. She had CT scan of the head done and brain done, unremarkable. X-ray of chest is negative. Her urinalysis shows small leukocytes and trace protein. ASSESSMENT: 1. Altered mental status. 2. History of seizure disorder. 3. Hypertension. 4. Dementia. 5. History of cancer of breast. PLAN: We will restart the patient's medications. We will start her on Aricept, supplement potassium, and start her on Keppra. She is on Norvasc. Physical therapy evaluation will be requested. We will follow up her electrolytes in a.m. Scottie Lea MD
[2018-09-06 07:13] LABS: ALBUMIN 3.5 g/dL (3.0-4.8); ALT/SGPT 14 U/L (7-56); AST/SGOT 25 U/L (14-36); BLOOD UREA NITROGEN 14 mg/dL (7-21); GFR NON-AFRICAN AMERICAN > 60
[2018-09-06 22:04] VITALS: PULSE 59; O2SAT 95
--- NOTE | 2018-09-07 03:10 | DS ---
HISTORY OF PRESENT ILLNESS: The patient is an 88-year-old, seen and examined, somewhat confused. Answers simple questions. PHYSICAL EXAMINATION: VITAL SIGNS: She is afebrile. Pulse 73, respiration 18 and blood pressure 140/80. LUNGS: Bilateral fair airflow. No rhonchi or crackle. HEART: S1 and S2, audible. ABDOMEN: Soft and nontender. No rebound. No guarding. NEUROLOGIC: She is awake and alert, but somewhat confused and forgetful. LABORATORY DATA: Sodium 138, potassium 3.8, chloride 108, CO2 of 27, BUN 14, creatinine 0.6 and blood sugar of 82. Her urine culture shows gram positive cocci and colony count of 10,000. ASSESSMENT: 1. Status post altered mental status. Questionable compliance with her seizure medication could be if she has unwitnessed seizure. 2. History of seizure disorder. 3. Hypokalemia. 4. Dementia. 5. History of cancer of the breast. PLAN: The patient is clinically stable. Evaluated by physical therapist, okay to go home. So, we will advice to continue current medication. Continue on Norvasc. Continue Aricept and we will followup in office in 2 to 3 weeks. Scottie Lea MD
[2018-09-07 08:20] VITALS: BP 143/79; RESP 17; TEMP 97.8
--- NOTE | 2018-09-08 02:50 | DS ---
HISTORY OF PRESENT ILLNESS: Patient is 88 years old, seen and examined doing well. She is awake and alert, able to communicate, but she is forgetful. PHYSICAL EXAMINATION: VITAL SIGNS: She is afebrile, pulse 59, respirations 17, and blood pressure 143/79. LUNGS: Bilateral good airflow. No rhonchi or crackle. HEART: S1 and S2 audible. ABDOMEN: Soft and nontender. No rebound. No guarding. NEUROLOGIC: She is awake and alert, able to communicate, but forgetful. EXTREMITIES: Bilateral leg no edema. ASSESSMENT: 1. Status post altered mental status. 2. Hypertension. 3. History of cancer of breast, status post mastectomy. 4. Seizure disorder. 5. Dementia. PLAN: Patient is clinically stable. No signs of infection. She is back to her baseline. She is ambulatory. She will be discharged home with her son and she will continue Keppra 250 mg b.i.d., Norvasc 10 mg daily, and Aricept. I will follow up in office in . Scottie Lea MD
== END 2018-09-07 11:18 | disposition home or self-care (01) ==
LOC: ED 04:15 → UNDOADMOB 07:36 → INTOOBSV 07:36 → ERH 07:36 → 5RNO 09:11 → OBSVTOIN 09-06 10:00 → ERH 09-06 10:00 → 5RNO 09-06 10:00 → INTOOBSV 09-06 10:00
PROVIDERS: ADMIT Internal Medicine; ATTEND Internal Medicine
DX: R41.82 Altered mental status, unspecified (principal); G40.909 Epilepsy, unspecified, not intractable, without status epilepticus; G30.9 Alzheimer's disease, unspecified; F02.80 Dementia in other diseases classified elsewhere, unspecified severity, without behavioral disturbance, psychotic disturbance, mood disturbance, and anxiety; I10 Essential (primary) hypertension; I25.10 Atherosclerotic heart disease of native coronary artery without angina pectoris; E87.6 Hypokalemia; Z85.3 Personal history of malignant neoplasm of breast; Z90.10 Acquired absence of unspecified breast and nipple; Z86.73 Personal history of transient ischemic attack (TIA), and cerebral infarction without residual deficits; Z87.440 Personal history of urinary (tract) infections
CPT/HCPCS: 36415; 70450; 71045; 80053; 81001; 82550; 83615; 84484; 85027; 85610; 85730; 87086; 93005; 97116; 97161; 99285; G0378; G8978; G8979

== ENCOUNTER 2018-12-16 15:41 | Observation (INO) | payer MEDICARE, BC ==
[2018-12-16 15:48] VITALS: BMI 22.6
[2018-12-16 17:31] LABS: BASO # 0.02 K/mm3 (0.0-2.0); BASO % 0.3 % (0.0-3.0); EOS # 0.3 (0.0-0.7); EOS % 4.4 % (1.5-5.0); HEMOGLOBIN 13.1 g/dL (12.0-16.0); LYMPH # 1.9 (1.2-3.4); LYMPH % 31.2 % (22.0-35.0); MEAN CORPUSCULAR HGB CONC 33.8 g/dl (31.0-37.0); MEAN PLATELET VOLUME 9.3 fl (7.0-11.0); MONO # 0.4 (0.1-0.6); MONO % 6.8 % (1.0-6.0); RBC 4.36 10^6/uL (3.5-6.1); RED CELL DISTRIBUTION WIDTH 13.5 % (11.5-14.5); WHITE BLOOD COUNT 6.2 10^3/uL (4.5-11.0)
[2018-12-16 17:32] LABS: PH,URINE 6.5 (4.7-8.0); URINE BILIRUBIN NEGATIVE (NEGATIVE); URINE BLOOD NEGATIVE (NEGATIVE); URINE GLUCOSE (UA) NEGATIVE (NEGATIVE); URINE LEUKOCYTE ESTERASE MODERATE Leu/uL (NEGATIVE); URINE PROTEIN TRACE mg/dL (<30 mg/dL)
[2018-12-16 17:34] LABS: URINE APPEARANCE SL CLOUDY (CLEAR); URINE COLOR YELLOW (YELLOW)
[2018-12-16 17:39] LABS: INR 1.08; PARTIAL THROMBOPLASTIN TIME 31.5 Seconds (26.9-38.3)
[2018-12-16 17:40] LABS: ALB/GLOB RATIO 1.1 (1.1-1.8); ALBUMIN 4.2 g/dL (3.0-4.8); ALT/SGPT 19 U/L (7-56); AST/SGOT 28 U/L (14-36); BLOOD UREA NITROGEN 18 mg/dL (7-21); CALCIUM 9.9 mg/dL (8.4-10.5); GFR NON-AFRICAN AMERICAN > 60
[2018-12-16 17:52] LABS: B-TYPE NATRIURETIC PEPTIDE 309 pg/mL (0-450); TROPONIN I < 0.01 ng/mL
--- NOTE | 2018-12-16 18:07 | CT ---
Date of service: 12/16/2018 PROCEDURE: CT HEAD WITHOUT CONTRAST. HISTORY: fall/syncope COMPARISON: Comparison is made with 09/05/2018 TECHNIQUE: Axial computed tomography images were obtained through the head/brain without intravenous contrast. Radiation dose: Total exam DLP = 846.16 mGy-cm. This CT exam was performed using one or more of the following dose reduction techniques: Automated exposure control, adjustment of the mA and/or kV according to patient size, and/or use of iterative reconstruction technique. FINDINGS: HEMORRHAGE: No intracranial hemorrhage. BRAIN: No mass effect or edema. Moderate atrophy and moderate to extensive white matter changes are again noted. VENTRICLES: Dilated ventricle is noted likely due to central atrophy. The possibility of underlying mild hydrocephalus is not totally excluded. CALVARIUM: Unremarkable. PARANASAL SINUSES: Unremarkable as visualized. No significant inflammatory changes. MASTOID AIR CELLS: Unremarkable as visualized. No inflammatory changes. OTHER FINDINGS: None. IMPRESSION: No evidence of acute intracranial hemorrhage mass effect or midline shift. Moderate volume loss and chronic microvascular ischemic changes.
[2018-12-16 18:15] LABS: URINE RBC 0 - 2 /hpf (0-2)
[2018-12-16 18:16] LABS: URINE CALCIUM OXALATE CRYSTALS TRACE /hpf
--- NOTE | 2018-12-16 18:51 | ED PDOC ---
Arrival/HPI <TomSteven - Last Filed: 12/16/18 19:31> - General Historian: Patient, Family - History of Present Illness Narrative History of Present Illness (Text): 12/16/18 18:55 88-year-old female with a history of hypertension and dementia presents today b rought in by family members for an unwitnessed fall. Per the patient's son, they were walking down the street he got ahead of her and turn the corner and she never came around the corner. He walked back to find her and found her on the ground. Patient is unsure what happened. Patient son believes that she may have tripped although he did not witness the fall. Patient denies hitting her head. Denies chest pain or shortness of breath. Denies dizziness or weakness. <Carin Edwards - Last Filed: 12/16/18 19:36> - General Chief Complaint: Trauma Time Seen by Provider: 12/16/18 16:00 Past Medical History - Provider Review Nursing Documentation Reviewed: Yes - Travel History Have you recently traveled outside [place] w/in the past 3 mons?: No - Infectious Disease Hx of Infectious Diseases: None - Tetanus Immunization Tetanus Immunization: Unknown - Cardiac Hx Cardiac Disorders: Yes (cad) Hx Congestive Heart Failure: Yes Hx Hypertension: Yes - Pulmonary Hx Respiratory Disorders: Yes Hx Pneumonia: Yes - Neurological HX Cerebrovascular Accident: Yes - HEENT Hx HEENT Disorder: Yes (wears glasses) - Renal Hx Renal Disorder: No - Endocrine/Metabolic Hx Endocrine Disorders: No - Hematological/Oncological Hx Blood Disorders: Yes Hx Anemia: Yes Hx Cancer: Yes (left breast ca mastectomy) Hx Chemotherapy: Yes (and radiation) - Integumentary Hx Dermatological Disorder: Yes Other/Comment: b/l feet hammertoes, long thick dry toenails, bunyons both feet, dark skin discolorations to left spiritism - Musculoskeletal/Rheumatological Hx Falls: No - Gastrointestinal Hx Gastrointestinal Disorders: Yes (CONSTIPATION) - Genitourinary/Gynecological Hx Genitourinary Disorders: Yes Hx Incontinence: Yes Hx Urinary Tract Infection: Yes - Psychiatric Hx Psychophysiologic Disorder: Yes Hx Anxiety: Yes Hx Depression: Yes Hx Substance Use: No - Surgical History Hx Hysterectomy: Yes Hx Mastectomy: Yes (left breast chemo&radiation) - Anesthesia Hx Anesthesia: Yes Hx Anesthesia Reactions: No Hx Malignant Hyperthermia: No - Suicidal Assessment Feels Threatened In Home Enviroment: No <Carin Edwards - Last Filed: 12/16/18 19:36> Family/Social History - Physician Review Nursing Documentation Reviewed: Yes Family/Social History: Unknown Family HX Smoking Status: Former Smoker Hx Alcohol Use: No Hx Substance Use: No <Carin Edwards - Last Filed: 12/16/18 19:36> Allergies/Home Meds <TomSteven - Last Filed: 12/16/18 19:31> <Carin Edwards - Last Filed: 12/16/18 19:36> Allergies/Adverse Reactions: Allergies Pat[place] And Derivatives Allergy (Verified 12/16/18 15:48) ITCHING Review of Systems - Review of Systems Constitutional: absent: Fatigue, Fevers Respiratory: absent: SOB, Cough Cardiovascular: absent: Chest Pain, Palpitations Gastrointestinal: absent: Abdominal Pain, Nausea, Vomiting Musculoskeletal: Arthralgias (right hand pain). absent: Back Pain, Neck Pain Skin: absent: Rash, Pruritis Neurological: absent: Headache, Dizziness Psychiatric: absent: Anxiety, Depression, Suicidal Ideation <Carin Edwards - Last Filed: 12/16/18 19:36> Physical Exam Vital Signs Temp Pulse Resp BP Pulse Ox 12/16/18 18:15 97.9 F 80 19 163/70 H 99 12/16/18 15:48 97.7 F 78 17 170/89 H 95 <Steven Santos - Last Filed: 12/16/18 19:31> Vital Signs Reviewed: Yes Vital Signs Temp Pulse Resp BP Pulse Ox 12/16/18 15:48 97.7 F 78 17 170/89 H 95 Temperature: Afebrile Blood Pressure: Hypertensive Pulse: Regular Respiratory Rate: Normal Appearance: Positive for: Well-Appearing, Non-Toxic, Comfortable Pain Distress: None Mental Status: Positive for: other (alert and oriented) - Systems Exam Head: Present: Atraumatic Mouth: Present: Moist Mucous Membranes Neck: Present: Normal Range of Motion, Trachea Midline. No: MIDLINE TENDERNESS, Paraspinal Tenderness Respiratory/Chest: Present: Clear to Auscultation, Good Air Exchange. No: Respiratory Distress, Accessory Muscle Use Cardiovascular: Present: Regular Rate and Rhythm, Normal S1, S2. No: Murmurs Abdomen: No: Tenderness, Distention, Rebound, Guarding Back: Present: Normal Inspection. No: Midline Tenderness, Paraspinal Tenderness Upper Extremity: Present: Normal ROM, Other (right hand; + ttp over 4th and 5th metacarpal head. + abrasion, no swelling. full rom. no ecchymosis; sensation and distal pulses intact. ) Neurological: Present: GCS=15, Speech Normal Skin: Present: Warm, Dry, Normal Color Psychiatric: Present: Alert, Oriented x 3 <Azoia,Carin T - Last Filed: 12/16/18 19:36> Medical Decision Making - Lab Interpretations Lab Results: PT 12.0 SECONDS (9.4-12.5) 12/16/18 17:20 INR 1.08 12/16/18 17:20 APTT 31.5 Seconds (26.9-38.3) 12/16/18 17:20 Troponin I < 0.01 ng/mL 12/16/18 17:20 NT-Pro-B Natriuret Pep 309 pg/mL (0-450) 12/16/18 17:20 Total Bilirubin 0.3 mg/dL (0.2-1.3) 12/16/18 17:20 AST 28 U/L (14-36) 12/16/18 17:20 ALT 19 U/L (7-56) 12/16/18 17:20 Alkaline Phosphatase 109 U/L (38-126) 12/16/18 17:20 Total Protein 8.0 g/dL (5.8-8.3) 12/16/18 17:20 Albumin 4.2 g/dL (3.0-4.8) 12/16/18 17:20 Globulin 3.8 gm/dL 12/16/18 17:20 Albumin/Globulin Ratio 1.1 (1.1-1.8) 12/16/18 17:20 Urine Color Yellow (YELLOW) 12/16/18 17:20 Urine Appearance Sl cloudy (CLEAR) 12/16/18 17:20 Urine pH 6.5 (4.7-8.0) 12/16/18 17:20 Ur Specific [place] 1.015 (1.005-1.035) 12/16/18 17:20 Urine Protein Trace mg/dL (<30 mg/dL) H 12/16/18 17:20 Urine Glucose (UA) Negative mg/dL (NEGATIVE) 12/16/18 17:20 Urine Ketones Trace mg/dL (NEGATIVE) H 12/16/18 17:20 Urine Blood Negative (NEGATIVE) 12/16/18 17:20 Urine Nitrate Negative (NEGATIVE) 12/16/18 17:20 Urine Bilirubin Negative (NEGATIVE) 12/16/18 17:20 Urine Urobilinogen 1.0 E.U./dL (<1 E.U./dL) H 12/16/18 17:20 Ur Leukocyte Esterase Moderate Heidi/uL (NEGATIVE) H 12/16/18 17:20 Urine RBC 0 - 2 /hpf (0-2) 12/16/18 17:20 Urine WBC 1 - 3 /hpf (0-6) 12/16/18 17:20 Ur Epithelial Cells None /hpf (0-5) 12/16/18 17:20 Calcium Oxalate Crystal Trace /hpf (NONE) 12/16/18 17:20 - RAD Interpretation Radiology Orders: 12/16/18 17:01 HEAD W/O CONTRAST [CT] Stat 12/16/18 17:02 HAND RIGHT 3 VIEWS [RAD] Stat 12/16/18 17:03 CHEST ONE VIEW [RAD] Stat - Medication Orders Current Medication Orders: Ceftriaxone Sodium (Rocephin 1 Gram Ivpb) 1 gm in 100 mls @ 200 mls/hr IVPB STAT STA; Protocol Stop: 12/16/18 19:52 Discontinued Medications Aspirin (Aspirin) 325 mg PO STAT STA Stop: 12/16/18 19:24 Bacitracin (Bacitracin) 1 ea TOP ONCE ONE Stop: 12/16/18 19:25 Tetanus/Reduced Diphtheria/Acell Pertussis (Boostrix Vaccine Inj) 0.5 ml IM .ONCE ONE Stop: 12/16/18 18:57 <Steven Santos - Last Filed: 12/16/18 19:31> ED Course and Treatment: 12/16/18 18:58 88yr old female with syncopal episode. cbc; wnl cmp; wnl trop; wnl ekg; sinus rhythm with frequent PVCs and fusion complexes at 84 bpm , right bundle branch block, left ventricular hypertrophy, QTC 484 PVCs are new as compared to previous EKG. cxr; no infiltrate. There is chronic elevation of the left hemidiaphragm. X-ray of the right hand: No fracture UA: Positive moderate leukocytes head ct; FINDINGS: HEMORRHAGE: No intracranial hemorrhage. BRAIN: No mass effect or edema. Moderate atrophy and moderate to extensive white matter changes are again noted. VENTRICLES: Dilated ventricle is noted likely due to central atrophy. The possibility of underlying mild hydrocephalus is not totally excluded. CALVARIUM: Unremarkable. PARANASAL SINUSES: Unremarkable as visualized. No significant inflammatory changes. MASTOID AIR CELLS: Unremarkable as visualized. No inflammatory changes. OTHER FINDINGS: None. IMPRESSION: No evidence of acute intracranial hemorrhage mass effect or midline shift. Moderate volume loss and chronic microvascular ischemic changes. Patient started on Rocephin for UTI asa given Po wound cleaned, bacitracin applied. call placed to dr. pemberton; case discussed in depth with johnna pemberton; will admit observational status for syncope. consult finished cloth examiner. impression; syncope, abrasion, hand, contusion hand, uti admit - Lab Interpretations Lab Results: PT 12.0 SECONDS (9.4-12.5) 12/16/18 17:20 INR 1.08 12/16/18 17:20 APTT 31.5 Seconds (26.9-38.3) 12/16/18 17:20 Troponin I < 0.01 ng/mL 12/16/18 17:20 NT-Pro-B Natriuret Pep 309 pg/mL (0-450) 12/16/18 17:20 Total Bilirubin 0.3 mg/dL (0.2-1.3) 12/16/18 17:20 AST 28 U/L (14-36) 12/16/18 17:20 ALT 19 U/L (7-56) 12/16/18 17:20 Alkaline Phosphatase 109 U/L (38-126) 12/16/18 17:20 Total Protein 8.0 g/dL (5.8-8.3) 12/16/18 17:20 Albumin 4.2 g/dL (3.0-4.8) 12/16/18 17:20 Globulin 3.8 gm/dL 12/16/18 17:20 Albumin/Globulin Ratio 1.1 (1.1-1.8) 12/16/18 17:20 Urine Color Yellow (YELLOW) 12/16/18 17:20 Urine Appearance Sl cloudy (CLEAR) 12/16/18 17:20 Urine pH 6.5 (4.7-8.0) 12/16/18 17:20 Ur Specific [place] 1.015 (1.005-1.035) 12/16/18 17:20 Urine Protein Trace mg/dL (<30 mg/dL) H 12/16/18 17:20 Urine Glucose (UA) Negative mg/dL (NEGATIVE) 12/16/18 17:20 Urine Ketones Trace mg/dL (NEGATIVE) H 12/16/18 17:20 Urine Blood Negative (NEGATIVE) 12/16/18 17:20 Urine Nitrate Negative (NEGATIVE) 12/16/18 17:20 Urine Bilirubin Negative (NEGATIVE) 12/16/18 17:20 Urine Urobilinogen 1.0 E.U./dL (<1 E.U./dL) H 12/16/18 17:20 Ur Leukocyte Esterase Moderate Heidi/uL (NEGATIVE) H 12/16/18 17:20 Urine RBC 0 - 2 /hpf (0-2) 12/16/18 17:20 Urine WBC 1 - 3 /hpf (0-6) 12/16/18 17:20 Ur Epithelial Cells None /hpf (0-5) 12/16/18 17:20 Calcium Oxalate Crystal Trace /hpf (NONE) 12/16/18 17:20 - RAD Interpretation Radiology Orders: 12/16/18 17:01 HEAD W/O CONTRAST [CT] Stat 12/16/18 17:02 HAND RIGHT 3 VIEWS [RAD] Stat 12/16/18 17:03 CHEST ONE VIEW [RAD] Stat <Carin Edwards T - Last Filed: 12/16/18 19:36> - PA / MENTAL TESTER / Resident Statement YOGESH has reviewed & agrees with the documentation as recorded. YOGESH has examined the patient and agrees with the treatment plan. <Steven Santos - Last Filed: 12/16/18 19:31> Disposition/Present on Arrival <Steven Santos - Last Filed: 12/16/18 19:31> - Present on Arrival Any Indicators Present on Arrival: No History of DVT/PE: No History of Uncontrolled Diabetes: No Urinary Catheter: No History of Decub. Ulcer: No History Surgical Site Infection Following: None - Disposition Have Diagnosis and Disposition been Completed?: Yes Disposition Time: 18:30 Patient Plan: Observation <Carin Edwards - Last Filed: 12/16/18 19:36> - Disposition Diagnosis: Syncope, UTI (urinary tract infection), Abrasion hand, Contusion, hand Disposition: HOSPITALIZED Patient Problems: Current Active Problems Problem Status Onset Abrasion hand Acute Contusion, hand Acute Syncope Acute UTI (urinary tract infection) Acute Condition: FAIR Discharge Instructions (ExitCare): Syncope (ED) Forms: [employer] (German)
[2018-12-16] MEDS ORDERED: TDAP Vaccine 0.5 mL Syr IM ONE (18:56)
[2018-12-16] MEDS ORDERED: cefTRIAXone 1 gm 1 GM/100 ML BAG IVPB STA (19:23)
[2018-12-16] MEDS ORDERED: Bacitracin 500 Units/gm Oint Foilpak UD TOP ONE (19:24)
[2018-12-16] MEDS ORDERED: Potassium Chloride 20 mEq/15 ml LIQ UD PO STA (19:41)
--- NOTE | 2018-12-16 23:26 | HP ---
DATE OF EXAM: 12/16/2018 HISTORY OF PRESENT ILLNESS: The patient is an 88-year-old was brought to emergency room after she fell. According to son, they were walking down the street and he got ahead of her and when he looked back, she was found on the floor, he does not know what happen. The patient cannot recall anything, although she has a history of seizure, but no seizure-like activity was noted. Denies any loss of consciousness. The patient is awake and alert, but confused, disoriented as this is her baseline. No history of fever or chills. No history of nausea or vomiting. PAST MEDICAL HISTORY: Significant for: 1. Seizure disorder. 2. History of CA breast, status post mastectomy. 3. Hypertension. 4. Hypokalemia. 5. History of hyponatremia. 6. Dementia. ALLERGIES: SHE IS ALLERGIC TO CITRUS DERIVATIVES. MEDICATIONS AT HOME: She is on Keppra 250 twice a day, Norvasc 10 mg daily, and Aricept 10 mg at bedtime. SOCIAL HISTORY: She lives with her son. Denies smoking, drinking, or alcohol use. PHYSICAL EXAMINATION: GENERAL: She is awake and alert, able to communicate, but sometimes she confabulate. VITAL SIGNS: She is afebrile, pulse 80, respirations 19, and blood pressure 163/70. LUNGS: Bilateral fair airflow. No rhonchi or crackle. HEART: S1 and S2 audible. ABDOMEN: Soft and nontender. No rebound. No guarding. NEUROLOGIC: The patient is awake and alert and forgetful. LABORATORY DATA: WBC 6.2, hemoglobin 13, hematocrit 38, and platelet of 229. PT 12 and INR 1.08. Chemistry; sodium 143, potassium 3.4, chloride 107, CO2 of 27, BUN 18, creatinine 0.6, and blood sugar 105. LFTs are within normal limits. Urinalysis shows moderate leukocytes and 1-[address] scan of the head done that is unremarkable. X-ray of the hand shows no fracture. CT shows no intracranial hemorrhage, mass effect, or midline shift. ASSESSMENT: 1. Status post fall. Electrocardiogram shows multiple premature ventricular contractions, rule out cardiac arrhythmia causing syncope. 2. History of seizure disorder. 3. History of hyponatremia. PLAN: We will monitor her electrolyte. Supplement her potassium. Cardiology consult by Dr. Gongora has been requested. Request for physical therapy in a.m. Early disposition plan. Scottie Lea MD
[2018-12-17 04:54] LABS: ALB/GLOB RATIO 1.1 (1.1-1.8); ALT/SGPT 21 U/L (7-56); AST/SGOT 29 U/L (14-36); BLOOD UREA NITROGEN 15 mg/dL (7-21); CALCIUM 9.3 mg/dL (8.4-10.5); GFR NON-AFRICAN AMERICAN > 60; HDL CHOLESTEROL 91 mg/dL (29-60)
[2018-12-17 05:04] LABS: TROPONIN I < 0.01 ng/mL
[2018-12-17 05:05] LABS: LDL CHOLESTEROL 87 mg/dL (0-129)
[2018-12-17 05:08] LABS: FREE T4 1.34 ng/dL (0.78-2.19)
[2018-12-17 05:52] VITALS: O2SAT 100
--- NOTE | 2018-12-17 09:29 | RAD ---
Date of service: 12/16/2018 PROCEDURE: CHEST RADIOGRAPH, 1 VIEW HISTORY: syncope/fall COMPARISON: Chest radiograph dated 09/05/2018. FINDINGS: LUNGS: Clear. PLEURA: No pneumothorax or pleural fluid seen. CARDIOVASCULAR: Aortic atherosclerotic calcifications. Cardiomediastinal silhouette stably enlarged. OSSEOUS STRUCTURES: Unchanged. VISUALIZED UPPER ABDOMEN: Normal. OTHER FINDINGS: Left axillary surgical clips redemonstrated. IMPRESSION: No active disease.
--- NOTE | 2018-12-17 09:30 | RAD ---
PROCEDURE: Right Hand Radiographs. HISTORY: pain, 4th 5th metacarpal head COMPARISON: None. TECHNIQUE: 3 views obtained. FINDINGS: BONES: Diffuse osteopenia. No acute fracture. JOINTS: Diffuse joint space narrowing. SOFT TISSUES: Normal. OTHER FINDINGS: None. IMPRESSION: No demonstrated fracture or dislocation.
[2018-12-17] MEDS ORDERED: Potassium Chloride 10 mEq ER Tab PO SCH (10:00)
[2018-12-17] MEDS ORDERED: Potassium Chloride 20 mEq ER Tab PO ONE (11:32)
--- NOTE | 2018-12-17 11:54 | CARD ---
APPROVED REPORT Date of service: 12/16/2018 EKG Measurement Heart [id number] <Conclusion> Sinus rhythm with frequent premature ventricular complexes and fusion complexes Possible Left atrial enlargement Right bundle branch block Left anterior fascicular block Bifascicular block Left ventricular hypertrophy with repolarization abnormality Anteroseptal infarct, age undetermined Abnormal ECG
[2018-12-17 12:24] VITALS: RESP 20; TEMP 97.2
--- NOTE | 2018-12-17 12:30 | CARD ---
APPROVED REPORT Date of service: 12/17/2018 EXAM: Two-dimensional and M-mode echocardiogram with Doppler and color Doppler. INDICATION Dizziness and Vertigo 2D DIMENSIONS Left Atrium (2D)4.1 (1.6-4.0cm)IVSd1.1 (0.7-1.1cm) LVDd4.6 (3.9-5.9cm)PWd1.2 (0.7-1.1cm) LVDs4.0 (2.5-4.0cm)FS (%) 12.2 % LVEF (%)26.5 (>50%) M-Mode DIMENSIONS Aortic Root2.90 (2.2-3.7cm)Aortic Cusp Exc.1.40 (1.5-2.0cm) Aortic Valve AoV Peak Zibyamll319.0cm/Rommel Peak GR.9mmHgAI P 1/2 [id number] Mitral Valve MV E Hymzmqcb77.3cm/sMV A Eajooijd894.0cm/sE/A ratio0.4 TDI Lateral E' Peak V3.31cm/sMedial E' Peak V2.73cm/sE/Lateral E'16.4 E/Medial E'19.9 Pulmonary Valve PV Peak Mpqeustw75.2cm/sPV Peak Grad.1mmHg Tricuspid Valve TR Peak Anlgznom987fw/sRAP [id number] Peak Gr.23mmHg [id number] LEFT VENTRICLE The left ventricle is normal size. There is borderline concentric left ventricular hypertrophy. The systolic function is moderately to severely impaired.EF-25-30% Regional wall motion abnormalities noted. There is moderate to severe hypokinesis in the basal anteroseptal wall. Transmitral Doppler flow pattern is Grade III-reversible restrictive diastolic dysfunction. No left ventricle thrombus noted on this study. There is no ventricular septal defect visualized. There is no left ventricular aneurysm. There is no mass noted in the left ventricle. RIGHT VENTRICLE The right ventricle is normal size. There is normal right ventricular wall thickness. The right ventricular systolic function is normal. ATRIA The left atrium is mildly dilated. The right atrium size is normal. The interatrial septum is intact with no evidence for an atrial septal defect. AORTIC VALVE The aortic valve is thickened but opens well. There is mild to moderate aortic regurgitation. There is no aortic valvular stenosis. There is no aortic valvular vegetation. MITRAL VALVE The mitral valve is thickened but opens well. Mitral regurgitation is mild. There is no mitral valve stenosis. There is no evidence of mitral valve prolapse. TRICUSPID VALVE The tricuspid valve leaflets are thickened , but open well. There is mild tricuspid regurgitation.RVSP_33 mmof hg. There is no tricuspid valve stenosis. There is no tricuspid valve prolapse or vegetation. PULMONIC VALVE The pulmonary valve is normal in structure. There is trace to mild pulmonic valvular regurgitation. There is no pulmonic valvular stenosis. GREAT VESSELS The aortic root is normal in size. The ascending aorta is normal in size. The pulmonary artery is normal. The IVC is normal in size and collapses >50% with inspiration. PERICARDIAL EFFUSION There is no pleural effusion. There is no pericardial effusion. <Conclusion> The left ventricle is normal size. There is borderline concentric left ventricular hypertrophy. The systolic function is moderately to severely impaired.EF-25-30% There is mild to moderate aortic regurgitation. Mitral regurgitation is mild. There is mild tricuspid regurgitation.RVSP_33 mmof hg. There is trace to mild pulmonic valvular regurgitation. The IVC is normal in size and collapses >50% with inspiration. There is no pericardial effusion. No vegetation or thrombus noted.
[2018-12-17 16:03] VITALS: BP 120/77
[2018-12-17 17:30] VITALS: PULSE 70
--- NOTE | 2018-12-18 02:51 | CON ---
DATE: CONSULT SERVICE: Cardiology. REASON FOR CONSULTATION: Cardiac evaluation, possible syncope. BRIEF CLINICAL HISTORY: This is a 88-year-old female brought to the emergency room after she fell down. The patient is a very poor historian, possible dementia, unable to give any history, but in the chart, it is mentioned that the patient was walking down the street and got ahead. When looked back, found her to be on the floor. The patient unable to given any detailed history. PAST MEDICAL HISTORY: Significant for seizure disorder, history of CA breast with post mastectomy, hypertension, hypokalemia, history of hyponatremia, and dementia. Information obtained from the chart. Past history also significant for coronary artery disease status post non-ST segment myocardial infarction on 09/11/2016, hyperlipidemia. CURRENT MEDICATIONS: The patient at home was taking Keppra, Norvasc, and Aricept. ALLERGIES: ALLERGIC TO [employer]RUS DERIVATIVES. PREVIOUS CARDIAC WORKUP: As mentioned, the patient had [id number] myocardial infarction when the patient was admitted on 09/01/2016. The patient had last echo on 09/15/2016 - ejection fraction 30-35%, mild aortic stenosis, trace to mild mitral regurgitation, mild tricuspid regurgitation, right ventricular systolic pressure 34, admitted with unsteady gait in the past and near syncope, history of unsteady gait in the past. EKG showed normal sinus right bundle-branch block, left anterior hemiblock, no acute ST-T changes noted. REVIEW OF SYSTEMS: As per HPI. PHYSICAL EXAMINATION: GENERAL: Height of the patient 5 feet . Weight of the patient 120 pounds. Body mass index 22.7 kg/m2. VITAL SIGNS: Temperature, afebrile. Heart rate 88 and blood pressure 182/89. HEENT: PERRLA. Extraocular muscles intact. NECK: Supple. No carotid bruit. No thyromegaly. CHEST: Clear to auscultation. HEART: S1 and S2, regular. ABDOMEN: Soft. EXTREMITIES: Clubbing and cyanosis negative. LABORATORY DATA: WBC 6.8, hemoglobin 13.1, hematocrit 38.8, platelet count 229. Chemistry shows sodium 140, potassium 3.4, chloride 108, carbon dioxide 28, anion gap of 11, BUN 15, creatinine 0.5. Troponin remains 0.01, negative. IMPRESSION: An 88-year-old female with past medical history of dementia, hypertension, hyperlipidemia, history of [id number] myocardial infarction in 2017, medical treatment recommended because of underlying medical condition. The patient admitted with possible fall, rule out syncope. RECOMMENDATION: We will repeat echo to assess LV function. Last echo showed mild aortic stenosis dated 2017 also. We will check orthostatic hypotension, lipid profile, TSH, hemoglobin A1c. So far, no evidence of acute AR. We will follow with you. Further recommendation depending on the hospital course. Thank you Dr. Lea for providing us the opportunity in taking care of the patient. DD: DT: Job #
--- NOTE | 2018-12-20 09:49 | DS ---
HISTORY OF PRESENT ILLNESS: The patient is 88 years old, pleasantly confused. Sitting in chair. Seems to be comfortable. Eating and tolerating. When I asked why she came to the hospital, she said she came here to eat. The patient does not look in any distress. PHYSICAL EXAMINATION: VITAL SIGNS: She is afebrile. Pulse 80, respirations 19 and blood pressure 111/69. LUNGS: Bilateral fair airflow. No rhonchi or crackle. HEART: S1 and S2, audible. ABDOMEN: Soft and nontender. No rebound. No guarding. NEUROLOGIC: The patient is awake, alert and able to communicate. LABORATORY DATA: Chemistry; sodium 143, potassium 3.4, chloride 108, CO2 of 28, BUN 15, creatinine 0.5, blood sugar 88, cholesterol 230 and HDL is 91. Urine has no growth. ASSESSMENT: 1. Status post fall, probably unbalance gait. 2. Dementia. 3. Hypertension. 4. History of seizure disorder. 5. History of cancer breast. PLAN: The patient is clinically stable. Eating and tolerating. Her confusion is baseline. She will be discharged. She will resume her medication as prior to admission and that includes Aricept, aspirin, Keppra and amlodipine. Scottie Lea MD
== END 2018-12-17 20:49 | disposition home or self-care (01) ==
LOC: ED 15:41 → ERH 19:30 → 2RSO 22:15
PROVIDERS: ADMIT Internal Medicine; ATTEND Internal Medicine
DX: N39.0 Urinary tract infection, site not specified (principal); F03.90 Unspecified dementia, unspecified severity, without behavioral disturbance, psychotic disturbance, mood disturbance, and anxiety; G40.909 Epilepsy, unspecified, not intractable, without status epilepticus; I25.10 Atherosclerotic heart disease of native coronary artery without angina pectoris; I25.2 Old myocardial infarction; I10 Essential (primary) hypertension; I49.3 Ventricular premature depolarization; E78.5 Hyperlipidemia, unspecified; S60.221A Contusion of right hand, initial encounter; W19.XXXA Unspecified fall, initial encounter; Z85.3 Personal history of malignant neoplasm of breast; Z90.10 Acquired absence of unspecified breast and nipple
CPT/HCPCS: 36415; 70450; 71045; 73130; 80053; 80061; 81001; 82550; 83615; 83880; 84439; 84443; 84484; 85025; 85610; 85730; 87086; 90471; 90715; 93005; 93306; 96365; 99285; G0378; J0696

== ENCOUNTER 2018-12-23 11:04 | Emergency (ER) | payer MEDICARE, BC ==
[2018-12-23 11:05] VITALS: BMI 22.6
--- NOTE | 2018-12-23 11:24 | ED PDOC ---
Arrival/HPI - General Chief Complaint: Female Genitourinary Time Seen by Provider: 12/23/18 11:10 Historian: Patient - History of Present Illness Narrative History of Present Illness (Text): 12/23/18 11:24 88 year old F with pmh of hypertension and dementia presents via EMS complaining of suprapubic pain and abdominal distension for the last couple of days. Her son called EMS because patient was behaving more altered compared to baseline. Son also worried about return of UTI patient was diagnosed with at visit to ER last week. Ems noted patient was hypertensive during transport, /. Patient denies UTI hx, any dizziness, chest pain, shortness of breath, nausea, vomiting, or any other complaint. Time/Duration: Prior to Arrival Activities at Onset: Light Context: Home Past Medical History - Provider Review Nursing Documentation Reviewed: Yes - Infectious Disease Hx of Infectious Diseases: None - Tetanus Immunization Tetanus Immunization: Unknown - Reproductive Menopause: Yes - Cardiac Hx Cardiac Disorders: Yes (cad) Hx Angina: Yes Hx Congestive Heart Failure: Yes Hx Hypertension: Yes - Pulmonary Hx Respiratory Disorders: Yes Hx Pneumonia: Yes - Neurological Hx Neurological Disorder: Yes HX Cerebrovascular Accident: Yes Hx Dementia: Yes - HEENT Hx HEENT Disorder: Yes (wears glasses) - Renal Hx Renal Disorder: No - Endocrine/Metabolic Hx Endocrine Disorders: No - Hematological/Oncological Hx Blood Disorders: Yes Hx Anemia: Yes Hx Cancer: Yes (left breast ca mastectomy) Hx Chemotherapy: Yes (and radiation) - Integumentary Hx Dermatological Disorder: Yes Other/Comment: b/l feet hammertoes, long thick dry toenails, bunyons both feet, dark skin discolorations to left hindu - Musculoskeletal/Rheumatological Hx Musculoskeletal Disorders: Yes Hx Falls: Yes - Gastrointestinal Hx Gastrointestinal Disorders: Yes (CONSTIPATION) - Genitourinary/Gynecological Hx Genitourinary Disorders: Yes Hx Urinary Tract Infection: Yes - Psychiatric Hx Psychophysiologic Disorder: Yes Hx Anxiety: Yes Hx Depression: Yes Hx Substance Use: No - Surgical History Hx Hysterectomy: Yes Hx Mastectomy: Yes (left breast chemo&radiation) - Anesthesia Hx Anesthesia: Yes Hx Anesthesia Reactions: No Hx Malignant Hyperthermia: No - Suicidal Assessment Feels Threatened In Home Enviroment: No Family/Social History - Physician Review Nursing Documentation Reviewed: Yes Family/Social History: Unknown Family HX Smoking Status: Former Smoker Hx Alcohol Use: No Hx Substance Use: No Allergies/Home Meds Allergies/Adverse Reactions: Allergies [place] And Derivatives Allergy (Verified 12/23/18 11:09) ITCHING Review of Systems - Physician Review All systems were reviewed & negative as marked: Yes - Review of Systems Respiratory: absent: SOB, Cough Cardiovascular: absent: Chest Pain Gastrointestinal: Other (suprapubic pain). absent: Diarrhea, Nausea, Vomiting, Hematochezia, Hematemesis Genitourinary Female: absent: Hematuria Musculoskeletal: absent: Arthralgias Skin: absent: Laceration Neurological: absent: Dizziness Physical Exam Vital Signs Reviewed: Yes Temperature: Afebrile Blood Pressure: Hypertensive Pulse: Regular Respiratory Rate: Normal Appearance: Positive for: Well-Appearing, Non-Toxic, Comfortable Pain Distress: Mild Mental Status: Positive for: Alert and Oriented X 3 - Systems Exam Head: Present: Atraumatic, Normocephalic Pupils: Present: PERRL Extroacular Muscles: Present: EOMI Conjunctiva: Present: Normal Mouth: Present: Moist Mucous Membranes Neck: Present: Normal Range of Motion Respiratory/Chest: Present: Clear to Auscultation, Good Air Exchange. No: Respiratory Distress, Accessory Muscle Use Cardiovascular: Present: Regular Rate and Rhythm, Normal S1, S2. No: Murmurs Abdomen: Present: Distention, Other (suprapubic fullness). No: Tenderness, Peritoneal Signs Back: Present: Normal Inspection. No: CVA Tenderness Upper Extremity: Present: Normal Inspection. No: Cyanosis, Edema Lower Extremity: Present: Normal Inspection. No: Edema Neurological: Present: GCS=15, CN II-XII Intact, Speech Normal Skin: Present: Warm, Dry, Normal Color. No: Rashes Psychiatric: Present: Alert, Oriented x 3, Normal Insight, Normal Concentration Medical Decision Making ED Course and Treatment: 12/23/18 11:55 Impression: 88 year old F presents via EMS complaining of suprapubic pain and abdominal distension for the last couple of days Plan: -- Labs --Keflex -- Urinalysis -- Urine C&S -- Reassess and disposition Progress Notes: 12/23/18 11:59 Bedside bladder scan reveals 88mL of urine present within the bladder at this time. 12/23/18 14:13 Labs reviewed with patient noted to have many bacteria within the urine and trace esterases. Will treat for UTI. Patient made aware and will follow up with her PCP. Scripts given and opportunity for questions given and answered. She is stable for discharge. - Lab Interpretations Lab Results: 12/23/18 13:30 12/23/18 13:30 Lab Results 12/23/18 13:30: Sodium 145, Potassium 3.6, Chloride 107, Carbon Dioxide 27, Anion Gap 15, BUN 11, Creatinine 0.5 L, Est GFR ( Amer) > 60, Est GFR (Non-Af Amer) > 60, Random Glucose 91, Calcium 10.0, Total Bilirubin 0.4, AST 33, ALT 20, Alkaline Phosphatase 149 H D, Total Protein 9.6 H, Albumin 4.9 H, Gl obulin 4.7, Albumin/Globulin Ratio 1.0 L 12/23/18 13:30: WBC 7.7 D, RBC 4.78, Hgb 14.5, Hct 42.7, MCV 89.3, MCH 30.3, MCHC 34.0, RDW 13.3, Plt Count 245, MPV 9.7, Neut % (Auto) 60.9, Lymph % (Auto) 30.9, [place] % (Auto) 5.7, Eos % (Auto) 2.1, Baso % (Auto) 0.4, Lymph # (Auto) 2.4, [place] # (Auto) 0.4, Eos # (Auto) 0.2, Baso # (Auto) 0.03, Absolute Neuts (auto) 4.68 12/23/18 13:00: Urine Color Yellow, Urine Appearance Sl cloudy, Urine pH 6.5, Ur Specific [place] 1.020, Urine Protein Negative, Urine Glucose (UA) Negative, Urine Ketones Negative, Urine Blood Negative, Urine Nitrate Negative, Urine Bilirubin Negative, Urine Urobilinogen 0.2, Ur Leukocyte Esterase Small H, Urine RBC None, Urine WBC 10 - 15 H I have reviewed the lab results: Yes - Scribe Statement The provider has reviewed the documentation as recorded by the Roxanna Wheeler All medical record entries made by the Monaibtemi were at my direction and personally dictated by me. I have reviewed the chart and agree that the record accurately reflects my personal performance of the history, physical exam, medical decision making, and the department course for this patient. I have also personally directed, reviewed, and agree with the discharge instructions and disposition. Disposition/Present on Arrival - Present on Arrival Any Indicators Present on Arrival: No History of DVT/PE: No History of Uncontrolled Diabetes: No Urinary Catheter: No History of Decub. Ulcer: No History Surgical Site Infection Following: None - Disposition Have Diagnosis and Disposition been Completed?: Yes Diagnosis: UTI (urinary tract infection) Disposition: HOME/ ROUTINE Disposition Time: 14:16 Patient Plan: Discharge Condition: STABLE Discharge Instructions (ExitCare): Urinary Tract Infection, Adult (DC) Print Language: PERUVIAN Additional Instructions: All medical record entries made by the Scribe were at my direction and personally dictated by me. I have reviewed the chart and agree that the record accurately reflects my personal performance of the history, physical exam, medical decision making, and the department course for this patient. I have also personally directed, reviewed, and agree with the discharge instructions and disposition. Please follow up with your PCP in 1 week Please take your medications as prescribed. Prescriptions: Cephalexin [Keflex] 500 mg PO Q12 5 Days #10 capsule Referrals: Viry Bailey MD [Medical Doctor] - Follow up with primary [facility] at [facility] [Outside] - Follow up with primary Forms: [email or web address] ([place])
[2018-12-23 11:36] VITALS: RESP 18; TEMP 97.9
[2018-12-23 13:25] LABS: PH,URINE 6.5 (4.7-8.0); URINE BILIRUBIN NEGATIVE (NEGATIVE); URINE BLOOD NEGATIVE (NEGATIVE); URINE GLUCOSE (UA) NEGATIVE (NEGATIVE); URINE LEUKOCYTE ESTERASE SMALL Leu/uL (NEGATIVE); URINE PROTEIN NEGATIVE mg/dL (<30 mg/dL); URINE UROBILINOGEN 0.2 E.U./dL (<1 E.U./dL)
[2018-12-23 13:34] LABS: URINE COLOR YELLOW (YELLOW)
[2018-12-23 13:35] LABS: URINE APPEARANCE SL CLOUDY (CLEAR)
[2018-12-23 13:46] LABS: BASO # 0.03 K/mm3 (0.0-2.0); BASO % 0.4 % (0.0-3.0); EOS # 0.2 (0.0-0.7); EOS % 2.1 % (1.5-5.0); HEMOGLOBIN 14.5 g/dL (12.0-16.0); LYMPH # 2.4 (1.2-3.4); LYMPH % 30.9 % (22.0-35.0); MEAN CELL VOLUME 89.3 fl (80.0-105.0); MEAN CORPUSCULAR HEMOGLOBIN 30.3 pg (25.0-35.0); MEAN PLATELET VOLUME 9.7 fl (7.0-11.0); MONO # 0.4 (0.1-0.6); MONO % 5.7 % (1.0-6.0); RBC 4.78 10^6/uL (3.5-6.1); RED CELL DISTRIBUTION WIDTH 13.3 % (11.5-14.5); WHITE BLOOD COUNT 7.7 10^3/uL (4.5-11.0)
[2018-12-23 13:58] LABS: ALBUMIN 4.9 g/dL (3.0-4.8); ALT/SGPT 20 U/L (7-56); AST/SGOT 33 U/L (14-36); BLOOD UREA NITROGEN 11 mg/dL (7-21); GFR NON-AFRICAN AMERICAN > 60
[2018-12-23 19:57] VITALS: O2SAT 98
[2018-12-23 20:01] VITALS: BP 173/85; PULSE 74
--- NOTE | 2018-12-25 10:17 | ED PDOC ---
ED Additional Note - Physician Additional Note Physician Additional Note: Pt with + urine culture. Pt sent home on keflex, no sensitivity performed to cephalosporins, will need change in antibiotics. Unable to reach pt at listed numbers, message left to return call. Will need 2nd call per protocol.
--- NOTE | 2018-12-26 19:36 | ED PDOC ---
ED Additional Note - Physician Additional Note Physician Additional Note: 2nd call placed to patient; i spoke with family member; states patient is resting. They were advised to call the ER back to discuss lab results.
--- NOTE | 2018-12-27 09:53 | ED PDOC ---
ED Additional Note - Physician Additional Note Physician Additional Note: Certified Letter Sent regarding patient's positive urine culture
== END 2018-12-23 22:01 | disposition home or self-care (01) ==
LOC: ED 11:04
DX: N39.0 Urinary tract infection, site not specified (principal); Z87.891 Personal history of nicotine dependence; Z86.73 Personal history of transient ischemic attack (TIA), and cerebral infarction without residual deficits; I25.10 Atherosclerotic heart disease of native coronary artery without angina pectoris; I50.9 Heart failure, unspecified; I10 Essential (primary) hypertension; F03.90 Unspecified dementia, unspecified severity, without behavioral disturbance, psychotic disturbance, mood disturbance, and anxiety; Z85.3 Personal history of malignant neoplasm of breast